=== PATIENT | female | born 1955 | race Caucasian/White ===

== ENCOUNTER → 2016-10-22 | Outpatient (CLI) | payer OTHER, MEDICARE ==
--- NOTE | 2016-10-22 12:04 | CT ---
EXAMINATION TYPE: CT abdomen pelvis w con DATE OF EXAM: 10/22/2016 COMPARISON: 02/14/2015 HISTORY: 61-year-old female with Incisional hernia TECHNIQUE: Contiguous axial scanning of the abdomen and pelvis following administration of 100 ml Omn ipaque 300 IV contrast. Delayed images through the kidneys and coronal/sagittal reconstructions perf ormed. CT DLP: 436.50 mGycm Automated exposure control for dose reduction was used. FINDINGS: The heart is normal size without pericardial effusion. Lung bases clear without pleural effusion. No focal liver lesion or biliary ductal dilatation. Portal venous system is patent. Gallbladder, adrenal glands, kidneys, spleen, and pancreas show no gross abnormal body. Moderate atherosclerotic calcifications within the abdominal aorta and iliac arteries. No dilated small bowel, free fluid, or free air. No mesenteric or retroperitoneal lymphadenopathy seen. Oral contrast has progressed to the upper ascending colon. There is moderate stool and a left lower q uadrant sigmoid colostomy. There is some herniated mesenteric fat at the abdominal incision and some redundancy of the sigmoid just prior to the ostomy. Overall herniation measures 6.5 cm wide and appea rs relatively similar to 02/14/2015. There is a Donovan's pouch with collapsed bladder. No abnormal fluid collection identified in the pel vis though there is limitation in assessment due to extensive artifact from the patient's right total hip arthroplasty. There is some rectus diastases along the lower abdomen/anterior pelvis with some anterior bulging of the linea alba separation of the rectus abdominis by 4.4 cm, refer to axial image 61. This appearance is also similar to 2015. Bones: Degenerative changes at the left hip. No osseous destructive process. IMPRESSION: 1. STATUS POST LEFT LOWER QUADRANT SIGMOID COLOSTOMY. THERE IS A 6.5 CM WIDE PARASTOMAL HERNIA CONTAI KEILY MESENTERIC FAT AND VESSELS SIMILAR TO 2015. 2. MILD LOWER ABDOMINAL RECTUS DIASTASES BY 4.4 CM IN ANTERIOR BULGING OF THE LINEA ALBA ALSO SIMILAR TO 2015.
== END | disposition home or self-care (01) ==
LOC: RADCTMAIN 09:22
PROVIDERS: ATTEND Surgery
DX: K43.5 Parastomal hernia without obstruction or gangrene (principal); M62.08 Separation of muscle (nontraumatic), other site; Z98.890 Other specified postprocedural states
CPT/HCPCS: 74177; Q9967

== ENCOUNTER 2016-10-31 07:31 | Day surgery (SDC) | payer OTHER, MEDICARE ==
[2016-10-29 14:47] VITALS: BMI 24.5
[~2016-10-31 07:31] MED LIST: LACTATED RINGERS 1,000 ML IV SCH; LIDOCAINE 1% 20 ML VIAL (10MG/ML) FOR IV START INTRADERMA PRN
[2016-10-31 08:00] VITALS: RESP 18; TEMP 97.9
[2016-10-31] MEDS ORDERED: LIDOCAINE 1% INJ 10MG/ML (20 ML MDV) ONE (08:10)
[2016-10-31] MEDS ORDERED: PROPOFOL 10 MG/ML 20 ML VIAL IV ONE (08:10)
[2016-10-31 08:17] LABS: Glucose,Whole Blood 103 mg/dL (75-99)
--- NOTE | 2016-10-31 08:38 | P.OP ---
Date of Procedure: 10/31/16 Preoperative Diagnosis: History of sigmoid colectomy Postoperative Diagnosis: Normal colon IMpacted rhoades's pouch Procedure(s) Performed: Colonoscopy Implants: Anesthesia: MOY Surgeon: Juliet Ko Pathology: none sent Indications for Procedure: Operative Findings: Stump measured 15 cm from verge, limited by impacted mucous Normal colon Description of Procedure: This 59-year-old female was previously had a sigmoid colectomy. She is here for evaluation for possible reversal. She's not had a screening colonoscopy in the recent past for which she presented at this time. Informed THE PATIENT IN THE ENDOSCOPY SUITE AFTER APPROPRIATE TIMEOUT PATIENT WAS PLACED IN LEFT LATERAL DECUBITUS POSITION GIVEN IV SEDATION. DIGITAL EXAMINATION WAS PERFORMED AND IN SPITE OF EFFORTS AND IMPACTED MUCOUS WAS NOT REMOVED. THE [employer] COLONOSCOPE WAS ADVANCED UP TO 15 CM we advance any further. Stump is probably between 10-15 cm in length from the anal verge. The patient is an wasn't changed to supine and opening up the ostomy going through the ostomy bag and the colostomy site itself was advanced all the way up to the cecum. Position was obtained. Prep was fair. Scope was withdrawn and all mucosal services were inspected in detail there were no diverticula or polyps or masses or vascular malformations. Patient procedure well though no complication scope was removed after desufflated. Recommendations patient has a relatively low rectal stump which will require low rectal anastomosis. Plan - Discharge Summary New Discharge Prescriptions: No Action valACYclovir [Valtrex] 500 mg PO BID PRN PRN Reason: genital herpes Simvastatin [Zocor] 20 mg PO HS rOPINIRole HCL [Requip] 0.25 mg PO HS Omeprazole [PriLOSEC] 20 mg PO DAILY Fluticasone Propionate [Flonase] 2 sprays EA NOSTRIL DAILY Ibuprofen [Motrin] 800 mg PO TID PRN PRN Reason: Pain Alendronate Sodium [Fosamax] 70 mg PO TU Cyclobenzaprine [Flexeril] 10 mg PO BID lamoTRIgine [LaMICtal] 25 mg PO HS #30 tab traZODone HCL [Desyrel] 50 mg PO HS #30 tab Acyclovir [Zovirax] 1 applic TOPICAL DIRECTED PRN PRN Reason: gential herpes Albuterol Nebulized [Ventolin Nebulized] 2.5 mg INHALATION TID PRN PRN Reason: sob Albuterol Sulfate [Proair Respiclick] 2 puff PO Q4HR PRN PRN Reason: sob ARIPiprazole [Abilify] 5 mg PO DAILY Cholecalciferol [Vitamin D3] 2,000 unit PO DAILY cycloSPORINE 0.05% OPHTH SOLN [Restasis] 2 drops BOTH EYES Q12H Dextrose Chew [Glucose Chew Tab] 4 gm PO DIRECTED PRN PRN Reason: Blood Sugar - Low Docusate [Colace] 100 mg PO BID PRN PRN Reason: Constipation DULoxetine HCL [Cymbalta] 60 mg PO BID HYDROcodone/APAP 5-325MG [[place] 5-325] 1 each PO BID PRN PRN Reason: Pain hydrOXYzine HCL 25 mg PO BID Hyoscyamine Sulfate [Levsin] 0.125 mg PO DAILY Ipratropium [place] [Atrovent Hfa] 2 puff INHALATION Q6HR PRN PRN Reason: sob Irbesartan 300 mg PO DAILY Lac-Hydren 5% 1 applicate TOPICAL BID PRN PRN Reason: pain,itching Loratadine [Claritin] 10 mg PO DAILY Meclizine [Antivert] 25 mg PO Q8HR PRN PRN Reason: dizziness Methyl Salicylate/Menthol [Salonpas Patch] 1 patch TOPICAL DAILY PRN PRN Reason: Pain Metoprolol Succinate (ER) [Toprol Xl] 50 mg PO HS Roflumilast [Daliresp] 500 mcg PO HS Triamcinolone 0.1% Cream [Kenalog] 1 applicatio TOPICAL BID PRN PRN Reason: skin breakdown Discharge Medication List Fluticasone Propionate [Flonase] 2 sprays EA NOSTRIL DAILY 01/25/14 [History] Omeprazole [PriLOSEC] 20 mg PO DAILY 01/25/14 [History] Simvastatin [Zocor] 20 mg PO HS 01/25/14 [History] rOPINIRole HCL [Requip] 0.25 mg PO HS 01/25/14 [History] valACYclovir [Valtrex] 500 mg PO BID PRN 01/25/14 [History] Alendronate Sodium [Fosamax] 70 mg PO TU 07/07/14 [History] Cyclobenzaprine [Flexeril] 10 mg PO BID 07/07/14 [History] Ibuprofen [Motrin] 800 mg PO TID PRN 07/07/14 [History] lamoTRIgine [LaMICtal] 25 mg PO HS #30 tab 07/15/14 [Rx] traZODone HCL [Desyrel] 50 mg PO HS #30 tab 07/15/14 [Rx] ARIPiprazole [Abilify] 5 mg PO DAILY 10/29/16 [History] Acyclovir [Zovirax] 1 applic TOPICAL DIRECTED PRN 10/29/16 [History] Albuterol Nebulized [Ventolin Nebulized] 2.5 mg INHALATION TID PRN 10/29/16 [ History] Albuterol Sulfate [Proair Respiclick] 2 puff PO Q4HR PRN 10/29/16 [History] Cholecalciferol [Vitamin D3] 2,000 unit PO DAILY 10/29/16 [History] DULoxetine HCL [Cymbalta] 60 mg PO BID 10/29/16 [History] Dextrose Chew [Glucose Chew Tab] 4 gm PO DIRECTED PRN 10/29/16 [History] Docusate [Colace] 100 mg PO BID PRN 10/29/16 [History] HYDROcodone/APAP 5-325MG [[place] 5-325] 1 each PO BID PRN 10/29/16 [History] Hyoscyamine Sulfate [Levsin] 0.125 mg PO DAILY 10/29/16 [History] Ipratropium Bentley [Atrovent Hfa] 2 puff INHALATION Q6HR PRN 10/29/16 [History] Irbesartan 300 mg PO DAILY 10/29/16 [History] Lac-Hydren 5% 1 applicate TOPICAL BID PRN 10/29/16 [History] Loratadine [Claritin] 10 mg PO DAILY 10/29/16 [History] Meclizine [Antivert] 25 mg PO Q8HR PRN 10/29/16 [History] Methyl Salicylate/Menthol [Salonpas Patch] 1 patch TOPICAL DAILY PRN 10/29/16 [ History] Metoprolol Succinate (ER) [Toprol Xl] 50 mg PO HS 10/29/16 [History] Roflumilast [Daliresp] 500 mcg PO HS 10/29/16 [History] Triamcinolone 0.1% Cream [Kenalog] 1 applicatio TOPICAL BID PRN 10/29/16 [ History] cycloSPORINE 0.05% OPHTH SOLN [Restasis] 2 drops BOTH EYES Q12H 10/29/16 [ History] hydrOXYzine HCL 25 mg PO BID 10/29/16 [History]
[2016-10-31 09:09] VITALS: BP 137/73; PULSE 80
== END 2016-10-31 09:27 | disposition home or self-care (01) ==
LOC: ORWHC2ENDO 07:31
PROVIDERS: ATTEND Surgery
DX: K56.49 Other impaction of intestine (principal); Z93.3 Colostomy status; I10 Essential (primary) hypertension; E78.5 Hyperlipidemia, unspecified; F17.200 Nicotine dependence, unspecified, uncomplicated; B58.9 Toxoplasmosis, unspecified; F32.9 Major depressive disorder, single episode, unspecified; F41.1 Generalized anxiety disorder; G25.81 Restless legs syndrome; G89.4 Chronic pain syndrome; J44.9 Chronic obstructive pulmonary disease, unspecified; K58.9 Irritable bowel syndrome, unspecified; K21.9 Gastro-esophageal reflux disease without esophagitis; Z79.891 Long term (current) use of opiate analgesic; Z79.51 Long term (current) use of inhaled steroids; Z79.899 Other long term (current) drug therapy; Z88.5 Allergy status to narcotic agent; Z88.0 Allergy status to penicillin
CPT/HCPCS: 44388; J2001; J2704; 45378

== ENCOUNTER → 2016-11-29 | Outpatient (CLI) | payer MEDICARE, OTHER ==
--- NOTE | 2016-11-29 09:55 | CT ---
CT CHEST FOR PULMONARY EMBOLISM. EXAMINATION TYPE: CT angio chest DATE OF EXAM: 11/29/2016 INDICATION: back pain, SOB CT DLP: 198.7 mGycm, Automated exposure control for dose reduction was used. CONTRAST: Patient injected with 65 mL of Omnipaque 350. COMPARISON: NONE TECHNIQUE: CT of the chest is performed on a spiral scan at 2 mm thick sections. Study is performed with intravenous contrast timed for evaluation for pulmonary embolism. This will limit additional po rtions of the evaluation. 3-D MIP images reconstructed by the technologist are reviewed on the compu ter in the coronal and sagittal planes. FINDINGS: No persistent filling defects are evident to suggest an acute pulmonary embolism. No mediastinal or hilar adenopathy enlarged by CT criteria is evident. The ascending aorta diameter at the level of the main pulmonary artery is 3.4 cm. The main pulmonary artery diameter at the bifur cation is 2.9 cm. Vascular calcification is within the descending thoracic aorta. There is a calcified granuloma measuring 0.5 cm posterior right midlung. Series 5 image 65. Emphysema tous changes are evident. Some mild peribronchial thickening may be present centrally. Limited CT section through the upper abdomen are unremarkable. IMPRESSIONS: 1. No acute pulmonary embolism.
== END | disposition home or self-care (01) ==
LOC: RADCTMAIN 08:59
PROVIDERS: ATTEND Family Medicine
DX: R06.02 Shortness of breath (principal)
CPT/HCPCS: 71275; Q9967

== ENCOUNTER → 2017-04-24 | Outpatient (CLI) | payer OTHER, MEDICARE ==
[2017-04-24 11:36] LABS: Blood Urea Nitrogen 13 mg/dL (7-17)
--- NOTE | 2017-04-24 13:56 | MR ---
EXAMINATION TYPE: MR weiner wo/w con DATE OF EXAM: 04/24/2017 COMPARISON: NONE HISTORY: Cervicalgia, Pain in thoracic spine TECHNIQUE: T1 sagittal and coronal, T2 sagittal, and gradient echo axial views of the cervical spine are submitted. Contrast: 6.5 mL Gadavist FINDINGS: The cranial cervical junction is preserved. There is no abnormal signal seen within the sp inal cord or paraspinal soft tissues. At C2-3 there is degenerative disc disease with posterior disc protrusion capped by spur resulting in severe compression of the thecal sac and canal stenosis. Severe bilateral foraminal encroachment gre ater on the left with facet arthropathy. Could not exclude early spinal cord abnormal signal alterati on. At C3-4 there is severe degenerative disc disease with facet arthropathy and uncovertebral joint hype rtrophy. Posterior spondylosis results in moderate compression of the thecal sac and borderline canal stenosis. There is moderate to severe right foraminal encroachment and moderate left foraminal encro achment. At C4-5 there is generative disc disease with posterior spondylosis, facet arthropathy and and uncove rtebral joint hypertrophy result in borderline to mild canal stenosis and moderate to severe bilatera l foraminal encroachment. At C5-6 there is degenerative disc disease with diffuse disc bulging and posterior spondylosis. Facet arthropathy and uncovertebral joint hypertrophy noted greater on the left resulting in moderate left foraminal encroachment and mild right foraminal encroachment. At C6-7 there is right paracentral disc protrusion or small herniation with mild effacement of thecal sac. No spinal cord contact. Neural foramina patent. At C7-T1 there is no disc herniation or canal stenosis. No foraminal encroachment. IMPRESSION: 1. Severe canal stenosis C2-C3 due to posterior disc protrusion capped by spur and cervical spondylo sis with bilateral foraminal encroachment. Abnormal signal within the spinal cord cannot be excluded due to the severe compression. 2. Multilevel degenerative disc disease, facet arthropathy and uncovertebral joint hypertrophy result in multilevel canal stenosis and foraminal encroachment as discussed above. 3. Right paracentral disc protrusion or small herniation C6-C7 with effacement of thecal sac but no s estrella cord contact. Neural foramina remain patent. EXAMINATION TYPE: MR keane wo/w con DATE OF EXAM: 04/24/2017 COMPARISON: NONE HISTORY: Cervicalgia, Pain in thoracic spine CONTRAST: Standard multiplanar, multisequence MRI departmental protocol utilizing 6.5 mL intravenous Gadavist g adolinium contrast. FINDINGS: There is multilevel degenerative disc disease with moderate to severe changes involving the mid and l ower thoracic spine. There is a chronic appearing severe anterior wedge fracture of C7. At C7-T1 no disc herniation or canal stenosis. Neural foramina patent. At T1-T2 minimal right paracentral disc bulging no Canal stenosis or foraminal encroachment. At T2-T3 no disc herniation or canal stenosis. No foraminal encroachment. At T3-T4 is mild circumferential disc bulging but no canal stenosis or foraminal encroachment. At T4-T5 no disc herniation, canal stenosis, or foraminal encroachment At T5-T6 is no disc herniation or canal stenosis. No foraminal encroachment. At T6-T7 there is left paracentral disc bulging. Severe anterior wedge fracture of T7 noted. No Canal stenosis. Neural foramina patent. T7-T8 there is right paracentral disc bulging and severe chronic appearing anterior wedge fracture of T7. No Canal stenosis. Neural foramina patent. At T8-T9 there is left paracentral disc bulging. No canal stenosis or foraminal encroachment. At T9-T10 no disc herniation or canal stenosis. No foraminal encroachment. At T10-T11 there is no disc herniation or canal stenosis. No foraminal encroachment. At T11-T12 no disc herniation or canal stenosis. No foraminal encroachment. There are multilevel Schmorl's nodes. No abnormal signal seen in the visualized spinal cord. Following contrast administration there is no significant alteration in signal characteristics within the compression fracture compatible with chronic T7 compression wedge fracture anteriorly. IMPRESSION: 1. Chronic anterior severe wedge fracture T7 with minimal retropulsion. Disc bulging at T6-T7 and T7- T8 are seen with mild effacement of thecal sac but no canal stenosis or foraminal encroachment. 2. Multilevel moderate to severe degenerative disc disease with most marked findings involving the mi d thoracic level. 3. Multilevel disc bulging but no canal stenosis or foraminal encroachment.
== END | disposition home or self-care (01) ==
LOC: RADMRIMAIN 10:52
PROVIDERS: ATTEND Physical Medicine & Rehabilitation
DX: M48.02 Spinal stenosis, cervical region (principal); M50.21 Other cervical disc displacement, high cervical region; M50.31 Other cervical disc degeneration, high cervical region; M47.812 Spondylosis without myelopathy or radiculopathy, cervical region; M46.92 Unspecified inflammatory spondylopathy, cervical region; M51.24 Other intervertebral disc displacement, thoracic region; M51.34 Other intervertebral disc degeneration, thoracic region
CPT/HCPCS: 82565; 84520; 72156; 72157; 36415; A9581

== ENCOUNTER → 2017-06-07 | Outpatient (CLI) | payer OTHER, MEDICARE ==
--- NOTE | 2017-06-08 19:55 | MR ---
EXAMINATION TYPE: MR pelvis wo con DATE OF EXAM: 06/07/2017 COMPARISON: NONE HISTORY: Bilateral hip pain Multiplanar, multisequence images of the pelvis were acquired per standard department protocol. FINDINGS: There is a right femoral arthroplasty creating susceptibility artifact in obscuring visuali zation of the right hemipelvis. There is mild atrophy of the peripheral gluteus gilson and gluteus m edius on the right. Otherwise muscle volume is unremarkable. There is a small left hip joint effusion. There is labral degeneration. Discrete tear is identified a lthough would be better evaluated with small [id number] MR hip images. Moderate degenerative black e of the femoral acetabular joint are demonstrated as acetabular and femoral subchondral cysts and sm all marginal osteophytes as well as cephalad joint space narrowing with slight bone marrow edema of t he acetabular roof. A focal linear area of T2 and T1 hypointensity is centered at the area of acetabu lar bone marrow edema seen on PD coronal fat-sat image 12 and T1 coronal nonfat sat image 12 concerni ng for fracture. No femoral bone marrow edema or fracture line is identified. Sacroiliac joints appear symmetric without widening. Mild multilevel degenerative change of the lumbo sacral spine is noted. Small amount of free fluid is seen within the pelvis. Left lower quadrant osto my is partially visualized. IMPRESSION: 1. Focal area of bone marrow edema of the medial acetabular wall with linear T1/T2 hypointense signal concerning for small nondisplaced fracture. This could be further evaluated with CT. 2. Moderate left hip arthropathy and small left hip effusion with labral degeneration. 3. Right hip arthroplasty and minimal right gluteus minimus and gilson peripheral atrophy.
== END | disposition home or self-care (01) ==
LOC: RADMRIMAIN 12:39
PROVIDERS: ATTEND Orthopaedic Surgery
DX: M25.452 Effusion, left hip (principal); M62.58 Muscle wasting and atrophy, not elsewhere classified, other site; Z96.643 Presence of artificial hip joint, bilateral
CPT/HCPCS: 72195

== ENCOUNTER → 2017-09-06 | Outpatient (CLI) | payer OTHER, MEDICARE ==
--- NOTE | 2017-09-06 15:38 | XR ---
EXAMINATION TYPE: XR KUB DATE OF EXAM: 09/06/2017 2:39 PM CLINICAL HISTORY: Constipation left flank pain for one week TECHNIQUE: Single supine KUB image of the abdomen is obtained. COMPARISON: None. FINDINGS: Moderate amount retained left hemicolonic stool is seen in a nondilated colon. Stool is als o noted within the low pelvis. Paucity of bowel gas in the right upper quadrant is present. No dilate d large or small bowel loops. Right femoral arthroplasty is seen with moderate degenerative changes o f the left femoral acetabular joint and mild S-shaped scoliosis. IMPRESSION: Moderate amount retained descending colonic and distal sigmoid stool in nondilated bowel. Overall nonobstructive bowel gas pattern.
== END | disposition home or self-care (01) ==
LOC: RADXRMAIN 14:12
PROVIDERS: ATTEND Family Medicine
DX: K59.00 Constipation, unspecified (principal); R10.9 Unspecified abdominal pain
CPT/HCPCS: 74018

== ENCOUNTER → 2018-01-20 | Outpatient (CLI) | payer OTHER, MEDICARE ==
[2018-01-20 16:24] LABS: Potassium 4.8 mmol/L (3.5-5.1)
== END | disposition home or self-care (01) ==
LOC: LABWHC1 14:43
PROVIDERS: ATTEND Orthopaedic Surgery
DX: Z01.812 Encounter for preprocedural laboratory examination (principal); E87.1 Hypo-osmolality and hyponatremia
CPT/HCPCS: 36415; 80051; 86850; 86900; 86901; 87070

== ENCOUNTER → 2018-02-13 | Outpatient (CLI) | payer OTHER, MEDICARE ==
[2018-02-13 18:42] LABS: Anion Gap 6.5 mmol/L (4.00-12.00); Calcium 9.2 mg/dL (8.7-10.3); Carbon Dioxide 25.5 mmol/L (21.6-31.8); Potassium 4.4 mmol/L (3.5-5.5); Uric Acid 2.9 mg/dL (2.9-7.7)
== END | disposition home or self-care (01) ==
LOC: LABWHC1 14:25
PROVIDERS: ATTEND Family Medicine
DX: E87.1 Hypo-osmolality and hyponatremia (principal)
CPT/HCPCS: 36415; 80048; 84550

== ENCOUNTER → 2018-03-02 | Outpatient (CLI) | payer OTHER, MEDICARE ==
[2018-03-02 11:24] LABS: T4, Free (Free Thyroxine) 1.04 ng/dL (0.78-2.19)
== END ==
LOC: LABWHC1 10:04
PROVIDERS: ATTEND Internal Medicine Endocrinology, Diabetes & Metabolism
DX: E87.1 Hypo-osmolality and hyponatremia (principal)
CPT/HCPCS: 36415; 82024; 82533; 84439; 84443

== ENCOUNTER → 2018-04-04 | Outpatient (CLI) | payer OTHER, MEDICARE ==
[2018-04-04 23:14] LABS: Albumin 4.3 g/dL (3.80-4.90); Albumin/Globulin Ratio 2.39 (1.20-2.10); Anion Gap 7.7 mmol/L (4.00-12.00); Calcium 8.9 mg/dL (8.7-10.3); Carbon Dioxide 26.3 mmol/L (21.6-31.8); Globulin 1.8 g/dL (1.6-3.3); Potassium 4.5 mmol/L (3.5-5.5); Total Bilirubin 0.4 mg/dL (0.3-1.2); Total Protein 6.1 g/dL (6.2-8.2)
[2018-04-04 23:18] LABS: T4, Free (Free Thyroxine) 1.2 ng/dL (0.80-1.80)
[2018-04-06 08:52] LABS: ACTH <5.00 pg/mL (0.00-45.99)
== END | disposition home or self-care (01) ==
LOC: LABWHC1 11:27
PROVIDERS: ATTEND Internal Medicine Endocrinology, Diabetes & Metabolism
DX: E87.1 Hypo-osmolality and hyponatremia (principal)
CPT/HCPCS: 36415; 80053; 82024; 83930; 83935; 84146; 84300; 84439; 84443

== ENCOUNTER → 2018-05-07 | Outpatient (CLI) | payer OTHER, MEDICARE ==
--- NOTE | 2018-05-08 07:15 | XR ---
EXAMINATION TYPE: XR chest 2V DATE OF EXAM: 05/07/2018 COMPARISON: 07/07/2014 HISTORY: Shortness of breath TECHNIQUE: Frontal and lateral views of the chest are obtained. FINDINGS: Scattered senescent parenchymal changes noted. Hyperinflation compatible with COPD. No evidence for infiltrate. No evidence for atelectasis. Heart size is stable. Mediastinal structures are stable and grossly unremarkable. No evidence for hilar prominence. Degenerative changes dorsal spine. IMPRESSION: 1. No evidence for acute pulmonary disease.
== END | disposition home or self-care (01) ==
LOC: RADXRMAIN 16:50
PROVIDERS: ATTEND Family Medicine
DX: R09.89 Other specified symptoms and signs involving the circulatory and respiratory systems (principal)
CPT/HCPCS: 71046

== ENCOUNTER 2019-06-24 13:46 | Observation (INO) | payer MEDICARE, OTHER ==
[2019-06-24] MEDS ORDERED: ASPIRIN 81 MG PO STA (14:34)
[2019-06-24] MEDS ORDERED: NITROGLYCERIN OINT 1 INCH/GM PACKET TOPICAL STA (14:35)
[2019-06-24] MEDS ORDERED: IPRATROPIUM-ALBUTEROL 3 ML NEB INHALATION STA (14:50)
--- NOTE | 2019-06-24 14:54 | ED ---
General Adult HPI - General Chief complaint: Chest Pain Stated complaint: Abn EKG Time Seen by Provider: 06/24/19 14:29 Source: patient Mode of arrival: wheelchair Limitations: no limitations - History of Present Illness Initial comments: Patient is a pleasant 64-year-old female presenting to the emergency department with cough and difficulty breathing. Symptoms have been occurring for several weeks. Patient has been on antibiotics twice. Patient was recently admitted and discharged with pneumonia from [facility]. No fevers. Mami ent does have some mild chest discomfort that is a dull ache. Discomfort does improve with sitting up. Patient also has some back discomfort however that is only with cough. Patient does have chest congestion and mild cough. Cough is nonproductive. Patient has noticed some mild ankle swelling, no calf pain. She does have history of pericarditis. - Related Data Home Medications Medication Instructions Recorded Confirmed Fluticasone Propionate [Flonase] 2 sprays EA NOSTRIL DAILY 01/25/14 01/26/18 Simvastatin [Zocor] 20 mg PO HS 01/25/14 01/26/18 rOPINIRole HCL [Requip] 0.25 mg PO HS 01/25/14 01/26/18 valACYclovir [Valtrex] 500 mg PO BID PRN 01/25/14 01/26/18 Cyclobenzaprine [Flexeril] 10 mg PO BID 07/07/14 01/26/18 Ibuprofen [Motrin] 800 mg PO BID 07/07/14 01/26/18 ARIPiprazole [Abilify] 5 mg PO DAILY 10/29/16 01/26/18 Acyclovir [Zovirax] 1 applic TOPICAL DIRECTED PRN 10/29/16 01/26/18 Albuterol Nebulized [Ventolin 2.5 mg INHALATION TID PRN 10/29/16 01/26/18 Nebulized] Albuterol Sulfate [Proair 2 puff PO Q4HR PRN 10/29/16 01/26/18 Respiclick] Cholecalciferol [Vitamin D3] 1,000 unit PO DAILY 10/29/16 01/26/18 DULoxetine HCL [Cymbalta] 60 mg PO BID 10/29/16 01/26/18 Dextrose Chew [Glucose Chew Tab] 4 gm PO DIRECTED PRN 10/29/16 01/26/18 Docusate [Colace] 100 mg PO BID PRN 10/29/16 01/26/18 Irbesartan 300 mg PO DAILY 10/29/16 01/26/18 Lac-Hydren 5% 1 applicate TOPICAL BID PRN 10/29/16 01/26/18 Loratadine [Claritin] 10 mg PO DAILY 10/29/16 01/26/18 Meclizine [Antivert] 25 mg PO Q6H PRN 10/29/16 01/26/18 Methyl Salicylate/Menthol 1 patch TOPICAL DAILY PRN 10/29/16 01/26/18 [Salonpas Patch] Metoprolol Succinate (ER) [Toprol 50 mg PO HS 10/29/16 01/26/18 Xl] Triamcinolone 0.1% Cream [Kenalog 1 applicatio TOPICAL BID PRN 10/29/16 01/26/18 0.1% Cream] cycloSPORINE 0.05% OPHTH SOLN 2 drops BOTH EYES Q12H 10/29/16 01/26/18 [Restasis] Alendronate Sodium [Fosamax] 70 mg PO TU 01/20/18 01/26/18 HYDROcodone/APAP 7.5-325MG [Wagner 1 tab PO Q4-6H PRN 01/20/18 01/26/18 7.5-325] Hyoscyamine Sulfate [Levsin] 0.125 mg PO Q6H 01/20/18 01/26/18 Ipratropium Avant [Atrovent Hfa] 2 puff INHALATION QID PRN 01/20/18 01/26/18 Mirabegron [Myrbetriq] 50 mg PO DAILY 01/20/18 01/26/18 Naloxegol Oxalate [Movantik] 25 mg PO DAILY 01/20/18 01/26/18 Ranitidine HCl [Zantac] 150 mg PO BID 01/20/18 01/26/18 Roflumilast [Daliresp] 500 mcg PO DAILY 01/20/18 01/26/18 Umeclidinium Brm/Vilanterol Tr 1 puff INHALATION DAILY 01/20/18 01/26/18 [Anoro Ellipta 62.5-25 Mcg INH] hydrOXYzine PAMOATE [Vistaril] 25 mg PO BID 01/20/18 01/26/18 lamoTRIgine [LaMICtal] 2 tab PO HS 01/20/18 01/26/18 Previous Rx's Medication Instructions Recorded traZODone HCL [Desyrel] 50 mg PO HS #30 tab 07/15/14 Allergies Allergy/AdvReac Type Severity Reaction Status Date / Time meperidine HCl [From Demerol] Allergy Severe Swelling Verified 06/24/19 13:58 erythromycin base Allergy Abdominal Verified 06/24/19 13:58 Pain Penicillins Allergy Rash/Hives Verified 06/24/19 13:58 Review of Systems ROS Statement: Those systems with pertinent positive or pertinent negative responses have been documented in the HPI. ROS Other: All systems not noted in ROS Statement are negative. 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, restless legs, varicose veins, poor circulation, asthmatic bronchitis, hx prolapsed rectum, bruises on chetan arms, bruise left hand, stress incontinence, hx cervical cancer, hypoglycemia History of Any Multi-Drug Resistant Organisms: None Reported Past Surgical History: Bowel Resection, Hysterectomy, Joint Replacement, Tonsillectomy, Tubal Ligation Additional Past Surgical History / Comment(s): colostomy, rt hip replacement Past Anesthesia/Blood Transfusion Reactions: Previous Problems w/ Anesthesia, Postoperative Nausea & Vomiting (PONV) Additional Past Anesthesia/Blood Transfusion Reaction / Comment(s): BP "bottomed out" with colonoscopy Past Psychological History: Anxiety, Depression Smoking Status: Current every day smoker Past Alcohol Use History: Occasional Past Drug Use History: None Reported - Past Family History Mother Family Medical History: Cancer Additional Family Medical History / Comment(s): colon Father Family Medical History: Coronary Artery Disease (CAD) Additional Family Medical History / Comment(s): CABG Brother(s) Family Medical History: Coronary Artery Disease (CAD) Additional Family Medical History / Comment(s): CABG General Exam Limitations: no limitations General appearance: alert, in no apparent distress Head exam: Present: normocephalic Eye exam: Present: normal appearance, PERRL ENT exam: Present: normal oropharynx Neck exam: Present: normal inspection Respiratory exam: Present: wheezes Cardiovascular Exam: Present: regular rate, normal rhythm Expanded Peripheral pulses: 2+: Radial (R), Radial (L), Dorsalis Pedis (R), Dorsalis Pedis (L) GI/Abdominal exam: Present: soft. Absent: tenderness Extremities exam: Present: pedal edema (Trace bilateral). Absent: calf tenderness Back exam: Present: normal inspection Neurological exam: Present: alert Psychiatric exam: Present: normal affect, normal mood Skin exam: Present: normal color Course Vital Signs 06/24/19 06/24/19 06/24/19 13:58 15:00 15:30 Temperature 99.1 F Pulse Rate 97 87 90 Respiratory 18 20 Rate Blood Pressure 110/75 126/86 O2 Sat by Pulse 98 94 L Oximetry 06/24/19 15:42 Temperature Pulse Rate 98 Respiratory Rate Blood Pressure O2 Sat by Pulse Oximetry - Reevaluation(s) Reevaluation #1: 06/24/19 14:53 Patient has to previous EKGs with her that she states are from week ago with similar findings. 06/24/19 15:36 Case was earlier discussed with Dr. Irwin who agrees with echo and will consult. EKG Findings - EKG Comments: EKG Findings:: EKG reads rate at 190 however rate is probably closer to 85. IL 146. QRS 166. QT 162. QTC to 88. Normal axis. Nonspecific intraventricular block. Borderline septal Q waves. Appearance of ST elevation inferior and lateral. Medical Decision Making - Medical Decision Making Patient reevaluated and resting comfortably in bed. Case also discussed with Dr. Ordonez, who will admit covered for Dr. Stewart. Patient was earlier seen by Dr. kathy blanchard who will evaluate echo. - Lab Data Result diagrams: 06/24/19 14:50 06/24/19 14:50 Lab Results 06/24/19 06/24/19 06/24/19 Range/Units 14:50 14:50 14:50 WBC 14.6 H (3.8-10.6) k/uL RBC 3.84 (3.80-5.40) m/uL Hgb 13.0 (11.4-16.0) gm/dL Hct 39.4 (34.0-46.0) % MCV 102.7 H (80.0-100.0) fL MCH 33.9 (25.0-35.0) pg MCHC 33.0 (31.0-37.0) g/dL RDW 12.7 (11.5-15.5) % Plt Count 490 H (150-450) k/uL Neutrophils % 91 % Lymphocytes % 6 % Monocytes % 2 % Eosinophils % 1 % Basophils % 0 % Neutrophils # 13.3 H (1.3-7.7) k/uL Lymphocytes # 0.9 L (1.0-4.8) k/uL Monocytes # 0.2 (0-1.0) k/uL Eosinophils # 0.1 (0-0.7) k/uL Basophils # 0.0 (0-0.2) k/uL Macrocytosis Slight PT 9.3 (9.0-12.0) sec INR 0.9 (<1.2) APTT 21.3 L (22.0-30.0) sec D-Dimer 0.56 (<0.60) mg/L FEU Sodium 130 L (137-145) mmol/L Potassium 5.2 H (3.5-5.1) mmol/L Chloride 98 (98-107) mmol/L Carbon Dioxide 27 (22-30) mmol/L Anion Gap 5 mmol/L BUN 21 H (7-17) mg/dL Creatinine 0.59 (0.52-1.04) mg/dL Est GFR (CKD-EPI)AfAm >90 (>60 ml/min/1.73 sqM) Est GFR (CKD-EPI)NonAf >90 (>60 ml/min/1.73 sqM) Glucose 97 (74-99) mg/dL Calcium 9.2 (8.4-10.2) mg/dL Magnesium 2.0 (1.6-2.3) mg/dL Total Bilirubin 0.3 (0.2-1.3) mg/dL AST 25 (14-36) U/L ALT 23 (4-34) U/L Alkaline Phosphatase 49 (38-126) U/L Creatine Kinase 61 (30-135) U/L CK-MB (CK-2) (0.0-2.4) ng/mL Troponin I (0.000-0.034) ng/mL NT-Pro-B Natriuret Pep pg/mL Total Protein 6.2 L (6.3-8.2) g/dL Albumin 3.9 (3.5-5.0) g/dL 06/24/19 06/24/19 Range/Units 14:50 14:50 WBC (3.8-10.6) k/uL RBC (3.80-5.40) m/uL Hgb (11.4-16.0) gm/dL Hct (34.0-46.0) % MCV (80.0-100.0) fL MCH (25.0-35.0) pg MCHC (31.0-37.0) g/dL RDW (11.5-15.5) % Plt Count (150-450) k/uL Neutrophils % % Lymphocytes % % Monocytes % % Eosinophils % % Basophils % % Neutrophils # (1.3-7.7) k/uL Lymphocytes # (1.0-4.8) k/uL Monocytes # (0-1.0) k/uL Eosinophils # (0-0.7) k/uL Basophils # (0-0.2) k/uL Macrocytosis PT (9.0-12.0) sec INR (<1.2) APTT (22.0-30.0) sec D-Dimer (<0.60) mg/L FEU Sodium (137-145) mmol/L Potassium (3.5-5.1) mmol/L Chloride (98-107) mmol/L Carbon Dioxide (22-30) mmol/L Anion Gap mmol/L BUN (7-17) mg/dL Creatinine (0.52-1.04) mg/dL Est GFR (CKD-EPI)AfAm (>60 ml/min/1.73 sqM) Est GFR (CKD-EPI)NonAf (>60 ml/min/1.73 sqM) Glucose (74-99) mg/dL Calcium (8.4-10.2) mg/dL Magnesium (1.6-2.3) mg/dL Total Bilirubin (0.2-1.3) mg/dL AST (14-36) U/L ALT (4-34) U/L Alkaline Phosphatase (38-126) U/L Creatine Kinase (30-135) U/L CK-MB (CK-2) 1.5 (0.0-2.4) ng/mL Troponin I <0.012 (0.000-0.034) ng/mL NT-Pro-B Natriuret Pep 159 pg/mL Total Protein (6.3-8.2) g/dL Albumin (3.5-5.0) g/dL - Radiology Data Radiology results: image reviewed (Chest x-ray shows no acute process) Disposition Clinical Impression: Acute exacerbation of chronic obstructive airways disease, Chest pain Disposition: ADMITTED IP TO THIS HOSP Is patient prescribed a controlled substance at d/c from ED?: No Referrals: Jase Stewart DO [Primary Care Provider] - 1-2 days Decision Time: 16:20
[2019-06-24 15:17] LABS: Basophils % (A) 0 %; Eosinophils # (A) 0.1 k/uL (0-0.7); Eosinophils % (A) 1 %; HCT 39.4 % (34.0-46.0); Lymphocytes # (A) 0.9 k/uL (1.0-4.8); Lymphocytes % (A) 6 %; MCH 33.9 pg (25.0-35.0); MCV 102.7 fL (80.0-100.0); Macrocytosis Slight; Mean Platelet Volume 6.9; Monocytes # (A) 0.2 k/uL (0-1.0); Monocytes % (A) 2 %; Neutrophils # (A) 13.3 k/uL (1.3-7.7); Neutrophils % (A) 91 %; Platelet Count 490 k/uL (150-450); RBC 3.84 m/uL (3.80-5.40); RDW 12.7 % (11.5-15.5); WBC 14.6 k/uL (3.8-10.6)
--- NOTE | 2019-06-24 15:31 | XR ---
EXAMINATION TYPE: XR chest 2V DATE OF EXAM: 06/24/2019 COMPARISON: 05/07/2018 HISTORY: Chest pain TECHNIQUE: Frontal and lateral views of the chest are obtained. FINDINGS: There is no focal air space opacity, pleural effusion, or pneumothorax seen. Eventration o f the right hemidiaphragm is seen. The cardiac silhouette size is within normal limits. Exaggerated thoracic kyphosis and diffuse osseous demineralization with mid thoracic vertebral compression defor mity. Mild multilevel degenerative change of the spine. IMPRESSION: Chronic changes with no acute cardiopulmonary process.
[2019-06-24 15:33] LABS: ALT 23 U/L (4-34); AST 25 U/L (14-36); African American GFR (CKD) >90 (>60 ml/min/1.73 sqM); Albumin 3.9 g/dL (3.5-5.0); Alkaline Phosphatase 49 U/L (38-126); Anion Gap 5 mmol/L; Blood Urea Nitrogen 21 mg/dL (7-17); Calcium 9.2 mg/dL (8.4-10.2); Carbon Dioxide 27 mmol/L (22-30); Chloride 98 mmol/L (98-107); Creatine Kinase 61 U/L (30-135); Glucose 97 mg/dL (74-99); Non-African American GFR(CKD) >90 (>60 ml/min/1.73 sqM); Potassium 5.2 mmol/L (3.5-5.1); Sodium 130 mmol/L (137-145); Total Bilirubin 0.3 mg/dL (0.2-1.3); Total Protein 6.2 g/dL (6.3-8.2)
[2019-06-24 15:39] LABS: D-Dimer 0.56 mg/L FEU (<0.60); INR 0.9 (<1.2); Prothrombin Time 9.3 sec (9.0-12.0)
[2019-06-24 15:41] LABS: Partial Thromboplastin Time 21.3 sec (22.0-30.0)
[2019-06-24 15:55] LABS: Creatine Kinase MB 1.5 ng/mL (0.0-2.4); Troponin I <0.012 ng/mL (0.000-0.034)
[2019-06-24] MEDS ORDERED: NITROGLYCERIN SL TABS 0.4 MG TAB SUBLINGUAL PRN (16:28)
[2019-06-24] MEDS ORDERED: IPRATROPIUM-ALBUTEROL 3 ML NEB INHALATION PRN (16:28)
[2019-06-24] MEDS ORDERED: methylPREDNISolone SOD SUCCI 125 MG/2 ML VIAL IV STA (16:28)
[2019-06-24] MEDS ORDERED: MORPHINE SULFATE 4 MG/ML SYRINGE IV STA (16:33)
--- NOTE | 2019-06-24 17:36 | ECHOF ---
Referral Reason:cp, dyspnea, ekg changes MEASUREMENTS -------- HEIGHT: 157.5 cm WEIGHT: 73.9 kg BP: 126/86 RVIDd: 2.5 cm (< 3.3) IVSd: 1.2 cm (0.6 - 1.1) LVIDd: 2.7 cm (3.9 - 5.3) LVPWd: 1.5 cm (0.6 - 1.1) IVSs: 2.2 cm LVIDs: 1.6 cm LVPWs: 1.9 cm LAESV Index (A-L): 23.54 ml/m Ao Diam: 3.2 cm (2.0 - 3.7) AV Cusp: 1.9 cm (1.5 - 2.6) MV E Riaz: 0.87 m/s MV DecT: 144 ms MV A Riaz: 1.00 m/s MV E/A Ratio: 0.87 RAP: 5.00 mmHg RVSP: 30.10 mmHg FINDINGS -------- Sinus rhythm. This was a technically difficult study with suboptimal parasternal views. The left ventricular size is normal. There is mild concentric left ventricular hypertrophy. Overa ll left ventricular systolic function is normal with, an EF between 55 - 60 %. The diastolic fillin g pattern is normal for the age of the patient 15.23. The right ventricle is normal in size. Normal LA size by volume 22+/-6 ml/m2. The right atrial size is normal. Interatrial and interventricular septum intact. The aortic valve was not well visualized. There is no evidence of aortic regurgitation. There is no evidence of aortic stenosis. There is trace mitral regurgitation. Mild tricuspid regurgitation present. There is no evidence of pulmonary hypertension. The right v entricular systolic pressure, as measured by Doppler, is 30.10mmHg. There is no pulmonic regurgitation present. The aortic root size is normal. IVC Not well visulized. There is no pericardial effusion. CONCLUSIONS -------- 1. Sinus rhythm. 2. This was a technically difficult study with suboptimal parasternal views. 3. The left ventricular size is normal. 4. There is mild concentric left ventricular hypertrophy. 5. Overall left ventricular systolic function is normal with, an EF between 55 - 60 %. 6. The diastolic filling pattern is normal for the age of the patient 15.23 7. The right ventricle is normal in size. 8. Normal LA size by volume 22+/-6 ml/m2. 9. The right atrial size is normal. 10. Interatrial and interventricular septum intact. 11. The aortic valve was not well visualized. 12. There is no evidence of aortic regurgitation. 13. There is no evidence of aortic stenosis. 14. There is trace mitral regurgitation. 15. Mild tricuspid regurgitation present. 16. There is no evidence of pulmonary hypertension. 17. The right ventricular systolic pressure, as measured by Doppler, is 30.10mmHg. 18. There is no pulmonic regurgitation present. 19. The aortic root size is normal. 20. IVC Not well visulized. 21. There is no pericardial effusion. GIFT WRAPPER: Catrachita Boothe RDCS
[2019-06-24] MEDS: NITROGLYCERIN OINT 1 INCH/GM PACKET TOPICAL SCH (18:44)
[2019-06-24] MEDS: IPRATROPIUM-ALBUTEROL 3 ML NEB INHALATION SCH (19:20)
[2019-06-24] MEDS: HYDROcodone/APAP 7.5-325MG 1 EACH TAB PO PRN (22:06)
[2019-06-24] MEDS ORDERED: HYOSCYAMINE SULFATE 0.125 MG TAB PO PRN (22:21)
[2019-06-24] MEDS ORDERED: MENTHOL TOPICAL PRN (22:21)
[2019-06-24] MEDS ORDERED: MECLIZINE 25 MG TAB PO PRN (22:21)
[2019-06-24] MEDS ORDERED: valACYclovir 500 MG TAB PO PRN (22:21)
[2019-06-24] MEDS ORDERED: METHYL SALICYLATE TOPICAL PRN (22:21)
[2019-06-24] MEDS ORDERED: ALBUTEROL NEBULIZED 2.5 MG/3 ML INHALATION PRN (22:21)
[2019-06-24] MEDS ORDERED: [UNRECOGNIZED DRUG - OTHER] TOPICAL PRN (22:21)
[2019-06-24] MEDS ORDERED: hydrOXYzine HCL 25 MG TAB PO PRN (22:21)
[2019-06-24] MEDS ORDERED: CYCLOBENZAPRINE 10 MG TAB PO PRN (22:21)
[2019-06-24] MEDS ORDERED: ACYCLOVIR TOPICAL PRN (22:21)
[2019-06-24] MEDS ORDERED: DOCUSATE 100 MG CAP PO PRN (22:21)
[2019-06-24] MEDS ORDERED: HYDROCORTISONE 10 MG TAB PO SCH (22:30)
[2019-06-24] MEDS ORDERED: traZODone HCL 50 MG TAB PO SCH (22:30)
[2019-06-24] MEDS ORDERED: ATORVASTATIN 10 MG TAB PO SCH (22:30)
--- NOTE | 2019-06-24 23:20 | CONS ---
CONSULTATION Mrs. Rachel is a 64-year-old female with known history of chronic obstructive lung disease with chronic tobacco use, who was recently discharged from [facility] with pneumonia. She has been having chest discomfort, worse with deep breathing and coughing. The patient denies any prior knowledge of cardiac history. She was seen by Dr. Stewart and she had an EKG that showed ST segment changes that were noted in the past consistent with early repolarization changes. The patient is not active physically and she relates that to her arthritic pain. She denies any exertional chest pain. She has peripheral edema that was noted in the past. She denies any dizziness or palpitation. She has no clear PND or orthopnea. She denies any recent cardiac workup. Her coronary risk factors are remarkable for the history of chronic tobacco use although she is starting to use her Chantix with the hope in stopping. She has no history of diabetes. She has a history of hypertension. MEDICATIONS: Include Fosamax, Ventolin, Abilify, Flexeril, Cymbalta, Flonase, ( ), metoprolol succinate 50 mg daily, ( ), Lamictal, Requip. REVIEW OF SYSTEMS: RESPIRATORY SYSTEM: She has history of chronic obstructive lung disease and chronic cough. She has a history of recent lung infection and pneumonia. GI SYSTEM: No recent GI bleeding. No peptic ulcer disease. SYSTEM: No dysuria or hematuria. NERVOUS SYSTEM: No history of stroke or seizure. PHYSICAL EXAMINATION: 64-year-old female, appears older than stated age. Blood pressure 126/80 with a heart in the 80s. HEAD: Normocephalic. EYES: Sclerae anicteric. NECK: Good upstroke. No bruit. No jugular venous distention. Skin with ecchymosis noted. LUNGS: With decreased air exchange, no wheezes. HEART: Regular rhythm S1, S2. No S3. No rub or gallop appreciated. ABDOMEN: Soft, nontender. Positive bowel sounds. No megaly. EXTREMITIES: No edema. Intact pulses. LAB DATA: Lab data revealed hemoglobin of 13, white blood cell 14.6. BUN and creatinine of 21 and 0.59. Potassium 5.2. NT proBNP of 159. EKG revealed a sinus mechanism with early repolarization changes and poor R-wave progression. Compared to an old EKG there are no acute changes. Chest x-ray revealed chronic changes. IMPRESSION: 1. Chest discomfort atypical for ischemic heart disease, probably noncardiac. 2. Chronic obstructive lung disease with recent pulmonary infection. 3. Chronic tobacco use. 4. Hypertension. 5. Anxiety. RECOMMENDATION: From the cardiac standpoint, I will continue on the present treatment for pulmonary status. I will obtain an echocardiogram with Doppler to evaluate left ventricular systolic function. I do not see any evidence of active cardiac disease at this time. Depending on results of testing, further recommendation will be made. Thank you for this consult. We will follow with you. MMODL / IJN: [id number] /
[2019-06-25] MEDS ORDERED: ALBUTEROL NEBULIZED 2.5 MG/3 ML INHALATION SCH
[2019-06-25 00:46] VITALS: RESP 16
[2019-06-25] MEDS: methylPREDNISolone SOD SUCCI 125 MG/2 ML VIAL IV SCH ×3 (00:50→12:58)
[2019-06-25] MEDS: NITROGLYCERIN OINT 1 INCH/GM PACKET TOPICAL SCH ×4 (00:51→16:50)
[2019-06-25] MEDS: cycloSPORINE 0.05% OPHTH 0.4 ML DROPERETTE BOTH EYES SCH ×2 (00:51→08:49)
[2019-06-25 03:33] LABS: Cholesterol 209 mg/dL (<200); HDL Cholesterol 92 mg/dL (40-60); LDL Cholesterol,Calculated 103 mg/dL (0-99); Triglycerides 72 mg/dL (<150)
[2019-06-25] MEDS: HYDROcodone/APAP 7.5-325MG 1 EACH TAB PO PRN ×2 (05:03→13:26)
[2019-06-25] MEDS ORDERED: FORMOTEROL FUMARATE 20 MCG/2 ML NEBU INHALATION SCH (08:00)
[2019-06-25] MEDS ORDERED: BUDESONIDE 0.5 MG/2 ML NEBU INHALATION SCH (08:00)
[2019-06-25] MEDS: IPRATROPIUM-ALBUTEROL 3 ML NEB INHALATION SCH ×3 (08:55→16:54)
[2019-06-25] MEDS: IPRATROPIUM 0.5 MG/2.5 ML NEBU INHALATION SCH ×3 (08:59→16:55)
[2019-06-25] MEDS ORDERED: DULoxetine HCL 60 MG CAPSULE.DR PO SCH (09:00)
[2019-06-25] MEDS ORDERED: Roflumilast [Daliresp] 500 MCG PO SCH (09:00)
[2019-06-25] MEDS ORDERED: LORATADINE 10 MG TAB PO SCH (09:00)
[2019-06-25] MEDS ORDERED: FLUTICASONE 50MCG/SPRAY NASAL 16GM EA NOSTRIL SCH (09:00)
[2019-06-25] MEDS ORDERED: METOPROLOL SUCCINATE (ER) 25 MG TAB.ER.24H PO SCH (09:00)
[2019-06-25] MEDS ORDERED: FERROUS SULFATE 142 MG PO SCH (09:00)
[2019-06-25] MEDS ORDERED: CHOLECALCIFEROL 1,000 UNIT TAB PO SCH (09:00)
[2019-06-25] MEDS ORDERED: PANTOPRAZOLE 40 MG TABLET PO SCH (09:00)
[2019-06-25] MEDS ORDERED: NON FORMULARY DRUG (Omeprazole [Omeprazole] 20 MG) PO SCH (09:00)
[2019-06-25] MEDS ORDERED: ASPIRIN 325 MG TAB PO SCH (09:00)
[2019-06-25] MEDS ORDERED: ARIPiprazole 10 MG TAB PO SCH (09:00)
[2019-06-25] MEDS ORDERED: POLYETHYLENE GLYCOL 3350 17 GM POWD.PACK PO SCH (09:00)
[2019-06-25] MEDS ORDERED: VARENICLINE 0.5 MG TAB PO SCH (10:00)
[2019-06-25 13:42] VITALS: TEMP 98.3
--- NOTE | 2019-06-25 16:11 | P.PN ---
Subjective Progress Note Date: 06/25/19 This is a pleasant 64-year-old female with a known history of COPD with chronic tobacco use who was recently discharged from [facility] with pneumonia. She been having chest discomfort that is worse with deep breathing and coughing. She has no prior knowledge of cardiac history. She was seen by Dr. Stewart in the office in about an EKG that showed some ST segment changes consistent with early repolarization changes. On examination, patient is resting completely embedded. Overall she feels well. She's had no further complaints of chest discomfort. She's had no exertional chest pain. She's has peripheral edema that has been noted in the past. She has no complaint of dizziness or palpitations, no orthopnea and no PND. Echocardiogram with Doppler study was done which revealed normal LV systolic function with an ejection fraction between 55-60%, trace MR and mild TR with no evidence of pulmonary hypertension. Troponins were negative 3. Objective - Vital Signs Vital signs: Vital Signs Temp 98.3 F 06/25/19 12:00 Pulse 92 06/25/19 12:18 Resp 16 06/25/19 12:00 BP 128/79 06/25/19 12:00 Pulse Ox 97 06/25/19 12:00 Intake & Output 06/24/19 06/25/19 06/25/19 18:59 06:59 18:59 Intake Total 450 Balance 450 Weight 73.936 kg 71.8 kg Intake: Oral 450 Other: Voiding Method Toilet Toilet # Voids 2 2 - Exam PHYSICAL EXAMINATION: HEENT: Head is atraumatic, normocephalic. Pupils equal, round. Neck is supple. There is no elevated jugular venous pressure. HEART EXAMINATION: Heart sounds regular, S1 and S2 normal. No murmur or gallop heard. CHEST EXAMINATION: Lungs reveal diminished air entry bilaterally. No chest wall tenderness is noted on palpation or with deep breathing. ABDOMEN: Soft, nontender. Bowel sounds are heard. No organomegaly noted. EXTREMITIES: 2+ peripheral pulses with no evidence of peripheral edema and no calf tenderness noted. NEUROLOGIC patient is awake, alert and oriented x3. . - Labs CBC & Chem 7: 06/24/19 14:50 06/24/19 14:50 Labs: Abnormal Lab Results - Last 24 Hours (Table) 06/25/19 Range/Units 02:36 Cholesterol 209 H (<200) mg/dL LDL Cholesterol, Calc 103 H (0-99) mg/dL HDL Cholesterol 92 H (40-60) mg/dL Assessment and Plan Assessment: #1 chest discomfort, atypical for ischemic heart disease, probably noncardiac #2 COPD with recent pulmonary infection #3 chronic tobacco use #4 hypertension #5 anxiety Plan: From cardiology perspective, echocardiogram with Doppler showed normal cardiac structure and function with minimal valvular abnormality. From our standpoint patient may be discharged home and follow-up as an outpatient. ETHYLBENZENE OXIDIZER note has been reviewed, I agree with a documented findings and plan of care. Patient was seen and examined.
--- NOTE | 2019-06-25 16:21 | P.HPIM ---
History of Present Illness H&P Date: 06/25/19 Chief Complaint: Cough sharp pain History of presenting complaint: This is a very pleasant 64-year-old patient of Dr. Madhuri Stewart. 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 Patient has continued to smoke for over 50 years. Still smoking 7-10 cigarettes a day. Patient was recently up to [facility]. Patient presented to some bouts of coughing and she gets a pain on the right per the chest especially with deep breaths or when she coughs. No fever or chills. Appetite is good. No chills. Also wheezing. Because of the sharp pain on the right side, does use also consulted. Review of systems: GEN.: None EYES: None HEENT: None NECK: None RESPIRATORY: As above CARDIOVASCULAR: No precordial pain GASTROINTESTINAL: None GENITOURINARY: None MUSCULOSKELETAL: [Joint pains LYMPHATICS: None HEMATOLOGICAL: None PSYCHIATRY: None NEUROLOGICAL: None Past medical history: COPD, GERD, hyperlipidemia, hypertension, osteoarthritis, colostomy, osteoporo sis, 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 Restless leg syndrome, varicose veins, prolapsed rectum, urinary stress incontinence, cervical cancer, adrenal insufficiency, anxiety depression Social history: Patient smoked for over 50 years. The down to less than half a pack a day for last few days. Alcohol occasionally. Does not medical marijuana. Has had a problem with alcohol in the past. Physical examination: VITAL SIGNS: 99.1, 97, 18, blood pressure 110/75, 98% on room air GENERAL: BMI 29, sitting up at the edge of bed a bit tired. EYES: Pupils equal. Conjunctiva normal. HEENT: External appearance of nose and ears normal, oral cavity grossly normal. NECK: JVD not raised; masses not palpable. HEART: First and second heart sounds are normal; no edema. LUNGS: Respiratory rate increased, decreased breaths on some prolonged expiration. ABDOMEN: Soft, nontender, liver spleen not palpable, no masses palpable. PSYCH: Alert and oriented x3; mood and affect normal. MUSCULAR skeletal: Evidence of OA especially in the hands NEUROLOGICAL: Cranial nerves grossly intact; no facial asymmetry, power and sensation grossly intact. LYMPHATICS: No lymph nodes palpable in the axilla and neck INVESTIGATIONS, reviewed in the clinical context: White count 14.6 hemoglobin 13 potassium 5.2 creatinine 0.59 Troponin I less than 0.0123 EKG tracing personally reviewed by me-sinus rhythm Checks x-ray film personally reviewed by me suggests chronic changes Assessment: -Acute COPD exacerbation and the patient was currently does smoke -Acute pleurisy likely from viral infection. Pain is present only with deep breaths or coughing. On the right side. -GERD -Hyperlipidemia -Essential hypertension -Primary osteoarthritis -Chronic urinary stress incontinence -Chronic adrenal insufficiency Plan: Collagen was consulted. Home medications. Patient's blood bronchodilators and steroids. Patient doing well with that overnight. Without bacterial infection was given a short course. Patient reaching to go home later today. Consult cardiology. Smoke cessation counseling: This was done with the patient. Nicotine patch is being given. More than 3 minutes was spent for this Past Medical History Past Medical History: Cancer, COPD, Eye Disorder, GERD/Reflux, Hyperlipidemia, Hypertension, Osteoarthritis (OA), Pneumonia Additional Past Medical History / Comment(s): colostomy, osteoporosis, histoplasmosis and toxoplasmosis, blind in left eye from histoplasmosis, restless legs, varicose veins, poor circulation, asthmatic bronchitis, hx prolapsed rectum, bruises on chetan arms, bruise left hand, stress incontinence, hx cervical cancer, hypoglycemia, adrenal insufficency History of Any Multi-Drug Resistant Organisms: None Reported Past Surgical History: Bowel Resection, Hysterectomy, Joint Replacement, Tonsillectomy, Tubal Ligation Additional Past Surgical History / Comment(s): colostomy, rt hip replacement Past Anesthesia/Blood Transfusion Reactions: Previous Problems w/ Anesthesia, Postoperative Nausea & Vomiting (PONV) Additional Past Anesthesia/Blood Transfusion Reaction / Comment(s): BP "bottomed out" with colonoscopy Past Psychological History: Anxiety, Depression Smoking Status: Current every day smoker Past Alcohol Use History: Occasional Additional Past Alcohol Use History / Comment(s): 1/2-1 PPD, has smoked since age 13 Past Drug Use History: None Reported Additional Drug Use History / Comment(s): medical marijuana - Past Family History Mother Family Medical History: Cancer Additional Family Medical History / Comment(s): colon Father Family Medical History: Coronary Artery Disease (CAD) Additional Family Medical History / Comment(s): CABG Brother(s) Family Medical History: Coronary Artery Disease (CAD) Additional Family Medical History / Comment(s): CABG Medications and Allergies Home Medications Medication Instructions Recorded Confirmed Type Fluticasone Propionate [Flonase] 2 sprays EA NOSTRIL DAILY 01/25/14 06/24/19 History Simvastatin [Zocor] 20 mg PO HS 01/25/14 06/24/19 History rOPINIRole HCL [Requip] 0.25 mg PO HS 01/25/14 06/24/19 History valACYclovir [Valtrex] 500 mg PO BID PRN 01/25/14 06/24/19 History Cyclobenzaprine [Flexeril] 10 mg PO BID PRN 07/07/14 06/24/19 History Acyclovir [Zovirax] 1 applic TOPICAL 5XD PRN 10/29/16 06/24/19 History Albuterol Nebulized [Ventolin 2.5 mg INHALATION RT-TID PRN 10/29/16 06/24/19 History Nebulized] Albuterol Sulfate [Proair 2 puff PO RT-Q4H 10/29/16 06/24/19 History Respiclick] Cholecalciferol [Vitamin D3] 3,000 unit PO DAILY 10/29/16 06/24/19 History DULoxetine HCL [Cymbalta] 60 mg PO BID 10/29/16 06/24/19 History Docusate [Colace] 200 mg PO DAILY PRN 10/29/16 06/24/19 History Lac-Hydren 5% 1 applicate TOPICAL DAILY PRN 10/29/16 06/24/19 History Loratadine [Claritin] 10 mg PO DAILY 10/29/16 06/24/19 History Meclizine [Antivert] 25 mg PO Q6H PRN 10/29/16 06/24/19 History Methyl Salicylate/Menthol 1 patch TOPICAL DAILY PRN 10/29/16 06/24/19 History [Salonpas Patch] cycloSPORINE 0.05% OPHTH SOLN 2 drops BOTH EYES Q12H 10/29/16 06/24/19 History [Restasis] Alendronate Sodium [Fosamax] 70 mg PO TU 01/20/18 06/24/19 History HYDROcodone/APAP 7.5-325MG [[place] 1 tab PO Q6H PRN 01/20/18 06/24/19 History 7.5-325] Hyoscyamine Sulfate [Levsin] 0.125 mg PO Q6H PRN 01/20/18 06/24/19 History Roflumilast [Daliresp] 500 mcg PO DAILY 01/20/18 06/24/19 History Umeclidinium Brm/Vilanterol Tr 1 puff INHALATION RT-DAILY 01/20/18 06/24/19 History [Anoro Ellipta 62.5-25 Mcg INH] ARIPiprazole [Abilify] 10 mg PO DAILY 06/24/19 06/24/19 History Budesonide [Pulmicort] 0.5 mg INHALATION RT-BID 06/24/19 06/24/19 History Ferrous Sulfate [Slow Fe] 142 mg PO DAILY 06/24/19 06/24/19 History Hydrocortisone 15 mg PO DIRECTED 06/24/19 06/24/19 History Metoprolol Succinate [Toprol XL] 25 mg PO DAILY 06/24/19 06/24/19 History Omeprazole 20 mg PO DAILY 06/24/19 06/24/19 History Pantoprazole [Protonix] 40 mg PO DAILY 06/24/19 06/24/19 History Polyethylene Glycol 3350 [Miralax] 17 gm PO DAILY 06/24/19 06/24/19 History Varenicline [Chantix Starter Pack] 0.5 mg PO DIRECTED 06/24/19 06/24/19 History hydrOXYzine HCL 25 mg PO TID PRN 06/24/19 06/24/19 History predniSONE See Taper PO DAILY 06/24/19 06/24/19 History traZODone HCL [Desyrel] 50 mg PO HS 06/24/19 06/24/19 History Allergies Allergy/AdvReac Type Severity Reaction Status Date / Time meperidine HCl [From Demerol] Allergy Severe Swelling Verified 06/24/19 19:10 erythromycin base Allergy Abdominal Verified 06/24/19 19:10 Pain Penicillins Allergy Rash/Hives Verified 06/24/19 19:10 Physical Exam Vitals: Vital Signs Temp Pulse Pulse Resp BP BP Pulse Ox 06/25/19 09:20 92 06/25/19 09:11 88 06/25/19 09:10 88 06/25/19 09:05 97.8 F 87 16 124/68 96 06/25/19 08:59 88 06/25/19 04:02 69 16 06/25/19 00:34 98.1 F 69 16 116/69 96 06/24/19 23:10 98.1 F 86 20 140/76 95 06/24/19 20:19 98.7 F 87 20 143/85 96 06/24/19 19:38 85 06/24/19 19:21 84 06/24/19 17:30 86 18 108/80 92 L 06/24/19 15:42 98 06/24/19 15:30 90 06/24/19 15:00 87 20 126/86 94 L 06/24/19 13:58 99.1 F 97 18 110/75 98 Intake and Output 06/24/19 06/25/19 06/25/19 22:59 06:59 14:59 Other: Voiding Method Toilet Toilet # Voids 2 Weight 71.8 kg Results CBC & Chem 7: 06/24/19 14:50 06/24/19 14:50 Labs: Abnormal Lab Results - Last 24 Hours (Table) 06/24/19 06/24/19 06/24/19 Range/Units 14:50 14:50 14:50 WBC 14.6 H (3.8-10.6) k/uL MCV 102.7 H (80.0-100.0) fL Plt Count 490 H (150-450) k/uL Neutrophils # 13.3 H (1.3-7.7) k/uL Lymphocytes # 0.9 L (1.0-4.8) k/uL APTT 21.3 L (22.0-30.0) sec Sodium 130 L (137-145) mmol/L Potassium 5.2 H (3.5-5.1) mmol/L BUN 21 H (7-17) mg/dL Total Protein 6.2 L (6.3-8.2) g/dL Cholesterol (<200) mg/dL LDL Cholesterol, Calc (0-99) mg/dL HDL Cholesterol (40-60) mg/dL 06/25/19 Range/Units 02:36 WBC (3.8-10.6) k/uL MCV (80.0-100.0) fL Plt Count (150-450) k/uL Neutrophils # (1.3-7.7) k/uL Lymphocytes # (1.0-4.8) k/uL APTT (22.0-30.0) sec Sodium (137-145) mmol/L Potassium (3.5-5.1) mmol/L BUN (7-17) mg/dL Total Protein (6.3-8.2) g/dL Cholesterol 209 H (<200) mg/dL LDL Cholesterol, Calc 103 H (0-99) mg/dL HDL Cholesterol 92 H (40-60) mg/dL Thrombosis Risk Factor Assmnt - Choose All That Apply Each Risk Factor Represents 2 Points: Age 61-74 years Thrombosis Risk Factor Assessment Total Risk Factor Score: 2 Thrombosis Risk Factor Assessment Level: Low Risk
[2019-06-25] MEDS ORDERED: predniSONE 20 MG TAB PO STA (16:27)
[2019-06-25 17:37] VITALS: BP 132/83; PULSE 83
--- NOTE | 2019-06-25 20:48 | P.CNPUL ---
History of Present Illness Consult date: 06/25/19 Reason for consult: dyspnea, cough, COPD Chief complaint: Chest pain or shortness of breath History of present illness: This is a 64-year-old female well-known to me he has end-stage lung disease also problems and complications associated with systemic histoplasmosis patient to has episode of chest pain she went to PMD's office where she was noted to have some ST segment changes sent to Hospital for further evaluation patient has been seen by cardiologists currently she is pain-free her echocardiogram reveals normal ejection fraction of 55-60% no pulmonary hypertension is present troponin 3 is normal patient the feeling is stable in terms of respirator point and is being considered for discharge will follow-up as outpatient Review of Systems All systems: negative Past Medical History Past Medical History: Cancer, COPD, Eye Disorder, GERD/Reflux, Hyperlipidemia, Hypertension, Osteoarthritis (OA), Pneumonia Additional Past Medical History / Comment(s): colostomy, osteoporosis, histoplasmosis and toxoplasmosis, blind in left eye from histoplasmosis, restless legs, varicose veins, poor circulation, asthmatic bronchitis, hx prolapsed rectum, bruises on chetan arms, bruise left hand, stress incontinence, hx cervical cancer, hypoglycemia, adrenal insufficency History of Any Multi-Drug Resistant Organisms: None Reported Past Surgical History: Bowel Resection, Hysterectomy, Joint Replacement, Tonsillectomy, Tubal Ligation Additional Past Surgical History / Comment(s): colostomy, rt hip replacement Past Anesthesia/Blood Transfusion Reactions: Previous Problems w/ Anesthesia, Postoperative Nausea & Vomiting (PONV) Additional Past Anesthesia/Blood Transfusion Reaction / Comment(s): BP "bottomed out" with colonoscopy Past Psychological History: Anxiety, Depression Smoking Status: Current every day smoker Past Alcohol Use History: Occasional Additional Past Alcohol Use History / Comment(s): 1/2-1 PPD, has smoked since age 13 Past Drug Use History: None Reported Additional Drug Use History / Comment(s): medical marijuana - Past Family History Mother Family Medical History: Cancer Additional Family Medical History / Comment(s): colon Father Family Medical History: Coronary Artery Disease (CAD) Additional Family Medical History / Comment(s): CABG Brother(s) Family Medical History: Coronary Artery Disease (CAD) Additional Family Medical History / Comment(s): CABG Medications and Allergies Home Medications Medication Instructions Recorded Confirmed Type Fluticasone Propionate [Flonase] 2 sprays EA NOSTRIL DAILY 01/25/14 06/24/19 History Simvastatin [Zocor] 20 mg PO HS 01/25/14 06/24/19 History rOPINIRole HCL [Requip] 0.25 mg PO HS 01/25/14 06/24/19 History valACYclovir [Valtrex] 500 mg PO BID PRN 01/25/14 06/24/19 History Cyclobenzaprine [Flexeril] 10 mg PO BID PRN 07/07/14 06/24/19 History Acyclovir [Zovirax] 1 applic TOPICAL 5XD PRN 10/29/16 06/24/19 History Albuterol Nebulized [Ventolin 2.5 mg INHALATION RT-TID PRN 10/29/16 06/24/19 History Nebulized] Albuterol Sulfate [Proair 2 puff PO RT-Q4H 10/29/16 06/24/19 History Respiclick] Cholecalciferol [Vitamin D3 (25 3,000 unit PO DAILY 10/29/16 06/24/19 History Mcg = 1000 Iu)] DULoxetine HCL [Cymbalta] 60 mg PO BID 10/29/16 06/24/19 History Lac-Hydren 5% 1 applicate TOPICAL DAILY PRN 10/29/16 06/24/19 History Loratadine [Claritin] 10 mg PO DAILY 10/29/16 06/24/19 History Meclizine [Antivert] 25 mg PO Q6H PRN 10/29/16 06/24/19 History Methyl Salicylate/Menthol 1 patch TOPICAL DAILY PRN 10/29/16 06/24/19 History [Salonpas Patch] cycloSPORINE 0.05% OPHTH SOLN 2 drops BOTH EYES Q12H 10/29/16 06/24/19 History [Restasis] Alendronate Sodium [Fosamax] 70 mg PO TU 01/20/18 06/24/19 History HYDROcodone/APAP 7.5-325MG [[place] 1 tab PO Q6H PRN 01/20/18 06/24/19 History 7.5-325] Hyoscyamine Sulfate [Levsin] 0.125 mg PO Q6H PRN 01/20/18 06/24/19 History Roflumilast [Daliresp] 500 mcg PO DAILY 01/20/18 06/24/19 History Umeclidinium Brm/Vilanterol Tr 1 puff INHALATION RT-DAILY 01/20/18 06/24/19 History [Anoro Ellipta 62.5-25 Mcg INH] ARIPiprazole [Abilify] 10 mg PO DAILY 06/24/19 06/24/19 History Budesonide [Pulmicort] 0.5 mg INHALATION RT-BID 06/24/19 06/24/19 History Ferrous Sulfate [Slow Fe] 142 mg PO DAILY 06/24/19 06/24/19 History Hydrocortisone 15 mg PO DIRECTED 06/24/19 06/24/19 History Metoprolol Succinate [Toprol XL] 25 mg PO DAILY 06/24/19 06/24/19 History Omeprazole 20 mg PO DAILY 06/24/19 06/24/19 History Pantoprazole [Protonix] 40 mg PO DAILY 06/24/19 06/24/19 History Polyethylene Glycol 3350 [Miralax] 17 gm PO DAILY 06/24/19 06/24/19 History Varenicline [Chantix Starter Pack] 0.5 mg PO DIRECTED 06/24/19 06/24/19 History hydrOXYzine HCL 25 mg PO TID PRN 06/24/19 06/24/19 History predniSONE See Taper PO DAILY 06/24/19 06/24/19 History traZODone HCL [Desyrel] 50 mg PO HS 06/24/19 06/24/19 History Doxycycline [Vibramycin] 100 mg PO BID 3 Days #6 capsule 06/25/19 Rx Ipratropium-Albuterol Nebulize 3 ml INHALATION TID #90 ml 06/25/19 Rx [Duoneb 0.5 mg-3 mg/3 ml Soln] predniSONE 10 mg PO DAILY #30 tab 06/25/19 Rx Allergies Allergy/AdvReac Type Severity Reaction Status Date / Time meperidine HCl [From Demerol] Allergy Severe Swelling Verified 06/24/19 19:10 erythromycin base Allergy Abdominal Verified 06/24/19 19:10 Pain Penicillins Allergy Rash/Hives Verified 06/24/19 19:10 Physical Exam Vitals: Vital Signs Temp Pulse Pulse Resp BP BP Pulse Ox 06/25/19 17:10 90 06/25/19 16:57 88 06/25/19 16:00 98.3 F 83 16 132/83 98 06/25/19 12:18 92 06/25/19 12:10 88 06/25/19 12:00 98.3 F 95 16 128/79 97 06/25/19 09:20 92 06/25/19 09:11 88 06/25/19 09:10 88 06/25/19 09:05 97.8 F 87 16 124/68 96 06/25/19 08:59 88 06/25/19 04:02 69 16 06/25/19 00:34 98.1 F 69 16 116/69 96 06/24/19 23:10 98.1 F 86 20 140/76 95 Intake and Output 06/25/19 06/25/19 06/25/19 06:59 14:59 22:59 Intake Total 450 Output Total 300 Balance 450 -300 Intake: Oral 450 Output: Urine 300 Other: Voiding Method Toilet Toilet Toilet # Voids 2 2 Weight 71.8 kg HEENT: Head is atraumatic, normocephalic. Pupils equal, round. Neck is supple. There is no elevated jugular venous pressure. HEART EXAMINATION: Heart sounds regular, S1 and S2 normal. No murmur or gallop heard. CHEST EXAMINATION: Lungs reveal diminished air entry bilaterally. No chest wall tenderness is noted on palpation or with deep breathing. ABDOMEN: Soft, nontender. Bowel sounds are heard. No organomegaly noted. EXTREMITIES: 2+ peripheral pulses with no evidence of peripheral edema and no calf tenderness noted. NEUROLOGIC patient is awake, alert and oriented x3. Results - Laboratory Findings CBC and BMP: 06/24/19 14:50 06/24/19 14:50 PT/INR, D-dimer PT 9.3 sec (9.0-12.0) 06/24/19 14:50 INR 0.9 (<1.2) 06/24/19 14:50 D-Dimer 0.56 mg/L FEU (<0.60) 06/24/19 14:50 Abnormal lab findings: Abnormal Labs 06/24/19 06/24/19 06/24/19 14:50 14:50 14:50 WBC 14.6 H MCV 102.7 H Plt Count 490 H Neutrophils # 13.3 H Lymphocytes # 0.9 L APTT 21.3 L Sodium 130 L Potassium 5.2 H BUN 21 H Total Protein 6.2 L Cholesterol LDL Cholesterol, Calc HDL Cholesterol 06/25/19 02:36 WBC MCV Plt Count Neutrophils # Lymphocytes # APTT Sodium Potassium BUN Total Protein Cholesterol 209 H LDL Cholesterol, Calc 103 H HDL Cholesterol 92 H - Diagnostic Findings Chest x-ray: report reviewed, image reviewed (Chronic changes are seen on x-ray without any acute new changes) Assessment and Plan Assessment: Atypical chest pain End-stage COPD Recent pneumonia Smoking and nicotine use Systemic histoplasmosis and secondary adrenal insufficiency Plan: Can resume after prednisone Medrol as she was taking before Continue bronchodilators Patient has been educated and consult about smoking cessation Agree with discharge planning follow-up in outpatient
[2019-06-29] MEDS ORDERED: Alendronate Sodium [Fosamax] 70 MG PO SCH (22:21)
--- NOTE | 2019-07-03 21:26 | P.DS ---
Providers Date of admission: 06/24/19 16:28 Expected date of discharge: 06/25/19 Attending physician: Mariano Ordonez Consults: 06/24/19 16:28 Consult Physician Urgent Consulting Provider: German Vera Consult Reason/Comments: dyspnea Do you want consulting provider notified?: Yes Consult Physician Urgent Consulting Provider: Ashlee Irwin Consult Reason/Comments: cp, ekg changes Do you want consulting provider notified?: Already Contacted Primary care physician: Jase Stewart [facility] Course: Chief Complaint: Cough sharp pain History of presenting complaint: This is a very pleasant 64-year-old patient of Dr. Madhuri Stewart. 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 Patient has continued to smoke for over 50 years. Still smoking 7-10 cigarettes a day. Patient was recently up to [facility]. Patient presented to some bouts of coughing and she gets a pain on the right per the chest especially with deep breaths or when she coughs. No fever or chills. Appetite is good. No chills. Also wheezing. Because of the sharp pain on the right side, does use also consulted. Seen by cardiac surgery. [place] to be noncardiac. Seen by Dr. Alex Vera from pulmonary. Okay to discharge and Medrol Dosepak. Consultation: Dr. Alex Vera from pulmonary Dr. Irwin from cardiology Physical examination: VITAL SIGNS: 98.3, 83, 16, blood pressure 132/83, 98% on room air GENERAL: Sitting up, comfortable EYES: Pupils equal. Conjunctiva normal. HEENT: External appearance of nose and ears normal, oral cavity grossly normal. NECK: JVD not raised; masses not palpable. HEART: First and second heart sounds are normal; no edema. LUNGS: Respiratory rate increased, decreased breaths on some prolonged expiration. ABDOMEN: Soft, nontender, liver spleen not palpable, no masses palpable. PSYCH: Alert and oriented x3; mood and affect normal. MUSCULAR skeletal: Evidence of OA especially in the hands INVESTIGATIONS, reviewed in the clinical context: White count 14.6 hemoglobin 13 potassium 5.2 creatinine 0.59 Troponin I less than 0.0123 EKG tracing personally reviewed by me-sinus rhythm Chest x-ray film personally reviewed by me suggests chronic changes 2-D echo-EF 55-60% Assessment: -Acute COPD exacerbation and the patient in a smoker -Acute pleurisy likely from viral infection. Pain is present only with deep breaths or coughing. On the right side. -GERD -Hyperlipidemia -Essential hypertension -Primary osteoarthritis -Chronic urinary stress incontinence -Chronic adrenal insufficiency Disposition: Home Patient Condition at Discharge: Stable Plan - Discharge Summary New Discharge Prescriptions: New Ipratropium-Albuterol Nebulize [Duoneb 0.5 mg-3 mg/3 ml Soln] 3 ml INHALATION TID #90 ml Doxycycline [Vibramycin] 100 mg PO BID 3 Days #6 capsule predniSONE 10 mg PO DAILY #30 tab Continue valACYclovir [Valtrex] 500 mg PO BID PRN PRN Reason: genital herpes Simvastatin [Zocor] 20 mg PO HS rOPINIRole HCL [Requip] 0.25 mg PO HS Fluticasone Propionate [Flonase] 2 sprays EA NOSTRIL DAILY Cyclobenzaprine [Flexeril] 10 mg PO BID PRN PRN Reason: Muscle Spasm Acyclovir [Zovirax] 1 applic TOPICAL 5XD PRN PRN Reason: gential herpes Albuterol Nebulized [Ventolin Nebulized] 2.5 mg INHALATION RT-TID PRN PRN Reason: Shortness Of Breath Albuterol Sulfate [Proair Respiclick] 2 puff PO RT-Q4H Cholecalciferol [Vitamin D3 (25 Mcg = 1000 Iu)] 3,000 unit PO DAILY cycloSPORINE 0.05% OPHTH SOLN [Restasis] 2 drops BOTH EYES Q12H DULoxetine HCL [Cymbalta] 60 mg PO BID Lac-Hydren 5% 1 applicate TOPICAL DAILY PRN PRN Reason: pain,itching Loratadine [Claritin] 10 mg PO DAILY Meclizine [Antivert] 25 mg PO Q6H PRN PRN Reason: dizziness Methyl Salicylate/Menthol [Salonpas Patch] 1 patch TOPICAL DAILY PRN PRN Reason: Pain Hyoscyamine Sulfate [Levsin] 0.125 mg PO Q6H PRN PRN Reason: IBS HYDROcodone/APAP 7.5-325MG [[place] 7.5-325] 1 tab PO Q6H PRN PRN Reason: Moderate Pain Roflumilast [Daliresp] 500 mcg PO DAILY Umeclidinium Brm/Vilanterol Tr [Anoro Ellipta 62.5-25 Mcg INH] 1 puff INHALATION RT-DAILY Alendronate Sodium [Fosamax] 70 mg PO TU ARIPiprazole [Abilify] 10 mg PO DAILY Budesonide [Pulmicort] 0.5 mg INHALATION RT-BID Ferrous Sulfate [Slow Fe] 142 mg PO DAILY Hydrocortisone 15 mg PO DIRECTED hydrOXYzine HCL 25 mg PO TID PRN PRN Reason: Anxiety Metoprolol Succinate [Toprol XL] 25 mg PO DAILY Omeprazole 20 mg PO DAILY Pantoprazole [Protonix] 40 mg PO DAILY Polyethylene Glycol 3350 [Miralax] 17 gm PO DAILY predniSONE See Taper PO DAILY traZODone HCL [Desyrel] 50 mg PO HS Varenicline [Chantix Starter Pack] 0.5 mg PO DIRECTED Discontinued Docusate [Colace] 200 mg PO DAILY PRN PRN Reason: Constipation Discharge Medication List Fluticasone Propionate [Flonase] 2 sprays EA NOSTRIL DAILY 01/25/14 [History] Simvastatin [Zocor] 20 mg PO HS 01/25/14 [History] rOPINIRole HCL [Requip] 0.25 mg PO HS 01/25/14 [History] valACYclovir [Valtrex] 500 mg PO BID PRN 01/25/14 [History] Cyclobenzaprine [Flexeril] 10 mg PO BID PRN 07/07/14 [History] Acyclovir [Zovirax] 1 applic TOPICAL 5XD PRN 10/29/16 [History] Albuterol Nebulized [Ventolin Nebulized] 2.5 mg INHALATION RT-TID PRN 10/29/16 [History] Albuterol Sulfate [Proair Respiclick] 2 puff PO RT-Q4H 10/29/16 [History] Cholecalciferol [Vitamin D3 (25 Mcg = 1000 Iu)] 3,000 unit PO DAILY 10/29/16 [History] DULoxetine HCL [Cymbalta] 60 mg PO BID 10/29/16 [History] Lac-Hydren 5% 1 applicate TOPICAL DAILY PRN 10/29/16 [History] Loratadine [Claritin] 10 mg PO DAILY 10/29/16 [History] Meclizine [Antivert] 25 mg PO Q6H PRN 10/29/16 [History] Methyl Salicylate/Menthol [Salonpas Patch] 1 patch TOPICAL DAILY PRN 10/29/16 [History] cycloSPORINE 0.05% OPHTH SOLN [Restasis] 2 drops BOTH EYES Q12H 10/29/16 [History] Alendronate Sodium [Fosamax] 70 mg PO TU 01/20/18 [History] HYDROcodone/APAP 7.5-325MG [[place] 7.5-325] 1 tab PO Q6H PRN 01/20/18 [History] Hyoscyamine Sulfate [Levsin] 0.125 mg PO Q6H PRN 01/20/18 [History] Roflumilast [Daliresp] 500 mcg PO DAILY 01/20/18 [History] Umeclidinium Brm/Vilanterol Tr [Anoro Ellipta 62.5-25 Mcg INH] 1 puff INHALATION RT-DAILY 01/20/18 [History] ARIPiprazole [Abilify] 10 mg PO DAILY 06/24/19 [History] Budesonide [Pulmicort] 0.5 mg INHALATION RT-BID 06/24/19 [History] Ferrous Sulfate [Slow Fe] 142 mg PO DAILY 06/24/19 [History] Hydrocortisone 15 mg PO DIRECTED 06/24/19 [History] Metoprolol Succinate [Toprol XL] 25 mg PO DAILY 06/24/19 [History] Omeprazole 20 mg PO DAILY 06/24/19 [History] Pantoprazole [Protonix] 40 mg PO DAILY 06/24/19 [History] Polyethylene Glycol 3350 [Miralax] 17 gm PO DAILY 06/24/19 [History] Varenicline [Chantix Starter Pack] 0.5 mg PO DIRECTED 06/24/19 [History] hydrOXYzine HCL 25 mg PO TID PRN 06/24/19 [History] predniSONE See Taper PO DAILY 06/24/19 [History] traZODone HCL [Desyrel] 50 mg PO HS 06/24/19 [History] Doxycycline [Vibramycin] 100 mg PO BID 3 Days #6 capsule 06/25/19 [Rx] Ipratropium-Albuterol Nebulize [Duoneb 0.5 mg-3 mg/3 ml Soln] 3 ml INHALATION TID #90 ml 06/25/19 [Rx] predniSONE 10 mg PO DAILY #30 tab 06/25/19 [Rx] Follow up Appointment(s)/Referral(s): Demetrius Ramirez MD [STAFF PHYSICIAN] - 06/28/19 4:00 pm (With Liana BRIDGES.) Jase Stewart DO [Primary Care Provider] - 1-2 days (Office will call with follow up appointment. ) Patient Instructions/Handouts: COPD (Chronic Obstructive Pulmonary Disease) (DC), Chronic Lung Disease and Infection Prevention (DC) Discharge Disposition: HOME SELF-CARE
== END 2019-06-25 19:15 | disposition home or self-care (01) ==
LOC: EC 13:46 → INTOOBSV 16:28 → 3SCARD 16:28 → UNDODISIN 06-25 19:15
PROVIDERS: ADMIT Hospitalist; ATTEND Hospitalist
DX: J44.1 Chronic obstructive pulmonary disease with (acute) exacerbation (principal); J44.0 Chronic obstructive pulmonary disease with (acute) lower respiratory infection; E27.49 Other adrenocortical insufficiency; B39.9 Histoplasmosis, unspecified; F17.210 Nicotine dependence, cigarettes, uncomplicated; M19.91 Primary osteoarthritis, unspecified site; R09.1 Pleurisy; K21.9 Gastro-esophageal reflux disease without esophagitis; I10 Essential (primary) hypertension; E78.5 Hyperlipidemia, unspecified; N39.3 Stress incontinence (female) (male); M81.0 Age-related osteoporosis without current pathological fracture; H54.62 Unqualified visual loss, left eye, normal vision right eye; G25.81 Restless legs syndrome; I45.4 Nonspecific intraventricular block; F41.9 Anxiety disorder, unspecified; F32.9 Major depressive disorder, single episode, unspecified; R07.89 Other chest pain; I08.1 Rheumatic disorders of both mitral and tricuspid valves; I83.90 Asymptomatic varicose veins of unspecified lower extremity; Z79.1 Long term (current) use of non-steroidal anti-inflammatories (NSAID); Z79.51 Long term (current) use of inhaled steroids; Z79.52 Long term (current) use of systemic steroids; Z79.83 Long term (current) use of bisphosphonates; Z79.899 Other long term (current) drug therapy; Z88.1 Allergy status to other antibiotic agents; Z88.5 Allergy status to narcotic agent; Z88.0 Allergy status to penicillin; Z85.9 Personal history of malignant neoplasm, unspecified; Z90.49 Acquired absence of other specified parts of digestive tract; Z96.641 Presence of right artificial hip joint; Z98.890 Other specified postprocedural states; Z86.19 Personal history of other infectious and parasitic diseases; Z87.01 Personal history of pneumonia (recurrent); Z93.3 Colostomy status; Z87.828 Personal history of other (healed) physical injury and trauma; Z85.41 Personal history of malignant neoplasm of cervix uteri; Z90.710 Acquired absence of both cervix and uterus; Z82.49 Family history of ischemic heart disease and other diseases of the circulatory system; Z80.0 Family history of malignant neoplasm of digestive organs
CPT/HCPCS: 96376; 93005 ×2; 96365; 96375; 99285; 36415; 94640 ×4; 93306; 85379; 83880; 80061; 80053; 82550; 82553; 83735; 84484 ×2; 85025; 85610; 85730; 87040; 71046; G0378 ×2; J2270; J2930 ×2; J0696 ×2; J7512

== ENCOUNTER → 2019-08-03 | Outpatient (CLI) | payer MEDICARE ==
--- NOTE | 2019-08-03 11:27 | CT ---
EXAMINATION TYPE: CT chest wo con DATE OF EXAM: 08/03/2019 COMPARISON: 11/29/2016 HISTORY: Dyspnea. CT DLP: 287.7 mGycm, Automated exposure control for dose reduction was used. CONTRAST: Performed injected with 0 mL of Isovue 300. TECHNIQUE: Axial images were obtained at 5 mm thick sections. Reconstructed images are reviewed on Cere[employer] computer in the coronal plane. FINDINGS: Portion of the thyroid visualized is normal. No suspicious lung nodules or focal infiltrates are present. Mild emphysematous changes are present w ithin the lung fontanez. Calcified granuloma measuring 0.5 cm is within the right middle lobe near the major fissure. No enlarged mediastinal or hilar adenopathy is evident. The ascending aorta diameter at the level o f the main pulmonary artery is 3.7 cm. The main pulmonary artery diameter at the bifurcation is 2.8 cm. Coronary artery calcification is present. Limited CT sections are obtained through the upper abdomen. Abdomen is essentially unremarkable. IMPRESSIONS: 1. Mild emphysematous changes. 2. Stable granuloma right midlung.
== END | disposition home or self-care (01) ==
LOC: RADCTMAIN 09:50
PROVIDERS: ATTEND Family Medicine
DX: J84.10 Pulmonary fibrosis, unspecified (principal); J43.9 Emphysema, unspecified
CPT/HCPCS: 71250

== ENCOUNTER → 2019-08-03 | Outpatient (CLI) | payer MEDICARE ==
[2019-08-03 11:17] LABS: T4, Free (Free Thyroxine) 1.23 ng/dL (0.78-2.19)
[2019-08-03 15:31] LABS: Follicle Stimulating Hormone 38.6 mIU/mL; Luteinizing Hormone 4.8 mIU/mL
== END | disposition home or self-care (01) ==
LOC: RADCTMAIN 10:08
PROVIDERS: ATTEND Internal Medicine
DX: E23.6 Other disorders of pituitary gland (principal)
CPT/HCPCS: 83001; 83002; 84439; 84443; 84481

== ENCOUNTER 2019-08-13 08:06 | Day surgery (SDC) | payer MEDICARE ==
[~2019-08-13 08:06] MED LIST changes: +ALPRAZolam 0.25 MG TAB PO PRN; +ALPRAZolam 0.5 MG TAB PO PRN; +ASPIRIN 325 MG TAB PO STA; +ATORVASTATIN 80 MG TAB PO STA; -LACTATED RINGERS 1,000 ML IV SCH; -LIDOCAINE 1% 20 ML VIAL (10MG/ML) FOR IV START INTRADERMA PRN; +NITROGLYCERIN SL TABS 0.4 MG TAB SUBLINGUAL PRN; +SODIUM CHLORIDE 0.9% 1,000 ML in EMPTY BAG 1 BAG IV ONE
[2019-08-13] MEDS ORDERED: LIDOCAINE 1% INJ 10MG/ML (20 ML MDV) ONE (08:48)
[2019-08-13] MEDS ORDERED: VERAPAMIL 2.5 MG/ML 2 ML AMP ONE (08:48)
[2019-08-13] MEDS ORDERED: SODIUM CHLORIDE 0.9% 1,000 ML IV ONE (08:48)
[2019-08-13] MEDS ORDERED: HYDROmorphone 1 MG/ML 1 ML SYRINGE ONE (09:02)
[2019-08-13] MEDS ORDERED: HYDROmorphone 1 MG/ML 1 ML SYRINGE IVP ONE (09:08)
[2019-08-13] MEDS ORDERED: MIDAZOLAM 2 MG/2 ML VIAL IVP ONE ×2 (09:11)
[2019-08-13] MEDS ORDERED: VERAPAMIL SYRINGE (5 MG/10 ML) INTRAARTER ONE (09:15)
[2019-08-13] MEDS ORDERED: BIVALIRUDIN BOLUS 250 MG/50 ML IV ONE (09:15)
[2019-08-13] MEDS ORDERED: CLOPIDOGREL 75 MG TAB PO ONE (09:15)
[2019-08-13] MEDS ORDERED: ASPIRIN 81 MG PO ONE (09:15)
[2019-08-13] MEDS ORDERED: BIVALIRUDIN 250 MG in SODIUM CHLORIDE 0.9% 50 ML IV ONE (09:15)
[2019-08-13] MEDS ORDERED: CLOPIDOGREL 75 MG TAB ONE (09:16)
[2019-08-13] MEDS ORDERED: NITROGLYCERIN 1000MCG/10ML SYRINGE INTRACORON ONE ×2 (09:16→09:31)
[2019-08-13] MEDS ORDERED: ASPIRIN 81 MG ONE (09:16)
[2019-08-13] MEDS ORDERED: CYCLOBENZAPRINE 10 MG TAB PO PRN (09:37)
[2019-08-13] MEDS ORDERED: ALBUTEROL NEBULIZED 2.5 MG/3 ML INHALATION PRN (09:37)
[2019-08-13] MEDS ORDERED: MECLIZINE 25 MG TAB PO PRN (09:37)
[2019-08-13] MEDS ORDERED: HYOSCYAMINE SULFATE 0.125 MG TAB PO PRN (09:37)
[2019-08-13] MEDS ORDERED: ALBUTEROL SULFATE PO PRN (09:37)
[2019-08-13] MEDS ORDERED: ACYCLOVIR PO PRN (09:37)
[2019-08-13] MEDS ORDERED: ACYCLOVIR TOPICAL PRN (09:37)
[2019-08-13] MEDS ORDERED: hydrOXYzine HCL 25 MG TAB PO PRN (09:37)
[2019-08-13] MEDS ORDERED: METHYL SALICYLATE/MENTHOL CREAM 5 OZ TOPICAL PRN (09:37)
[2019-08-13] MEDS ORDERED: NITROGLYCERIN SL TABS 0.4 MG TAB SUBLINGUAL PRN ×2 (09:37→09:39)
[2019-08-13] MEDS ORDERED: POLYETHYLENE GLYCOL 3350 17 GM POWD.PACK PO PRN (09:37)
[2019-08-13] MEDS ORDERED: RX INFO: IV CONTRAST WAS GIVEN 1 EACH MISC MISCELLANE PRN (09:39)
[2019-08-13] MEDS ORDERED: ZOLPIDEM 5 MG TAB PO PRN (09:39)
[2019-08-13] MEDS ORDERED: MAG HYDROX/AL HYDROX/SIMETH 30 ML CUP PO PRN (09:39)
[2019-08-13] MEDS ORDERED: ATROPINE SULFATE 0.1 MG/ML 10ML SYRINGE IV PRN (09:39)
[2019-08-13] MEDS ORDERED: SODIUM CHLORIDE 0.9% 1,000 ML IV SCH (09:45)
--- NOTE | 2019-08-13 09:54 | P.PCN ---
Date of Procedure: 08/13/19 Operative Findings: PERCUTANEOUS CORONARY INTERVENTION Performing physician Demetrius Ramirez M.D. Procedure performed Successful stenting of the PDA branch of the RCA using 2.75 x 18 mm Xience KULDEEP with an excellent angiographic results and reduction of stenosis from 80% to 0% and without any complication. Indication This is a very pleasant 64-year-old female patient with hypertension and dyslipidemia who was experiencing symptoms of chest discomfort with exertion. She underwent a heart catheterization at [facility] and that revealed severe disease involving the ostial and proximal PDA branch of the RCA. She was brought today to undergo an angioplasty and stenting. Approach Right radial artery Complications None Level of sedation Moderate with a sedation length of 22 minutes Procedure description After obtaining an informed consent the patient was brought to the cardiac cath lab nurse. The right radial artery was cannulated using micropuncture technique, the micropuncture wire passed easily then I placed a 6-Stateless sheath at the right radial artery. At that point I gave the patient 2 mg of verapamil DAVEY and anticoagulation was initiated using Angiomax with bolus and drip IV. I did engage the RCA using JR4 guide. The PDA branch of the RCA was wired using a run-through wire. I attempted doing direct stenting of the lesion but the stent won't cross the lesion and because of that I decided to predilate. I did PTCA ballooning using 2.5 x 12 mm balloon which was inflated under 12 susannah for 20 seconds. Subsequently I was able to advance 2.75 x 18 mm Xience KULDEEP where the stent was positioned under fluoroscopy guidance and deployed under 14 susannah for 20 seconds. Following angiogram showed excellent angiographic results and the procedure was completed without any complication The right radial sheath was removed and TR band was placed. Postprocedure management 1. Dual antiplatelet therapy 2. Risk factors modifications 3. Follow-up with the patient
[2019-08-13 14:28] VITALS: BMI 28.4
[2019-08-13] MEDS ORDERED: HYDROCORTISONE 10 MG TAB PO SCH (16:00)
[2019-08-13] MEDS: IPRATROPIUM-ALBUTEROL 3 ML NEB INHALATION SCH ×2 (16:10→20:11)
[2019-08-13] MEDS: cycloSPORINE 0.05% OPHTH 0.4 ML DROPERETTE BOTH EYES SCH (20:44)
[2019-08-13] MEDS: DULoxetine HCL 60 MG CAPSULE.DR PO SCH (20:44)
[2019-08-13] MEDS ORDERED: METOPROLOL SUCCINATE (ER) 25 MG TAB.ER.24H PO SCH (21:00)
[2019-08-13] MEDS ORDERED: ATORVASTATIN 10 MG TAB PO SCH (21:00)
[2019-08-13] MEDS ORDERED: traZODone HCL 50 MG TAB PO SCH (21:00)
[2019-08-14] MEDS ORDERED: PANTOPRAZOLE 40 MG TABLET PO SCH (07:30)
[2019-08-14] MEDS ORDERED: SYMBICORT 80-4.5 MCG INHALER INHALATION SCH (08:00)
[2019-08-14 08:28] LABS: African American GFR (CKD) >90 (>60 ml/min/1.73 sqM); Non-African American GFR(CKD) >90 (>60 ml/min/1.73 sqM)
--- NOTE | 2019-08-14 08:41 | P.DS ---
Providers Date of admission: August 122019 Attending physician: Demetrius Ramirez Consults: 08/13/19 09:39 Consult Physician Routine Consulting Provider: [facility] Consult Reason/Comments: Post Interventional patient Do you want consulting provider notified?: Already Contacted Primary care physician: Jase [facility] Course: This is a very pleasant 64-year-old female patient with hypertension and dyslipidemia who underwent yesterday successful stenting of the right coronary artery from right radial approach. She was seen this morning. She is asymptomatic. The right radial artery site is soft and nontender and without any bruises. The patient is going to be discharged on dual antiplatelet therapy and I will follow-up with her in the office next week Plan - Discharge Summary Discharge Rx Participant: No New Discharge Prescriptions: New Clopidogrel Bisulfate [Plavix] 75 mg PO DAILY #90 tab Continue Simvastatin [Zocor] 20 mg PO HS rOPINIRole HCL [Requip] 0.25 mg PO HS Fluticasone Propionate [Flonase] 2 sprays EA NOSTRIL DAILY Cyclobenzaprine [Flexeril] 10 mg PO BID PRN PRN Reason: Muscle Spasm Acyclovir [Zovirax] 1 applic TOPICAL 5XD PRN PRN Reason: gential herpes Albuterol Nebulized [Ventolin Nebulized] 2.5 mg INHALATION RT-TID PRN PRN Reason: Shortness Of Breath Albuterol Sulfate [Proair Respiclick] 2 puff PO RT-Q4H PRN PRN Reason: Shortness Of Breath Cholecalciferol [Vitamin D3 (25 Mcg = 1000 Iu)] 3,000 unit PO DAILY cycloSPORINE 0.05% OPHTH SOLN [Restasis] 2 drops BOTH EYES Q12H DULoxetine HCL [Cymbalta] 60 mg PO BID Loratadine [Claritin] 10 mg PO DAILY Meclizine [Antivert] 25 mg PO Q6H PRN PRN Reason: dizziness Hyoscyamine Sulfate [Levsin] 0.125 mg PO Q6H PRN PRN Reason: IBS Roflumilast [Daliresp] 500 mcg PO HS Alendronate Sodium [Fosamax] 70 mg PO TU ARIPiprazole [Abilify] 10 mg PO DAILY Ferrous Sulfate [Slow Fe] 142 mg PO DAILY Hydrocortisone 15 mg PO DIRECTED hydrOXYzine HCL 25 mg PO TID PRN PRN Reason: Anxiety Metoprolol Succinate [Toprol XL] 25 mg PO HS Omeprazole 20 mg PO DAILY Polyethylene Glycol 3350 [Miralax] 17 gm PO DAILY PRN PRN Reason: Constipation traZODone HCL [Desyrel] 50 mg PO HS Aspirin [Adult Low Dose Aspirin EC] 81 mg PO DAILY Fluticasone/Umeclidin/Vilanter [Trelegy Ellipta 100-62.5-25] 1 inhalation INHALATION DAILY Ipratropium-Albuterol Nebulize [Duoneb 0.5 mg-3 mg/3 ml Soln] 3 ml INHALATION TID Methyl Salicylate/Menthol [Salonpas Patch] 1 patch TOPICAL DAILY PRN PRN Reason: Pain Acyclovir [Zovirax] 500 mg PO BID PRN PRN Reason: HERPES Lactose-Reduced Food [Boost] 1 applic PO DAILY Lac-Hydrin 5% Cream 1 applic TOPICAL DAILY PRN PRN Reason: pain, itching Nitroglycerin Sl Tabs [Nitrostat] 0.4 mg SUBLINGUAL Q5M PRN PRN Reason: CP Cbd Oil 1 drop PO DAILY PRN PRN Reason: Anxiety Discharge Medication List Fluticasone Propionate [Flonase] 2 sprays EA NOSTRIL DAILY 01/25/14 [History] Simvastatin [Zocor] 20 mg PO HS 01/25/14 [History] rOPINIRole HCL [Requip] 0.25 mg PO HS 01/25/14 [History] Cyclobenzaprine [Flexeril] 10 mg PO BID PRN 07/07/14 [History] Acyclovir [Zovirax] 1 applic TOPICAL 5XD PRN 10/29/16 [History] Albuterol Nebulized [Ventolin Nebulized] 2.5 mg INHALATION RT-TID PRN 10/29/16 [History] Albuterol Sulfate [Proair Respiclick] 2 puff PO RT-Q4H PRN 10/29/16 [History] Cholecalciferol [Vitamin D3 (25 Mcg = 1000 Iu)] 3,000 unit PO DAILY 10/29/16 [History] DULoxetine HCL [Cymbalta] 60 mg PO BID 10/29/16 [History] Loratadine [Claritin] 10 mg PO DAILY 10/29/16 [History] Meclizine [Antivert] 25 mg PO Q6H PRN 10/29/16 [History] cycloSPORINE 0.05% OPHTH SOLN [Restasis] 2 drops BOTH EYES Q12H 10/29/16 [History] Alendronate Sodium [Fosamax] 70 mg PO TU 01/20/18 [History] Hyoscyamine Sulfate [Levsin] 0.125 mg PO Q6H PRN 01/20/18 [History] Roflumilast [Daliresp] 500 mcg PO HS 01/20/18 [History] ARIPiprazole [Abilify] 10 mg PO DAILY 06/24/19 [History] Ferrous Sulfate [Slow Fe] 142 mg PO DAILY 06/24/19 [History] Hydrocortisone 15 mg PO DIRECTED 06/24/19 [History] Metoprolol Succinate [Toprol XL] 25 mg PO HS 06/24/19 [History] Omeprazole 20 mg PO DAILY 06/24/19 [History] Polyethylene Glycol 3350 [Miralax] 17 gm PO DAILY PRN 06/24/19 [History] hydrOXYzine HCL 25 mg PO TID PRN 06/24/19 [History] traZODone HCL [Desyrel] 50 mg PO HS 06/24/19 [History] Acyclovir [Zovirax] 500 mg PO BID PRN 08/11/19 [History] Aspirin [Adult Low Dose Aspirin EC] 81 mg PO DAILY 08/11/19 [History] Cbd Oil 1 drop PO DAILY PRN 08/11/19 [History] Fluticasone/Umeclidin/Vilanter [Trelegy Ellipta 100-62.5-25] 1 inhalation INHALATION DAILY 08/11/19 [History] Ipratropium-Albuterol Nebulize [Duoneb 0.5 mg-3 mg/3 ml Soln] 3 ml INHALATION TID 08/11/19 [History] Lac-Hydrin 5% Cream 1 applic TOPICAL DAILY PRN 08/11/19 [History] Lactose-Reduced Food [Boost] 1 applic PO DAILY 08/11/19 [History] Methyl Salicylate/Menthol [Salonpas Patch] 1 patch TOPICAL DAILY PRN 08/11/19 [History] Nitroglycerin Sl Tabs [Nitrostat] 0.4 mg SUBLINGUAL Q5M PRN 08/11/19 [History] Clopidogrel Bisulfate [Plavix] 75 mg PO DAILY #90 tab 08/13/19 [Rx] Follow up Appointment(s)/Referral(s): Demetrius Ramirez MD [STAFF PHYSICIAN] - 08/20/19 2:00 pm Patient Instructions/Handouts: *Surgery [facility] - After Heart Catheterization - Convention Worker Instructions, Heart Healthy Diet (DC)
[2019-08-14] MEDS ORDERED: LORATADINE 10 MG TAB PO SCH (09:00)
[2019-08-14] MEDS ORDERED: CHOLECALCIFEROL 1,000 UNIT TAB PO SCH (09:00)
[2019-08-14] MEDS ORDERED: ASPIRIN 81 MG PO SCH (09:00)
[2019-08-14] MEDS ORDERED: FERROUS SULFATE 325 MG TAB PO SCH (09:00)
[2019-08-14] MEDS ORDERED: CLOPIDOGREL 75 MG TAB PO SCH (09:00)
[2019-08-14] MEDS ORDERED: HYDROCORTISONE 10 MG TAB PO SCH (09:00)
[2019-08-14] MEDS ORDERED: FLUTICASONE 50MCG/SPRAY NASAL 16GM EA NOSTRIL SCH (09:00)
[2019-08-14] MEDS ORDERED: ARIPiprazole 10 MG TAB PO SCH (09:00)
[2019-08-14] MEDS ORDERED: LACTOSE REDUCED FOOD PO SCH (09:00)
[2019-08-14] MEDS: DULoxetine HCL 60 MG CAPSULE.DR PO SCH (09:08)
[2019-08-14] MEDS: cycloSPORINE 0.05% OPHTH 0.4 ML DROPERETTE BOTH EYES SCH (09:08)
[2019-08-14 09:29] VITALS: BP 124/78; RESP 20; TEMP 97.7
[2019-08-14] MEDS: IPRATROPIUM-ALBUTEROL 3 ML NEB INHALATION SCH (09:50)
[2019-08-14 10:03] VITALS: PULSE 88
[2019-08-17] MEDS ORDERED: NON FORMULARY DRUG (Alendronate Sodium [Fosamax] 70 MG) PO SCH (09:37)
== END 2019-08-14 10:40 | disposition home or self-care (01) ==
LOC: CATHCVL 08:06 → 3SCARD 09:33 → CATHCVL 08-14 10:40
PROVIDERS: ATTEND Internal Medicine Interventional Cardiology
DX: I25.10 Atherosclerotic heart disease of native coronary artery without angina pectoris (principal); I10 Essential (primary) hypertension; E78.5 Hyperlipidemia, unspecified; F17.210 Nicotine dependence, cigarettes, uncomplicated; Z79.82 Long term (current) use of aspirin; Z79.02 Long term (current) use of antithrombotics/antiplatelets; Z79.51 Long term (current) use of inhaled steroids; Z79.899 Other long term (current) drug therapy; Z82.49 Family history of ischemic heart disease and other diseases of the circulatory system
CPT/HCPCS: 94640 ×3; 82565; 87635; J2250; J1170; J0583; C9600

== ENCOUNTER 2020-07-17 18:46 | Observation (INO) | payer MEDICARE ==
[2020-07-17] MEDS ORDERED: SODIUM CHLORIDE 0.9% 1,000 ML IV STA (22:17)
--- NOTE | 2020-07-17 22:17 | ED ---
Weakness HPI - General Chief complaint: Shortness of Breath Stated complaint: Sent by doctor - bloodwork Time Seen by Provider: 07/17/20 22:12 Source: patient, RN notes reviewed, old records reviewed Mode of arrival: wheelchair Limitations: no limitations - History of Present Illness Initial comments: This is a 65-year-old female DF for evaluation of weakness today. Patient is in breathing issues for quite some time now weeks. Multiple medications a ntibiotics and steroids etc. an outpatient with no improvement. Patient still severe weakness denying fevers. Increased cough has severe COPD history. As well as heart disease. Patient is also complaining of some occasional chest pain. Patient has received one immunization of coronavirus MD Complaint: generalized weakness, lack of energy -: week(s) Location: generalized Severity: moderate Severity scale (1-10): 4 Consistency: intermittent Improves with: none Worsens with: none Associated Symptoms: chest pain, nausea/vomiting, shortness of breath - Related Data Home Medications Medication Instructions Recorded Confirmed Fluticasone Propionate [Flonase] 2 sprays EA NOSTRIL DAILY 01/25/14 08/13/19 Simvastatin [Zocor] 20 mg PO HS 01/25/14 08/13/19 rOPINIRole HCL [Requip] 0.25 mg PO HS 01/25/14 08/13/19 Cyclobenzaprine [Flexeril] 10 mg PO BID PRN 07/07/14 08/13/19 Acyclovir [Zovirax] 1 applic TOPICAL 5XD PRN 10/29/16 08/11/19 Albuterol Nebulized [Ventolin 2.5 mg INHALATION RT-TID PRN 10/29/16 08/13/19 Nebulized] Albuterol Sulfate [Proair 2 puff PO RT-Q4H PRN 10/29/16 08/13/19 Respiclick] Cholecalciferol [Vitamin D3 (25 3,000 unit PO DAILY 10/29/16 08/13/19 Mcg = 1000 Iu)] DULoxetine HCL [Cymbalta] 60 mg PO BID 10/29/16 08/13/19 Loratadine [Claritin] 10 mg PO DAILY 10/29/16 08/13/19 Meclizine [Antivert] 25 mg PO Q6H PRN 10/29/16 08/13/19 cycloSPORINE 0.05% OPHTH SOLN 2 drops BOTH EYES Q12H 10/29/16 08/13/19 [Restasis] Alendronate Sodium [Fosamax] 70 mg PO TU 01/20/18 08/13/19 Hyoscyamine Sulfate [Levsin] 0.125 mg PO Q6H PRN 01/20/18 08/13/19 Roflumilast [Daliresp] 500 mcg PO HS 01/20/18 08/13/19 ARIPiprazole [Abilify] 10 mg PO DAILY 06/24/19 08/13/19 Ferrous Sulfate [Slow Fe] 142 mg PO DAILY 06/24/19 08/13/19 Hydrocortisone 15 mg PO DIRECTED 06/24/19 08/13/19 Metoprolol Succinate [Toprol XL] 25 mg PO HS 06/24/19 08/13/19 Omeprazole 20 mg PO DAILY 06/24/19 08/13/19 hydrOXYzine HCL 25 mg PO TID PRN 06/24/19 08/13/19 polyethylene glycoL 3350 [Miralax] 17 gm PO DAILY PRN 06/24/19 08/13/19 traZODone HCL [Desyrel] 50 mg PO HS 06/24/19 08/13/19 Acyclovir [Zovirax] 500 mg PO BID PRN 08/11/19 08/11/19 Aspirin [Adult Low Dose Aspirin EC] 81 mg PO DAILY 08/11/19 08/13/19 Cbd Oil 1 drop PO DAILY PRN 08/11/19 Fluticasone/Umeclidin/Vilanter 1 inhalation INHALATION DAILY 08/11/19 08/13/19 [Trelegy Ellipta 100-62.5-25] Ipratropium-Albuterol Nebulize 3 ml INHALATION TID 08/11/19 08/13/19 [Duoneb 0.5 mg-3 mg/3 ml Soln] Lac-Hydrin 5% Cream 1 applic TOPICAL DAILY PRN 08/11/19 Lactose-Reduced Food [Boost] 1 applic PO DAILY 08/11/19 08/13/19 Methyl Salicylate/Menthol 1 patch TOPICAL DAILY PRN 08/11/19 08/11/19 [Salonpas Patch] Nitroglycerin Sl Tabs [Nitrostat] 0.4 mg SUBLINGUAL Q5M PRN 08/11/19 08/11/19 Previous Rx's Medication Instructions Recorded Clopidogrel Bisulfate [Plavix] 75 mg PO DAILY #90 tab 08/13/19 Allergies Allergy/AdvReac Type Severity Reaction Status Date / Time meperidine HCl [From Demerol] Allergy Severe Swelling Verified 07/17/20 20:14 erythromycin base Allergy Abdominal Verified 07/17/20 20:14 Pain Penicillins Allergy Rash/Hives Verified 07/17/20 20:14 Review of Systems ROS Statement: Those systems with pertinent positive or pertinent negative responses have been documented in the HPI. ROS Other: All systems not noted in ROS Statement are negative. 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 06/2019 Pneumonia. Edema LLE History of Any Multi-Drug Resistant Organisms: None Reported Past Surgical History: Bowel Resection, Heart Catheterization, Hysterectomy, Joint Replacement, Tonsillectomy, Tubal Ligation Additional Past Surgical History / Comment(s): Colostomy, Tan hip replacement. Heart cath 08/06/19. Past Anesthesia/Blood Transfusion Reactions: Previous Problems w/ Anesthesia, P ostoperative Nausea & Vomiting (PONV) Additional Past Anesthesia/Blood Transfusion Reaction / Comment(s): BP "bottomed out" with colonoscopy years ago Past Psychological History: Anxiety, Depression Smoking Status: Current every day smoker Past Alcohol Use History: Occasional Past Drug Use History: Marijuana - Past Family History Mother Family Medical History: Cancer Additional Family Medical History / Comment(s): colon Father Family Medical History: Coronary Artery Disease (CAD) Additional Family Medical History / Comment(s): CABG Brother(s) Family Medical History: Coronary Artery Disease (CAD) Additional Family Medical History / Comment(s): CABG General Exam Limitations: no limitations General appearance: alert, in no apparent distress, anxious Head exam: Present: atraumatic, normocephalic, normal inspection Eye exam: Present: normal appearance, PERRL, EOMI. Absent: scleral icterus, conjunctival injection, periorbital swelling ENT exam: Present: normal exam, mucous membranes dry Neck exam: Present: normal inspection. Absent: tenderness, meningismus, lymphadenopathy Respiratory exam: Present: normal lung sounds bilaterally, wheezes, accessory muscle use, decreased breath sounds, prolonged expiratory. Absent: respiratory distress, rales, rhonchi, stridor Cardiovascular Exam: Present: normal rhythm, tachycardia, normal heart sounds. Absent: systolic murmur, diastolic murmur, rubs, gallop, clicks GI/Abdominal exam: Present: soft, normal bowel sounds. Absent: distended, tenderness, guarding, rebound, rigid Extremities exam: Present: normal inspection, full ROM, normal capillary refill. Absent: tenderness, pedal edema, joint swelling, calf tenderness Back exam: Present: normal inspection Neurological exam: Present: alert, oriented X3, CN II-XII intact Psychiatric exam: Present: normal affect, normal mood Skin exam: Present: warm, dry, intact, normal color. Absent: rash Course Vital Signs 07/17/20 07/17/20 07/18/20 20:14 22:12 00:17 Temperature 97.9 F Pulse Rate 114 H 107 H 97 Respiratory 20 18 18 Rate Blood Pressure 150/88 129/94 134/89 O2 Sat by Pulse 95 95 94 L Oximetry 07/18/20 01:04 Temperature Pulse Rate Respiratory 18 Rate Blood Pressure O2 Sat by Pulse Oximetry - Reevaluation(s) Reevaluation #1: 07/18/20 01:23 Medical record is reviewed Reevaluation #2: 07/18/20 01:23 Patient has no improvement here in the ER Reevaluation #3: 07/18/20 01:23 Patient informed of results, prefers observation she is concerned about chest pain in her breathing - Consultations Consultation #1: Spoke with Dr. Vera to admit the patient for Dr. mercado EKG Findings - EKG Comments: EKG Findings:: EKG is sinus rhythm 97 TX 154 QRS 76 QTC 452 Medical Decision Making - Medical Decision Making 65 female COPD with chest pain, weakness, low sodium. Patient be admitted for IV hydration steroids and breathing treatments - Lab Data Result diagrams: 07/17/20 23:11 07/17/20 23:11 Lab Results 07/17/20 07/17/20 07/17/20 Range/Units 23:11 23:11 23:11 WBC 9.0 (3.8-10.6) k/uL RBC 3.83 (3.80-5.40) m/uL Hgb 13.6 (11.4-16.0) gm/dL Hct 39.8 (34.0-46.0) % MCV 103.9 H (80.0-100.0) fL MCH 35.5 H (25.0-35.0) pg MCHC 34.2 (31.0-37.0) g/dL RDW 11.9 (11.5-15.5) % Plt Count 418 (150-450) k/uL MPV 6.5 Neutrophils % 67 % Lymphocytes % 23 % Monocytes % 7 % Eosinophils % 1 % Basophils % 1 % Neutrophils # 6.0 (1.3-7.7) k/uL Lymphocytes # 2.1 (1.0-4.8) k/uL Monocytes # 0.6 (0-1.0) k/uL Eosinophils # 0.1 (0-0.7) k/uL Basophils # 0.1 (0-0.2) k/uL Macrocytosis Slight PT 10.0 (9.0-12.0) sec INR 0.9 (<1.2) APTT 21.8 L (22.0-30.0) sec Sodium 129 L (137-145) mmol/L Potassium 4.1 (3.5-5.1) mmol/L Chloride 97 L (98-107) mmol/L Carbon Dioxide 25 (22-30) mmol/L Anion Gap 7 mmol/L BUN 12 (7-17) mg/dL Creatinine 0.55 (0.52-1.04) mg/dL Est GFR (CKD-EPI)AfAm >90 (>60 ml/min/1.73 sqM) Est GFR (CKD-EPI)NonAf >90 (>60 ml/min/1.73 sqM) Glucose 88 (74-99) mg/dL Calcium 9.2 (8.4-10.2) mg/dL Phosphorus 4.3 (2.5-4.5) mg/dL Magnesium 1.8 (1.6-2.3) mg/dL Total Bilirubin 0.3 (0.2-1.3) mg/dL AST 26 (14-36) U/L ALT 16 (4-34) U/L Alkaline Phosphatase 61 (38-126) U/L Creatine Kinase 65 (30-135) U/L Troponin I (0.000-0.034) ng/mL Total Protein 6.5 (6.3-8.2) g/dL Albumin 3.9 (3.5-5.0) g/dL TSH 3.180 (0.465-4.680) mIU/L Cortisol 6 ug/dL Urine Color Urine Appearance (Clear) Urine pH (5.0-8.0) Ur Specific Bascom (1.001-1.035) Urine Protein (Negative) Urine Glucose (UA) (Negative) Urine Ketones (Negative) Urine Blood (Negative) Urine Nitrite (Negative) Urine Bilirubin (Negative) Urine Urobilinogen (<2.0) mg/dL Ur Leukocyte Esterase (Negative) Coronavirus (PCR) (Not Detectd) 07/17/20 07/17/20 07/18/20 Range/Units 23:11 23:11 00:21 WBC (3.8-10.6) k/uL RBC (3.80-5.40) m/uL Hgb (11.4-16.0) gm/dL Hct (34.0-46.0) % MCV (80.0-100.0) fL MCH (25.0-35.0) pg MCHC (31.0-37.0) g/dL RDW (11.5-15.5) % Plt Count (150-450) k/uL MPV Neutrophils % % Lymphocytes % % Monocytes % % Eosinophils % % Basophils % % Neutrophils # (1.3-7.7) k/uL Lymphocytes # (1.0-4.8) k/uL Monocytes # (0-1.0) k/uL Eosinophils # (0-0.7) k/uL Basophils # (0-0.2) k/uL Macrocytosis PT (9.0-12.0) sec INR (<1.2) APTT (22.0-30.0) sec Sodium (137-145) mmol/L Potassium (3.5-5.1) mmol/L Chloride (98-107) mmol/L Carbon Dioxide (22-30) mmol/L Anion Gap mmol/L BUN (7-17) mg/dL Creatinine (0.52-1.04) mg/dL Est GFR (CKD-EPI)AfAm (>60 ml/min/1.73 sqM) Est GFR (CKD-EPI)NonAf (>60 ml/min/1.73 sqM) Glucose (74-99) mg/dL Calcium (8.4-10.2) mg/dL Phosphorus (2.5-4.5) mg/dL Magnesium (1.6-2.3) mg/dL Total Bilirubin (0.2-1.3) mg/dL AST (14-36) U/L ALT (4-34) U/L Alkaline Phosphatase (38-126) U/L Creatine Kinase (30-135) U/L Troponin I <0.012 (0.000-0.034) ng/mL Total Protein (6.3-8.2) g/dL Albumin (3.5-5.0) g/dL TSH (0.465-4.680) mIU/L Cortisol ug/dL Urine Color Light Yellow Urine Appearance Clear (Clear) Urine pH 6.5 (5.0-8.0) Ur Specific Bascom 1.005 (1.001-1.035) Urine Protein Negative (Negative) Urine Glucose (UA) Negative (Negative) Urine Ketones Negative (Negative) Urine Blood Negative (Negative) Urine Nitrite Negative (Negative) Urine Bilirubin Negative (Negative) Urine Urobilinogen <2.0 (<2.0) mg/dL Ur Leukocyte Esterase Negative (Negative) Coronavirus (PCR) Not Detected (Not Detectd) - Radiology Data Radiology results: report reviewed (Chest x-rays negative for significant acute disease), image reviewed Disposition Clinical Impression: Acute exacerbation of chronic obstructive airways disease, Hyponatremia, Chest pain Disposition: ADMITTED IP TO THIS HOSP Condition: Undetermined Is patient prescribed a controlled substance at d/c from ED?: No Referrals: Jase Stewart DO [Primary Care Provider] - 1-2 days
[2020-07-17 23:34] LABS: Basophils # (A) 0.1 k/uL (0-0.2); Basophils % (A) 1 %; Eosinophils # (A) 0.1 k/uL (0-0.7); Eosinophils % (A) 1 %; HCT 39.8 % (34.0-46.0); HGB 13.6 gm/dL (11.4-16.0); Lymphocytes # (A) 2.1 k/uL (1.0-4.8); Lymphocytes % (A) 23 %; MCH 35.5 pg (25.0-35.0); MCHC 34.2 g/dL (31.0-37.0); MCV 103.9 fL (80.0-100.0); Macrocytosis Slight; Mean Platelet Volume 6.5; Monocytes # (A) 0.6 k/uL (0-1.0); Monocytes % (A) 7 %; Neutrophils % (A) 67 %; Platelet Count 418 k/uL (150-450); RBC 3.83 m/uL (3.80-5.40); RDW 11.9 % (11.5-15.5)
[2020-07-17 23:44] LABS: ALT 16 U/L (4-34); AST 26 U/L (14-36); African American GFR (CKD) >90 (>60 ml/min/1.73 sqM); Albumin 3.9 g/dL (3.5-5.0); Alkaline Phosphatase 61 U/L (38-126); Anion Gap 7 mmol/L; Blood Urea Nitrogen 12 mg/dL (7-17); Calcium 9.2 mg/dL (8.4-10.2); Carbon Dioxide 25 mmol/L (22-30); Chloride 97 mmol/L (98-107); Creatine Kinase 65 U/L (30-135); Glucose 88 mg/dL (74-99); Magnesium 1.8 mg/dL (1.6-2.3); Non-African American GFR(CKD) >90 (>60 ml/min/1.73 sqM); Phosphorus 4.3 mg/dL (2.5-4.5); Potassium 4.1 mmol/L (3.5-5.1); Sodium 129 mmol/L (137-145); Total Bilirubin 0.3 mg/dL (0.2-1.3); Total Protein 6.5 g/dL (6.3-8.2)
[2020-07-17 23:47] LABS: Appearance,Urine Clear (Clear); Bilirubin,Urine Negative (Negative); Blood,Urine Negative (Negative); Color,Urine Light Yellow; Glucose,Urine (UA) Negative (Negative); Ketones,Urine Negative (Negative); Leukocyte Esterase,Urine Negative (Negative); Nitrite,Urine Negative (Negative); PH, Urine 6.5 (5.0-8.0); Protein,Urine Negative (Negative); Urobilinogen,Urine <2.0 mg/dL (<2.0)
[2020-07-17 23:53] LABS: INR 0.9 (<1.2)
[2020-07-18 00:40] LABS: Specific Gravity,Urine 1.005 (1.001-1.035)
[2020-07-18 00:48] LABS: Partial Thromboplastin Time 21.8 sec (22.0-30.0)
[2020-07-18] MEDS ORDERED: methylPREDNISolone SOD SUCCI 125 MG/2 ML VIAL IV STA (01:19)
[2020-07-18] MEDS: SODIUM CHLORIDE 0.9% 1,000 ML IV SCH ×3 (01:48→23:18)
--- NOTE | 2020-07-18 01:50 | XR ---
EXAM: XR Chest, 2 Views CLINICAL HISTORY: ITS.REASON XR Reason: sob TECHNIQUE: Frontal and lateral views of the chest. COMPARISON: CT chest 08/03/19 FINDINGS: Lungs: Emphysema with expanded lung volumes and flattening of the diaphragms. No consolidation. Pleural space: No significant pleural effusion. No pneumothorax. Heart: Normal heart size and pulmonary vascularity. Mediastinum: Unremarkable. Bones/joints: Increased thoracic kyphosis with midthoracic spine compression deformities, stable from prior CT. Bones are osteopenic. IMPRESSION: 1. Chronic obstructive pulmonary disease. 2. No acute process.
[2020-07-18] MEDS ORDERED: SYMBICORT 80-4.5 MCG INHALER INHALATION SCH (08:00)
[2020-07-18] MEDS: methylPREDNISolone SOD SUCCI 125 MG/2 ML VIAL IV SCH ×2 (08:07→12:08)
[2020-07-18] MEDS: IPRATROPIUM-ALBUTEROL 3 ML NEB INHALATION SCH ×4 (08:27→21:38)
[2020-07-18] MEDS ORDERED: FUROSEMIDE 20 MG TAB PO PRN (09:59)
[2020-07-18] MEDS ORDERED: TRIAMCINOLONE 0.1% CREAM 80 GM TUBE TOPICAL PRN (10:17)
[2020-07-18] MEDS ORDERED: LAC HYDRIN TOPICAL PRN (10:17)
[2020-07-18] MEDS ORDERED: NITROGLYCERIN SL TABS 0.4 MG TAB SUBLINGUAL PRN (10:17)
[2020-07-18] MEDS ORDERED: ALBUTEROL NEBULIZED 2.5 MG/3 ML INHALATION PRN (10:17)
[2020-07-18] MEDS ORDERED: polyethylene glycoL 3350 17 GM POWD.PACK PO PRN (10:17)
[2020-07-18] MEDS ORDERED: valACYclovir HCL 1,000 MG TABLET PO PRN (10:17)
[2020-07-18] MEDS ORDERED: NON FORMULARY DRUG (Alendronate Sodium [Fosamax] 70 MG Tablet) PO SCH (10:30)
[2020-07-18] MEDS: PANTOPRAZOLE 40 MG TABLET PO SCH (11:08)
[2020-07-18] MEDS: MAGNESIUM OXIDE 400 MG TAB PO SCH (11:08)
[2020-07-18] MEDS: DULoxetine HCL 60 MG CAPSULE.DR PO SCH ×2 (11:08→20:55)
[2020-07-18] MEDS: CHOLECALCIFEROL 25 MCG (1000 IU) TABLET PO SCH (11:08)
[2020-07-18] MEDS: OXYBUTYNIN XL 5 MG TAB.ER.24 PO SCH (11:08)
[2020-07-18] MEDS: MULTIVITAMINS, THERA 1 EACH TAB PO SCH (11:08)
[2020-07-18] MEDS: DICYCLOMINE 10 MG CAP PO PRN ×2 (12:07→19:12)
[2020-07-18] MEDS: ASPIRIN 81 MG PO SCH (12:07)
[2020-07-18] MEDS: CLOPIDOGREL 75 MG TAB PO SCH (12:07)
[2020-07-18] MEDS: HYDROcodone/APAP 10-325MG 1 EACH TAB PO PRN ×3 (12:07→23:25)
[2020-07-18] MEDS: cycloSPORINE 0.05% OPHTH 0.4 ML DROPERETTE BOTH EYES SCH ×2 (12:09→23:18)
[2020-07-18] MEDS: ARIPiprazole 10 MG TAB PO SCH (12:09)
[2020-07-18] MEDS: CYCLOBENZAPRINE 10 MG TAB PO PRN (12:18)
--- NOTE | 2020-07-18 12:55 | P.CRDCN ---
History of Present Illness Consult date: 07/18/20 History of present illness: HISTORY OF PRESENT ILLNESS: This is a 65-year-old female with a past medical history significant for COPD, hyperlipidemia, hypertension, GERD, and osteoarthritis. Patient follows in the office with Dr. Ramirez. We have been asked to see the patient in consultation for chest pain. Patient examined at the bedside in the emergency room. Patient reports she has been feeling short of breath since June. She states that she saw her creel cleaner Dr. Vera who previous he obtained a chest x-ray and started her on breathing treatments and home oxygen. Patient states she has been on a few different antibiotics recently. She states she was briefly coughing which has resolved. She reports some intermittent chest discomfort as well. She also states that she was evaluated in the office recently and evaluated by the [facility] nurse practitioner who put her on Lasix. Patient states she was also scheduled to have an outpatient echo and stress test EKG reveals sinus mechanism with OH interval depression, similar to previous EKG Chest xray chronic obstructive pulmonary disease. No acute process. Laboratory data: WBC 9.0. Hemoglobin 13.6. Platelet count 418. Sodium 129. Potassium 4.1. BUN 12. Creatinine 0.55. Troponin negative 2. Current home cardiac medications include Lasix 20 mg daily as needed, Zocor 20 g daily, Plavix any 5 mg daily, metoprolol succinate 25 mg daily, aspirin 81 mg daily Most recent echocardiogram obtained in June 2019 revealed ejection fraction 55- 60%, trace mitral regurgitation, mild tricuspid regurgitation Cardiac catheterization history: August 2019 with stenting of the PDA branch of the RCA with Dr. Ramirez REVIEW OF SYSTEMS: At the time of my exam: CONSTITUTIONAL: Denies fever or chills. HEENT: Denies blurred vision, vision changes, or eye pain. Denies hemoptysis CARDIOVASCULAR: Denies chest pain. Denies orthopnea. Denies PND. Denies palp itations RESPIRATORY: Denies shortness of breath. GASTROINTESTINAL: Denies abdominal pain. Denies nausea or vomiting. HEMATOLOGIC: Denies bleeding disorders. GENITOURINARY: Denies any blood in urine. SKIN: Denies pruitis. Denies rash. PHYSICAL EXAM: VITAL SIGNS: Reviewed. GENERAL: Well-developed in no acute distress. HEENT: Head is normocephalic. Pupils are equal, round. Sclerae anicteric. Mucous membranes of the mouth are moist. Neck supple. No JVD or thyromegaly LUNGS: Respirations even and unlabored. Lungs diminished bilaterally with expiratory wheezing noted. HEART: Regular rate and rhythm. S1 and S2 heard. ABDOMEN: Soft. Nondistended. Nontender. EXTREMITIES: Normal range of motion. No clubbing or cyanosis. Peripheral pulses intact. No lower extremity edema NEUROLOGIC: Awake and alert. Oriented x 3. ASSESSMENT: Shortness of breath Acute exacerbation of COPD Chest pain, troponins negative 2 Coronary artery disease with previous PCI Hypertension Hyperlipidemia Anxiety Nicotine dependence PLAN: Repeat echocardiogram obtained today reveals ejection fraction 55-60% An acute coronary event has been ruled out Resume home cardiac medications No further inpatient workup from a cardiac standpoint. Patient to follow up on an outpatient basis for stress test We will sign off. Please reconsult if needed Nurse practitioner note has been reviewed by physician. Signing provider agrees with the documented findings, assessment, and plan of care. 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 06/2019 Pneumonia. Edema LLE History of Any Multi-Drug Resistant Organisms: None Reported Past Surgical History: Bowel Resection, Heart Catheterization, Hysterectomy, Joint Replacement, Tonsillectomy, Tubal Ligation Additional Past Surgical History / Comment(s): Colostomy, Tan hip replacement. Heart cath 08/06/19. Past Anesthesia/Blood Transfusion Reactions: Previous Problems w/ Anesthesia, Postoperative Nausea & Vomiting (PONV) Additional Past Anesthesia/Blood Transfusion Reaction / Comment(s): BP "bottomed out" with colonoscopy years ago Past Psychological History: Anxiety, Depression Smoking Status: Current every day smoker Past Alcohol Use History: Occasional Past Drug Use History: Marijuana - Past Family History Mother Family Medical History: Cancer Additional Family Medical History / Comment(s): colon Father Family Medical History: Coronary Artery Disease (CAD) Additional Family Medical History / Comment(s): CABG Brother(s) Family Medical History: Coronary Artery Disease (CAD) Additional Family Medical History / Comment(s): CABG Medications and Allergies Home Medications Medication Instructions Recorded Confirmed Type Fluticasone Propionate [Flonase] 2 sprays EA NOSTRIL DAILY 01/25/14 07/18/20 History Simvastatin [Zocor] 20 mg PO HS 01/25/14 07/18/20 History rOPINIRole HCL [Requip] 0.25 mg PO HS 01/25/14 07/18/20 History Cyclobenzaprine [Flexeril] 10 mg PO DAILY PRN 07/07/14 07/18/20 History Acyclovir [Zovirax] 1 applic TOPICAL 5XD PRN 10/29/16 07/18/20 History DULoxetine HCL [Cymbalta] 60 mg PO BID 10/29/16 07/18/20 History cycloSPORINE 0.05% OPHTH SOLN 2 drops BOTH EYES Q12H 10/29/16 07/18/20 History [Restasis] Alendronate Sodium [Fosamax] 70 mg PO TU 01/20/18 07/18/20 History ARIPiprazole [Abilify] 10 mg PO DAILY 06/24/19 07/18/20 History Ferrous Sulfate [Slow Fe] 142 mg PO DAILY 06/24/19 07/18/20 History Hydrocortisone 10 mg PO DAILY 06/24/19 07/18/20 History Metoprolol Succinate [Toprol XL] 25 mg PO HS 06/24/19 07/18/20 History Omeprazole 20 mg PO DAILY 06/24/19 07/18/20 History hydrOXYzine HCL 25 mg PO TID PRN 06/24/19 07/18/20 History polyethylene glycoL 3350 [Miralax] 17 gm PO DAILY PRN 06/24/19 07/18/20 History traZODone HCL [Desyrel] 50 mg PO HS 06/24/19 07/18/20 History Aspirin [Adult Low Dose Aspirin EC] 81 mg PO DAILY 08/11/19 07/18/20 History Cbd Oil 1 drop PO DAILY PRN 08/11/19 07/18/20 History Fluticasone/Umeclidin/Vilanter 1 puff INHALATION RT-DAILY 08/11/19 07/18/20 His tory [Trelegy Ellipta 100-62.5-25] Lac-Hydrin 5% Cream 1 applic TOPICAL DAILY PRN 08/11/19 07/18/20 History Methyl Salicylate/Menthol 1 patch TOPICAL DAILY PRN 08/11/19 07/18/20 History [Salonpas Patch] Nitroglycerin Sl Tabs [Nitrostat] 0.4 mg SUBLINGUAL Q5M PRN 08/11/19 07/18/20 History Clopidogrel Bisulfate [Plavix] 75 mg PO DAILY #90 tab 08/13/19 07/18/20 Rx Albuterol Sulfate [Proair Hfa] 2 puff INHALATION RT-Q4H PRN 07/18/20 07/18/20 History Cholecalciferol [Vitamin D3 (25 25 mcg PO DAILY 07/18/20 07/18/20 History Mcg = 1000 Iu)] Dicyclomine HCl 10 mg PO TID PRN 07/18/20 07/18/20 History Furosemide [Lasix] 20 mg PO DAILY PRN 07/18/20 07/18/20 History HYDROcodone/APAP 10-325MG [[place] 1 tab PO Q6HR PRN 07/18/20 07/18/20 History 10-325] Hydrocortisone [Cortef] 5 mg PO PC-LUNCH 07/18/20 07/18/20 History Ipratropium-Albuterol Nebulize 3 ml INHALATION RT-QID 07/18/20 07/18/20 History [Duoneb 0.5 mg-3 mg/3 ml Soln] Latanoprost [Xalatan 0.005%] 1 drop BOTH EYES HS 07/18/20 07/18/20 History Magic Mouth Wash 5 ml PO QID 07/18/20 07/18/20 History Magnesium 250 mg PO DAILY 07/18/20 07/18/20 History Montelukast Sodium [Singulair] 10 mg PO HS 07/18/20 07/18/20 History Multivit-Min/FA/Lycopen/Lutein 1 tab PO DAILY 07/18/20 07/18/20 History [Centrum Silver Tablet] Tolterodine ER [Detrol LA] 2 mg PO DAILY 07/18/20 07/18/20 History Triamcinolone 0.1% Cream [Kenalog 1 applic TOPICAL BID PRN 07/18/20 07/18/20 History 0.1% Cream] valACYclovir HCL [Valtrex] 500 mg PO Q12HR PRN 07/18/20 07/18/20 History Allergies Allergy/AdvReac Type Severity Reaction Status Date / Time meperidine HCl [From Demerol] Allergy Severe Swelling Verified 07/18/20 09:01 Penicillins Allergy Rash/Hives Verified 07/18/20 09:01 erythromycin base AdvReac Abdominal Verified 07/18/20 09:01 Pain Physical Exam Vitals: Vital Signs Temp Pulse Resp BP Pulse Ox 07/18/20 08:39 97 07/18/20 08:29 92 07/18/20 08:08 98 19 144/88 92 L 07/18/20 01:44 91 18 131/81 94 L 07/18/20 01:04 18 07/18/20 00:17 97 18 134/89 94 L 07/17/20 22:12 107 H 18 129/94 95 07/17/20 20:14 97.9 F 114 H 20 150/88 95 Intake and Output 07/17/20 07/18/20 07/18/20 22:59 06:59 14:59 Other: Weight 73.028 kg Results 07/17/20 23:11 07/17/20 23:11 Cardiac Enzymes 07/17/20 07/17/20 07/18/20 Range/Units 23:11 23:11 10:00 AST 26 (14-36) U/L Troponin I <0.012 <0.012 (0.000-0.034) ng/mL Coagulation 07/17/20 Range/Units 23:11 PT 10.0 (9.0-12.0) sec APTT 21.8 L (22.0-30.0) sec CBC 07/17/20 Range/Units 23:11 WBC 9.0 (3.8-10.6) k/uL RBC 3.83 (3.80-5.40) m/uL Hgb 13.6 (11.4-16.0) gm/dL Hct 39.8 (34.0-46.0) % Plt Count 418 (150-450) k/uL Comprehensive Metabolic Panel 07/17/20 Range/Units 23:11 Sodium 129 L (137-145) mmol/L Potassium 4.1 (3.5-5.1) mmol/L Chloride 97 L (98-107) mmol/L Carbon Dioxide 25 (22-30) mmol/L BUN 12 (7-17) mg/dL Creatinine 0.55 (0.52-1.04) mg/dL Glucose 88 (74-99) mg/dL Calcium 9.2 (8.4-10.2) mg/dL AST 26 (14-36) U/L ALT 16 (4-34) U/L Alkaline Phosphatase 61 (38-126) U/L Total Protein 6.5 (6.3-8.2) g/dL Albumin 3.9 (3.5-5.0) g/dL Current Medications Generic Name Dose Route Start Last Admin Trade Name Freq PRN Reason Stop Dose Admin Hydrocodone Bitart/Acetaminophen 1 each 07/18/20 10:17 Hydrocodone/Apap 10-325mg 1 Each Tab PO Q6HR PRN Pain Albuterol Sulfate 2.5 mg 07/18/20 10:17 Albuterol Nebulized 2.5 Mg/3 Ml INHALATION RT-Q4H PRN Shortness Of Breath Albuterol/Ipratropium 3 ml 07/18/20 08:00 07/18/20 08:27 Ipratropium-Albuterol 3 Ml Neb INHALATION 3 ml RT-QID [facility] Administration Aripiprazole 10 mg 07/18/20 10:45 Aripiprazole 10 Mg Tab PO DAILY [facility] Aspirin 81 mg 07/18/20 10:00 Aspirin 81 Mg PO DAILY [facility] Atorvastatin Calcium 10 mg 07/18/20 21:00 Atorvastatin 10 Mg Tab PO HS [facility] Budesonide/Formoterol Fumarate 2 puff 07/18/20 08:00 Symbicort 80-4.5 Mcg Inhaler INHALATION RT-BID [facility] Cholecalciferol 25 mcg 07/18/20 10:45 07/18/20 11:08 Cholecalciferol 25 Mcg (1000 Iu) Tablet PO 25 mcg DAILY [facility] Administration Clopidogrel Bisulfate 75 mg 07/18/20 10:00 Clopidogrel 75 Mg Tab PO DAILY [facility] Cyclobenzaprine HCl 10 mg 07/18/20 10:17 Cyclobenzaprine 10 Mg Tab PO DAILY PRN MUSCLE SPASM Cyclosporine 2 drops 07/18/20 10:45 Cyclosporine 0.05% Ophth 0.4 Ml Droperette BOTH EYES Q12HR [facility] Dicyclomine HCl 10 mg 07/18/20 10:17 Dicyclomine 10 Mg Cap PO TID PRN IBS Duloxetine HCl 60 mg 07/18/20 10:45 07/18/20 11:08 Duloxetine Hcl 60 Mg Capsule.Dr PO 60 mg BID [place] Administration Ferrous Sulfate 325 mg 07/19/20 09:00 Ferrous Sulfate 325 Mg Tab PO DAILY [place] Furosemide 20 mg 07/18/20 09:59 Furosemide 20 Mg Tab PO DAILY PRN Edema Sodium Chloride 1,000 mls @ 100 mls/hr 07/18/20 01:30 07/18/20 01:48 Saline 0.9% IV 100 mls/hr .Q10H [place] Administration Latanoprost 1 drops 07/18/20 21:00 Latanoprost 0.005% Ophth Drops 2.5 Ml Btl BOTH EYES HS [facility] Magnesium Oxide 400 mg 07/18/20 10:45 07/18/20 11:08 Magnesium Oxide 400 Mg Tab PO 400 mg DAILY [facility] Administration Methylprednisolone Sodium Succinate 60 mg 07/18/20 06:00 07/18/20 08:07 Methylprednisolone Sod Succi 125 Mg/2 Ml Vial IV 60 mg Q6HR [facility] Administration Metoprolol Succinate 25 mg 07/18/20 21:00 Metoprolol Succinate (Er) 25 Mg Tab.Er.24h PO HS [facility] Montelukast Sodium 10 mg 07/18/20 21:00 Montelukast 10 Mg Tab PO HS [facility] Multivitamins 1 each 07/18/20 10:45 07/18/20 11:08 Multivitamins, Thera 1 Each Tab PO 1 each DAILY [facility] Administration Nitroglycerin 0.4 mg 07/18/20 10:17 Nitroglycerin Sl Tabs 0.4 Mg Tab SUBLINGUAL Q5M PRN Chest Pain Oxybutynin Chloride 5 mg 07/18/20 10:45 07/18/20 11:08 Oxybutynin Xl 5 Mg Tab.Er.24 PO 5 mg DAILY [facility] Administration Pantoprazole Sodium 40 mg 07/18/20 10:45 07/18/20 11:08 Pantoprazole 40 Mg Tablet PO 40 mg AC-BRKFST [place] Administration Polyethylene Glycol 17 gm 07/18/20 10:17 Polyethylene Glycol 3350 17 Gm Powd.Pack PO DAILY PRN Constipation Ropinirole HCl 0.25 mg 07/18/20 21:00 Ropinirole Hcl 0.25 Mg Tab PO HS [place] Trazodone HCl 50 mg 07/18/20 21:00 Trazodone Hcl 50 Mg Tab PO HS [place] Triamcinolone Acetonide 1 applic 07/18/20 10:17 Triamcinolone 0.1% Cream 80 Gm Tube TOPICAL BID PRN Rash Valacyclovir HCl 2,000 mg 07/18/20 10:17 Valacyclovir Hcl 1,000 Mg Tablet PO 08/17/20 10:18 BID PRN OUTBREAK Intake and Output 07/17/20 07/18/20 07/18/20 22:59 06:59 14:59 Other: Weight 73.028 kg 07/17/20 23:11 07/17/20 23:11
--- NOTE | 2020-07-18 13:00 | ECHOF ---
Referral Reason:LV function, chest pain MEASUREMENTS -------- HEIGHT: 157.5 cm WEIGHT: 73.0 kg BP: 144/88 IVSd: 0.9 cm (0.6 - 1.1) LVIDd: 4.0 cm (3.9 - 5.3) LVPWd: 1.4 cm (0.6 - 1.1) EDV(Teich): 68 ml IVSs: 1.5 cm LVIDs: 2.7 cm LVPWs: 1.4 cm %IVS Thck: 60 % ESV(Teich): 27 ml EF(Teich): 60 % %FS: 32 % SV(Teich): 41 ml RVIDd: 2.6 cm (< 3.3) LALs A4C: 5.4 cm LAAs A4C: 16.5 cm LAESV A-L A4C: 43 ml LAESV MOD A4C: 40 ml LALs A2C: 5.8 cm LAAs A2C: 17.9 cm LAESV A-L A2C: 47 ml LAESV MOD A2C: 44 ml LAESV(A-L): 47 ml LAESV Index (A-L): 26.79 ml/m Ao Diam: 2.7 cm (2.0 - 3.7) LA Diam: 3.3 cm (2.7 - 3.8) AV Cusp: 1.8 cm (1.5 - 2.6) EPSS: 0.2 cm MV E Riaz: 0.84 m/s MV DecT: 99 ms MV Dec Sibley: 8.5 m/s MV A Riaz: 1.29 m/s MV E/A Ratio: 0.65 MV PHT: 29 ms LVOT Vmax: 1.57 m/s LVOT maxP.80 mmHg AV Vmax: 1.66 m/s AV maxP.99 mmHg TR Vmax: 2.33 m/s TR maxP.65 mmHg RAP: 5.00 mmHg RVSP: 26.65 mmHg MV EF SLOPE: 61.73 mm/s (70 - 150) MV EXCURSION: 13.88 mm (> 18.000) FINDINGS -------- Sinus rhythm. This was a technically difficult study with suboptimal views. The left ventricular size is normal. Left ventricular wall thickness is normal. Overall left vent ricular systolic function is normal with, an EF between 55 - 60 %. The diastolic filling pattern is normal for the age of the patient 11.31. The right ventricle is normal in size. Normal LA size by volume 22+/-6 ml/m2. The right atrial size is normal. 5.0mg of Lumason was utilized for enhancement of images Interatrial and interventricular septum intact. There is no evidence of aortic regurgitation. There is no evidence of aortic stenosis. Mild mitral regurgitation is present. Mild tricuspid regurgitation present. There is no evidence of pulmonary hypertension. The right v entricular systolic pressure, as measured by Doppler, is 26.65mmHg. There is no pulmonic regurgitation present. The aortic root size is normal. IVC Not well visulized. There is no pericardial effusion. CONCLUSIONS -------- 1. The left ventricular size is normal. 2. Left ventricular wall thickness is normal. 3. Overall left ventricular systolic function is normal with, an EF between 55 - 60 %. 4. The diastolic filling pattern is normal for the age of the patient 11.31 5. Mild mitral regurgitation is present. 6. Mild tricuspid regurgitation present. COMPANY SECRETARY: Catrachita Boothe RDCS
[2020-07-18] MEDS: hydrOXYzine pamoate 25 MG CAP PO PRN ×2 (14:13→23:24)
[2020-07-18] MEDS: methylPREDNISolone SOD SUCCI 40 MG/ML 1 ML VIAL IV SCH ×2 (18:16→23:24)
[2020-07-18] MEDS: ENOXAPARIN 40 MG/0.4 ML SYRINGE SQ SCH ×2 (18:16→18:25)
--- NOTE | 2020-07-18 19:02 | P.CNPUL ---
History of Present Illness Consult date: 07/18/20 Reason for consult: dyspnea, cough, chest pain, COPD, hypoxemia Chief complaint: Shortness of breath diffuse aches and pain along with generalized weakness History of present illness: This is a 65-year-old female well-known to me from prior medical problems and issues patient came into the hospital with progressive weakness tiredness also have diffuse aches and pains also chest pain going on for a few weeks, and has a long-standing history of smoking and nicotine use also has a history of COPD along with coronary artery disease, she has an adrenal insufficiency, patient follows you history of [place] related to that, has been on Decadron, due to ongoing symptoms patient was started doubling the dose of Decadron felt better for short period of time then symptoms relapse, and recently has been evaluated in the office underwent chest x-ray and has been placed on bronchodilator along with short course of antibiotics without any significant improvement, patient follow Dr. 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 06/2019 Pneumonia. Edema LLE History of Any Multi-Drug Resistant Organisms: None Reported Past Surgical History: Bowel Resection, Heart Catheterization, Hysterectomy, Joint Replacement, Tonsillectomy, Tubal Ligation Additional Past Surgical History / Comment(s): Colostomy, Tan hip replacement. Heart cath 08/06/19. Past Anesthesia/Blood Transfusion Reactions: Previous Problems w/ Anesthesia, Postoperative Nausea & Vomiting (PONV) Additional Past Anesthesia/Blood Transfusion Reaction / Comment(s): BP "bottomed out" with colonoscopy years ago Past Psychological History: Anxiety, Depression Smoking Status: Current every day smoker Past Alcohol Use History: Occasional Past Drug Use History: Marijuana - Past Family History Mother Family Medical History: Cancer Additional Family Medical History / Comment(s): colon Father Family Medical History: Coronary Artery Disease (CAD) Additional Family Medical History / Comment(s): CABG Brother(s) Family Medical History: Coronary Artery Disease (CAD) Additional Family Medical History / Comment(s): CABG Medications and Allergies Home Medications Medication Instructions Recorded Confirmed Type Fluticasone Propionate [Flonase] 2 sprays EA NOSTRIL DAILY 01/25/14 07/18/20 History Simvastatin [Zocor] 20 mg PO HS 01/25/14 07/18/20 History rOPINIRole HCL [Requip] 0.25 mg PO HS 01/25/14 07/18/20 History Cyclobenzaprine [Flexeril] 10 mg PO DAILY PRN 07/07/14 07/18/20 History Acyclovir [Zovirax] 1 applic TOPICAL 5XD PRN 10/29/16 07/18/20 History DULoxetine HCL [Cymbalta] 60 mg PO BID 10/29/16 07/18/20 History cycloSPORINE 0.05% OPHTH SOLN 2 drops BOTH EYES Q12H 10/29/16 07/18/20 History [Restasis] Alendronate Sodium [Fosamax] 70 mg PO TU 01/20/18 07/18/20 History ARIPiprazole [Abilify] 10 mg PO DAILY 06/24/19 07/18/20 History Ferrous Sulfate [Slow Fe] 142 mg PO DAILY 06/24/19 07/18/20 History Hydrocortisone 10 mg PO DAILY 06/24/19 07/18/20 History Metoprolol Succinate [Toprol XL] 25 mg PO HS 06/24/19 07/18/20 History Omeprazole 20 mg PO DAILY 06/24/19 07/18/20 History hydrOXYzine HCL 25 mg PO TID PRN 06/24/19 07/18/20 History polyethylene glycoL 3350 [Miralax] 17 gm PO DAILY PRN 06/24/19 07/18/20 History traZODone HCL [Desyrel] 50 mg PO HS 06/24/19 07/18/20 History Aspirin [Adult Low Dose Aspirin EC] 81 mg PO DAILY 08/11/19 07/18/20 History Cbd Oil 1 drop PO DAILY PRN 08/11/19 07/18/20 History Fluticasone/Umeclidin/Vilanter 1 puff INHALATION RT-DAILY 08/11/19 07/18/20 History [Trelegy Ellipta 100-62.5-25] Lac-Hydrin 5% Cream 1 applic TOPICAL DAILY PRN 08/11/19 07/18/20 History Methyl Salicylate/Menthol 1 patch TOPICAL DAILY PRN 08/11/19 07/18/20 History [Salonpas Patch] Nitroglycerin Sl Tabs [Nitrostat] 0.4 mg SUBLINGUAL Q5M PRN 08/11/19 07/18/20 History Clopidogrel Bisulfate [Plavix] 75 mg PO DAILY #90 tab 08/13/19 07/18/20 Rx Albuterol Sulfate [Proair Hfa] 2 puff INHALATION RT-Q4H PRN 07/18/20 07/18/20 History Cholecalciferol [Vitamin D3 (25 25 mcg PO DAILY 07/18/20 07/18/20 History Mcg = 1000 Iu)] Dicyclomine HCl 10 mg PO TID PRN 07/18/20 07/18/20 History Furosemide [Lasix] 20 mg PO DAILY PRN 07/18/20 07/18/20 History HYDROcodone/APAP 10-325MG [[place] 1 tab PO Q6HR PRN 07/18/20 07/18/20 History 10-325] Hydrocortisone [Cortef] 5 mg PO PC-LUNCH 07/18/20 07/18/20 History Ipratropium-Albuterol Nebulize 3 ml INHALATION RT-QID 07/18/20 07/18/20 History [Duoneb 0.5 mg-3 mg/3 ml Soln] Latanoprost [Xalatan 0.005%] 1 drop BOTH EYES HS 07/18/20 07/18/20 History Magic Mouth Wash 5 ml PO QID 07/18/20 07/18/20 History Magnesium 250 mg PO DAILY 07/18/20 07/18/20 History Montelukast Sodium [Singulair] 10 mg PO HS 07/18/20 07/18/20 History Multivit-Min/FA/Lycopen/Lutein 1 tab PO DAILY 07/18/20 07/18/20 History [Centrum Silver Tablet] Tolterodine ER [Detrol LA] 2 mg PO DAILY 07/18/20 07/18/20 History Triamcinolone 0.1% Cream [Kenalog 1 applic TOPICAL BID PRN 07/18/20 07/18/20 History 0.1% Cream] valACYclovir HCL [Valtrex] 500 mg PO Q12HR PRN 07/18/20 07/18/20 History Allergies Allergy/AdvReac Type Severity Reaction Status Date / Time meperidine HCl [From Demerol] Allergy Severe Swelling Verified 07/18/20 09:01 Penicillins Allergy Rash/Hives Verified 07/18/20 09:01 erythromycin base AdvReac Abdominal Verified 07/18/20 09:01 Pain Physical Exam Vitals: Vital Signs Temp Pulse Resp BP Pulse Ox 07/18/20 18:10 98 18 130/93 99 07/18/20 16:40 96 07/18/20 16:31 97 07/18/20 13:00 96 18 149/78 94 L 07/18/20 12:13 96 18 156/93 96 07/18/20 08:39 97 07/18/20 08:29 92 07/18/20 08:08 98 19 144/88 92 L 07/18/20 01:44 91 18 131/81 94 L 07/18/20 01:04 18 07/18/20 00:17 97 18 134/89 94 L 07/17/20 22:12 107 H 18 129/94 95 07/17/20 20:14 97.9 F 114 H 20 150/88 95 - Constitutional General appearance: average body habitus, disheveled, no acute distress, obese - EENT Eyes: EOMI, PERRLA Ears: bilateral: normal - Neck Neck: normal ROM Carotids: left: upstroke normal Thyroid: bilateral: normal size - Respiratory Respiratory: bilateral: diminished - Cardiovascular Rhythm: regular Heart sounds: normal: S1, S2 - Gastrointestinal General gastrointestinal: normal bowel sounds, soft - Neurologic Neurologic: CNII-XII intact - Musculoskeletal Musculoskeletal: gait normal, generalized weakness, strength equal bilaterally - Psychiatric Psychiatric: A&O x's 3, appropriate affect, intact judgment & insight Results - Laboratory Findings CBC and BMP: 07/17/20 23:11 07/17/20 23:11 PT/INR, D-dimer PT 10.0 sec (9.0-12.0) 07/17/20 23:11 INR 0.9 (<1.2) 07/17/20 23:11 Abnormal lab findings: Abnormal Labs 07/17/20 07/17/20 07/17/20 23:11 23:11 23:11 MCV 103.9 H MCH 35.5 H APTT 21.8 L Sodium 129 L Chloride 97 L - Diagnostic Findings Chest x-ray: report reviewed, image reviewed (Pending as noted above) Assessment and Plan Assessment: Generalized weakness along with the aches and pain Increased shortness of breath likely related to COPD exacerbation Atypical chest pain Chronic adrenal insufficiency Chronic hyponatremia Chronic hypoxic respiratory failure due to COPD Plan: IV steroids Breathing treatments Proceed with cardiovascular workup as per cardiology recommendation Computed tomography scan of the chest with IV contrast PE protocol Further recommendations pending plan of care as per clinical response of the patient Time with Patient: Greater than 30
--- NOTE | 2020-07-18 19:40 | CT ---
EXAMINATION TYPE: CT angio chest DATE OF EXAM: 07/18/2020 7:25 PM COMPARISON: 08/03/2019 HISTORY: Shortness of breath, CT DLP: 451.4 mGycm Automated exposure control for dose reduction was used. CONTRAST: CTA scan of the thorax is performed with IV Contrast, patient injected with 100 mL of Isovue 370, pul monary embolism protocol. . FINDINGS: LUNGS: Changes of COPD are noted and there is a calcified granuloma in the right middle lobe. Subsegm ental areas of consolidation are most typical of atelectasis bilaterally. MEDIASTINUM: There is satisfactory enhancement of the pulmonary artery and its branches, there is no CT evidence for pulmonary embolism. There are no greater than 1 cm hilar or mediastinal lymph nodes. No pericardial effusion is seen. OTHER: Chronic rib deformity on the left suggestive of remote trauma. Hypertrophic and degenerative changes spine with a severe compression fractures seen in the mid to upper thoracic spine which are r etrospectively stable from prior exam. Mild endplate superior compression deformity also seen in the upper thoracic spine. This is stable. IMPRESSION: 1. Findings compatible with COPD. Subsegmental areas of consolidation most typical of atelectasis. 2. Findings compatible with calcified granuloma
[2020-07-18] MEDS: FORMOTEROL FUMARATE 20 MCG/2 ML NEBU INHALATION SCH (20:03)
[2020-07-18] MEDS: BUDESONIDE 1 MG/2 ML NEBU INHALATION SCH (20:04)
--- NOTE | 2020-07-18 20:25 | P.HPIM ---
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 Patient has continued to smoke for over 50 years. Still smoking a few cigarettes a day. Patient presents with progressive increasing shortness of breath. Wheezing. Occasional cough. Some chills. Appetite has gone down. Patient colostomy has been functioning fine. No edema. Denies any fever and chills. Patient is somewhat also anxious from multiple medical appointments she has to make including those for testing.. 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 Restless leg syndrome, varicose veins, prolapsed rectum, urinary stress incontinence, cervical cancer, adrenal insufficiency, anxiety depression Social history: Patient smoked for over 50 years. Still more smoking a few cigarettes a day. Alcohol occasionally. Has had a problem with alcohol in the past. Physical examination: VITAL SIGNS: He 7.9, 114, 20, 150/88, 95% room air upon presentation GENERAL: BMI 29 0.4, sitting up in bed a bit tired. EYES: Pupils equal. Conjunctiva normal. HEENT: External appearance of nose and ears normal, oral cavity grossly normal. NECK: JVD not raised; masses not palpable. HEART: First and second heart sounds are normal; no edema. LUNGS: Respiratory rate increased, decreased breaths sounds, prolonged expiration. ABDOMEN: Soft, nontender, liver spleen not palpable, no masses palpable. Colostomy PSYCH: Alert and oriented x3; mood and affect a bit anxious MUSCULAR skeletal: Evidence of OA especially in the hands NEUROLOGICAL: Cranial nerves grossly intact; no facial asymmetry, power and sensation grossly intact. LYMPHATICS: No lymph nodes palpable in the axilla and neck INVESTIGATIONS, reviewed in the clinical context: WBC 9 hemoglobin 13.6 platelets 418 sodium 129 potassium 4.1 creatinine 0.55 Troponin I 3 negative TSH 3.1 cortisol 6 UA negative Coronavirus [PCR] not detected CT angina chest: COPD. Segmental areas of consolidation likely atelectasis. Severe compression fractures mid to upper thoracic spine. 2-D echocardiogram: EF 55-60%. Chest x-ray film personally reviewed by me-hyperinflation. Prominent pulmonary artery. Possibly atelectasis EKG tracing personally reviewed by me-normal sinus rhythm. Q waves in inferior leads Assessment and plan: -Acute COPD exacerbation in a current smoker Start patient on DuoNeb bronchodilators, IV and inhaled steroids and long-acting beta agonist. Dr. Alex Vera consulted -GERD Continue with PPI -Hyperlipidemia Continue with Zocor -Essential hypertension Continue Toprol-XL -Primary osteoarthritis Use analgesia as needed -Restless leg syndrome Continue with the Requip -Chronic urinary stress incontinence Continue with Detrol LA, Ditropan -Chronic adrenal insufficiency Oral hydrocortisone. Patient is on IV Solu-Medrol -Coronary artery disease Continue with aspirin. Beta jose -Chronic colostomy Follow- output -Anxiety depression not otherwise specified Continue with Abilicathryn, destony, Ulisesmbalta Smoke cessation counseling: This was done with the patient. Patient presently does not want nicotine patch or nicotine gum because of dentures. More than 3 minutes was spent for this Past Medical History Past Medical History: Coronary Artery Disease (CAD), Cancer, Chest Pain / Angina, COPD, Eye Disorder, GERD/Reflux, Hyperlipidemia, Hypertension, Osteoarthritis (OA), Pneumonia, Skin Disorder Additional Past Medical History / Comment(s): Colostomy d/t rectal prolapse, osteoporosis, histoplasmosis/toxoplasmosis (blind in left eye), RLS, varicose veins, poor circulation, asthmatic bronchitis, discoloration/bruises on chetan arms, stress incontinence, hx cervical cancer, hypoglycemia, adrenal insu fficency. 06/2019 Pneumonia. Edema LLE History of Any Multi-Drug Resistant Organisms: None Reported Past Surgical History: Bowel Resection, Heart Catheterization, Hysterectomy, Joint Replacement, Tonsillectomy, Tubal Ligation Additional Past Surgical History / Comment(s): Colostomy, [place]tan hip replacement. Heart cath 08/06/19. Past Anesthesia/Blood Transfusion Reactions: Previous Problems w/ Anesthesia, Postoperative Nausea & Vomiting (PONV) Additional Past Anesthesia/Blood Transfusion Reaction / Comment(s): BP "bottomed out" with colonoscopy years ago Past Psychological History: Anxiety, Depression Smoking Status: Current every day smoker Past Alcohol Use History: Occasional Past Drug Use History: Marijuana - Past Family History Mother Family Medical History: Cancer Additional Family Medical History / Comment(s): colon Father Family Medical History: Coronary Artery Disease (CAD) Additional Family Medical History / Comment(s): CABG Brother(s) Family Medical History: Coronary Artery Disease (CAD) Additional Family Medical History / Comment(s): CABG Medications and Allergies Home Medications Medication Instructions Recorded Confirmed Type Fluticasone Propionate [Flonase] 2 sprays EA NOSTRIL DAILY 01/25/14 07/18/20 His tory Simvastatin [Zocor] 20 mg PO HS 01/25/14 07/18/20 History rOPINIRole HCL [Requip] 0.25 mg PO HS 01/25/14 07/18/20 History Cyclobenzaprine [Flexeril] 10 mg PO DAILY PRN 07/07/14 07/18/20 History Acyclovir [Zovirax] 1 applic TOPICAL 5XD PRN 10/29/16 07/18/20 History DULoxetine HCL [Cymbalta] 60 mg PO BID 10/29/16 07/18/20 History cycloSPORINE 0.05% OPHTH SOLN 2 drops BOTH EYES Q12H 10/29/16 07/18/20 History [Restasis] Alendronate Sodium [Fosamax] 70 mg PO TU 01/20/18 07/18/20 History ARIPiprazole [Abilify] 10 mg PO DAILY 06/24/19 07/18/20 History Ferrous Sulfate [Slow Fe] 142 mg PO DAILY 06/24/19 07/18/20 History Hydrocortisone 10 mg PO DAILY 06/24/19 07/18/20 History Metoprolol Succinate [Toprol XL] 25 mg PO HS 06/24/19 07/18/20 History Omeprazole 20 mg PO DAILY 06/24/19 07/18/20 History hydrOXYzine HCL 25 mg PO TID PRN 06/24/19 07/18/20 History polyethylene glycoL 3350 [Miralax] 17 gm PO DAILY PRN 06/24/19 07/18/20 History traZODone HCL [Desyrel] 50 mg PO HS 06/24/19 07/18/20 History Aspirin [Adult Low Dose Aspirin EC] 81 mg PO DAILY 08/11/19 07/18/20 History Cbd Oil 1 drop PO DAILY PRN 08/11/19 07/18/20 History Fluticasone/Umeclidin/Vilanter 1 puff INHALATION RT-DAILY 08/11/19 07/18/20 History [Trelegy Ellipta 100-62.5-25] Lac-Hydrin 5% Cream 1 applic TOPICAL DAILY PRN 08/11/19 07/18/20 History Methyl Salicylate/Menthol 1 patch TOPICAL DAILY PRN 08/11/19 07/18/20 History [Salonpas Patch] Nitroglycerin Sl Tabs [Nitrostat] 0.4 mg SUBLINGUAL Q5M PRN 08/11/19 07/18/20 History Clopidogrel Bisulfate [Plavix] 75 mg PO DAILY #90 tab 08/13/19 07/18/20 Rx Albuterol Sulfate [Proair Hfa] 2 puff INHALATION RT-Q4H PRN 07/18/20 07/18/20 History Cholecalciferol [Vitamin D3 (25 25 mcg PO DAILY 07/18/20 07/18/20 History Mcg = 1000 Iu)] Dicyclomine HCl 10 mg PO TID PRN 07/18/20 07/18/20 History Furosemide [Lasix] 20 mg PO DAILY PRN 07/18/20 07/18/20 History HYDROcodone/APAP 10-325MG [[place] 1 tab PO Q6HR PRN 07/18/20 07/18/20 History 10-325] Hydrocortisone [Cortef] 5 mg PO PC-LUNCH 07/18/20 07/18/20 History Ipratropium-Albuterol Nebulize 3 ml INHALATION RT-QID 07/18/20 07/18/20 History [Duoneb 0.5 mg-3 mg/3 ml Soln] Latanoprost [Xalatan 0.005%] 1 drop BOTH EYES HS 07/18/20 07/18/20 History Magic Mouth Wash 5 ml PO QID 07/18/20 07/18/20 History Magnesium 250 mg PO DAILY 07/18/20 07/18/20 History Montelukast Sodium [Singulair] 10 mg PO HS 07/18/20 07/18/20 History Multivit-Min/FA/Lycopen/Lutein 1 tab PO DAILY 07/18/20 07/18/20 History [Centrum Silver Tablet] Tolterodine ER [Detrol LA] 2 mg PO DAILY 07/18/20 07/18/20 History Triamcinolone 0.1% Cream [Kenalog 1 applic TOPICAL BID PRN 07/18/20 07/18/20 History 0.1% Cream] valACYclovir HCL [Valtrex] 500 mg PO Q12HR PRN 07/18/20 07/18/20 History Allergies Allergy/AdvReac Type Severity Reaction Status Date / Time meperidine HCl [From Demerol] Allergy Severe Swelling Verified 07/18/20 09:01 Penicillins Allergy Rash/Hives Verified 07/18/20 09:01 erythromycin base AdvReac Abdominal Verified 07/18/20 09:01 Pain Physical Exam Vitals: Vital Signs Temp Pulse Resp BP Pulse Ox 07/18/20 08:39 97 07/18/20 08:29 92 07/18/20 08:08 98 19 144/88 92 L 07/18/20 01:44 91 18 131/81 94 L 07/18/20 01:04 18 07/18/20 00:17 97 18 134/89 94 L 07/17/20 22:12 107 H 18 129/94 95 07/17/20 20:14 97.9 F 114 H 20 150/88 95 Intake and Output 07/17/20 07/18/20 07/18/20 22:59 06:59 14:59 Other: Weight 73.028 kg Results CBC & Chem 7: 07/17/20 23:11 07/17/20 23:11 Labs: Abnormal Lab Results - Last 24 Hours (Table) 07/17/20 07/17/20 07/17/20 Range/Units 23:11 23:11 23:11 MCV 103.9 H (80.0-100.0) fL MCH 35.5 H (25.0-35.0) pg APTT 21.8 L (22.0-30.0) sec Sodium 129 L (137-145) mmol/L Chloride 97 L (98-107) mmol/L
[2020-07-18] MEDS ORDERED: traZODone HCL 50 MG TAB PO SCH (21:00)
[2020-07-18] MEDS ORDERED: ATORVASTATIN 10 MG TAB PO SCH (21:00)
[2020-07-18] MEDS ORDERED: MONTELUKAST 10 MG TAB PO SCH (21:00)
[2020-07-18] MEDS ORDERED: LATANOPROST 0.005% OPHTH DROPS 2.5 ML BTL BOTH EYES SCH (21:00)
[2020-07-18] MEDS ORDERED: METOPROLOL SUCCINATE (ER) 25 MG TAB.ER.24H PO SCH (21:00)
[2020-07-19] MEDS: IPRATROPIUM-ALBUTEROL 3 ML NEB INHALATION SCH ×3 (01:40→11:30)
[2020-07-19] MEDS ORDERED: IPRATROPIUM-ALBUTEROL 3 ML NEB INHALATION PRN (03:36)
[2020-07-19 07:39] VITALS: BP 135/88; RESP 20; TEMP 97.5
[2020-07-19] MEDS: BUDESONIDE 1 MG/2 ML NEBU INHALATION SCH (07:46)
[2020-07-19] MEDS: FORMOTEROL FUMARATE 20 MCG/2 ML NEBU INHALATION SCH (07:46)
[2020-07-19] MEDS ORDERED: FERROUS SULFATE 325 MG TAB PO SCH (09:00)
[2020-07-19 09:15] LABS: Chol/HDL Ratio 3.6; LDL Cholesterol,Calculated 126.8 mg/dL (0.0-131.0); VLDL Calculation 21.2 mg/dL (5.00-40.00)
[2020-07-19] MEDS: SODIUM CHLORIDE 0.9% 1,000 ML IV SCH (09:30)
[2020-07-19] MEDS: ENOXAPARIN 40 MG/0.4 ML SYRINGE SQ SCH (09:37)
[2020-07-19] MEDS: methylPREDNISolone SOD SUCCI 40 MG/ML 1 ML VIAL IV SCH (09:37)
[2020-07-19] MEDS: CHOLECALCIFEROL 25 MCG (1000 IU) TABLET PO SCH (09:40)
[2020-07-19] MEDS: ASPIRIN 81 MG PO SCH (09:40)
[2020-07-19] MEDS: PANTOPRAZOLE 40 MG TABLET PO SCH (09:40)
[2020-07-19] MEDS: cycloSPORINE 0.05% OPHTH 0.4 ML DROPERETTE BOTH EYES SCH (09:40)
[2020-07-19] MEDS: CLOPIDOGREL 75 MG TAB PO SCH (09:40)
[2020-07-19] MEDS: DULoxetine HCL 60 MG CAPSULE.DR PO SCH (09:40)
[2020-07-19] MEDS: ARIPiprazole 10 MG TAB PO SCH (09:40)
[2020-07-19] MEDS: MULTIVITAMINS, THERA 1 EACH TAB PO SCH (09:40)
[2020-07-19] MEDS: CYCLOBENZAPRINE 10 MG TAB PO PRN (09:48)
[2020-07-19] MEDS: hydrOXYzine pamoate 25 MG CAP PO PRN (09:48)
[2020-07-19] MEDS: HYDROcodone/APAP 10-325MG 1 EACH TAB PO PRN (09:48)
[2020-07-19] MEDS: OXYBUTYNIN XL 5 MG TAB.ER.24 PO SCH (10:57)
[2020-07-19] MEDS: MAGNESIUM OXIDE 400 MG TAB PO SCH (10:57)
[2020-07-19] MEDS ORDERED: DOXYCYCLINE 100 MG CAP PO SCH (11:00)
[2020-07-19] MEDS ORDERED: predniSONE 20 MG TAB PO SCH (11:00)
[2020-07-19 12:02] VITALS: PULSE 90
[2020-07-19 13:37] LABS: African American GFR (CKD) >90 (>60 ml/min/1.73 sqM); Anion Gap 4 mmol/L; Blood Urea Nitrogen 11 mg/dL (7-17); Calcium 8.6 mg/dL (8.4-10.2); Carbon Dioxide 25 mmol/L (22-30); Chloride 101 mmol/L (98-107); Glucose 79 mg/dL (74-99); Non-African American GFR(CKD) >90 (>60 ml/min/1.73 sqM); Potassium 4.5 mmol/L (3.5-5.1); Sodium 130 mmol/L (137-145)
--- NOTE | 2020-07-19 23:04 | P.DS ---
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 Patient has continued to smoke for over 50 years. Still smoking a few cigarettes a day. Patient presents with progressive increasing shortness of breath. Wheezing. Occasional cough. Some chills. Appetite has gone down. Patient colostomy has been functioning fine. No edema. Denies any fever and chills. Patient is somewhat also anxious from multiple medical appointments she has to make including those for testing.. Admitted with COPD exacerbation and acute bronchitis. Placed on bronchodilators IV and inhaled steroids. Long-acting beta agonist. Today-feeling much better. Keen to go home. Bringing up some sputum. Oral intake improved. Doxycycline being added. Patient took a short burst of steroids and then go back to her dose of hydrocortisone. Discussed with the patient. Discussion and discharge planning more than 35 minutes Consultation: Dr. 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 Restless leg syndrome, varicose veins, prolapsed rectum, urinary stress incontinence, cervical cancer, adrenal insufficiency, anxiety depression Social history: Patient smoked for over 50 years. Still more smoking a few cigarettes a day. Alcohol occasionally. Has had a problem with alcohol in the past. Physical examination: VITAL SIGNS: 97.5, 96, 20, 1 3588, 96% room air GENERAL: Sitting up up at age of the bed, looking better EYES: Pupils equal. Conjunctiva normal. NECK: JVD not raised; masses not palpable. HEART: First and second heart sounds are normal; no edema. LUNGS: Respiratory rate increased, decreased breaths sounds, ABDOMEN: Soft, nontender, liver spleen not palpable, no masses palpable. Colostomy PSYCH: Alert and oriented x3; mood and affect a bit anxious MUSCULAR skeletal: Evidence of OA especially in the hands INVESTIGATIONS, reviewed in the clinical context: July 19: Sodium 1:30 WBC 9 hemoglobin 13.6 platelets 418 sodium 129 potassium 4.1 creatinine 0.55 Troponin I 3 negative TSH 3.1 cortisol 6 UA negative Coronavirus [PCR] not detected CT angina chest: COPD. Segmental areas of consolidation likely atelectasis. Severe compression fractures mid to upper thoracic spine. 2-D echocardiogram: EF 55-60%. Chest x-ray film personally reviewed by me-hyperinflation. Prominent pulmonary artery. Possibly atelectasis EKG tracing personally reviewed by me-normal sinus rhythm. Q waves in inferior leads Assessment and plan: -Acute COPD exacerbation in a current smoker Start patient on DuoNeb bronchodilators, IV and inhaled steroids and long-acting beta agonist. -Much improved -GERD Continue with PPI -Hyperlipidemia Continue with Zocor -Essential hypertension Continue Toprol-XL -Primary osteoarthritis Use analgesia as needed -Restless leg syndrome Continue with the Requip -Chronic urinary stress incontinence Continue with Detrol LA, Ditropan -Chronic adrenal insufficiency Oral hydrocortisone. Patient is on IV Solu-Medrol -Coronary artery disease Continue with aspirin. Beta jose -Chronic colostomy Follow- output -Anxiety depression not otherwise specified Continue with Abilifaquilino chicaslUlisesmbalta -Hyponatremia suspect hypoosmolar from excessive water intake. Patient put on fluid restriction and avoid free fluids. Follow BMP as patient Disposition: Home Patient Condition at Discharge: Good Plan - Discharge Summary Discharge Rx Participant: No New Discharge Prescriptions: New predniSONE 0 mg PO DIRECTED #10 tab Doxycycline [Vibramycin] 100 mg PO BID 1 Days #10 capsule Continue Simvastatin [Zocor] 20 mg PO HS rOPINIRole HCL [Requip] 0.25 mg PO HS Fluticasone Propionate [Flonase] 2 sprays EA NOSTRIL DAILY Cyclobenzaprine [Flexeril] 10 mg PO DAILY PRN PRN Reason: Muscle Spasm Acyclovir [Zovirax] 1 applic TOPICAL 5XD PRN PRN Reason: OUTBREAK cycloSPORINE 0.05% OPHTH SOLN [Restasis] 2 drops BOTH EYES Q12H DULoxetine HCL [Cymbalta] 60 mg PO BID Alendronate Sodium [Fosamax] 70 mg PO TU ARIPiprazole [Abilify] 10 mg PO DAILY Ferrous Sulfate [Slow Fe] 142 mg PO DAILY Hydrocortisone 10 mg PO DAILY hydrOXYzine HCL 25 mg PO TID PRN PRN Reason: Anxiety Metoprolol Succinate [Toprol XL] 25 mg PO HS Omeprazole 20 mg PO DAILY polyethylene glycoL 3350 [Miralax] 17 gm PO DAILY PRN PRN Reason: Constipation traZODone HCL [Desyrel] 50 mg PO HS Aspirin [Adult Low Dose Aspirin EC] 81 mg PO DAILY Fluticasone/Umeclidin/Vilanter [Trelegy Ellipta 100-62.5-25] 1 puff INHALATION RT-DAILY Methyl Salicylate/Menthol [Salonpas Patch] 1 patch TOPICAL DAILY PRN PRN Reason: Pain Lac-Hydrin 5% Cream 1 applic TOPICAL DAILY PRN PRN Reason: pain, itching Nitroglycerin Sl Tabs [Nitrostat] 0.4 mg SUBLINGUAL Q5M PRN PRN Reason: Chest Pain Cbd Oil 1 drop PO DAILY PRN PRN Reason: Anxiety Clopidogrel Bisulfate [Plavix] 75 mg PO DAILY #90 tab valACYclovir HCL [Valtrex] 500 mg PO Q12HR PRN PRN Reason: OUTBREAK Magic Mouth Wash 5 ml PO QID Furosemide [Lasix] 20 mg PO DAILY PRN PRN Reason: Edema Cholecalciferol [Vitamin D3 (25 Mcg = 1000 Iu)] 25 mcg PO DAILY Triamcinolone 0.1% Cream [Kenalog 0.1% Cream] 1 applic TOPICAL BID PRN PRN Reason: Rash Albuterol Sulfate [Proair Hfa] 2 puff INHALATION RT-Q4H PRN PRN Reason: Shortness Of Breath Multivit-Min/FA/Lycopen/Lutein [Centrum Silver Tablet] 1 tab PO DAILY Tolterodine ER [Detrol LA] 2 mg PO DAILY Ipratropium-Albuterol Nebulize [Duoneb 0.5 mg-3 mg/3 ml Soln] 3 ml INHALATION RT-QID #120 neb Montelukast Sodium [Singulair] 10 mg PO HS HYDROcodone/APAP 10-325MG [[place] 10-325] 1 tab PO Q6HR PRN PRN Reason: Pain Magnesium 250 mg PO DAILY Latanoprost [Xalatan 0.005%] 1 drop BOTH EYES HS Hydrocortisone [Cortef] 5 mg PO PC-LUNCH Dicyclomine HCl 10 mg PO TID PRN PRN Reason: IBS Discharge Medication List Fluticasone Propionate [Flonase] 2 sprays EA NOSTRIL DAILY 01/25/14 [History] Simvastatin [Zocor] 20 mg PO HS 01/25/14 [History] rOPINIRole HCL [Requip] 0.25 mg PO HS 01/25/14 [History] Cyclobenzaprine [Flexeril] 10 mg PO DAILY PRN 07/07/14 [History] Acyclovir [Zovirax] 1 applic TOPICAL 5XD PRN 10/29/16 [History] DULoxetine HCL [Cymbalta] 60 mg PO BID 10/29/16 [History] cycloSPORINE 0.05% OPHTH SOLN [Restasis] 2 drops BOTH EYES Q12H 10/29/16 [History] Alendronate Sodium [Fosamax] 70 mg PO TU 01/20/18 [History] ARIPiprazole [Abilify] 10 mg PO DAILY 06/24/19 [History] Ferrous Sulfate [Slow Fe] 142 mg PO DAILY 06/24/19 [History] Hydrocortisone 10 mg PO DAILY 06/24/19 [History] Metoprolol Succinate [Toprol XL] 25 mg PO HS 06/24/19 [History] Omeprazole 20 mg PO DAILY 06/24/19 [History] hydrOXYzine HCL 25 mg PO TID PRN 06/24/19 [History] polyethylene glycoL 3350 [Miralax] 17 gm PO DAILY PRN 06/24/19 [History] traZODone HCL [Desyrel] 50 mg PO HS 06/24/19 [History] Aspirin [Adult Low Dose Aspirin EC] 81 mg PO DAILY 08/11/19 [History] Cbd Oil 1 drop PO DAILY PRN 08/11/19 [History] Fluticasone/Umeclidin/Vilanter [Trelegy Ellipta 100-62.5-25] 1 puff INHALATION RT-DAILY 08/11/19 [History] Lac-Hydrin 5% Cream 1 applic TOPICAL DAILY PRN 08/11/19 [History] Methyl Salicylate/Menthol [Salonpas Patch] 1 patch TOPICAL DAILY PRN 08/11/19 [History] Nitroglycerin Sl Tabs [Nitrostat] 0.4 mg SUBLINGUAL Q5M PRN 08/11/19 [History] Clopidogrel Bisulfate [Plavix] 75 mg PO DAILY #90 tab 08/13/19 [Rx] Albuterol Sulfate [Proair Hfa] 2 puff INHALATION RT-Q4H PRN 07/18/20 [History] Cholecalciferol [Vitamin D3 (25 Mcg = 1000 Iu)] 25 mcg PO DAILY 07/18/20 [History] Dicyclomine HCl 10 mg PO TID PRN 07/18/20 [History] Furosemide [Lasix] 20 mg PO DAILY PRN 07/18/20 [History] HYDROcodone/APAP 10-325MG [[place] 10-325] 1 tab PO Q6HR PRN 07/18/20 [History] Hydrocortisone [Cortef] 5 mg PO PC-LUNCH 07/18/20 [History] Latanoprost [Xalatan 0.005%] 1 drop BOTH EYES HS 07/18/20 [History] Magic Mouth Wash 5 ml PO QID 07/18/20 [History] Magnesium 250 mg PO DAILY 07/18/20 [History] Montelukast Sodium [Singulair] 10 mg PO HS 07/18/20 [History] Multivit-Min/FA/Lycopen/Lutein [Centrum Silver Tablet] 1 tab PO DAILY 07/18/20 [History] Tolterodine ER [Detrol LA] 2 mg PO DAILY 07/18/20 [History] Triamcinolone 0.1% Cream [Kenalog 0.1% Cream] 1 applic TOPICAL BID PRN 07/18/20 [History] valACYclovir HCL [Valtrex] 500 mg PO Q12HR PRN 07/18/20 [History] Doxycycline [Vibramycin] 100 mg PO BID 1 Days #10 capsule 07/19/20 [Rx] Ipratropium-Albuterol Nebulize [Duoneb 0.5 mg-3 mg/3 ml Soln] 3 ml INHALATION RT-QID #120 neb 07/19/20 [Rx] predniSONE 0 mg PO DIRECTED #10 tab 07/19/20 [Rx] Follow up Appointment(s)/Referral(s): Demetrius Ramirez MD [STAFF PHYSICIAN] - 2 Weeks [facility], [NON-STAFF] - 1-2 Days Jase Stewart DO [Primary Care Provider] - 1-2 days German Vera MD [STAFF PHYSICIAN] - 1-2 Days Activity/Diet/Wound Care/Special Instructions: Repeat BMP on Friday. Limit water intake. Discharge Disposition: HOME SELF-CARE
== END 2020-07-19 14:24 | disposition home or self-care (01) ==
LOC: EC 18:46 → 6NMEDSUR 07-18 01:20
PROVIDERS: ADMIT Hospitalist; ATTEND Hospitalist
DX: J44.1 Chronic obstructive pulmonary disease with (acute) exacerbation (principal); J20.9 Acute bronchitis, unspecified; F17.210 Nicotine dependence, cigarettes, uncomplicated; K21.9 Gastro-esophageal reflux disease without esophagitis; E78.5 Hyperlipidemia, unspecified; I10 Essential (primary) hypertension; M19.91 Primary osteoarthritis, unspecified site; G25.81 Restless legs syndrome; N39.3 Stress incontinence (female) (male); I25.10 Atherosclerotic heart disease of native coronary artery without angina pectoris; E27.40 Unspecified adrenocortical insufficiency; R11.2 Nausea with vomiting, unspecified; F41.8 Other specified anxiety disorders; J96.11 Chronic respiratory failure with hypoxia; E87.1 Hypo-osmolality and hyponatremia; I83.90 Asymptomatic varicose veins of unspecified lower extremity; M81.0 Age-related osteoporosis without current pathological fracture; H54.62 Unqualified visual loss, left eye, normal vision right eye; Z93.3 Colostomy status; Z98.61 Coronary angioplasty status; Z79.82 Long term (current) use of aspirin; Z79.899 Other long term (current) drug therapy; Z79.83 Long term (current) use of bisphosphonates; Z79.02 Long term (current) use of antithrombotics/antiplatelets; Z88.0 Allergy status to penicillin; Z88.5 Allergy status to narcotic agent; Z90.710 Acquired absence of both cervix and uterus; Z96.649 Presence of unspecified artificial hip joint; Z20.822 Contact with and (suspected) exposure to COVID-19; Z85.41 Personal history of malignant neoplasm of cervix uteri; Z82.49 Family history of ischemic heart disease and other diseases of the circulatory system
CPT/HCPCS: 96376 ×3; 96361 ×3; 96372; 96374; 99285; 36415; 94640 ×3; 93005; 97166; 80061; 80053; 80048; 82533; 82550; 83735; 84100; 84443; 84484 ×2; 85025; 85610; 85730; 81003; 87635; 71046; 71275; G0378 ×2; C8929; J2920 ×2; J2930; J1650; Q9950; Q9967; 93306

== ENCOUNTER 2020-07-21 16:10 | Inpatient (IN) | payer MEDICARE ==
[2020-07-21] MEDS ORDERED: methylPREDNISolone SOD SUCCI 125 MG/2 ML VIAL IV STA (16:11)
[2020-07-21] MEDS ORDERED: ALBUTEROL NEBULIZED 2.5 MG/3 ML INHALATION STA (16:11)
[2020-07-21] MEDS ORDERED: IPRATROPIUM 0.5 MG/2.5 ML NEBU INHALATION STA (16:11)
--- NOTE | 2020-07-21 16:19 | ED ---
General Adult HPI - General Stated complaint: chest pain Time Seen by Provider: 07/21/20 16:11 Source: patient, RN notes reviewed, old records reviewed - History of Present Illness Initial comments: 65-year-old female with oxygen-dependent COPD and emphysema presenting with worsening dyspnea. Patient is currently smoking. She was recently admitted to this hospital with COPD exacerbation. She states she's had increased oxygen demand at home over the past 24-48 hours. She does report a cough. No fever. No central chest pain. She has chronic back pain. Denies lower extremity pain or swelling. Denies known exposure to coronavirus. She states that this morning she had an episode of chest pain and did take nitroglycerin which improved her symptoms. She has no current chest pain. - Related Data Home Medications Medication Instructions Recorded Confirmed Fluticasone Propionate [Flonase] 2 sprays EA NOSTRIL DAILY 01/25/14 07/21/20 Simvastatin [Zocor] 20 mg PO HS 01/25/14 07/21/20 rOPINIRole HCL [Requip] 0.25 mg PO HS 01/25/14 07/21/20 Cyclobenzaprine [Flexeril] 10 mg PO DAILY PRN 07/07/14 07/21/20 Acyclovir [Zovirax] 1 applic TOPICAL 5XD PRN 10/29/16 07/21/20 DULoxetine HCL [Cymbalta] 60 mg PO BID 10/29/16 07/21/20 cycloSPORINE 0.05% OPHTH SOLN 2 drops BOTH EYES Q12H 10/29/16 07/21/20 [Restasis] Alendronate Sodium [Fosamax] 70 mg PO TU 01/20/18 07/21/20 ARIPiprazole [Abilify] 10 mg PO DAILY 06/24/19 07/21/20 Ferrous Sulfate [Slow Fe] 142 mg PO DAILY 06/24/19 07/21/20 Hydrocortisone 10 mg PO DAILY 06/24/19 07/21/20 Metoprolol Succinate [Toprol XL] 25 mg PO HS 06/24/19 07/21/20 Omeprazole 20 mg PO DAILY 06/24/19 07/21/20 hydrOXYzine HCL 25 mg PO TID PRN 06/24/19 07/21/20 polyethylene glycoL 3350 [Miralax] 17 gm PO DAILY PRN 06/24/19 07/21/20 traZODone HCL [Desyrel] 50 mg PO HS 06/24/19 07/21/20 Aspirin [Adult Low Dose Aspirin EC] 81 mg PO DAILY 08/11/19 07/21/20 Cbd Oil 1 drop PO DAILY PRN 08/11/19 07/21/20 Fluticasone/Umeclidin/Vilanter 1 puff INHALATION RT-DAILY 08/11/19 07/21/20 [Trelegy Ellipta 100-62.5-25] Lac-Hydrin 5% Cream 1 applic TOPICAL DAILY PRN 08/11/19 07/21/20 Methyl Salicylate/Menthol 1 patch TOPICAL DAILY PRN 08/11/19 07/21/20 [Salonpas Patch] Nitroglycerin Sl Tabs [Nitrostat] 0.4 mg SUBLINGUAL Q5M PRN 08/11/19 07/21/20 Albuterol Sulfate [Proair Hfa] 2 puff INHALATION RT-Q4H PRN 07/18/20 07/21/20 Cholecalciferol [Vitamin D3 (25 25 mcg PO DAILY 07/18/20 07/21/20 Mcg = 1000 Iu)] Dicyclomine HCl 10 mg PO TID PRN 07/18/20 07/21/20 Furosemide [Lasix] 20 mg PO DAILY PRN 07/18/20 07/21/20 HYDROcodone/APAP 10-325MG [Caret 1 tab PO Q6HR PRN 07/18/20 07/21/20 10-325] Hydrocortisone [Cortef] 5 mg PO PC-LUNCH 07/18/20 07/21/20 Latanoprost [Xalatan 0.005%] 1 drop BOTH EYES HS 07/18/20 07/21/20 Magic Mouth Wash 5 ml PO QID 07/18/20 07/21/20 Magnesium 250 mg PO DAILY 07/18/20 07/21/20 Montelukast Sodium [Singulair] 10 mg PO HS 07/18/20 07/21/20 Multivit-Min/FA/Lycopen/Lutein 1 tab PO DAILY 07/18/20 07/21/20 [Centrum Silver Tablet] Tolterodine ER [Detrol LA] 2 mg PO DAILY 07/18/20 07/21/20 Triamcinolone 0.1% Cream [Kenalog 1 applic TOPICAL BID PRN 07/18/20 07/21/20 0.1% Cream] valACYclovir HCL [Valtrex] 500 mg PO Q12HR PRN 07/18/20 07/21/20 predniSONE See Taper PO DIRECTED 07/21/20 07/21/20 Previous Rx's Medication Instructions Recorded Clopidogrel Bisulfate [Plavix] 75 mg PO DAILY #90 tab 08/13/19 Doxycycline [Vibramycin] 100 mg PO BID 1 Days #10 capsule 07/19/20 Ipratropium-Albuterol Nebulize 3 ml INHALATION RT-QID #120 neb 07/19/20 [Duoneb 0.5 mg-3 mg/3 ml Soln] Allergies Allergy/AdvReac Type Severity Reaction Status Date / Time meperidine HCl [From Demerol] Allergy Severe Swelling Verified 07/21/20 16:20 Penicillins Allergy Rash/Hives Verified 07/21/20 16:20 erythromycin base AdvReac Abdominal Verified 07/21/20 16:20 Pain Review of Systems ROS Statement: Those systems with pertinent positive or pertinent negative responses have been documented in the HPI. ROS Other: All systems not noted in ROS Statement are negative. 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 06/2019 Pneumonia. Edema LLE. adrenal insufficiency. History of Any Multi-Drug Resistant Organisms: None Reported Past Surgical History: Bowel Resection, Heart Catheterization, Hysterectomy, Rosemary nt Replacement, Tonsillectomy, Tubal Ligation Additional Past Surgical History / Comment(s): Colostomy, Chetan hip replacement. Heart cath with one stent 08/06/19. Past Anesthesia/Blood Transfusion Reactions: Previous Problems w/ Anesthesia, Postoperative Nausea & Vomiting (PONV) Additional Past Anesthesia/Blood Transfusion Reaction / Comment(s): BP "bottomed out" with colonoscopy years ago Past Psychological History: Anxiety, Depression Smoking Status: Current every day smoker Past Alcohol Use History: Occasional Additional Past Alcohol Use History / Comment(s): Smoked 1/2-1 PPD, since age 13. Past Drug Use History: Marijuana Additional Drug Use History / Comment(s): Medical marijuana use daily prn, uses CBD oil prn - Past Family History Mother Family Medical History: Cancer Additional Family Medical History / Comment(s): colon Father Family Medical History: Coronary Artery Disease (CAD) Additional Family Medical History / Comment(s): CABG Brother(s) Family Medical History: Coronary Artery Disease (CAD) Additional Family Medical History / Comment(s): CABG General Exam General appearance: alert, in distress Head exam: Present: atraumatic, normocephalic Eye exam: Present: normal appearance, PERRL ENT exam: Present: normal exam Neck exam: Present: normal inspection. Absent: tenderness, meningismus Respiratory exam: Present: respiratory distress, wheezes, accessory muscle use, decreased breath sounds Cardiovascular Exam: Present: normal rhythm, tachycardia GI/Abdominal exam: Present: soft. Absent: distended, tenderness, guarding Extremities exam: Present: pedal edema. Absent: normal capillary refill Neurological exam: Present: alert, oriented X3, CN II-XII intact. Absent: motor sensory deficit Psychiatric exam: Present: anxious Skin exam: Present: warm, dry, cyanosis (Peripheral cyanosis) Course Vital Signs 07/21/20 07/21/20 07/21/20 16:12 16:23 16:28 Temperature 98.4 F Pulse Rate 118 H Respiratory 26 H Rate Blood Pressure 114/88 114/88 O2 Sat by Pulse 100 Oximetry 07/21/20 07/21/20 07/21/20 17:00 17:58 18:00 Temperature Pulse Rate 106 H 104 H 98 Respiratory 21 24 Rate Blood Pressure 114/88 109/71 O2 Sat by Pulse 99 95 Oximetry EKG Findings - EKG Comments: EKG Findings:: EKG: Sinus tachycardia, low voltage, rate of 118, NH interval 154, QRS duration 72, QTC 462, there is question of NH depression versus ST segment elevation diffusely however this is unchanged from prior EKG obtained in July 2020 on the and august. Medical Decision Making - Medical Decision Making 59 sexual female presenting in respiratory distress history of oxygen dependent COPD with increased oxygen demand. Patient had been given albuterol, Atrovent, and aspirin by EMS during transport. She has EKG which was sinus tachycardia with diffuse minimal ST segment elevation which is similar compared to previous EKG. She has an x-ray which is concerning for vascular congestion. Mild leukocytosis, stable hemoglobin, minimal lactic acid elevation. She has this elevated troponin 0.651 she did have a stent placed in the summer of 2019. She is currently on Plavix. She has a significantly elevated BMP with a baseline normal BNP. I suspect she had a cardiac event contributing to her dyspnea. I discussed case with Dr. Longoria, patient initiated on heparin, as well as diuretics. Echo will be ordered. She has been admitted to Dr. Ordonez who is aware of the patient. - Lab Data Result diagrams: 07/21/20 16:45 07/21/20 16:45 Lab Results 07/21/20 07/21/20 07/21/20 Range/Units 16:45 16:45 16:45 WBC 12.8 H (3.8-10.6) k/uL RBC 3.76 L (3.80-5.40) m/uL Hgb 13.4 (11.4-16.0) gm/dL Hct 39.4 (34.0-46.0) % MCV 104.8 H (80.0-100.0) fL MCH 35.5 H (25.0-35.0) pg MCHC 33.9 (31.0-37.0) g/dL RDW 12.0 (11.5-15.5) % Plt Count 471 H (150-450) k/uL MPV 6.7 Neutrophils % 87 % Lymphocytes % 10 % Monocytes % 2 % Eosinophils % 0 % Basophils % 0 % Neutrophils # 11.2 H (1.3-7.7) k/uL Lymphocytes # 1.3 (1.0-4.8) k/uL Monocytes # 0.3 (0-1.0) k/uL Eosinophils # 0.0 (0-0.7) k/uL Basophils # 0.0 (0-0.2) k/uL Macrocytosis Slight PT 10.1 (9.0-12.0) sec INR 0.9 (<1.2) APTT 20.8 L (22.0-30.0) sec VBG pH (7.31-7.41) VBG pCO2 (37-51) mmHg VBG HCO3 (24-28) mmol/L Sodium 132 L (137-145) mmol/L Potassium 5.2 H (3.5-5.1) mmol/L Chloride 97 L (98-107) mmol/L Carbon Dioxide 27 (22-30) mmol/L Anion Gap 8 mmol/L BUN 16 (7-17) mg/dL Creatinine 0.58 (0.52-1.04) mg/dL Est GFR (CKD-EPI)AfAm >90 (>60 ml/min/1.73 sqM) Est GFR (CKD-EPI)NonAf >90 (>60 ml/min/1.73 sqM) Glucose 115 H (74-99) mg/dL Plasma Lactic Acid Cam (0.7-2.0) mmol/L Calcium 9.2 (8.4-10.2) mg/dL Magnesium 1.8 (1.6-2.3) mg/dL Total Bilirubin 0.3 (0.2-1.3) mg/dL AST 33 (14-36) U/L ALT 25 (4-34) U/L Alkaline Phosphatase 50 (38-126) U/L Troponin I (0.000-0.034) ng/mL NT-Pro-B Natriuret Pep pg/mL Total Protein 5.8 L (6.3-8.2) g/dL Albumin 3.5 (3.5-5.0) g/dL Coronavirus (PCR) (Not Detectd) 07/21/20 07/21/20 07/21/20 Range/Units 16:45 16:45 16:45 WBC (3.8-10.6) k/uL RBC (3.80-5.40) m/uL Hgb (11.4-16.0) gm/dL Hct (34.0-46.0) % MCV (80.0-100.0) fL MCH (25.0-35.0) pg MCHC (31.0-37.0) g/dL RDW (11.5-15.5) % Plt Count (150-450) k/uL MPV Neutrophils % % Lymphocytes % % Monocytes % % Eosinophils % % Basophils % % Neutrophils # (1.3-7.7) k/uL Lymphocytes # (1.0-4.8) k/uL Monocytes # (0-1.0) k/uL Eosinophils # (0-0.7) k/uL Basophils # (0-0.2) k/uL Macrocytosis PT (9.0-12.0) sec INR (<1.2) APTT (22.0-30.0) sec VBG pH (7.31-7.41) VBG pCO2 (37-51) mmHg VBG HCO3 (24-28) mmol/L Sodium (137-145) mmol/L Potassium (3.5-5.1) mmol/L Chloride (98-107) mmol/L Carbon Dioxide (22-30) mmol/L Anion Gap mmol/L BUN (7-17) mg/dL Creatinine (0.52-1.04) mg/dL Est GFR (CKD-EPI)AfAm (>60 ml/min/1.73 sqM) Est GFR (CKD-EPI)NonAf (>60 ml/min/1.73 sqM) Glucose (74-99) mg/dL Plasma Lactic Acid Cam 2.4 H* (0.7-2.0) mmol/L Calcium (8.4-10.2) mg/dL Magnesium (1.6-2.3) mg/dL Total Bilirubin (0.2-1.3) mg/dL AST (14-36) U/L ALT (4-34) U/L Alkaline Phosphatase (38-126) U/L Troponin I 0.651 H* (0.000-0.034) ng/mL NT-Pro-B Natriuret Pep 7500 pg/mL Total Protein (6.3-8.2) g/dL Albumin (3.5-5.0) g/dL Coronavirus (PCR) (Not Detectd) 07/21/20 07/21/20 Range/Units 16:45 16:45 WBC (3.8-10.6) k/uL RBC (3.80-5.40) m/uL Hgb (11.4-16.0) gm/dL Hct (34.0-46.0) % MCV (80.0-100.0) fL MCH (25.0-35.0) pg MCHC (31.0-37.0) g/dL RDW (11.5-15.5) % Plt Count (150-450) k/uL MPV Neutrophils % % Lymphocytes % % Monocytes % % Eosinophils % % Basophils % % Neutrophils # (1.3-7.7) k/uL Lymphocytes # (1.0-4.8) k/uL Monocytes # (0-1.0) k/uL Eosinophils # (0-0.7) k/uL Basophils # (0-0.2) k/uL Macrocytosis PT (9.0-12.0) sec INR (<1.2) APTT (22.0-30.0) sec VBG pH 7.32 (7.31-7.41) VBG pCO2 56 H (37-51) mmHg VBG HCO3 28 (24-28) mmol/L Sodium (137-145) mmol/L Potassium (3.5-5.1) mmol/L Chloride (98-107) mmol/L Carbon Dioxide (22-30) mmol/L Anion Gap mmol/L BUN (7-17) mg/dL Creatinine (0.52-1.04) mg/dL Est GFR (CKD-EPI)AfAm (>60 ml/min/1.73 sqM) Est GFR (CKD-EPI)NonAf (>60 ml/min/1.73 sqM) Glucose (74-99) mg/dL Plasma Lactic Acid Cam (0.7-2.0) mmol/L Calcium (8.4-10.2) mg/dL Magnesium (1.6-2.3) mg/dL Total Bilirubin (0.2-1.3) mg/dL AST (14-36) U/L ALT (4-34) U/L Alkaline Phosphatase (38-126) U/L Troponin I (0.000-0.034) ng/mL NT-Pro-B Natriuret Pep pg/mL Total Protein (6.3-8.2) g/dL Albumin (3.5-5.0) g/dL Coronavirus (PCR) Not Detected (Not Detectd) Critical Care Time Critical Care Time: Yes Total Critical Care Time: 35 Disposition Clinical Impression: Acute exacerbation of chronic obstructive airways disease, NSTEMI (non-ST elevated myocardial infarction), CHF (congestive heart failure) Disposition: ADMITTED IP TO THIS [facility] Condition: Serious Is patient prescribed a controlled substance at d/c from ED?: No Referrals: Jase Stewart DO [Primary Care Provider] - 1-2 days Decision to Admit Reason: Admit from EC Decision Date: 07/21/20 Decision Time: 18:21
--- NOTE | 2020-07-21 17:07 | XR ---
EXAMINATION TYPE: XR chest 1V portable DATE OF EXAM: 07/21/2020 COMPARISON: 07/18/2020 INDICATION: Difficulty in breathing TECHNIQUE: Single frontal view of the chest is obtained. FINDINGS: The heart size is normal. The pulmonary vasculature is normal prominent. Bibasilar infiltrates are present greater on the right. These are increasing from comparison. IMPRESSION: 1. Increasing bibasilar infiltrates greater on the right. Findings can be compatible with atypical pn eumonia.
[2020-07-21 17:16] LABS: VBG PH 7.32 (7.31-7.41)
[2020-07-21 17:27] LABS: ALT 25 U/L (4-34); AST 33 U/L (14-36); African American GFR (CKD) >90 (>60 ml/min/1.73 sqM); Albumin 3.5 g/dL (3.5-5.0); Alkaline Phosphatase 50 U/L (38-126); Anion Gap 8 mmol/L; Blood Urea Nitrogen 16 mg/dL (7-17); Calcium 9.2 mg/dL (8.4-10.2); Carbon Dioxide 27 mmol/L (22-30); Chloride 97 mmol/L (98-107); Glucose 115 mg/dL (74-99); Magnesium 1.8 mg/dL (1.6-2.3); Non-African American GFR(CKD) >90 (>60 ml/min/1.73 sqM); Potassium 5.2 mmol/L (3.5-5.1); Sodium 132 mmol/L (137-145); Total Bilirubin 0.3 mg/dL (0.2-1.3); Total Protein 5.8 g/dL (6.3-8.2)
[2020-07-21 17:44] LABS: INR 0.9 (<1.2); Partial Thromboplastin Time 20.8 sec (22.0-30.0); Prothrombin Time 10.1 sec (9.0-12.0)
[2020-07-21 17:45] LABS: Basophils % (A) 0 %; Eosinophils % (A) 0 %; HCT 39.4 % (34.0-46.0); HGB 13.4 gm/dL (11.4-16.0); Lymphocytes # (A) 1.3 k/uL (1.0-4.8); Lymphocytes % (A) 10 %; MCH 35.5 pg (25.0-35.0); MCHC 33.9 g/dL (31.0-37.0); MCV 104.8 fL (80.0-100.0); Macrocytosis Slight; Mean Platelet Volume 6.7; Monocytes # (A) 0.3 k/uL (0-1.0); Monocytes % (A) 2 %; Neutrophils # (A) 11.2 k/uL (1.3-7.7); Neutrophils % (A) 87 %; Platelet Count 471 k/uL (150-450); RBC 3.76 m/uL (3.80-5.40); WBC 12.8 k/uL (3.8-10.6)
[2020-07-21] MEDS ORDERED: HEPARIN SODIUM 1,000 UN/ML (10ML VL) IV ONE (18:00)
[2020-07-21] MEDS ORDERED: HEPARIN SODIUM 1,000 UN/ML (10ML VL) IV PRN (18:00)
[2020-07-21] MEDS ORDERED: LEVOFLOXACIN 500MG-D5W PMX 500 MG in DEXTROSE/WATER 1 100ML.BAG IVPB STA (18:12)
[2020-07-21] MEDS ORDERED: FUROSEMIDE 10 MG/ML 4 ML VIAL IV STA (18:13)
[2020-07-21] MEDS ORDERED: NALOXONE 0.4 MG/ML 1 ML VIAL IV PRN (18:21)
[2020-07-21] MEDS: HEPARIN SOD,PORK IN 0.45% NACL 25,000 UNIT in 0.45% NACL 1 250ML.BAG IV SCH (19:13)
[2020-07-21] MEDS ORDERED: CYCLOBENZAPRINE 10 MG TAB PO PRN (21:18)
[2020-07-21] MEDS ORDERED: LAC HYDRIN TOPICAL PRN (21:18)
[2020-07-21] MEDS ORDERED: DICYCLOMINE 10 MG CAP PO PRN (21:18)
[2020-07-21] MEDS ORDERED: ACYCLOVIR TOPICAL PRN (21:18)
[2020-07-21] MEDS ORDERED: valACYclovir 500 MG TAB PO PRN (21:18)
[2020-07-21] MEDS ORDERED: TRIAMCINOLONE 0.1% CREAM 80 GM TUBE TOPICAL PRN (21:18)
[2020-07-21] MEDS ORDERED: NITROGLYCERIN SL TABS 0.4 MG TAB SUBLINGUAL PRN (21:18)
[2020-07-21] MEDS: BUDESONIDE 1 MG/2 ML NEBU INHALATION SCH (21:57)
[2020-07-21] MEDS: FORMOTEROL FUMARATE 20 MCG/2 ML NEBU INHALATION SCH (21:57)
[2020-07-21] MEDS: IPRATROPIUM-ALBUTEROL 3 ML NEB INHALATION SCH (21:57)
[2020-07-21] MEDS: FUROSEMIDE 10 MG/ML 4 ML VIAL IV SCH (23:24)
[2020-07-22] MEDS: DOXYCYCLINE 100 MG CAP PO SCH ×3 (00:41→23:28)
[2020-07-22] MEDS: DULoxetine HCL 60 MG CAPSULE.DR PO SCH ×3 (00:41→20:29)
[2020-07-22] MEDS: METOPROLOL SUCCINATE (ER) 25 MG TAB.ER.24H PO SCH ×2 (00:41→20:30)
[2020-07-22] MEDS: MONTELUKAST 10 MG TAB PO SCH ×2 (00:41→20:29)
[2020-07-22] MEDS: FUROSEMIDE 10 MG/ML 4 ML VIAL IV SCH ×2 (00:41→20:30)
[2020-07-22] MEDS: ATORVASTATIN 10 MG TAB PO SCH ×2 (00:41→20:29)
[2020-07-22] MEDS: cycloSPORINE 0.05% OPHTH 0.4 ML DROPERETTE BOTH EYES SCH ×3 (00:42→23:28)
[2020-07-22] MEDS: traZODone HCL 50 MG TAB PO SCH ×2 (00:42→20:30)
[2020-07-22] MEDS: LATANOPROST 0.005% OPHTH DROPS 2.5 ML BTL BOTH EYES SCH ×2 (00:43→23:28)
[2020-07-22] MEDS: IPRATROPIUM-ALBUTEROL 3 ML NEB INHALATION SCH ×7 (02:19→21:20)
[2020-07-22 06:15] LABS: Basophils % (A) 0 %; Eosinophils # (A) 0.1 k/uL (0-0.7); Eosinophils % (A) 1 %; HCT 39.7 % (34.0-46.0); HGB 13.5 gm/dL (11.4-16.0); Lymphocytes % (A) 19 %; MCH 35.9 pg (25.0-35.0); MCV 105.7 fL (80.0-100.0); Macrocytosis Slight; Mean Platelet Volume 6.6; Monocytes # (A) 0.5 k/uL (0-1.0); Monocytes % (A) 4 %; Neutrophils # (A) 7.9 k/uL (1.3-7.7); Neutrophils % (A) 75 %; Platelet Count 491 k/uL (150-450); RBC 3.76 m/uL (3.80-5.40); WBC 10.4 k/uL (3.8-10.6)
[2020-07-22 06:57] LABS: Partial Thromboplastin Time 40.3 sec (22.0-30.0); Prothrombin Time 10.4 sec (9.0-12.0)
[2020-07-22] MEDS: PANTOPRAZOLE 40 MG TABLET PO SCH (06:58)
[2020-07-22] MEDS: BUDESONIDE 1 MG/2 ML NEBU INHALATION SCH ×2 (07:46→21:25)
[2020-07-22] MEDS: FORMOTEROL FUMARATE 20 MCG/2 ML NEBU INHALATION SCH ×2 (07:46→21:22)
--- NOTE | 2020-07-22 08:41 | P.CRDCN ---
History of Present Illness Consult date: 07/22/20 Chief complaint: Shortness of breath History of present illness: This is a very pleasant 65-year-old female patient with history of coronary gerard ry disease and prior stenting of the PDA branch of the RCA as well as hypertension and dyslipidemia and also chronic obstructive pulmonary disease who presented to the emergency department complaining of increasing shortness of breath. For the last 1-2 weeks the patient has been experiencing increasing the shortness of breath with exertion. She presented initially to the emergency department. She was sent home. Since she went home the shortness of breath has been increasing. She states she cannot even walk more than a few steps before she stopped because of the shortness of breath. No orthopnea and no PND. She did have mild lower extremities edema. She denies any symptoms of chest pain or chest discomfort. No dizziness or lightheadedness or any feeling of heart racing or fluttering or syncope. No fever and no chills. She does have cough seems to be very dry without any sputum production. The EKG showed sinus rhythm with sinus tachycardia without any ischemic ST or T-wave abnormalities. The cardiac enzymes were checked and came in to be slightly abnormal but again the patient did not have any symptoms of chest pain or chest discomfort. The chest x-ray showed possible atypical pneumonia. NTP BNP came in to be elevated. The patient was started on Lasix IV. She stated that the shortness of breath has improved since she presented to the emergency department. 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 06/2019 Pneumonia. Edema LLE. adrenal insufficiency. History of Any Multi-Drug Resistant Organisms: None Reported Past Surgical History: Bowel Resection, Heart Catheterization, Hysterectomy, Joint Replacement, Tonsillectomy, Tubal Ligation Additional Past Surgical History / Comment(s): Colostomy, Tan hip replacement. Heart cath with one stent 08/06/19. Past Anesthesia/Blood Transfusion Reactions: Previous Problems w/ Anesthesia, Postoperative Nausea & Vomiting (PONV) Additional Past Anesthesia/Blood Transfusion Reaction / Comment(s): BP "bottomed out" with colonoscopy years ago Past Psychological History: Anxiety, Depression Smoking Status: Current every day smoker Past Alcohol Use History: Occasional Additional Past Alcohol Use History / Comment(s): Smoked 1/2-1 PPD, since age 13 . Past Drug Use History: Marijuana Additional Drug Use History / Comment(s): Medical marijuana use daily prn, uses CBD oil prn - Past Family History Mother Family Medical History: Cancer Additional Family Medical History / Comment(s): colon Father Family Medical History: Coronary Artery Disease (CAD) Additional Family Medical History / Comment(s): CABG Brother(s) Family Medical History: Coronary Artery Disease (CAD) Additional Family Medical History / Comment(s): CABG Medications and Allergies Home Medications Medication Instructions Recorded Confirmed Type Fluticasone Propionate [Flonase] 2 sprays EA NOSTRIL DAILY 01/25/14 07/21/20 History Simvastatin [Zocor] 20 mg PO HS 01/25/14 07/21/20 History rOPINIRole HCL [Requip] 0.25 mg PO HS 01/25/14 07/21/20 History Cyclobenzaprine [Flexeril] 10 mg PO DAILY PRN 07/07/14 07/21/20 History Acyclovir [Zovirax] 1 applic TOPICAL 5XD PRN 10/29/16 07/21/20 History DULoxetine HCL [Cymbalta] 60 mg PO BID 10/29/16 07/21/20 History cycloSPORINE 0.05% OPH SOLN 2 drops BOTH EYES Q12H 10/29/16 07/21/20 History [Restasis] Alendronate Sodium [Fosamax] 70 mg PO TU 01/20/18 07/21/20 History ARIPiprazole [Abilify] 10 mg PO DAILY 06/24/19 07/21/20 History Ferrous Sulfate [Slow Fe] 142 mg PO DAILY 06/24/19 07/21/20 History Hydrocortisone 10 mg PO DAILY 06/24/19 07/21/20 History Metoprolol Succinate [Toprol XL] 25 mg PO HS 06/24/19 07/21/20 History Omeprazole 20 mg PO DAILY 06/24/19 07/21/20 History hydrOXYzine HCL 25 mg PO TID PRN 06/24/19 07/21/20 History polyethylene glycoL 3350 [Miralax] 17 gm PO DAILY PRN 06/24/19 07/21/20 History traZODone HCL [Desyrel] 50 mg PO HS 06/24/19 07/21/20 History Aspirin [Adult Low Dose Aspirin EC] 81 mg PO DAILY 08/11/19 07/21/20 History Cbd Oil 1 drop PO DAILY PRN 08/11/19 07/21/20 History Fluticasone/Umeclidin/Vilanter 1 puff INHALATION RT-DAILY 08/11/19 07/21/20 History [Trelegy Ellipta 100-62.5-25] Lac-Hydrin 5% Cream 1 applic TOPICAL DAILY PRN 08/11/19 07/21/20 History Methyl Salicylate/Menthol 1 patch TOPICAL DAILY PRN 08/11/19 07/21/20 History [Salonpas Patch] Nitroglycerin Sl Tabs [Nitrostat] 0.4 mg SUBLINGUAL Q5M PRN 08/11/19 07/21/20 History Clopidogrel Bisulfate [Plavix] 75 mg PO DAILY #90 tab 08/13/19 07/21/20 Rx Albuterol Sulfate [Proair Hfa] 2 puff INHALATION RT-Q4H PRN 07/18/20 07/21/20 History Cholecalciferol [Vitamin D3 (25 25 mcg PO DAILY 07/18/20 07/21/20 History Mcg = 1000 Iu)] Dicyclomine HCl 10 mg PO TID PRN 07/18/20 07/21/20 History Furosemide [Lasix] 20 mg PO DAILY PRN 07/18/20 07/21/20 History HYDROcodone/APAP 10-325MG [[place] 1 tab PO Q6HR PRN 07/18/20 07/21/20 History 10-325] Hydrocortisone [Cortef] 5 mg PO PC-LUNCH 07/18/20 07/21/20 History Latanoprost [Xalatan 0.005%] 1 drop BOTH EYES HS 07/18/20 07/21/20 History Magic Mouth Wash 5 ml PO QID 07/18/20 07/21/20 History Magnesium 250 mg PO DAILY 07/18/20 07/21/20 History Montelukast Sodium [Singulair] 10 mg PO HS 07/18/20 07/21/20 History Multivit-Min/FA/Lycopen/Lutein 1 tab PO DAILY 07/18/20 07/21/20 History [Centrum Silver Tablet] Tolterodine ER [Detrol LA] 2 mg PO DAILY 07/18/20 07/21/20 History Triamcinolone 0.1% Cream [Kenalog 1 applic TOPICAL BID PRN 07/18/20 07/21/20 History 0.1% Cream] valACYclovir HCL [Valtrex] 500 mg PO Q12HR PRN 07/18/20 07/21/20 History Doxycycline [Vibramycin] 100 mg PO BID 1 Days #10 capsule 07/19/20 07/21/20 Rx Ipratropium-Albuterol Nebulize 3 ml INHALATION RT-QID #120 neb 07/19/20 07/21/20 Rx [Duoneb 0.5 mg-3 mg/3 ml Soln] predniSONE See Taper PO DIRECTED 07/21/20 07/21/20 History Allergies Allergy/AdvReac Type Severity Reaction Status Date / Time meperidine HCl [From Demerol] Allergy Severe Swelling Verified 07/21/20 16:20 Penicillins Allergy Rash/Hives Verified 07/21/20 16:20 erythromycin base AdvReac Abdominal Verified 07/21/20 16:20 Pain Physical Exam Vitals: Vital Signs Temp Pulse Pulse Resp BP BP Pulse Ox 07/22/20 08:00 102 H 07/22/20 07:48 98 07/22/20 07:40 94 07/22/20 04:00 97.4 F L 82 17 125/82 97 07/22/20 02:34 97.7 F 92 20 109/72 99 07/22/20 00:48 92 20 120/82 99 07/21/20 20:57 95 20 101/67 95 07/21/20 18:20 100 07/21/20 18:00 98 24 109/71 95 07/21/20 17:58 104 H 07/21/20 17:00 106 H 21 114/88 99 07/21/20 16:28 100 07/21/20 16:23 114/88 07/21/20 16:12 98.4 F 118 H 26 H 114/88 Intake and Output 07/21/20 07/22/20 07/22/20 22:59 06:59 14:59 Intake Total 177.985 Output Total 1000 Balance 177.985 -1000 Intake: Intake, IV Titration 177.985 Amount Heparin Sod,Pork in 0.45% 77.985 NaCl 25,000 unit In 0.45 % NaCl 1 250ml.bag @ 12 UNITS/KG/HR 8.981 mls/hr IV .Q24H [facility] Rx#: [id number] Levofloxacin 500Mg-D5w 100 Pmx 500 mg In Dextrose/ Water 1 100ml.bag @ 100 mls/hr IVPB ONCE STA Rx#: [id number] Output: Urine 1000 Other: Voiding Method Bedside Commode # Voids 2 Weight 74.843 kg 74.843 kg - Constitutional General appearance: no acute distress - Respiratory Respiratory: bilateral: wheezing - Cardiovascular Rhythm: regular Heart sounds: normal: S1, S2 Results 07/22/20 05:50 07/21/20 16:45 Cardiac Enzymes 07/21/20 07/21/20 07/21/20 Range/Units 16:45 16:45 21:21 AST 33 (14-36) U/L Troponin I 0.651 H* 0.491 H* (0.000-0.034) ng/mL 07/22/20 Range/Units 00:58 AST (14-36) U/L Troponin I 0.334 H* (0.000-0.034) ng/mL Coagulation 07/21/20 07/22/20 07/22/20 Range/Units 16:45 00:58 05:50 PT 10.1 10.4 (9.0-12.0) sec APTT 20.8 L 28.0 40.3 H (22.0-30.0) sec CBC 07/21/20 07/22/20 Range/Units 16:45 05:50 WBC 12.8 H 10.4 (3.8-10.6) k/uL RBC 3.76 L 3.76 L (3.80-5.40) m/uL Hgb 13.4 13.5 (11.4-16.0) gm/dL Hct 39.4 39.7 (34.0-46.0) % Plt Count 471 H 491 H (150-450) k/uL Comprehensive Metabolic Panel 07/21/20 Range/Units 16:45 Sodium 132 L (137-145) mmol/L Potassium 5.2 H (3.5-5.1) mmol/L Chloride 97 L (98-107) mmol/L Carbon Dioxide 27 (22-30) mmol/L BUN 16 (7-17) mg/dL Creatinine 0.58 (0.52-1.04) mg/dL Glucose 115 H (74-99) mg/dL Calcium 9.2 (8.4-10.2) mg/dL AST 33 (14-36) U/L ALT 25 (4-34) U/L Alkaline Phosphatase 50 (38-126) U/L Total Protein 5.8 L (6.3-8.2) g/dL Albumin 3.5 (3.5-5.0) g/dL Current Medications Generic Name Dose Route Start Last Admin Trade Name Freq PRN Reason Stop Dose Admin Hydrocodone Bitart/Acetaminophen 1 each 07/21/20 21:18 Hydrocodone/Apap 10-325mg 1 Each Tab PO Q6HR PRN Pain Albuterol/Ipratropium 3 ml 07/22/20 08:00 Ipratropium-Albuterol 3 Ml Neb INHALATION RT-QID [place] Albuterol/Ipratropium 3 ml 07/21/20 21:21 07/22/20 07:46 Ipratropium-Albuterol 3 Ml Neb INHALATION 3 ml RT-Q4H [place] Administration Aripiprazole 10 mg 07/22/20 09:00 Aripiprazole 10 Mg Tab PO DAILY [place] Aspirin 81 mg 07/22/20 09:00 Aspirin 81 Mg PO DAILY [place] Atorvastatin Calcium 10 mg 07/21/20 21:30 07/22/20 00:41 Atorvastatin 10 Mg Tab PO 10 mg HS [place] Administration Budesonide 1 mg 07/21/20 21:21 07/22/20 07:46 Budesonide 1 Mg/2 Ml Nebu INHALATION 1 mg RT-BID [place] Administration Cholecalciferol 25 mcg 07/22/20 09:00 Cholecalciferol 25 Mcg (1000 Iu) Tablet PO DAILY [facility] Clopidogrel Bisulfate 75 mg 07/22/20 09:00 Clopidogrel 75 Mg Tab PO DAILY [facility] Cyclobenzaprine HCl 10 mg 07/21/20 21:18 Cyclobenzaprine 10 Mg Tab PO DAILY PRN Muscle Spasm Cyclosporine 2 drops 07/21/20 21:30 07/22/20 00:42 Cyclosporine 0.05% Ophth 0.4 Ml Droperette BOTH EYES 2 drops Q12H [place] Administration Dicyclomine HCl 10 mg 07/21/20 21:18 Dicyclomine 10 Mg Cap PO TID PRN IBS Doxycycline Monohydrate 100 mg 07/21/20 21:30 07/22/20 00:41 Doxycycline 100 Mg Cap PO 100 mg BID [place] Administration Duloxetine HCl 60 mg 07/21/20 21:30 07/22/20 00:41 Duloxetine Hcl 60 Mg Capsule.Dr PO 60 mg BID [place] Administration Formoterol Fumarate 20 mcg 07/21/20 21:21 07/22/20 07:46 Formoterol Fumarate 20 Mcg/2 Ml Nebu INHALATION 20 mcg RT-BID [place] Administration Furosemide 40 mg 07/21/20 21:00 07/22/20 00:41 Furosemide 10 Mg/Ml 4 Ml Vial IV 40 mg Q12HR [place] Administration Heparin Sodium (Porcine) 0 unit 07/21/20 18:00 Heparin Sodium 1,000 Un/Ml (10ml Vl) IV PER PROTOCOL PRN Low PTT Protocol Heparin Sodium/Sodium Chloride 250 mls @ 8.981 mls/hr 07/21/20 18:00 07/22/20 03:54 25,000 unit/ Sodium Chloride IV 15 units/kg/hr .Q24H [place] 11.226 mls/hr Titration Protocol 12 UNITS/KG/HR Latanoprost 1 drops 07/21/20 21:30 07/22/20 00:43 Latanoprost 0.005% Ophth Drops 2.5 Ml Btl BOTH EYES 1 drops HS [place] Administration Metoprolol Succinate 25 mg 07/21/20 21:30 07/22/20 00:41 Metoprolol Succinate (Er) 25 Mg Tab.Er.24h PO 25 mg HS [place] Administration Montelukast Sodium 10 mg 07/21/20 21:30 07/22/20 00:41 Montelukast 10 Mg Tab PO 10 mg HS [place] Administration Naloxone HCl 0.2 mg 07/21/20 18:21 Naloxone 0.4 Mg/Ml 1 Ml Vial IV Q2M PRN Opioid Reversal Nitroglycerin 0.4 mg 07/21/20 21:18 Nitroglycerin Sl Tabs 0.4 Mg Tab SUBLINGUAL Q5M PRN Chest Pain Oxybutynin Chloride 5 mg 07/22/20 09:00 Oxybutynin Xl 5 Mg Tab.Er.24 PO DAILY [facility] Pantoprazole Sodium 40 mg 07/22/20 07:30 07/22/20 06:58 Pantoprazole 40 Mg Tablet PO 40 mg [id number] [place] Administration Polyethylene Glycol 17 gm 07/21/20 21:18 Polyethylene Glycol 3350 17 Gm Powd.Pack PO DAILY PRN Constipation Ropinirole HCl 0.25 mg 07/21/20 21:30 07/22/20 03:51 Ropinirole Hcl 0.25 Mg Tab PO Not Given HS [place] Trazodone HCl 50 mg 07/21/20 21:30 07/22/20 00:42 Trazodone Hcl 50 Mg Tab PO 50 mg HS [place] Administration Triamcinolone Acetonide 1 applic 07/21/20 21:18 Triamcinolone 0.1% Cream 80 Gm Tube TOPICAL BID PRN Rash Valacyclovir HCl 500 mg 07/21/20 21:18 Valacyclovir 500 Mg Tab PO Q12HR PRN OUTBREAK Intake and Output 07/21/20 07/22/20 07/22/20 22:59 06:59 14:59 Intake Total 177.985 Output Total 1000 Balance 177.985 -1000 Intake: Intake, IV Titration 177.985 Amount Heparin Sod,Pork in 0.45% 77.985 NaCl 25,000 unit In 0.45 % NaCl 1 250ml.bag @ 12 UNITS/KG/HR 8.981 mls/hr IV .Q24H [facility] Rx#: [id number] Levofloxacin 500Mg-D5w 100 Pmx 500 mg In Dextrose/ Water 1 100ml.bag @ 100 mls/hr IVPB ONCE STA Rx#: [id number] Output: Urine 1000 Other: Voiding Method Bedside Commode # Voids 2 Weight 74.843 kg 74.843 kg 07/22/20 05:50 07/21/20 16:45 Assessment and Plan Assessment: Assessment #1 shortness of breath with exertion likely related to COPD exacerbation was potential pneumonia with a component of heart failure with preserved ejection fraction #2 coronary artery disease and prior PCI of the PDA branch of the RCA #3 hypertension #4 dyslipidemia #5 chronic obstructive pulmonary disease #6 history of colostomy Plan #1 continue IV Lasix for at least additional 24 hours #2 continue monitor the kidney function and electrolytes #3 continue dual antiplatelet therapy #4 adjust the medication to get the pressure and heart rate under good control #5 follow-up with the patient
[2020-07-22] MEDS ORDERED: FERROUS SULFATE 142 MG PO SCH (09:00)
[2020-07-22] MEDS: ARIPiprazole 10 MG TAB PO SCH (09:01)
[2020-07-22] MEDS: HYDROcodone/APAP 10-325MG 1 EACH TAB PO PRN ×3 (09:10→20:29)
[2020-07-22] MEDS: OXYBUTYNIN XL 5 MG TAB.ER.24 PO SCH (09:11)
[2020-07-22] MEDS: ASPIRIN 81 MG PO SCH (09:11)
[2020-07-22] MEDS: CHOLECALCIFEROL 25 MCG (1000 IU) TABLET PO SCH (09:11)
[2020-07-22] MEDS: CLOPIDOGREL 75 MG TAB PO SCH (09:11)
--- NOTE | 2020-07-22 12:42 | ECHOF ---
Referral Reason:NSTEMI MEASUREMENTS -------- HEIGHT: 157.5 cm WEIGHT: 74.8 kg BP: 125/82 RAP: 5.00 mmHg RVSP: 27.81 mmHg FINDINGS -------- Sinus rhythm. This was a technically difficult study with suboptimal views. Limited Study Overall left ventricular systolic function is mild-moderately impaired with, an EF between 40 - 45 %. Basal anterior LV wall motion is hypokinetic. Mid anterior LV wall motion is hypokinetic. Ap ical septum LV wall motion is hypokinetic. Mild tricuspid regurgitation present. Right ventricular systolic pressure is normal at < 35 mmHg. There is a trivial pericardial effusion present. CONCLUSIONS -------- 1. This was a technically difficult study with suboptimal views. 2. Limited Study 3. Overall left ventricular systolic function is mild-moderately impaired with, an EF between 40 - 45 %. 4. Basal anterior LV wall motion is hypokinetic. 5. Mid anterior LV wall motion is hypokinetic. 6. Apical septum LV wall motion is hypokinetic. 7. Mild tricuspid regurgitation present. 8. There is a trivial pericardial effusion present. C D AREA SUPERVISOR: Ashlie Benz, ADOLFOCS
[2020-07-22 15:31] LABS: African American GFR (CKD) >90 (>60 ml/min/1.73 sqM); Anion Gap 13 mmol/L; Blood Urea Nitrogen 15 mg/dL (7-17); Calcium 8.5 mg/dL (8.4-10.2); Carbon Dioxide 22 mmol/L (22-30); Chloride 100 mmol/L (98-107); Glucose 92 mg/dL (74-99); Non-African American GFR(CKD) >90 (>60 ml/min/1.73 sqM); Sodium 135 mmol/L (137-145)
--- NOTE | 2020-07-22 15:32 | P.CNPUL ---
History of Present Illness Consult date: 07/22/20 Reason for consult: dyspnea, cough, chest pain, pneumonia Chief complaint: Shortness of breath cough pain however has improved History of present illness: This is a 65-year-old female with history of chronic adrenal insufficiency also has a history of oxygen dependent COPD, patient came into the hospital with increasing shortness of breath tightness fatigue is still smoking, patient was recently hospitalized but however wishes to get out of the hospital, patient denies any exposure to cold with 19 pneumonia, patient did have intermittent episodes of chest pain however nitro does resolve those episodes, chest x-ray shows bilateral infiltrate more so on the right side compared to left side, appeared to have progressed, patient is on IV heparin cardiovascular services following, currently patient is getting oral doxycycline Review of Systems All systems: negative Past Medical History Past Medical History: Coronary Artery Disease (CAD), Cancer, Chest Pain / Angina, COPD, Eye Disorder, GERD/Reflux, Hyperlipidemia, Hypertension, O steoarthritis (OA), Pneumonia, Skin Disorder Additional Past Medical History / Comment(s): Colostomy d/t rectal prolapse, osteoporosis, 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 06/2019 Pneumonia. Edema LLE. adrenal insufficiency. History of Any Multi-Drug Resistant Organisms: None Reported Past Surgical History: Bowel Resection, Heart Catheterization, Hysterectomy, Joint Replacement, Tonsillectomy, Tubal Ligation Additional Past Surgical History / Comment(s): Colostomy, Tan hip replacement. Heart cath with one stent 08/06/19. Past Anesthesia/Blood Transfusion Reactions: Previous Problems w/ Anesthesia, Postoperative Nausea & Vomiting (PONV) Additional Past Anesthesia/Blood Transfusion Reaction / Comment(s): BP "bottomed out" with colonoscopy years ago Past Psychological History: Anxiety, Depression Smoking Status: Current every day smoker Past Alcohol Use History: Occasional Additional Past Alcohol Use History / Comment(s): Smoked 1/2-1 PPD, since age 13 . Past Drug Use History: Marijuana Additional Drug Use History / Comment(s): Medical marijuana use daily prn, uses CBD oil prn - Past Family History Mother Family Medical History: Cancer Additional Family Medical History / Comment(s): colon Father Family Medical History: Coronary Artery Disease (CAD) Additional Family Medical History / Comment(s): CABG Brother(s) Family Medical History: Coronary Artery Disease (CAD) Additional Family Medical History / Comment(s): CABG Medications and Allergies Home Medications Medication Instructions Recorded Confirmed Type Fluticasone Propionate [Flonase] 2 sprays EA NOSTRIL DAILY 01/25/14 07/21/20 History Simvastatin [Zocor] 20 mg PO HS 01/25/14 07/21/20 History rOPINIRole HCL [Requip] 0.25 mg PO HS 01/25/14 07/21/20 History Cyclobenzaprine [Flexeril] 10 mg PO DAILY PRN 07/07/14 07/21/20 History Acyclovir [Zovirax] 1 applic TOPICAL 5XD PRN 10/29/16 07/21/20 History DULoxetine HCL [Cymbalta] 60 mg PO BID 10/29/16 07/21/20 History cycloSPORINE 0.05% OPHTH SOLN 2 drops BOTH EYES Q12H 10/29/16 07/21/20 History [Restasis] Alendronate Sodium [Fosamax] 70 mg PO TU 01/20/18 07/21/20 History ARIPiprazole [Abilify] 10 mg PO DAILY 06/24/19 07/21/20 History Ferrous Sulfate [Slow Fe] 142 mg PO DAILY 06/24/19 07/21/20 History Hydrocortisone 10 mg PO DAILY 06/24/19 07/21/20 History Metoprolol Succinate [Toprol XL] 25 mg PO HS 06/24/19 07/21/20 History Omeprazole 20 mg PO DAILY 06/24/19 07/21/20 History hydrOXYzine HCL 25 mg PO TID PRN 06/24/19 07/21/20 History polyethylene glycoL 3350 [Miralax] 17 gm PO DAILY PRN 06/24/19 07/21/20 History traZODone HCL [Desyrel] 50 mg PO HS 06/24/19 07/21/20 History Aspirin [Adult Low Dose Aspirin EC] 81 mg PO DAILY 08/11/19 07/21/20 History Cbd Oil 1 drop PO DAILY PRN 08/11/19 07/21/20 History Fluticasone/Umeclidin/Vilanter 1 puff INHALATION RT-DAILY 08/11/19 07/21/20 History [Trelegy Ellipta 100-62.5-25] Lac-Hydrin 5% Cream 1 applic TOPICAL DAILY PRN 08/11/19 07/21/20 History Methyl Salicylate/Menthol 1 patch TOPICAL DAILY PRN 08/11/19 07/21/20 History [Salonpas Patch] Nitroglycerin Sl Tabs [Nitrostat] 0.4 mg SUBLINGUAL Q5M PRN 08/11/19 07/21/20 History Clopidogrel Bisulfate [Plavix] 75 mg PO DAILY #90 tab 08/13/19 07/21/20 Rx Albuterol Sulfate [Proair Hfa] 2 puff INHALATION RT-Q4H PRN 07/18/20 07/21/20 History Cholecalciferol [Vitamin D3 (25 25 mcg PO DAILY 07/18/20 07/21/20 History Mcg = 1000 Iu)] Dicyclomine HCl 10 mg PO TID PRN 07/18/20 07/21/20 History Furosemide [Lasix] 20 mg PO DAILY PRN 07/18/20 07/21/20 History HYDROcodone/APAP 10-325MG [[place] 1 tab PO Q6HR PRN 07/18/20 07/21/20 History 10-325] Hydrocortisone [Cortef] 5 mg PO PC-LUNCH 07/18/20 07/21/20 History Latanoprost [Xalatan 0.005%] 1 drop BOTH EYES HS 07/18/20 07/21/20 History Magic Mouth Wash 5 ml PO QID 07/18/20 07/21/20 History Magnesium 250 mg PO DAILY 07/18/20 07/21/20 History Montelukast Sodium [Singulair] 10 mg PO HS 07/18/20 07/21/20 History Multivit-Min/FA/Lycopen/Lutein 1 tab PO DAILY 07/18/20 07/21/20 History [Centrum Silver Tablet] Tolterodine ER [Detrol LA] 2 mg PO DAILY 07/18/20 07/21/20 History Triamcinolone 0.1% Cream [Kenalog 1 applic TOPICAL BID PRN 07/18/20 07/21/20 History 0.1% Cream] valACYclovir HCL [Valtrex] 500 mg PO Q12HR PRN 07/18/20 07/21/20 History Doxycycline [Vibramycin] 100 mg PO BID 1 Days #10 capsule 07/19/20 07/21/20 Rx Ipratropium-Albuterol Nebulize 3 ml INHALATION RT-QID #120 neb 07/19/20 07/21/20 Rx [Duoneb 0.5 mg-3 mg/3 ml Soln] predniSONE See Taper PO DIRECTED 07/21/20 07/21/20 History Allergies Allergy/AdvReac Type Severity Reaction Status Date / Time meperidine HCl [From Demerol] Allergy Severe Swelling Verified 07/21/20 16:20 Penicillins Allergy Rash/Hives Verified 07/21/20 16:20 erythromycin base AdvReac Abdominal Verified 07/21/20 16:20 Pain Physical Exam Vitals: Vital Signs Temp Pulse Pulse Resp BP BP Pulse Ox 07/22/20 11:38 88 07/22/20 11:00 18 98 07/22/20 10:00 18 07/22/20 09:12 83 18 109/74 100 07/22/20 08:00 102 H 07/22/20 07:48 98 07/22/20 07:40 94 07/22/20 04:00 97.4 F L 82 17 125/82 97 07/22/20 02:34 97.7 F 92 20 109/72 99 07/22/20 00:48 92 20 120/82 99 07/21/20 20:57 95 20 101/67 95 07/21/20 18:20 100 07/21/20 18:00 98 24 109/71 95 07/21/20 17:58 104 H 07/21/20 17:00 106 H 21 114/88 99 07/21/20 16:28 100 07/21/20 16:23 114/88 07/21/20 16:12 98.4 F 118 H 26 H 114/88 Intake and Output 07/22/20 07/22/20 07/22/20 06:59 14:59 22:59 Intake Total 177.985 Output Total 1000 Balance 177.985 -1000 Intake: Intake, IV Titration 177.985 Amount Heparin Sod,Pork in 0.45% 77.985 NaCl 25,000 unit In 0.45 % NaCl 1 250ml.bag @ 12 UNITS/KG/HR 8.981 mls/hr IV .Q24H [place] Rx#: [id number] Levofloxacin 500Mg-D5w 100 Pmx 500 mg In Dextrose/ Water 1 100ml.bag @ 100 mls/hr IVPB ONCE STA Rx#: [id number] Output: Urine 1000 Other: Voiding Method Bedside Commode # Voids 2 Weight 74.843 kg - Constitutional General appearance: average body habitus, disheveled - EENT Eyes: EOMI, PERRLA - Neck Carotids: bilateral: upstroke normal Thyroid: bilateral: normal size - Respiratory Respiratory: bilateral: diminished, wheezing (Fine expiratory) - Cardiovascular Rhythm: regular Heart sounds: normal: S1, S2 - Gastrointestinal General gastrointestinal: distended, soft Results - Laboratory Findings CBC and BMP: 07/22/20 05:50 07/21/20 16:45 PT/INR, D-dimer PT 10.4 sec (9.0-12.0) 07/22/20 05:50 INR 1.0 (<1.2) 07/22/20 05:50 Abnormal lab findings: Abnormal Labs 07/21/20 07/21/20 07/21/20 16:45 16:45 16:45 WBC 12.8 H RBC 3.76 L MCV 104.8 H MCH 35.5 H Plt Count 471 H Neutrophils # 11.2 H APTT 20.8 L VBG pCO2 Sodium 132 L Potassium 5.2 H Chloride 97 L Glucose 115 H Plasma Lactic Acid Cam Troponin I Total Protein 5.8 L 07/21/20 07/21/20 07/21/20 16:45 16:45 16:45 WBC RBC MCV MCH Plt Count Neutrophils # APTT VBG pCO2 56 H Sodium Potassium Chloride Glucose Plasma Lactic Acid Cam 2.4 H* Troponin I 0.651 H* Total Protein 07/21/20 07/22/20 07/22/20 21:21 00:58 05:50 WBC RBC 3.76 L MCV 105.7 H MCH 35.9 H Plt Count 491 H Neutrophils # 7.9 H APTT VBG pCO2 Sodium Potassium Chloride Glucose Plasma Lactic Acid Cam Troponin I 0.491 H* 0.334 H* Total Protein 07/22/20 05:50 WBC RBC MCV MCH Plt Count Neutrophils # APTT 40.3 H VBG pCO2 Sodium Potassium Chloride Glucose Plasma Lactic Acid Cam Troponin I Total Protein - Diagnostic Findings Chest x-ray: report reviewed, image reviewed Assessment and Plan Assessment: Bilateral pneumonia Acute hypoxic respiratory failure on chronic hypoxic respiratory failure Chronic adrenal insufficiency Chronic systolic heart failure ejection fraction of 40% Oxygen dependent End-stage COPD with acute COPD exacerbation Plan: IV steroids Breathing treatments IV antibiotics Sputum studies Further plan of care as per clinical response of the patient Time with Patient: Greater than 30
[2020-07-22] MEDS ORDERED: IPRATROPIUM-ALBUTEROL 3 ML NEB INHALATION SCH (16:00)
[2020-07-22] MEDS: HEPARIN SOD,PORK IN 0.45% NACL 25,000 UNIT in 0.45% NACL 1 250ML.BAG IV SCH (18:38)
[2020-07-22] MEDS: polyethylene glycoL 3350 17 GM POWD.PACK PO PRN (18:47)
[2020-07-22] MEDS ORDERED: BUDESONIDE 0.5 MG/2 ML NEBU INHALATION SCH (20:00)
[2020-07-22] MEDS ORDERED: FORMOTEROL FUMARATE 20 MCG/2 ML NEBU INHALATION SCH (20:00)
[2020-07-22] MEDS: methylPREDNISolone SOD SUCCI 40 MG/ML 1 ML VIAL IV SCH (20:30)
--- NOTE | 2020-07-22 20:39 | P.HPIM ---
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 Alex Vera. 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 Patient has continued to smoke for over 50 years. Still smoking a few cigarettes a day. Patient just admitted the hospital in July 18 then discharged in July 19, but t he diagnosis acute COPD exacerbation and acute bronchitis. And also hyponatremia. Patient had been rather anxious to leave. Was discharged on bronchodilators at prednisones taper and doxycycline. Patient states after getting home patient progressively became short of breath. Not able to take a few steps. Wheezing. No fever no chills. No chest pain. Slight cough. In the ER patient did receive IV Lasix in addition to bronchodilators and steroids. 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 Restless leg syndrome, varicose veins, prolapsed rectum, urinary stress incontinence, cervical cancer, adrenal insufficiency, anxiety depression Social history: Patient smoked for over 50 years. Still more smoking a few cigarettes a day. Alcohol occasionally. Has had a problem with alcohol in the past. Physical examination: VITAL SIGNS: 98.4, 118, 26, 114/88, 100% on 15 L nonrebreather-on presentation GENERAL: BMI 30.2, sitting up in bed , bit tired. EYES: Pupils equal. Conjunctiva normal. HEENT: External appearance of nose and ears normal, oral cavity grossly normal. NECK: JVD not raised; masses not palpable. HEART: First and second heart sounds are normal; no edema. LUNGS: Respiratory rate increased, decreased breaths sounds, prolonged expirati on. ABDOMEN: Soft, nontender, liver spleen not palpable, no masses palpable. Colostomy PSYCH: Alert and oriented x3; mood and affect a bit anxious MUSCULAR skeletal: Evidence of OA especially in the hands NEUROLOGICAL: Cranial nerves grossly intact; no facial asymmetry, power and sensation grossly intact. LYMPHATICS: No lymph nodes palpable in the axilla and neck INVESTIGATIONS, reviewed in the clinical context: WBC is 12.8 hemoglobin 13.4 platelets 471 potassium 5.2 creatinine 0.58 Troponin I 0.651, 0.491, 0.334 ProBNP 7500 Coronavirus [PCR] not detected EKG tracing personally reviewed by me-sinus tachycardia Chest x-ray film personally reviewed by me-right basal infiltrates, questionable venous prominence From last admission: CT angiogram chest: COPD. Segmental areas of consolidation likely atelectasis. Severe compression fractures mid to upper thoracic spine. 2-D echocardiogram: EF 55-60%. Assessment and plan: -Right lower lobe pneumonia, suspect gram-negative organism Started on IV ceftriaxone -Acute COPD exacerbation in a current smoker on DuoNeb bronchodilators, IV and inhaled steroids and long-acting beta agonist. Dr. Alex Vera consulted -Possible acute on chronic congestive heart exacerbation from diastolic dysfunction EF 55-60% IV Lasix. Cardiology consulted -GERD Continue with PPI -Hyperlipidemia Continue with Zocor -Essential hypertension Continue Toprol-XL -Primary osteoarthritis Use analgesia as needed -Restless leg syndrome Continue with the Requip -Chronic urinary stress incontinence Continue with Detrol LA, Ditropan -Chronic adrenal insufficiency Oral hydrocortisone. Patient is on IV Solu-Medrol -Coronary artery disease Continue with aspirin. Beta jose -Chronic colostomy Follow- output -Anxiety depression not otherwise specified Continue with Abilify, deseryl, Cymbalta -Chronic chronic thoracic spine compression fracture Follow clinically Past Medical History Past Medical History: Coronary Artery Disease (CAD), Cancer, Chest Pain / Angina, COPD, Eye Disorder, GERD/Reflux, Hyperlipidemia, Hypertension, Osteoarthritis (OA), Pneumonia, Skin Disorder Additional Past Medical History / Comment(s): Colostomy d/t rectal prolapse, osteoporosis, histoplasmosis/toxoplasmosis (blind in left eye), RLS, varicose veins, poor circulation, asthmatic bronchitis, discoloration/bruises on chetan arms, stress incontinence, hx cervical cancer, hypoglycemia, adrenal in sufficency. 06/2019 Pneumonia. Edema LLE. adrenal insufficiency. History of Any Multi-Drug Resistant Organisms: None Reported Past Surgical History: Bowel Resection, Heart Catheterization, Hysterectomy, Joint Replacement, Tonsillectomy, Tubal Ligation Additional Past Surgical History / Comment(s): Colostomy, Chetan hip replacement. Heart cath with one stent 08/06/19. Past Anesthesia/Blood Transfusion Reactions: Previous Problems w/ Anesthesia, Postoperative Nausea & Vomiting (PONV) Additional Past Anesthesia/Blood Transfusion Reaction / Comment(s): BP "bottomed out" with colonoscopy years ago Past Psychological History: Anxiety, Depression Smoking Status: Current every day smoker Past Alcohol Use History: Occasional Additional Past Alcohol Use History / Comment(s): Smoked 1/2-1 PPD, since age 13. Past Drug Use History: Marijuana Additional Drug Use History / Comment(s): Medical marijuana use daily prn, uses CBD oil prn - Past Family History Mother Family Medical History: Cancer Additional Family Medical History / Comment(s): colon Father Family Medical History: Coronary Artery Disease (CAD) Additional Family Medical History / Comment(s): CABG Brother(s) Family Medical History: Coronary Artery Disease (CAD) Additional Family Medical History / Comment(s): CABG Medications and Allergies Home Medications Medication Instructions Recorded Confirmed Type Fluticasone Propionate [Flonase] 2 sprays EA NOSTRIL DAILY 01/25/14 07/21/20 History Simvastatin [Zocor] 20 mg PO HS 01/25/14 07/21/20 History rOPINIRole HCL [Requip] 0.25 mg PO HS 01/25/14 07/21/20 History Cyclobenzaprine [Flexeril] 10 mg PO DAILY PRN 07/07/14 07/21/20 History Acyclovir [Zovirax] 1 applic TOPICAL 5XD PRN 10/29/16 07/21/20 History DULoxetine HCL [Cymbalta] 60 mg PO BID 10/29/16 07/21/20 History cycloSPORINE 0.05% OPHTH SOLN 2 drops BOTH EYES Q12H 10/29/16 07/21/20 History [Restasis] Alendronate Sodium [Fosamax] 70 mg PO TU 01/20/18 07/21/20 History ARIPiprazole [Abilify] 10 mg PO DAILY 06/24/19 07/21/20 History Ferrous Sulfate [Slow Fe] 142 mg PO DAILY 06/24/19 07/21/20 History Hydrocortisone 10 mg PO DAILY 06/24/19 07/21/20 History Metoprolol Succinate [Toprol XL] 25 mg PO HS 06/24/19 07/21/20 History Omeprazole 20 mg PO DAILY 06/24/19 07/21/20 History hydrOXYzine HCL 25 mg PO TID PRN 06/24/19 07/21/20 History polyethylene glycoL 3350 [Miralax] 17 gm PO DAILY PRN 06/24/19 07/21/20 History traZODone HCL [Desyrel] 50 mg PO HS 06/24/19 07/21/20 History Aspirin [Adult Low Dose Aspirin EC] 81 mg PO DAILY 08/11/19 07/21/20 History Cbd Oil 1 drop PO DAILY PRN 08/11/19 07/21/20 History Fluticasone/Umeclidin/Vilanter 1 puff INHALATION RT-DAILY 08/11/19 07/21/20 History [[place] Ellipta 100-62.5-25] Lac-Hydrin 5% Cream 1 applic TOPICAL DAILY PRN 08/11/19 07/21/20 History Methyl Salicylate/Menthol 1 patch TOPICAL DAILY PRN 08/11/19 07/21/20 History [Salonpas Patch] Nitroglycerin Sl Tabs [Nitrostat] 0.4 mg SUBLINGUAL Q5M PRN 08/11/19 07/21/20 History Clopidogrel Bisulfate [Plavix] 75 mg PO DAILY #90 tab 08/13/19 07/21/20 Rx Albuterol Sulfate [Proair Hfa] 2 puff INHALATION RT-Q4H PRN 07/18/20 07/21/20 History Cholecalciferol [Vitamin D3 (25 25 mcg PO DAILY 07/18/20 07/21/20 History Mcg = 1000 Iu)] Dicyclomine HCl 10 mg PO TID PRN 07/18/20 07/21/20 History Furosemide [Lasix] 20 mg PO DAILY PRN 07/18/20 07/21/20 History HYDROcodone/APAP 10-325MG [Guthrie 1 tab PO Q6HR PRN 07/18/20 07/21/20 History 10-325] Hydrocortisone [Cortef] 5 mg PO PC-LUNCH 07/18/20 07/21/20 History Latanoprost [Xalatan 0.005%] 1 drop BOTH EYES HS 07/18/20 07/21/20 History Magic Mouth Wash 5 ml PO QID 07/18/20 07/21/20 History Magnesium 250 mg PO DAILY 07/18/20 07/21/20 History Montelukast Sodium [Singulair] 10 mg PO HS 07/18/20 07/21/20 History Multivit-Min/FA/Lycopen/Lutein 1 tab PO DAILY 07/18/20 07/21/20 History [Centrum Silver Tablet] Tolterodine ER [Detrol LA] 2 mg PO DAILY 07/18/20 07/21/20 History Triamcinolone 0.1% Cream [Kenalog 1 applic TOPICAL BID PRN 07/18/20 07/21/20 History 0.1% Cream] valACYclovir HCL [Valtrex] 500 mg PO Q12HR PRN 07/18/20 07/21/20 History Doxycycline [Vibramycin] 100 mg PO BID 1 Days #10 capsule 07/19/20 07/21/20 Rx Ipratropium-Albuterol Nebulize 3 ml INHALATION RT-QID #120 neb 07/19/20 07/21/20 Rx [Duoneb 0.5 mg-3 mg/3 ml Soln] predniSONE See Taper PO DIRECTED 07/21/20 07/21/20 History Allergies Allergy/AdvReac Type Severity Reaction Status Date / Time meperidine HCl [From Demerol] Allergy Severe Swelling Verified 07/21/20 16:20 Penicillins Allergy Rash/Hives Verified 07/21/20 16:20 erythromycin base AdvReac Abdominal Verified 07/21/20 16:20 Pain Physical Exam Vitals: Vital Signs Temp Pulse Pulse Resp BP BP Pulse Ox 07/22/20 09:12 83 18 109/74 100 07/22/20 08:00 102 H 07/22/20 07:48 98 07/22/20 07:40 94 07/22/20 04:00 97.4 F L 82 17 125/82 97 07/22/20 02:34 97.7 F 92 20 109/72 99 07/22/20 00:48 92 20 120/82 99 07/21/20 20:57 95 20 101/67 95 07/21/20 18:20 100 07/21/20 18:00 98 24 109/71 95 07/21/20 17:58 104 H 07/21/20 17:00 106 H 21 114/88 99 07/21/20 16:28 100 07/21/20 16:23 114/88 07/21/20 16:12 98.4 F 118 H 26 H 114/88 Intake and Output 07/21/20 07/22/20 07/22/20 22:59 06:59 14:59 Intake Total 177.985 Output Total 1000 Balance 177.985 -1000 Intake: Intake, IV Titration 177.985 Amount Heparin Sod,Pork in 0.45% 77.985 NaCl 25,000 unit In 0.45 % NaCl 1 250ml.bag @ 12 UNITS/KG/HR 8.981 mls/hr IV .Q24H [facility] Rx#: [id number] Levofloxacin 500Mg-D5w 100 Pmx 500 mg In Dextrose/ Water 1 100ml.bag @ 100 mls/hr IVPB ONCE STA Rx#: [id number] Output: Urine 1000 Other: Voiding Method Bedside Commode # Voids 2 Weight 74.843 kg 74.843 kg Results CBC & Chem 7: 07/22/20 05:50 07/22/20 05:55 Labs: Abnormal Lab Results - Last 24 Hours (Table) 07/21/20 07/21/20 07/21/20 Range/Units 16:45 16:45 16:45 WBC 12.8 H (3.8-10.6) k/uL RBC 3.76 L (3.80-5.40) m/uL MCV 104.8 H (80.0-100.0) fL MCH 35.5 H (25.0-35.0) pg Plt Count 471 H (150-450) k/uL Neutrophils # 11.2 H (1.3-7.7) k/uL APTT 20.8 L (22.0-30.0) sec VBG pCO2 (37-51) mmHg Sodium 132 L (137-145) mmol/L Potassium 5.2 H (3.5-5.1) mmol/L Chloride 97 L (98-107) mmol/L Glucose 115 H (74-99) mg/dL Plasma Lactic Acid Cam (0.7-2.0) mmol/L Troponin I (0.000-0.034) ng/mL Total Protein 5.8 L (6.3-8.2) g/dL 07/21/20 07/21/20 07/21/20 Range/Units 16:45 16:45 16:45 WBC (3.8-10.6) k/uL RBC (3.80-5.40) m/uL MCV (80.0-100.0) fL MCH (25.0-35.0) pg Plt Count (150-450) k/uL Neutrophils # (1.3-7.7) k/uL APTT (22.0-30.0) sec VBG pCO2 56 H (37-51) mmHg Sodium (137-145) mmol/L Potassium (3.5-5.1) mmol/L Chloride (98-107) mmol/L Glucose (74-99) mg/dL Plasma Lactic Acid Cam 2.4 H* (0.7-2.0) mmol/L Troponin I 0.651 H* (0.000-0.034) ng/mL Total Protein (6.3-8.2) g/dL 07/21/20 07/22/20 07/22/20 Range/Units 21:21 00:58 05:50 WBC (3.8-10.6) k/uL RBC 3.76 L (3.80-5.40) m/uL MCV 105.7 H (80.0-100.0) fL MCH 35.9 H (25.0-35.0) pg Plt Count 491 H (150-450) k/uL Neutrophils # 7.9 H (1.3-7.7) k/uL APTT (22.0-30.0) sec VBG pCO2 (37-51) mmHg Sodium (137-145) mmol/L Potassium (3.5-5.1) mmol/L Chloride (98-107) mmol/L Glucose (74-99) mg/dL Plasma Lactic Acid Cam (0.7-2.0) mmol/L Troponin I 0.491 H* 0.334 H* (0.000-0.034) ng/mL Total Protein (6.3-8.2) g/dL 07/22/20 Range/Units 05:50 WBC (3.8-10.6) k/uL RBC (3.80-5.40) m/uL MCV (80.0-100.0) fL MCH (25.0-35.0) pg Plt Count (150-450) k/uL Neutrophils # (1.3-7.7) k/uL APTT 40.3 H (22.0-30.0) sec VBG pCO2 (37-51) mmHg Sodium (137-145) mmol/L Potassium (3.5-5.1) mmol/L Chloride (98-107) mmol/L Glucose (74-99) mg/dL Plasma Lactic Acid Cam (0.7-2.0) mmol/L Troponin I (0.000-0.034) ng/mL Total Protein (6.3-8.2) g/dL Thrombosis Risk Factor Assmnt - Choose All That Apply Each Factor Represents 1 point: Abnormal pulmonary function (COPD), Heart f ailure (<1month), Obesity (BMI >25), Sepsis (< 1month) Each Risk Factor Represents 2 Points: Age 61-74 years Thrombosis Risk Factor Assessment Total Risk Factor Score: 6 Thrombosis Risk Factor Assessment Level: High Risk
[2020-07-23] MEDS: PANTOPRAZOLE 40 MG TABLET PO SCH (06:21)
[2020-07-23] MEDS: polyethylene glycoL 3350 17 GM POWD.PACK PO PRN ×2 (06:27→21:06)
[2020-07-23] MEDS: DULoxetine HCL 60 MG CAPSULE.DR PO SCH ×2 (08:44→20:31)
[2020-07-23] MEDS: CHOLECALCIFEROL 25 MCG (1000 IU) TABLET PO SCH (08:44)
[2020-07-23] MEDS: OXYBUTYNIN XL 5 MG TAB.ER.24 PO SCH (08:44)
[2020-07-23] MEDS: CLOPIDOGREL 75 MG TAB PO SCH (08:44)
[2020-07-23] MEDS: FUROSEMIDE 10 MG/ML 4 ML VIAL IV SCH (08:44)
[2020-07-23] MEDS: methylPREDNISolone SOD SUCCI 40 MG/ML 1 ML VIAL IV SCH ×2 (08:44→20:31)
[2020-07-23] MEDS: ASPIRIN 81 MG PO SCH (08:44)
[2020-07-23] MEDS: ARIPiprazole 10 MG TAB PO SCH (08:45)
[2020-07-23 08:46] LABS: African American GFR (CKD) >90 (>60 ml/min/1.73 sqM); Anion Gap 6 mmol/L; Blood Urea Nitrogen 16 mg/dL (7-17); Calcium 8.7 mg/dL (8.4-10.2); Carbon Dioxide 28 mmol/L (22-30); Chloride 100 mmol/L (98-107); Glucose 87 mg/dL (74-99); Non-African American GFR(CKD) >90 (>60 ml/min/1.73 sqM); Potassium 4.3 mmol/L (3.5-5.1); Sodium 134 mmol/L (137-145)
[2020-07-23] MEDS: cycloSPORINE 0.05% OPHTH 0.4 ML DROPERETTE BOTH EYES SCH ×2 (08:48→20:32)
--- NOTE | 2020-07-23 09:40 | P.PN ---
Subjective Progress Note Date: 07/23/20 This is a very pleasant 65-year-old female patient with history of coronary artery disease and prior stenting of the PDA branch of the RCA as well as hypertension and dyslipidemia and also chronic obstructive pulmonary disease, nicotine dependence, anxiety and depression, marijuana use, presented to the [facility] with symptoms of exertional shortness of breath. She was seen in consultation yesterday by Dr. Castro. The patient was seen and examined this morning, states that she did not sleep well through the night last night, continues to feel short of breath. Denies any chest discomfort. Blood pressure 112/76 heart rate in the 80s 96% on 4 L of oxygen. Sodium 134, potassium 4.3, BUN 16, creatinine 0.6. BNP level 992. We will discontinue the IV Lasix today. Echocardiogram with Doppler study revealed an ejection fraction of 40-45%. Objective - Vital Signs Vital signs: Vital Signs Temp 98.8 F 07/23/20 04:00 Pulse 88 07/23/20 04:00 Resp 20 07/23/20 04:00 BP 112/76 07/23/20 04:00 Pulse Ox 96 07/23/20 04:00 Intake & Output 07/22/20 07/23/20 07/23/20 18:59 06:59 18:59 Intake Total 165.396 240 240 Output Total 1000 650 800 Balance -834.604 -410 -560 Weight 76.7 kg Intake: Intake, IV Titration 165.396 Amount Heparin Sod,Pork in 0.45% 165.396 NaCl 25,000 unit In 0.45 % NaCl 1 250ml.bag @ 12 UNITS/KG/HR 8.981 mls/hr IV .Q24H [facility] Rx#: [id number] Oral 240 240 Output: Urine 1000 650 800 Other: Voiding Method Bedside Commode # Voids 1 - Exam PHYSICAL EXAMINATION: GENERAL: 65-year-old female in no acute distress at the time of my examination HEENT: Head is atraumatic, normocephalic. Pupils equal, round. Sclera anicteric. Conjunctiva are clear. Mucous membranes of the mouth are moist. Neck is supple. There is no elevated jugular venous pressure. No carotid bruit is heard. HEART EXAMINATION: Heart S1, S2 normal. No murmur or gallop heard. CHEST EXAMINATION: Lungs reveal scattered wheezing throughout, decreased air exchange ABDOMEN: Soft, nontender. Bowel sounds are heard. No organomegaly noted. Colostomy present. EXTREMITIES: 2+ peripheral pulses with no evidence of peripheral edema and no calf tenderness noted. Patient has significant discoloration of the skin bilaterally Extremities, chronic NEUROLOGIC patient is awake, alert and oriented 3 . . - Labs CBC & Chem 7: 07/22/20 05:50 07/23/20 07:43 Labs: Abnormal Lab Results - Last 24 Hours (Table) 07/22/20 07/22/20 07/23/20 Range/Units 05:55 22:30 07:43 APTT 53.9 H (22.0-30.0) sec Sodium 135 L 134 L (137-145) mmol/L Microbiology - Last 24 Hours (Table) 07/21/20 16:44 Blood Culture - Preliminary Blood No Growth after 24 hours Assessment and Plan Plan: Assessment and plan #1 shortness of breath with exertion likely related to COPD exacerbation was potential pneumonia. #2 coronary artery disease and prior PCI of the PDA branch of the RCA #3 hypertension #4 dyslipidemia #5 chronic obstructive pulmonary disease #6 history of colostomy #7 abnormality in troponin, cannot completely rule out an acute coronary event. Her ejection fraction on July 18 was 55-60%, current echo reveals an ejection fraction of 40-45%. Could also be secondary to hypoxia, oxygen supply and de pablo mismatch. Plan We will discontinue the IV Lasix, put the patient on oral diuretics. Continue beta jose, statin, dual antiplatelet therapy. Continue IV steroids and antibiotics. Further recommendations to follow. DNP note has been reviewed, I agree with a documented findings and plan of care. Patient was seen and examined.
[2020-07-23] MEDS: HYDROcodone/APAP 10-325MG 1 EACH TAB PO PRN ×2 (09:47→18:38)
[2020-07-23] MEDS: BUDESONIDE 1 MG/2 ML NEBU INHALATION SCH ×2 (10:25→20:20)
[2020-07-23] MEDS: FORMOTEROL FUMARATE 20 MCG/2 ML NEBU INHALATION SCH ×2 (10:26→20:20)
[2020-07-23] MEDS: IPRATROPIUM-ALBUTEROL 3 ML NEB INHALATION SCH ×4 (10:26→20:21)
[2020-07-23] MEDS: DOXYCYCLINE 100 MG CAP PO SCH ×2 (12:21→21:06)
--- NOTE | 2020-07-23 14:25 | P.PN ---
Subjective Progress Note Date: 07/23/20 Principal diagnosis: Bilateral pneumonia Acute hypoxic respiratory failure on chronic hypoxic respiratory failure Chronic adrenal insufficiency Chronic systolic heart failure ejection fraction of 40% Oxygen dependent End-stage COPD with acute COPD exacerbation 07/23/2020, patient seen eval examined during the rounds labs reviewed medications reviewed care plan discussed, shortness breath slightly better patient remains on antibiotics breathing treatments steroids, cardiovascular services also following this patient his is a 65-year-old female with history of chronic adrenal insufficiency also has a history of oxygen dependent COPD, patient came into the hospital with increasing shortness of breath tightness fatigue is still smoking, patient was recently hospitalized but however wishes to get out of the hospital, patient denies any exposure to cold with 19 pneumonia, patient did have intermittent episodes of chest pain however nitro does resolve those episodes, chest x-ray shows bilateral infiltrate more so on the right side compared to left side, appeared to have progressed, patient is on IV heparin cardiovascular services following, currently patient is getting oral doxycycline Objective - Vital Signs Vital signs: Vital Signs Temp 97.2 F L 07/23/20 12:53 Pulse 87 07/23/20 12:53 Resp 20 07/23/20 12:53 BP 125/84 07/23/20 12:53 Pulse Ox 95 07/23/20 12:53 Intake & Output 07/22/20 07/23/20 07/23/20 18:59 06:59 18:59 Intake Total 165.396 240 480 Output Total 2868 498 5249 Balance -834.609 -410 -0830 Weight 76.7 kg Intake: Intake, IV Titration 165.396 Amount Heparin Sod,Pork in 0.45% 165.396 NaCl 25,000 unit In 0.45 % NaCl 1 250ml.bag @ 12 UNITS/KG/HR 8.981 mls/hr IV .Q24H [place] Rx#: [id number] Oral 240 480 Output: Urine 1126 387 4752 Other: Voiding Method Bedside Commode # Voids 1 - Exam - Constitutional General appearance: average body habitus, disheveled - EENT Eyes: EOMI, PERRLA - Neck Carotids: bilateral: upstroke normal Thyroid: bilateral: normal size - Respiratory Respiratory: bilateral: diminished, wheezing (Fine expiratory) - Cardiovascular Rhythm: regular Heart sounds: normal: S1, S2 - Gastrointestinal General gastrointestinal: distended, soft - Labs CBC & Chem 7: 07/22/20 05:50 07/23/20 07:43 Labs: Abnormal Lab Results - Last 24 Hours (Table) 07/22/20 07/22/20 07/23/20 Range/Units 05:55 22:30 07:43 APTT 53.9 H (22.0-30.0) sec Sodium 135 L 134 L (137-145) mmol/L Microbiology - Last 24 Hours (Table) 07/21/20 16:44 Blood Culture - Preliminary Blood No Growth after 24 hours Assessment and Plan Assessment: Bilateral pneumonia Acute hypoxic respiratory failure on chronic hypoxic respiratory failure Chronic adrenal insufficiency Chronic systolic heart failure ejection fraction of 40% Oxygen dependent End-stage COPD with acute COPD exacerbation Plan: IV steroids Breathing treatments IV antibiotics Sputum studies, once able to obtain sputum however blood cultures have been negative Further plan of care as per clinical response of the patient Time with Patient: Greater than 30
--- NOTE | 2020-07-23 18:29 | P.PN ---
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 Patient has continued to smoke for over 50 years. Still smoking a few cigarettes a day. Patient just admitted the hospital in July 18 then discharged in July 19, but the diagnosis acute COPD exacerbation and acute bronchitis. And also hyponatremia. Patient had been rather anxious to leave. Was discharged on bronchodilators at prednisones taper and doxycycline. Patient states after getting home patient progressively became short of breath. Not able to take a few steps. Wheezing. No fever no chills. No chest pain. Slight cough. In the ER patient did receive IV Lasix in addition to bronchodilators and steroids. Admitted with right lower lobe pneumonia, acute COPD exacerbation, acute on chronic CHF exacerbation. Placed on bronchodilators, steroids, IV ceftriaxone. Received IV Lasix. Today: Feeling a bit tired. Laying in bed. On IV Lasix. IV antibiotics. Eating about 50% Review of systems: Was done for constitutional, cardiovascular, GI, pulmonary. relevant finding as above Active Medications Hydrocodone Bitart/Acetaminophen (Hydrocodone/Apap 10-325mg 1 Each Tab) 1 each PO Q6HR PRN PRN Reason: Pain Last Admin: 07/23/20 09:47 Dose: 1 each Documented by: Albuterol/Ipratropium (Ipratropium-Albuterol 3 Ml Neb) 3 ml INHALATION RT-QID [facility] Last Admin: 07/23/20 16:01 Dose: 3 ml Documented by: Aripiprazole (Aripiprazole 10 Mg Tab) 10 mg PO DAILY [facility] Last Admin: 07/23/20 08:45 Dose: 10 mg Documented by: Aspirin (Aspirin 81 Mg) 81 mg PO DAILY [facility] Last Admin: 07/23/20 08:44 Dose: 81 mg Documented by: Atorvastatin Calcium (Atorvastatin 10 Mg Tab) 10 mg PO HS [facility] Last Admin: 07/22/20 20:29 Dose: 10 mg Documented by: Budesonide (Budesonide 1 Mg/2 Ml Nebu) 1 mg INHALATION RT-BID [facility] Last Admin: 07/23/20 10:25 Dose: Not Given Documented by: Cholecalciferol (Cholecalciferol 25 Mcg (1000 Iu) Tablet) 25 mcg PO DAILY [place] Last Admin: 07/23/20 08:44 Dose: 25 mcg Documented by: Clopidogrel Bisulfate (Clopidogrel 75 Mg Tab) 75 mg PO DAILY [facility] Last Admin: 07/23/20 08:44 Dose: 75 mg Documented by: Cyclobenzaprine HCl (Cyclobenzaprine 10 Mg Tab) 10 mg PO DAILY PRN PRN Reason: Muscle Spasm Cyclosporine (Cyclosporine 0.05% Ophth 0.4 Ml Droperette) 2 drops BOTH EYES Q12H [facility] Last Admin: 07/23/20 08:48 Dose: 2 drops Documented by: Dicyclomine HCl (Dicyclomine 10 Mg Cap) 10 mg PO TID PRN PRN Reason: IBS Doxycycline Monohydrate (Doxycycline 100 Mg Cap) 100 mg PO BID [facility] Last Admin: 07/23/20 12:21 Dose: 100 mg Documented by: Duloxetine HCl (Duloxetine Hcl 60 Mg Capsule.Dr) 60 mg PO BID [facility] Last Admin: 07/23/20 08:44 Dose: 60 mg Documented by: Formoterol Fumarate (Formoterol Fumarate 20 Mcg/2 Ml Nebu) 20 mcg INHALATION RT-BID [facility] Last Admin: 07/23/20 10:26 Dose: Not Given Documented by: Furosemide (Furosemide 40 Mg Tab) 40 mg PO DAILY [facility] Heparin Sodium (Porcine) (Heparin Sodium 1,000 Un/Ml (10ml Vl)) 0 unit IV PER PROTOCOL PRN; Protocol PRN Reason: Low PTT Heparin Sodium/Sodium Chloride (25,000 unit/ Sodium Chloride) 250 mls @ 8.981 mls/hr IV .Q24H [facility]; Protocol Last Admin: 07/22/20 18:38 Dose: 15 units/kg/hr, 11.226 mls/hr Documented by: Ceftriaxone Sodium 1 gm/ (Sodium Chloride) 50 mls @ 100 mls/hr IVPB Q24HR [facility] Last Admin: 07/23/20 08:48 Dose: 100 mls/hr Documented by: Latanoprost (Latanoprost 0.005% Ophth Drops 2.5 Ml Btl) 1 drops BOTH EYES HS [facility] Last Admin: 07/22/20 23:28 Dose: Not Given Documented by: Methylprednisolone Sodium Succinate (Methylprednisolone Sod Succi 40 Mg/Ml 1 Ml Vial) 40 mg IV Q12HR [facility] Last Admin: 07/23/20 08:44 Dose: 40 mg Documented by: Metoprolol Succinate (Metoprolol Succinate (Er) 25 Mg Tab.Er.24h) 25 mg PO [facility] Last Admin: 07/22/20 20:30 Dose: 25 mg Documented by: Montelukast Sodium (Montelukast 10 Mg Tab) 10 mg PO [facility] Last Admin: 07/22/20 20:29 Dose: 10 mg Documented by: Naloxone HCl (Naloxone 0.4 Mg/Ml 1 Ml Vial) 0.2 mg IV Q2M PRN PRN Reason: Opioid Reversal Nitroglycerin (Nitroglycerin Sl Tabs 0.4 Mg Tab) 0.4 mg SUBLINGUAL Q5M PRN PRN Reason: Chest Pain Oxybutynin Chloride (Oxybutynin Xl 5 Mg Tab.Er.24) 5 mg PO DAILY [facility] Last Admin: 07/23/20 08:44 Dose: 5 mg Documented by: Pantoprazole Sodium (Pantoprazole 40 Mg Tablet) 40 mg PO AC-BRKFST [facility] Last Admin: 07/23/20 06:21 Dose: 40 mg Documented by: Polyethylene Glycol (Polyethylene Glycol 3350 17 Gm Powd.Pack) 17 gm PO DAILY PRN PRN Reason: Constipation Last Admin: 07/23/20 06:27 Dose: 17 gm Documented by: Ropinirole HCl (Ropinirole Hcl 0.25 Mg Tab) 0.25 mg PO [facility] Last Admin: 07/22/20 20:29 Dose: 0.25 mg Documented by: Trazodone HCl (Trazodone Hcl 50 Mg Tab) 50 mg PO [facility] Last Admin: 07/22/20 20:30 Dose: 50 mg Documented by: Triamcinolone Acetonide (Triamcinolone 0.1% Cream 80 Gm Tube) 1 applic TOPICAL BID PRN PRN Reason: Rash Valacyclovir HCl (Valacyclovir 500 Mg Tab) 500 mg PO Q12HR PRN PRN Reason: OUTBREAK Past medical history: COPD, GERD, hyperlipidemia, hypertension, osteoarthritis, colostomy, osteoporosis, 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 Restless leg syndrome, varicose veins, prolapsed rectum, urinary stress incontinence, cervical cancer, adrenal insufficiency, anxiety depression Social history: Patient smoked for over 50 years. Still more smoking a few cigarettes a day. Alcohol occasionally. Has had a problem with alcohol in the past. Physical examination: VITAL SIGNS: 98.4, 91, 20, 109/74, 96% on 4 L GENERAL: Laying in bed, tired, breathing much improved EYES: Pupils equal. Conjunctiva normal. HEENT: External appearance of nose and ears normal, oral cavity grossly normal. NECK: JVD not raised; masses not palpable. HEART: First and second heart sounds are normal; no edema. LUNGS: Respiratory rate increased, decreased breaths sounds,. ABDOMEN: Soft, nontender, liver spleen not palpable, no masses palpable. Colostomy PSYCH: Alert and oriented x3; mood and affect a bit anxious MUSCULAR skeletal: Evidence of OA especially in the hands INVESTIGATIONS, reviewed in the clinical context: July 23: Potassium 4.3 procalcitonin 0.03 WBC is 12.8 hemoglobin 13.4 platelets 471 potassium 5.2 creatinine 0.58 Troponin I 0.651, 0.491, 0.334 ProBNP 7500 Coronavirus [PCR] not detected EKG tracing personally reviewed by me-sinus tachycardia Chest x-ray film personally reviewed by me-right basal infiltrates, questionable venous prominence From last admission: CT angiogram chest: COPD. Segmental areas of consolidation likely atelectasis. Severe compression fractures mid to upper thoracic spine. 2-D echocardiogram: EF 55-60%. Assessment and plan: -Right lower lobe pneumonia, suspect gram-negative organism-improving on IV ceftriaxone -Acute COPD exacerbation in a current smoker-slowly improving on DuoNeb bronchodilators, IV and inhaled steroids and long-acting beta agonist. Dr. Alex Vera consulted -Possible acute on chronic congestive heart exacerbation from diastolic dysfunction EF 55-60%-better IV Lasix. Cardiology consulted. Changed to by mouth Lasix -GERD Continue with PPI -Hyperlipidemia Continue with Zocor -Essential hypertension Continue Toprol-XL -Primary osteoarthritis Use analgesia as needed -Restless leg syndrome Continue with the Requip -Chronic urinary stress incontinence Continue with Detrol LA, Ditropan -Chronic adrenal insufficiency Oral hydrocortisone. Patient is on IV Solu-Medrol -Coronary artery disease Continue with aspirin. Beta jose -Chronic colostomy Follow- output -Anxiety depression not otherwise specified Continue with Abilify, deseryl, Cymbalta -Chronic chronic thoracic spine compression fracture Follow clinically Plan: Patient looking much better. Tired. Swished to by mouth Lasix. Increase activity
[2020-07-23] MEDS: ATORVASTATIN 10 MG TAB PO SCH (20:31)
[2020-07-23] MEDS: MONTELUKAST 10 MG TAB PO SCH (20:32)
[2020-07-23] MEDS: METOPROLOL SUCCINATE (ER) 25 MG TAB.ER.24H PO SCH (20:32)
[2020-07-23] MEDS: LATANOPROST 0.005% OPHTH DROPS 2.5 ML BTL BOTH EYES SCH (20:32)
[2020-07-23] MEDS: traZODone HCL 50 MG TAB PO SCH (20:34)
[2020-07-23] MEDS: HEPARIN SOD,PORK IN 0.45% NACL 25,000 UNIT in 0.45% NACL 1 250ML.BAG IV SCH (20:48)
[2020-07-24] MEDS: HYDROcodone/APAP 10-325MG 1 EACH TAB PO PRN ×2 (01:45→09:10)
[2020-07-24] MEDS: PANTOPRAZOLE 40 MG TABLET PO SCH (06:25)
[2020-07-24] MEDS ORDERED: FUROSEMIDE 40 MG TAB PO SCH (09:00)
[2020-07-24] MEDS: BUDESONIDE 1 MG/2 ML NEBU INHALATION SCH (09:05)
[2020-07-24] MEDS: FORMOTEROL FUMARATE 20 MCG/2 ML NEBU INHALATION SCH (09:05)
[2020-07-24] MEDS: IPRATROPIUM-ALBUTEROL 3 ML NEB INHALATION SCH ×3 (09:05→15:37)
[2020-07-24] MEDS: ASPIRIN 81 MG PO SCH (09:10)
[2020-07-24] MEDS: methylPREDNISolone SOD SUCCI 40 MG/ML 1 ML VIAL IV SCH (09:10)
[2020-07-24] MEDS: CHOLECALCIFEROL 25 MCG (1000 IU) TABLET PO SCH (09:10)
[2020-07-24] MEDS: DULoxetine HCL 60 MG CAPSULE.DR PO SCH (09:12)
[2020-07-24] MEDS: CLOPIDOGREL 75 MG TAB PO SCH (09:12)
[2020-07-24] MEDS: cycloSPORINE 0.05% OPHTH 0.4 ML DROPERETTE BOTH EYES SCH (09:16)
[2020-07-24] MEDS: OXYBUTYNIN XL 5 MG TAB.ER.24 PO SCH (09:17)
[2020-07-24] MEDS: ARIPiprazole 10 MG TAB PO SCH (09:17)
[2020-07-24] MEDS: DOXYCYCLINE 100 MG CAP PO SCH (09:17)
[2020-07-24] MEDS: polyethylene glycoL 3350 17 GM POWD.PACK PO PRN (09:33)
[2020-07-24 09:36] VITALS: BP 117/77; RESP 20; TEMP 98.1
--- NOTE | 2020-07-24 12:06 | P.PN ---
Subjective This is a very pleasant 65-year-old female patient with history of coronary artery disease and prior stenting of the PDA branch of the RCA in 08/[address] Ramirez, hypertension and dyslipidemia and also chronic obstructive pulmonary disease, nicotine dependence, anxiety and depression, marijuana use, presented to the hospital with symptoms of exertional shortness of breath. The EKG showed sinus rhythm with sinus tachycardia without any ischemic ST or T-wave abnormalities. Troponin was elevated and peaked at 0.6. BNP elevated 7500. Patient denied any chest discomfort She follows with Dr. Ramirez. Echocardiogram with Doppler study revealed an ejection fraction of 40-45% of 07/22/20. Prior Echo 07/18/20 with EF 55-60%. Patient was diuresed with IV Lasix, transitioned to PO yesterday 07/23/20. Patient also being treated for right lower lobe pneumo hannah 07/24/2020 The patient was seen and examined this morning, states that she did not sleep well through the night last night, Shortness of breath has improved. Denies any chest discomfort. Blood pressure 109/76 heart rate in the 80s 96% on 4 L of oxygen. Labs from yesterday- Sodium 134, potassium 4.3, BUN 16, creatinine 0.6. BNP level 992. Patient currently being maintained on aspirin 81 mg daily, atorvastatin 10 mg daily, Plavix 75 mg daily, Lasix 40 mg daily, Toprol 25 mg nightly. PHYSICAL EXAM: GENERAL: Well-appearing, well-nourished and in no acute distress. NECK: Supple without JVD or thyromegaly. LUNGS: Breath sounds clear to auscultation bilaterally. Respiration equal and unlabored. No wheezes, rales or rhonchi. HEART: Regular rate and rhythm without murmurs, rubs or gallops. S1 and S2 heard. EXTREMITIES: Normal range of motion, no edema. No clubbing or cyanosis. Periph eral pulses intact. ASSESSMENT: Shortness of breath with exertion likely related to COPD exacerbation was potential pneumonia with a component of heart failure with preserved ejection fraction Coronary artery disease and prior PCI of the PDA branch of the RCA on 08/13/2019 Hypertension Dyslipidemia Chronic obstructive pulmonary disease Elevated troponin - mildly elevated, 0.65-->0.49-->0.33. Cannot completely rule out an acute coronary event. Her ejection fraction on July 18 was 55-60%, current echo reveals an ejection fraction of 40-45%. Could also be secondary to hypoxia, oxygen supply and demand mismatch. PLAN: -Continue beta jose, statin, dual antiplatelet therapy -Continue PO Lasix -No further changes from cardiology perspective -Patient will follow up in the office with Dr. Ramirez Objective - Vital Signs Vital signs: Vital Signs Temp 98.2 F 07/24/20 03:46 Pulse 80 07/24/20 09:13 Resp 18 07/24/20 03:46 BP 109/76 07/24/20 03:46 Pulse Ox 98 07/24/20 03:46 Intake & Output 07/23/20 07/24/20 07/24/20 18:59 06:59 18:59 Intake Total 1220.08 160 240 Output Total 4350 900 1300 Balance -3129.92 -0 -1060 Weight 82.9 kg Intake: IV 90.08 160 0.9 160 Heparin Sod,Pork in 0.45% 90.08 NaCl 25,000 unit In 0.45 % NaCl 1 250ml.bag @ 12 UNITS/KG/HR 8.981 mls/hr IV .Q24H [place] Rx#: [id number] Intake, IV Titration 50 Amount cefTRIAXone 1 gm In 50 Sodium Chloride 0.9% 50 ml @ 100 mls/hr IVPB Q24HR [place] Rx#:[id number] Oral 1080 240 Output: Urine 4350 900 1300 Other: Voiding Method Bedside Commode # Voids 2 - Labs CBC & Chem 7: 07/22/20 05:50 07/23/20 07:43 Labs: Abnormal Lab Results - Last 24 Hours (Table) 07/23/20 Range/Units 23:31 APTT 19.5 L (22.0-30.0) sec Microbiology - Last 24 Hours (Table) 07/21/20 16:44 Blood Culture - Preliminary Blood No Growth after 48 hours
[2020-07-24] MEDS ORDERED: LACTULOSE 20 GM/30 ML CUP PO ONE (12:24)
[2020-07-24 15:51] VITALS: PULSE 80
[2020-07-24] MEDS ORDERED: ATORVASTATIN 40 MG TAB PO SCH (21:00)
--- NOTE | 2020-07-24 23:35 | P.DS ---
Providers Date of admission: 07/21/20 18:29 Expected date of discharge: 07/24/20 Attending physician: Mariano Ordonez Consults: 07/21/20 18:28 Consult Physician Urgent Consulting Provider: Lenny Longoria Consult Reason/Comments: NSTEMI Do you want consulting provider notified?: Already Contacted 07/21/20 21:23 Consult Physician Routine Consulting Provider: German Vera Consult Reason/Comments: copd Do you want consulting provider notified?: Yes Primary care physician: Jase Stewart [facility] Course: Chief Complaint: Unable to breathe History of presenting complaint: This is a very pleasant 65-year-old patient 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 Patient has continued to smoke for over 50 years. Still smoking a few cigarettes a day. Patient just admitted the hospital in July 18 then discharged in July 19, but the diagnosis acute COPD exacerbation and acute bronchitis. And also hypo natremia. Patient had been rather anxious to leave. Was discharged on bronchodilators at prednisones taper and doxycycline. Patient states after getting home patient progressively became short of breath. Not able to take a few steps. Wheezing. No fever no chills. No chest pain. Slight cough. In the ER patient did receive IV Lasix in addition to bronchodilators and steroids. Admitted with right lower lobe pneumonia, acute COPD exacerbation, acute on chronic CHF exacerbation. Placed on bronchodilators, steroids, IV ceftriaxone. Received IV Lasix. Today: Do much better. Oral intake improved. Discussed with the patient. He'll be discharged. Discussed with Dr. Vera from pulmonary. Complete a course of oral antibiotic. And steroid taper. Consultation: Dr. 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 Restless leg syndrome, varicose veins, prolapsed rectum, urinary stress incontinence, cervical cancer, adrenal insufficiency, anxiety depression Social history: Patient smoked for over 50 years. Still more smoking a few cigarettes a day. Alcohol occasionally. Has had a problem with alcohol in the past. Physical examination: VITAL SIGNS: 98.1, 87, 20, 117/77, 86% on room air GENERAL: Sitting up, breathing better EYES: Pupils equal. Conjunctiva normal. HEENT: External appearance of nose and ears normal, oral cavity grossly normal. NECK: JVD not raised; masses not palpable. HEART: First and second heart sounds are normal; no edema. LUNGS: Respiratory rate increased, decreased breaths sounds,. ABDOMEN: Soft, nontender, liver spleen not palpable, no masses palpable. Colostomy PSYCH: Alert and oriented x3; mood and affect a bit anxious MUSCULAR skeletal: Evidence of OA especially in the hands INVESTIGATIONS, reviewed in the clinical context: July 23: Potassium 4.3 procalcitonin 0.03 WBC is 12.8 hemoglobin 13.4 platelets 471 potassium 5.2 creatinine 0.58 Troponin I 0.651, 0.491, 0.334 ProBNP 7500 Coronavirus [PCR] not detected EKG tracing personally reviewed by me-sinus tachycardia Chest x-ray film personally reviewed by me-right basal infiltrates, questionable venous prominence From last admission: CT angiogram chest: COPD. Segmental areas of consolidation likely atelectasis. Severe compression fractures mid to upper thoracic spine. 2-D echocardiogram: EF 55-60%. Assessment and plan: -Right lower lobe pneumonia, suspect gram-negative organism-improving on IV ceftriaxone-DC on Ceftin -Acute COPD exacerbation in a current improving on DuoNeb bronchodilators, IV and inhaled steroids and long-acting beta agonist. Dr. Alex Vera consulted. DC on steroid taper -Possible acute on chronic congestive heart exacerbation from diastolic dysfunction EF 55-60%-better IV Lasix. Cardiology consulted. Changed to by mouth Lasix -GERD Continue with PPI -Hyperlipidemia Continue with Zocor -Essential hypertension Continue Toprol-XL -Primary osteoarthritis Use analgesia as needed -Restless leg syndrome Continue with the Requip -Chronic urinary stress incontinence Continue with Detrol LA, Ditropan -Chronic adrenal insufficiency Oral hydrocortisone. Patient is on IV Solu-Medrol -Coronary artery disease Continue with aspirin. Beta jose -Chronic colostomy Follow- output -Anxiety depression not otherwise specified Continue with Abilify, deseryl, Cymbalta -Chronic chronic thoracic spine compression fracture Follow clinically Disposition: Home Patient Condition at Discharge: Fair Plan - Discharge Summary New Discharge Prescriptions: New Cefuroxime Axetil [Ceftin] 500 mg PO BID #6 tab predniSONE 10 mg PO DAILY #30 tab Furosemide [Lasix] 40 mg PO DAILY #30 tab Lactulose 20 gm PO DIRECTED PRN #300 ml PRN Reason: Constipation Continue Simvastatin [Zocor] 20 mg PO HS rOPINIRole HCL [Requip] 0.25 mg PO HS Fluticasone Propionate [Flonase] 2 sprays EA NOSTRIL DAILY Cyclobenzaprine [Flexeril] 10 mg PO DAILY PRN PRN Reason: Muscle Spasm Acyclovir [Zovirax] 1 applic TOPICAL 5XD PRN PRN Reason: OUTBREAK cycloSPORINE 0.05% OPHTH SOLN [Restasis] 2 drops BOTH EYES Q12H DULoxetine HCL [Cymbalta] 60 mg PO BID Alendronate Sodium [Fosamax] 70 mg PO TU ARIPiprazole [Abilify] 10 mg PO DAILY Ferrous Sulfate [Slow Fe] 142 mg PO DAILY Hydrocortisone 10 mg PO DAILY hydrOXYzine HCL 25 mg PO TID PRN PRN Reason: Anxiety Metoprolol Succinate [Toprol XL] 25 mg PO HS Omeprazole 20 mg PO DAILY polyethylene glycoL 3350 [Miralax] 17 gm PO DAILY PRN PRN Reason: Constipation traZODone HCL [Desyrel] 50 mg PO HS Aspirin [Adult Low Dose Aspirin EC] 81 mg PO DAILY Fluticasone/Umeclidin/Vilanter [Trelegy Ellipta 100-62.5-25] 1 puff INHALATION RT-DAILY Methyl Salicylate/Menthol [Salonpas Patch] 1 patch TOPICAL DAILY PRN PRN Reason: Pain Lac-Hydrin 5% Cream 1 applic TOPICAL DAILY PRN PRN Reason: pain, itching Nitroglycerin Sl Tabs [Nitrostat] 0.4 mg SUBLINGUAL Q5M PRN PRN Reason: Chest Pain Cbd Oil 1 drop PO DAILY PRN PRN Reason: Anxiety Clopidogrel Bisulfate [Plavix] 75 mg PO DAILY #90 tab valACYclovir HCL [Valtrex] 500 mg PO Q12HR PRN PRN Reason: OUTBREAK Magic Mouth Wash 5 ml PO QID Cholecalciferol [Vitamin D3 (25 Mcg = 1000 Iu)] 25 mcg PO DAILY Triamcinolone 0.1% Cream [Kenalog 0.1% Cream] 1 applic TOPICAL BID PRN PRN Reason: Rash Albuterol Sulfate [Proair Hfa] 2 puff INHALATION RT-Q4H PRN PRN Reason: Shortness Of Breath Multivit-Min/FA/Lycopen/Lutein [Centrum Silver Tablet] 1 tab PO DAILY Tolterodine ER [Detrol LA] 2 mg PO DAILY Doxycycline [Vibramycin] 100 mg PO BID 1 Days #10 capsule Ipratropium-Albuterol Nebulize [Duoneb 0.5 mg-3 mg/3 ml Soln] 3 ml INHALATION RT-QID #120 neb Montelukast Sodium [Singulair] 10 mg PO HS HYDROcodone/APAP 10-325MG [[place] 10-325] 1 tab PO Q6HR PRN PRN Reason: Pain Magnesium 250 mg PO DAILY Latanoprost [Xalatan 0.005%] 1 drop BOTH EYES HS Hydrocortisone [Cortef] 5 mg PO PC-LUNCH Dicyclomine HCl 10 mg PO TID PRN PRN Reason: IBS Discontinued Furosemide [Lasix] 20 mg PO DAILY PRN PRN Reason: Edema predniSONE See Taper PO DIRECTED Discharge Medication List Fluticasone Propionate [Flonase] 2 sprays EA NOSTRIL DAILY 01/25/14 [History] Simvastatin [Zocor] 20 mg PO HS 01/25/14 [History] rOPINIRole HCL [Requip] 0.25 mg PO HS 01/25/14 [History] Cyclobenzaprine [Flexeril] 10 mg PO DAILY PRN 07/07/14 [History] Acyclovir [Zovirax] 1 applic TOPICAL 5XD PRN 10/29/16 [History] DULoxetine HCL [Cymbalta] 60 mg PO BID 10/29/16 [History] cycloSPORINE 0.05% OPHTH SOLN [Restasis] 2 drops BOTH EYES Q12H 10/29/16 [History] Alendronate Sodium [Fosamax] 70 mg PO TU 01/20/18 [History] ARIPiprazole [Abilify] 10 mg PO DAILY 06/24/19 [History] Ferrous Sulfate [Slow Fe] 142 mg PO DAILY 06/24/19 [History] Hydrocortisone 10 mg PO DAILY 06/24/19 [History] Metoprolol Succinate [Toprol XL] 25 mg PO HS 06/24/19 [History] Omeprazole 20 mg PO DAILY 06/24/19 [History] hydrOXYzine HCL 25 mg PO TID PRN 06/24/19 [History] polyethylene glycoL 3350 [Miralax] 17 gm PO DAILY PRN 06/24/19 [History] traZODone HCL [Desyrel] 50 mg PO HS 06/24/19 [History] Aspirin [Adult Low Dose Aspirin EC] 81 mg PO DAILY 08/11/19 [History] Cbd Oil 1 drop PO DAILY PRN 08/11/19 [History] Fluticasone/Umeclidin/Vilanter [Trelegy Ellipta 100-62.5-25] 1 puff INHALATION RT-DAILY 08/11/19 [History] Lac-Hydrin 5% Cream 1 applic TOPICAL DAILY PRN 08/11/19 [History] Methyl Salicylate/Menthol [Salonpas Patch] 1 patch TOPICAL DAILY PRN 08/11/19 [History] Nitroglycerin Sl Tabs [Nitrostat] 0.4 mg SUBLINGUAL Q5M PRN 08/11/19 [History] Clopidogrel Bisulfate [Plavix] 75 mg PO DAILY #90 tab 08/13/19 [Rx] Albuterol Sulfate [Proair Hfa] 2 puff INHALATION RT-Q4H PRN 07/18/20 [History] Cholecalciferol [Vitamin D3 (25 Mcg = 1000 Iu)] 25 mcg PO DAILY 07/18/20 [History] Dicyclomine HCl 10 mg PO TID PRN 07/18/20 [History] HYDROcodone/APAP 10-325MG [[place] 10-325] 1 tab PO Q6HR PRN 07/18/20 [History] Hydrocortisone [Cortef] 5 mg PO PC-LUNCH 07/18/20 [History] Latanoprost [Xalatan 0.005%] 1 drop BOTH EYES HS 07/18/20 [History] Magic Mouth Wash 5 ml PO QID 07/18/20 [History] Magnesium 250 mg PO DAILY 07/18/20 [History] Montelukast Sodium [Singulair] 10 mg PO HS 07/18/20 [History] Multivit-Min/FA/Lycopen/Lutein [Centrum Silver Tablet] 1 tab PO DAILY 07/18/20 [History] Tolterodine ER [Detrol LA] 2 mg PO DAILY 07/18/20 [History] Triamcinolone 0.1% Cream [Kenalog 0.1% Cream] 1 applic TOPICAL BID PRN 07/18/20 [History] valACYclovir HCL [Valtrex] 500 mg PO Q12HR PRN 07/18/20 [History] Doxycycline [Vibramycin] 100 mg PO BID 1 Days #10 capsule 07/19/20 [Rx] Ipratropium-Albuterol Nebulize [Duoneb 0.5 mg-3 mg/3 ml Soln] 3 ml INHALATION RT-QID #120 neb 07/19/20 [Rx] Cefuroxime Axetil [Ceftin] 500 mg PO BID #6 tab 07/24/20 [Rx] Furosemide [Lasix] 40 mg PO DAILY #30 tab 07/24/20 [Rx] Lactulose 20 gm PO DIRECTED PRN #300 ml 07/24/20 [Rx] predniSONE 10 mg PO DAILY #30 tab 07/24/20 [Rx] Follow up Appointment(s)/Referral(s): Demetrius Ramirez MD [STAFF PHYSICIAN] - 07/28/20 2:[address] [facility], [NON-STAFF] - Jase Stewart DO [Primary Care Provider] - 07/27/20 10:00 am (Telehealth visit with the nurse practioner Mary Grace Fernández.) German Vera MD [STAFF PHYSICIAN] - 08/02/20 12:30 pm Patient Instructions/Handouts: Heart Failure (DC), Chest Pain (DC), COPD (Chronic Obstructive Pulmonary Disease) (DC) Discharge Disposition: HOME SELF-CARE
--- NOTE | 2020-07-26 11:55 | P.PN ---
Subjective Progress Note Date: 07/24/20 Principal diagnosis: Bilateral pneumonia Acute hypoxic respiratory failure on chronic hypoxic respiratory failure Chronic adrenal insufficiency Chronic systolic heart failure ejection fraction of 40% Oxygen dependent End-stage COPD with acute COPD exacerbation 07/24/2020, patient ambulating in the room on supplemental oxygen cough congestion shortness breath is improved, noted that primary services planning to discharge agree with discharge planning on oral antibiotics and tapering oral steroids with follow-up on outpatient basis 07/23/2020, patient seen eval examined during the rounds labs reviewed medications reviewed care plan discussed, shortness breath slightly better patient remains on antibiotics breathing treatments steroids, cardiovascular services also following this patient his is a 65-year-old female with history of chronic adrenal insufficiency also has a history of oxygen dependent COPD, patient came into the hospital with increasing shortness of breath tightness fatigue is still smoking, patient was recently hospitalized but however wishes to get out of the hospital, patient denies any exposure to cold with 19 pneumonia, patient did have intermittent episodes of chest pain however nitro does resolve those episodes, chest x-ray shows bilateral infiltrate more so on the right side compared to left side, appeared to have progressed, patient is on IV heparin cardiovascular services following, currently patient is getting oral doxycycline Objective - Vital Signs Vital signs: Vital Signs Temp 98.1 F 07/24/20 09:05 Pulse 80 07/24/20 15:51 Resp 20 07/24/20 09:05 BP 117/77 07/24/20 09:05 Pulse Ox 86 L 07/24/20 09:05 Intake & Output 07/23/20 07/24/20 07/24/20 18:59 06:59 18:59 Intake Total 1220.08 160 240 Output Total 4350 900 1300 Balance -3129.92 -740 -1060 Weight 82.9 kg Intake: IV 90.08 160 0.9 160 Heparin Sod,Pork in 0.45% 90.08 NaCl 25,000 unit In 0.45 % NaCl 1 250ml.bag @ 12 UNITS/KG/HR 8.981 mls/hr IV .Q24H [place] Rx#: [id number] Intake, IV Titration 50 Amount cefTRIAXone 1 gm In 50 Sodium Chloride 0.9% 50 ml @ 100 mls/hr IVPB Q24HR [place] Rx#:[id number] Oral 1080 240 Output: Urine 4350 900 1300 Other: Voiding Method Bedside Commode Bedside Commode # Voids 2 - Exam - Constitutional General appearance: average body habitus, disheveled - EENT Eyes: EOMI, PERRLA - Neck Carotids: bilateral: upstroke normal Thyroid: bilateral: normal size - Respiratory Respiratory: bilateral: diminished, wheezing (Fine expiratory) - Cardiovascular Rhythm: regular Heart sounds: normal: S1, S2 - Gastrointestinal General gastrointestinal: distended, soft - Labs CBC & Chem 7: 07/22/20 05:50 07/23/20 07:43 Labs: Abnormal Lab Results - Last 24 Hours (Table) 07/23/20 Range/Units 23:31 APTT 19.5 L (22.0-30.0) sec Microbiology - Last 24 Hours (Table) 07/21/20 16:44 Blood Culture - Preliminary Blood No Growth after 48 hours Assessment and Plan Assessment: Bilateral pneumonia Acute hypoxic respiratory failure on chronic hypoxic respiratory failure Chronic adrenal insufficiency Chronic systolic heart failure ejection fraction of 40% Oxygen dependent End-stage COPD with acute COPD exacerbation Plan: IV steroids Breathing treatments IV antibiotics Sputum studies, once able to obtain sputum however blood cultures have been negative Further plan of care as per clinical response of the patient Time with Patient: Greater than 30
== END 2020-07-24 16:40 | disposition home health service (06) | DRG 177 ==
LOC: EC 16:10 → 3SCARD 18:29
PROVIDERS: ADMIT Hospitalist; ATTEND Hospitalist
DX: J15.6 Pneumonia due to other Gram-negative bacteria (principal); J96.21 Acute and chronic respiratory failure with hypoxia; I50.33 Acute on chronic diastolic (congestive) heart failure; E27.40 Unspecified adrenocortical insufficiency; E87.1 Hypo-osmolality and hyponatremia; M48.54XA Collapsed vertebra, not elsewhere classified, thoracic region, initial encounter for fracture; E78.5 Hyperlipidemia, unspecified; F17.210 Nicotine dependence, cigarettes, uncomplicated; F41.8 Other specified anxiety disorders; G25.81 Restless legs syndrome; G89.29 Other chronic pain; H54.62 Unqualified visual loss, left eye, normal vision right eye; I11.0 Hypertensive heart disease with heart failure; I25.10 Atherosclerotic heart disease of native coronary artery without angina pectoris; J43.9 Emphysema, unspecified; K21.9 Gastro-esophageal reflux disease without esophagitis; M19.91 Primary osteoarthritis, unspecified site; M81.0 Age-related osteoporosis without current pathological fracture; N39.3 Stress incontinence (female) (male); Z20.822 Contact with and (suspected) exposure to COVID-19; Z79.02 Long term (current) use of antithrombotics/antiplatelets; Z79.82 Long term (current) use of aspirin; Z79.83 Long term (current) use of bisphosphonates; Z79.899 Other long term (current) drug therapy; Z82.49 Family history of ischemic heart disease and other diseases of the circulatory system; Z85.41 Personal history of malignant neoplasm of cervix uteri; Z90.710 Acquired absence of both cervix and uterus; Z93.3 Colostomy status; Z95.5 Presence of coronary angioplasty implant and graft; Z99.81 Dependence on supplemental oxygen; Z88.1 Allergy status to other antibiotic agents; Z88.5 Allergy status to narcotic agent; Z88.0 Allergy status to penicillin; Z98.890 Other specified postprocedural states; Z98.51 Tubal ligation status; Z96.643 Presence of artificial hip joint, bilateral; I83.90 Asymptomatic varicose veins of unspecified lower extremity
CPT/HCPCS: 36415; 71045; 80048; 80053; 82803; 83605; 83735; 83880; 84145; 84484; 85025; 85610; 85730; 87040; 87635; 93005; 93308; 94640; 96374; 99291

== ENCOUNTER → 2020-09-12 | Outpatient (CLI) | payer MEDICARE ==
--- NOTE | 2020-09-12 13:58 | XR ---
EXAMINATION TYPE: XR chest 2V DATE OF EXAM: 09/12/2020 COMPARISON: 07/21/2020 HISTORY: Dyspnea TECHNIQUE: Frontal and lateral views of the chest are obtained. FINDINGS: Heart size is mildly enlarged. Mild vague bibasilar airspace opacities suggestive of atele ctasis or developing pneumonia. These have decreased since the prior exam dated 07/21/2020. Probable ti ny pleural effusions. No pneumothorax. Biapical pleural/parenchymal thickening and/or scarring. Degen erative changes of the thoracic spine. There is a increased kyphosis with a severe wedge compression fracture deformity of the mid thoracic vertebral body and moderate loss of the more superior thoracic vertebral body, which were seen on prior 06/24/2019. IMPRESSION: 1. Mild cardiomegaly. 2. Bibasilar airspace opacities, left greater than right suggestive of atelectasis or developing pneu monia. Probable small pleural effusions. 3. Accentuated kyphosis with a remote wedge compression fracture deformities mid to lower thoracic ve rtebral bodies.
== END | disposition home or self-care (01) ==
LOC: RADXRMAIN 11:57
PROVIDERS: ATTEND Nurse Practitioner Family
DX: R91.8 Other nonspecific abnormal finding of lung field (principal); I51.7 Cardiomegaly; M40.204 Unspecified kyphosis, thoracic region
CPT/HCPCS: 71046

== ENCOUNTER → 2020-09-26 | Outpatient (CLI) | payer MEDICARE ==
--- NOTE | 2020-09-27 07:31 | XR ---
EXAMINATION TYPE: XR chest 2V DATE OF EXAM: 09/26/2020 COMPARISON: 09/12/2020 HISTORY: Short of breath, history of COVID In June TECHNIQUE: Frontal and lateral views of the chest are obtained. FINDINGS: Slight interval worsening of bibasilar airspace disease with likely small bilateral pleural effusions . Cardiac silhouette is unchanged in size. Multilevel compression fractures of the thoracic spine with exaggeration of normal thoracic kyphosis appears unchanged. IMPRESSION: Slight interval worsening of bibasilar airspace disease with likely small bilateral pleural effusions .
== END | disposition home or self-care (01) ==
LOC: LABWHC1 15:29
PROVIDERS: ATTEND Nurse Practitioner Family
DX: R60.9 Edema, unspecified (principal); R06.09 Other forms of dyspnea; Z86.16 Personal history of COVID-19
CPT/HCPCS: 36415; 71046; 83880

== ENCOUNTER → 2021-04-24 | Outpatient (CLI) | payer MEDICARE ==
--- NOTE | 2021-04-24 14:36 | MR ---
MRI CERVICAL SPINE: CLINICAL HISTORY: Cervicalgia. TECHNIQUE: Multiplanar, multisequence imaging of the cervical spine is performed without IV contrast. COMPARISON: None. FINDINGS: Exam is suboptimal as patient unable to hold still Sagittal images of the cervical spine sh ow the craniocervical junction to appear within normal limits. The cervical and upper thoracic spina l cord is grossly normal in caliber and signal. Alignment is straightened with grade 1 retrolisthesis C5 on C6. The vertebral body and heights are normal. Oaal-uw-dfjtirut multilevel anterior spurring. Severe disc space narrowing with some ossific fusion at C2-C3 level. Disc space heights are maintain ed. The bone marrow signal intensity is within normal limits. Axial images at C2-C3 level are outside the field of view. Axial images at C3-C4 level show broad-based left paracentral disc protrusion effacing anterolateral thecal sac and ventral surface of spinal cord which is flattened with advanced left and moderate righ t-sided neural foraminal narrowing near axial image 45. Axial images at C4-C5 level shows uncovertebral facet degenerative changes bilaterally causing modera te left greater than right bilateral neural foraminal narrowing. Axial images at C5-C6 level show spondylolisthesis with broad-based posterior disc protrusion effacin g the anterior thecal sac and causing moderate to advanced left greater than right bilateral neural f oraminal narrowing. Axial images at C6-C7 level show lobulated posterior disc protrusion greatest left side effacing ante rior thecal sac and causing moderate left and mild right-sided neural foraminal narrowing. Axial images at C7-T1 level on axial image 18 appear within normal limits. Axial images at T1-T2 leve l on image 10 appear within normal limits. IMPRESSION: Ossific fusion C2-C3 level. Straightening of spine with and C5-C6 spondylolisthesis. Mult ilevel degenerative changes greatest at C3-C4 and C5-C6 level as detailed above.
== END | disposition home or self-care (01) ==
LOC: RADMRIMAIN 13:11
PROVIDERS: ATTEND Orthopaedic Surgery
DX: M43.12 Spondylolisthesis, cervical region (principal); M47.812 Spondylosis without myelopathy or radiculopathy, cervical region; M43.22 Fusion of spine, cervical region; M50.223 Other cervical disc displacement at C6-C7 level; M99.71 Connective tissue and disc stenosis of intervertebral foramina of cervical region
CPT/HCPCS: 72141

== ENCOUNTER → 2021-04-30 | Outpatient (CLI) | payer MEDICARE ==
--- NOTE | 2021-04-30 14:24 | CT ---
EXAMINATION TYPE: CT cervical spine wo con DATE OF EXAM: 04/30/2021 COMPARISON: MRI cervical spine 6 days ago. HISTORY: PAIN CT DLP: 550.7 mGycm. Automated Exposure Control for Dose Reduction was Utilized. TECHNIQUE: CT scan of the cervical spine is obtained without contrast, axial images are obtained, sa gittal and coronal reformatted images are also reviewed. FINDINGS: Cervical spine is visualized in its entirety from C1 through upper thoracic levels, which d emonstrates straightened alignment with grade 1 retrolisthesis C5 on C6. Prevertebral soft tissue ap pears within normal limits. The C1-C2 articulation is within normal limits on the coronal images. Ve rtebral body heights are maintained. Ossific fusion of the C2 and C3 vertebra and posterior elements is redemonstrated. Tlvu-ww-itrtreks multilevel disc space narrowing with relative sparing of C4-C5 le justin. Moderate multilevel spurring is present. Axial images at C2-C3 level appear within normal limits. Axial images at C3-C4 levels show uncovertebral facet degenerative changes bilaterally with focal lef t paracentral disc protrusion. There is effacement of the anterior thecal sac of the ventral surface of spinal cord correlating with MRI. There is severe left and mild to moderate right-sided neural for aminal narrowing. Axial images at C4-C5 level show uncovertebral facet spurring bilaterally causing moderate to severe bilateral neural foraminal narrowing. Axial images at C5-C6 level shows spondylolisthesis with posterior spur disc complex effacing the ant erior thecal sac greatest left paracentral level with moderate to severe bilateral neural foraminal n arrowing. Axial images at C6-C7 level showed broad based left paracentral spur disc complex effacing the anteri or thecal sac and causing mild to moderate left-sided neural foraminal narrowing. Right-sided neural foramina is patent. Axial images at C7-T1 appear within normal limits on CT. IMPRESSION: Ossific fusion C2-C3 level redemonstrated. Straightening of cervical spine with multilev el degenerative changes greatest as labeled C3-C4 and C5-C6 levels as detailed above. Significant spi nal canal effacement and/or stenosis at these levels correlates with MRI.
--- NOTE | 2021-04-30 14:38 | CT ---
EXAMINATION TYPE: CT thoracic spine wo con DATE OF EXAM: 04/30/2021 COMPARISON: Outside MRI thoracic spine December 22, 2020 HISTORY: PAIN CT DLP: 1142.58 mGycm Automated exposure control for dose reduction was used. FINDINGS: There is dextroconvex scoliosis centered in the mid thoracic spine redemonstrated. Moderate to severe compression type fracture at T8 level redemonstrated. Severe compression type fracture at T6 level a gain seen. Moderate to severe compression type fracture at T4 level redemonstrated. Osseous structure s are demineralized. The compression fracture show sclerotic change without definitive linear lucency suggesting subacute or chronic in age. Posterior retropulsion at T4-T5 level effacing anterior theca l sac or calcified disc herniation sagittal image 18 corresponds to MRI sagittal image 9. Mild to moderate multilevel anterior and lateral spurring redemonstrated. Visualized lungs show moderate underlying emphysematous change greatest in the upper lobes. There is hyperdense suspected calcified 6 mm right mid lung nodule axial image 50. Ascending aorta measures up to 3.6 cm in diameter. Coronary artery calcification is present. Visualized upper abdomen is clear. IMPRESSION: As above.
== END | disposition home or self-care (01) ==
LOC: RADCTMAIN 12:38
PROVIDERS: ATTEND Orthopaedic Surgery
DX: M43.22 Fusion of spine, cervical region (principal); M43.12 Spondylolisthesis, cervical region; M50.21 Other cervical disc displacement, high cervical region; M99.71 Connective tissue and disc stenosis of intervertebral foramina of cervical region; M41.84 Other forms of scoliosis, thoracic region; M48.54XA Collapsed vertebra, not elsewhere classified, thoracic region, initial encounter for fracture; J43.9 Emphysema, unspecified; R91.1 Solitary pulmonary nodule; I25.10 Atherosclerotic heart disease of native coronary artery without angina pectoris
CPT/HCPCS: 72125; 72128

== ENCOUNTER → 2021-07-05 | Outpatient (CLI) | payer MEDICARE ==
[2021-07-05 18:58] LABS: HCT 45.1 % (37.2-46.3); HGB 14.5 g/dL (12.0-15.0); MCH 33.3 pg (27.0-32.0); MCHC 32.2 g/dL (32.0-37.0); MCV 103.7 fL (80.0-97.0); Mean Platelet Volume 9.2 fL (9.5-12.2); NRBC Per 100 WBC 0 /100 WBCS (0.0-0.0); Platelet Count 308 X 10*3/uL (140-440); RBC 4.35 X 10*6/uL (4.10-5.20); RDW 14.2 % (11.5-14.5)
[2021-07-05 20:17] LABS: African American GFR (CKD) 105.4 (60.0-200.0); Anion Gap 12.4 mmol/L (10.00-18.00); Blood Urea Nitrogen 8.4 mg/dL (9.0-27.0); Carbon Dioxide 27.5 mmol/L (20.0-27.5); Potassium 4.1 mmol/L (3.5-5.5)
== END | disposition home or self-care (01) ==
LOC: LABPAT 12:32
PROVIDERS: ATTEND Internal Medicine Interventional Cardiology
DX: Z01.812 Encounter for preprocedural laboratory examination (principal); I73.9 Peripheral vascular disease, unspecified
CPT/HCPCS: 80051; 82565; 84520; 85027

== ENCOUNTER 2021-07-09 06:37 | Day surgery (SDC) | payer MEDICARE ==
[2021-07-06 10:46] VITALS: BMI 28.1
[~2021-07-09 06:37] MED LIST changes: +ASPIRIN 325 MG TAB PO PRN; -ASPIRIN 325 MG TAB PO STA; -ATORVASTATIN 80 MG TAB PO STA; +HEPARIN SODIUM,PORCINE 10,000 UNIT in SODIUM CHLORIDE 0.9% 1,000 ML IRRIGATION PRN; +HEPARIN SODIUM,PORCINE 2,500 UNIT in SODIUM CHLORIDE 0.9% 250 ML IRRIGATION PRN; -NITROGLYCERIN SL TABS 0.4 MG TAB SUBLINGUAL PRN; +ZOLPIDEM 5 MG TAB PO PRN
[2021-07-09 07:12] VITALS: RESP 18; TEMP 98.3
[2021-07-09] MEDS ORDERED: MIDAZOLAM 2 MG/2 ML VIAL IV ONE (08:35)
[2021-07-09] MEDS ORDERED: LIDOCAINE 1% INJ 10MG/ML (20 ML MDV) SQ ONE ×3 (08:36→08:46)
[2021-07-09] MEDS ORDERED: LIDOCAINE 1% INJ 10MG/ML (20 ML MDV) ONE (08:45)
[2021-07-09] MEDS ORDERED: VERAPAMIL 2.5 MG/ML 2 ML AMP ONE (08:45)
[2021-07-09] MEDS ORDERED: IOPAMIDOL-370 100ML BTL INJ ONE (09:27)
[2021-07-09] MEDS ORDERED: NALOXONE 0.4 MG/ML 1 ML VIAL IVP PRN (09:38)
--- NOTE | 2021-07-09 09:43 | P.PCN ---
Date of Procedure: 07/09/21 Description of Procedure: AN ABDOMINAL AORTOGRAM AND BILATERAL LOWER EXTREMITIES RUNOFF PERFORMING PHYSICIAN: Demetrius Ramirez MD PROCEDURE PERFORMED: 1. An abdominal aortogram 2. Bilateral lower extremities runoff INDICATION: Bilateral lower stomach distress discomfort concerning for intermittent claudication COMPLICATION: None LEVEL OF SEDATION: Moderate was sedation length of 45 minutes APPROACH: Right common femoral artery PROCEDURE DESCRIPTION: After obtaining informed consent and explaining the procedure benefits, risks, and complications, the patient was brought to the cardiac label operator. The right groin was prepped and draped in sterile fashion. The right common femoral artery was cannulated using micropuncture technique, under ultrasound guidance. A micropuncture wire was advanced, and the micropuncture sheath was advanced over the wire, then the micropuncture sheath was exchanged over an 0.35 wire into a 5-Bruneian sheath dilator assembly then the wire and dilator were removed and sheath was flushed. We did an abdominal aortogram and bilateral lower extremities runoff using 5-F rench pigtail catheter using a power injection. The catheter was initially placed at the level of the renal arteries, and it was pulled into above the bifurcation of the aorta into right and left common iliac arteries. The procedure was completed and there was no complications. SELECTIVE PERIPHERAL ANGIOGRAM: The abdominal aorta: Is calcified was mild disease only. The common iliac arteries: The right common iliac arteries occluded right after the ostium. The left common iliac artery appeared to have mild disease only The external iliac arteries: The right and left external iliac arteries appears to have mild disease only The internal iliac arteries: The right and left internal iliacs are patent The common femoral arteries: The right and left common femoral arteries appeared to be calcified. There was not opacified because of bilateral femoral prosthesis. Selective angiogram will be performed once to bring the patient for intervention Superficial femoral arteries: The right and left SFA appears to have mild disease only Popliteal arteries: The right and left popliteal appeared to have mild disease only Below the knees: There are 3 vessels run off below the knee bilaterally CONCLUSION: Occluded right common iliac artery POSTPROCEDURE MANAGEMENT: MACHINE FEEDER FLOORPERSON of the right common iliac R
[2021-07-09] MEDS ORDERED: SODIUM CHLORIDE 0.9% 1,000 ML in EMPTY BAG 1 BAG IV SCH (09:45)
--- NOTE | 2021-07-09 10:06 | IR ---
Fluoroscopy HISTORY: Peripheral arterial disease 5.9 minutes fluoroscopy time supplied to the referring clinician. 553 intraoperative C-arm images do cument the procedure. See dictated report from cardiology.
[2021-07-09 13:07] VITALS: PULSE 50
[2021-07-09 14:33] VITALS: BP 114/67
== END 2021-07-09 14:54 | disposition home or self-care (01) ==
LOC: CATHCVL 06:37
PROVIDERS: ATTEND Internal Medicine Interventional Cardiology
DX: I70.213 Atherosclerosis of native arteries of extremities with intermittent claudication, bilateral legs (principal); I25.10 Atherosclerotic heart disease of native coronary artery without angina pectoris; E11.9 Type 2 diabetes mellitus without complications; I10 Essential (primary) hypertension; E78.5 Hyperlipidemia, unspecified; M19.90 Unspecified osteoarthritis, unspecified site; Z95.5 Presence of coronary angioplasty implant and graft; Z98.890 Other specified postprocedural states; Z99.81 Dependence on supplemental oxygen; F17.200 Nicotine dependence, unspecified, uncomplicated; E27.1 Primary adrenocortical insufficiency; Z79.52 Long term (current) use of systemic steroids; Z82.49 Family history of ischemic heart disease and other diseases of the circulatory system; Z88.5 Allergy status to narcotic agent; Z88.0 Allergy status to penicillin; Z79.82 Long term (current) use of aspirin; Z79.51 Long term (current) use of inhaled steroids; Z79.899 Other long term (current) drug therapy; I70.0 Atherosclerosis of aorta; Z20.822 Contact with and (suspected) exposure to COVID-19
CPT/HCPCS: 36200; 75625; 75716; 76937; 87635; C1769 ×6; C1894 ×3; C1887; J2250; J2001; Q9967

== ENCOUNTER 2021-08-01 07:03 | Day surgery (SDC) | payer MEDICARE ==
[2021-07-30 15:15] VITALS: BMI 28.0
[2021-08-01] MEDS ORDERED: SODIUM CHLORIDE 0.9% 1,000 ML IV ONE (07:13)
[2021-08-01 08:32] LABS: African American GFR (CKD) >90 (>60 ml/min/1.73 sqM); Anion Gap 6 mmol/L; Blood Urea Nitrogen 15 mg/dL (7-17); Calcium 8.8 mg/dL (8.4-10.2); Carbon Dioxide 31 mmol/L (22-30); Chloride 100 mmol/L (98-107); Glucose 76 mg/dL (74-99); Non-African American GFR(CKD) >90 (>60 ml/min/1.73 sqM); Sodium 137 mmol/L (137-145)
[2021-08-01 08:35] LABS: Potassium 4.3 mmol/L (3.5-5.1)
[2021-08-01] MEDS ORDERED: HEPARIN SODIUM 1,000 UN/ML (10ML VL) ONE (09:17)
[2021-08-01] MEDS ORDERED: MIDAZOLAM 2 MG/2 ML VIAL IVP ONE (09:24)
[2021-08-01] MEDS ORDERED: LIDOCAINE 1% INJ 10MG/ML (10 ML MDV) SQ ONE (09:26)
[2021-08-01] MEDS ORDERED: HEPARIN SODIUM 1,000 UN/ML (10ML VL) IV ONE (09:30)
[2021-08-01] MEDS ORDERED: HYDROmorphone 0.5 MG/0.5 ML SYRINGE IVP ONE (09:46)
[2021-08-01] MEDS ORDERED: CLOPIDOGREL 75 MG TAB ONE (10:03)
[2021-08-01] MEDS ORDERED: CLOPIDOGREL 75 MG TAB PO ONE (10:04)
[2021-08-01] MEDS ORDERED: IOPAMIDOL-250 100ML BTL INTRAARTER ONE (10:10)
[2021-08-01] MEDS ORDERED: CYCLOBENZAPRINE 10 MG TAB PO PRN (10:34)
[2021-08-01] MEDS ORDERED: NITROGLYCERIN SL TABS 0.4 MG TAB SUBLINGUAL PRN (10:34)
[2021-08-01] MEDS ORDERED: DICYCLOMINE 10 MG CAP PO PRN (10:34)
[2021-08-01] MEDS ORDERED: hydrOXYzine HCL 25 MG TAB PO PRN (10:34)
[2021-08-01] MEDS ORDERED: ACYCLOVIR TOPICAL PRN (10:34)
[2021-08-01] MEDS ORDERED: polyethylene glycoL 3350 17 GM POWD.PACK PO PRN (10:34)
[2021-08-01] MEDS ORDERED: AMMONIUM LACTATE 12% LOTION 225 GM BTL TOPICAL PRN (10:34)
[2021-08-01] MEDS ORDERED: ALBUTEROL NEBULIZED 2.5 MG/3 ML INHALATION PRN (10:34)
[2021-08-01] MEDS ORDERED: IPRATROPIUM-ALBUTEROL 3 ML NEB INHALATION PRN (10:34)
[2021-08-01] MEDS ORDERED: MECLIZINE 25 MG TAB PO PRN (10:34)
[2021-08-01] MEDS ORDERED: NON FORMULARY DRUG (Methyl Salicylate/Menthol [Salonpas Patch] 1 EACH Adh..Patch) TOPICAL PRN (10:34)
[2021-08-01] MEDS ORDERED: CBD OIL PO PRN (10:34)
[2021-08-01] MEDS ORDERED: NALOXONE 0.4 MG/ML 1 ML VIAL IVP PRN (10:36)
--- NOTE | 2021-08-01 10:43 | P.PCN ---
Date of Procedure: 08/01/21 Operative Findings: PERCUTANEOUS PERIPHERAL INTERVENTION Performing physician Demetrius Ramirez M.D. Procedure performed #1 successful stenting of the right common iliac artery using 7.0 x 57 mm balloon expandable stent with an excellent angiographic results #2 successful stenting of the right external iliac artery using 7.0 x 60 mm self-expandable stent with an excellent angiographic results #3 intravascular ultrasound of the right common and right external iliac artery as well as the aorta #4 selective right common and right external iliac artery angiogram #5 selective right common femoral artery angiogram #6 ultrasound guided access of the right common femoral artery Indication Right lower extremities intermittent claudication in this 66-year-old female patient who underwent an angiogram recently and that revealed occluded right iliac artery Approach Right common femoral artery Complications None Level of sedation Moderate with a sedation time of 40 minutes minutes Procedure description After obtaining an informed consent the patient was brought to the cardiac clinical laboratory science professor. Under ultrasound guidance the right common femoral artery was cannulated using micropuncture technique. A micropuncture wire passed easily then I placed at 23 cm bright tip sheath in the right common femoral artery. I did across the lesion in the right common iliac artery using an 035 stiff Glidewire with a backup support of all 35 catheter. The catheter was advanced all the way to the aorta and subsequently I did an angiogram to prove that I was in the true lumen. Below 35 wire was exchanged to 014 wire. Subsequently I did intravascular ultrasound of the aorta as well as a right common and right external iliac artery which showed a diameter of the right common iliac artery about 7 mm and right external iliac artery about 6 mm. I did balloon angioplasty of the right common and right external iliac artery using 6 mm balloon. Subsequently for the right common iliac artery I placed a 7.0 x 57 mm balloon expandable stent and 4 the right external iliac artery I placed 7.0 x 60 mm self-expandable stents. I postdilated the stent using 7 mm balloon. Final angiogram showed an excellent angiographic results which was documented by intravascular ultrasound The procedure was completed without any complication After that I did exchange my 23 mm sheath into an 11 cm sheath. Selective right common femoral artery was performed with injection through the sheath. Postprocedure management #1 dual antiplatelet therapy #2 aggressive cholesterol control #3 risk factors modification #4 follow-up with the patient
[2021-08-01] MEDS ORDERED: SODIUM CHLORIDE 0.9% 1,000 ML in EMPTY BAG 1 BAG IV SCH (10:45)
--- NOTE | 2021-08-01 14:16 | IR ---
Fluoroscopy HISTORY: Pain in right leg 8.2 minutes fluoroscopy time supplied to the referring clinician. 458 intraoperative C-arm images do cument the procedure. See dictated report from cardiology.
[2021-08-01] MEDS: HYDROCORTISONE 10 MG TAB PO SCH ×2 (15:03→20:54)
[2021-08-01] MEDS: NICOTINE 14MG/24HR PATCH TRANSDERM SCH (15:04)
[2021-08-01] MEDS: NON FORMULARY DRUG (Alpha Lipoic Acid [Alpha Lipoic Acid] 600 MG Tablet) PO SCH ×2 (16:51→20:50)
[2021-08-01] MEDS: HYDROcodone/APAP 10-325MG 1 EACH TAB PO PRN ×2 (16:55→22:23)
[2021-08-01] MEDS: FUROSEMIDE 40 MG TAB PO SCH (18:47)
[2021-08-01] MEDS: SYMBICORT 80-4.5 MCG INHALER INHALATION SCH (19:54)
[2021-08-01] MEDS: NON FORMULARY DRUG (Lubiprostone [Amitiza] 24 MCG Capsule) PO SCH (20:49)
[2021-08-01] MEDS: DULoxetine HCL 60 MG CAPSULE.DR PO SCH (20:55)
[2021-08-01] MEDS ORDERED: MONTELUKAST 10 MG TAB PO SCH (21:00)
[2021-08-01] MEDS ORDERED: METOPROLOL SUCCINATE (ER) 25 MG TAB.ER.24H PO SCH (21:00)
[2021-08-01] MEDS ORDERED: traZODone HCL 50 MG TAB PO SCH (21:00)
[2021-08-01] MEDS ORDERED: LATANOPROST 0.005% OPHTH DROPS 2.5 ML BTL BOTH EYES SCH (21:00)
[2021-08-02] MEDS: HYDROcodone/APAP 10-325MG 1 EACH TAB PO PRN (07:04)
[2021-08-02 07:24] VITALS: BP 118/76; RESP 16; TEMP 97.7
[2021-08-02] MEDS: NON FORMULARY DRUG (Alpha Lipoic Acid [Alpha Lipoic Acid] 600 MG Tablet) PO SCH (07:55)
[2021-08-02] MEDS: NON FORMULARY DRUG (Lubiprostone [Amitiza] 24 MCG Capsule) PO SCH (07:56)
[2021-08-02] MEDS ORDERED: IPRATROPIUM 0.5 MG/2.5 ML NEBU INHALATION SCH (08:00)
[2021-08-02] MEDS: DULoxetine HCL 60 MG CAPSULE.DR PO SCH (08:09)
[2021-08-02] MEDS: FUROSEMIDE 40 MG TAB PO SCH (08:09)
[2021-08-02] MEDS: NICOTINE 14MG/24HR PATCH TRANSDERM SCH (08:10)
[2021-08-02 08:26] LABS: Basophils # (A) 0.1 k/uL (0-0.2); Basophils % (A) 1 %; Eosinophils # (A) 0.2 k/uL (0-0.7); Eosinophils % (A) 3 %; HCT 41.1 % (34.0-46.0); HGB 13.2 gm/dL (11.4-16.0); Lymphocytes # (A) 2.7 k/uL (1.0-4.8); Lymphocytes % (A) 29 %; MCH 34.5 pg (25.0-35.0); MCV 107.5 fL (80.0-100.0); Macrocytosis Moderate; Mean Platelet Volume 6.9; Monocytes # (A) 0.5 k/uL (0-1.0); Monocytes % (A) 5 %; Neutrophils # (A) 5.6 k/uL (1.3-7.7); Neutrophils % (A) 61 %; Platelet Count 280 k/uL (150-450); RBC 3.82 m/uL (3.80-5.40); RDW 13.1 % (11.5-15.5); WBC 9.2 k/uL (3.8-10.6)
[2021-08-02] MEDS: SYMBICORT 80-4.5 MCG INHALER INHALATION SCH (08:29)
[2021-08-02 08:46] VITALS: PULSE 79
[2021-08-02 08:46] LABS: African American GFR (CKD) >90 (>60 ml/min/1.73 sqM); Anion Gap 2 mmol/L; Blood Urea Nitrogen 10 mg/dL (7-17); Carbon Dioxide 30 mmol/L (22-30); Chloride 104 mmol/L (98-107); Glucose 93 mg/dL (74-99); Non-African American GFR(CKD) >90 (>60 ml/min/1.73 sqM); Potassium 3.7 mmol/L (3.5-5.1); Sodium 136 mmol/L (137-145)
[2021-08-02] MEDS ORDERED: PANTOPRAZOLE 40 MG TABLET PO SCH (09:00)
[2021-08-02] MEDS ORDERED: CHOLECALCIFEROL 25 MCG (1000 IU) TABLET PO SCH (09:00)
[2021-08-02] MEDS ORDERED: CLOPIDOGREL 75 MG TAB PO SCH (09:00)
[2021-08-02] MEDS ORDERED: FLUTICASONE 50MCG/SPRAY NASAL 16GM EA NOSTRIL SCH (09:00)
[2021-08-02] MEDS ORDERED: OXYBUTYNIN XL 5 MG TAB.ER.24 PO SCH (09:00)
[2021-08-02] MEDS ORDERED: ATORVASTATIN 40 MG TAB PO SCH (09:00)
[2021-08-02] MEDS ORDERED: RALOXIFENE 60 MG TAB PO SCH (09:00)
[2021-08-02] MEDS ORDERED: HYDROCORTISONE 10 MG TAB PO SCH (09:00)
[2021-08-02] MEDS ORDERED: NON FORMULARY DRUG (5hydroxytryptophan(Oxitriptan) [5-Htp] 200 MG Capsule) PO SCH (09:00)
[2021-08-02] MEDS ORDERED: MULTIVITAMINS, THERA 1 EACH TAB PO SCH (09:00)
[2021-08-02] MEDS ORDERED: ASPIRIN 81 MG PO SCH (09:00)
[2021-08-02] MEDS ORDERED: ARIPiprazole 10 MG TAB PO SCH (09:00)
[2021-08-02] MEDS ORDERED: LORATADINE 10 MG TAB PO SCH (09:00)
--- NOTE | 2021-08-02 13:04 | P.DS ---
Providers Attending physician: Demetrius Ramirez Primary care physician: [facility] Course: The patient is a pleasant 66-year-old female patient who underwent yesterday a successful recanalizing chronically occluded right common iliac artery from right groin approach. The patient was seen this morning. She seems to be asymptomatic. The right groin is soft and nontender and without any bruises. Her right foot also is warm. The patient is going to be discharged home on antiplatelet and statin and I will follow-up with the patient next week in the office Plan - Discharge Summary Discharge Rx Participant: Yes New Discharge Prescriptions: New Clopidogrel [Plavix] 75 mg PO DAILY #90 tab Continue rOPINIRole HCL [Requip] 0.5 mg PO HS Fluticasone Propionate [Flonase] 2 sprays EA NOSTRIL DAILY Cyclobenzaprine [Flexeril] 10 mg PO DAILY PRN PRN Reason: Muscle Spasm Acyclovir [Zovirax] 1 applic TOPICAL 5XD PRN PRN Reason: Cold Sores DULoxetine HCL [Cymbalta] 60 mg PO BID ARIPiprazole [Abilify] 10 mg PO DAILY Hydrocortisone 10 mg PO QAM hydrOXYzine HCL 25 mg PO TID PRN PRN Reason: Anxiety Metoprolol Succinate [Toprol XL] 25 mg PO HS Omeprazole 20 mg PO DAILY polyethylene glycoL 3350 [Miralax] 17 gm PO DAILY PRN PRN Reason: Constipation traZODone HCL [Desyrel] 50 mg PO HS Aspirin [Adult Low Dose Aspirin EC] 81 mg PO DAILY Fluticasone/Umeclidin/Vilanter [Trelegy Ellipta 100-62.5-25] 1 puff INHALATION RT-DAILY Methyl Salicylate/Menthol [Salonpas Patch] 1 patch TOPICAL DAILY PRN PRN Reason: Pain Lac-Hydrin 5% Cream 1 applic TOPICAL DAILY PRN PRN Reason: pain, itching Nitroglycerin Sl Tabs [Nitrostat] 0.4 mg SUBLINGUAL Q5M PRN PRN Reason: Chest Pain Cbd Oil 1 drop PO DAILY PRN PRN Reason: Anxiety valACYclovir HCL [Valtrex] 500 mg PO Q12HR PRN PRN Reason: Cold Sores Cholecalciferol [Vitamin D3 (25 Mcg = 1000 Iu)] 75 mcg PO DAILY Triamcinolone 0.1% Cream [Kenalog 0.1% Cream] 1 applic TOPICAL BID PRN PRN Reason: Rash Multivit-Min/FA/Lycopen/Lutein [Centrum Silver Tablet] 1 tab PO DAILY Tolterodine ER [Detrol LA] 2 mg PO DAILY Raloxifene [Evista] 60 mg PO DAILY Rosuvastatin [Crestor] 20 mg PO DAILY 5Hydroxytryptophan(Oxitriptan) [5-Htp] 200 mg PO DAILY Nystatin 100,000 Unit/ml Susp [Mycostatin Oral Susp] 100,000 units PO QID Montelukast Sodium [Singulair] 10 mg PO HS HYDROcodone/APAP 10-325MG [[place] 10-325] 1 tab PO Q6HR PRN PRN Reason: Pain Latanoprost [Xalatan 0.005%] 1 drop BOTH EYES HS Hydrocortisone [Cortef] 5 mg PO 1200,1700 Dicyclomine HCl 10 mg PO TID PRN PRN Reason: IBS Ipratropium-Albuterol Nebulize [Duoneb 0.5 mg-3 mg/3 ml Soln] 3 ml INHALATION RT-QID PRN PRN Reason: Shortness Of Breath Furosemide [Lasix] 40 mg PO BID Meclizine [Antivert] 25 mg PO TID PRN PRN Reason: Vertigo Loratadine [Claritin] 10 mg PO DAILY Albuterol Inhaler [Ventolin Hfa Inhaler] 2 puff INHALATION RT-QID PRN PRN Reason: Shortness Of Breath Nicotine [Nicoderm Cq] 14 mg TRANSDERM DAILY Mupirocin 2% Oint [Bactroban 2% Oint] 1 cream .ROUTE TID Lubiprostone [Amitiza] 24 mcg PO BID Fluticasone/Salmeterol [Advair 250-50 Diskus] 1 puff .ROUTE BID Alpha Lipoic Acid 600 mg PO TID Fluconazole [Diflucan] 150 mg PO PRN PRN Reason: sores Discharge Medication List Fluticasone Propionate [Flonase] 2 sprays EA NOSTRIL DAILY 01/25/14 [History] rOPINIRole HCL [Requip] 0.5 mg PO HS 01/25/14 [History] Cyclobenzaprine [Flexeril] 10 mg PO DAILY PRN 07/07/14 [History] Acyclovir [Zovirax] 1 applic TOPICAL 5XD PRN 10/29/16 [History] DULoxetine HCL [Cymbalta] 60 mg PO BID 10/29/16 [History] ARIPiprazole [Abilify] 10 mg PO DAILY 06/24/19 [History] Hydrocortisone 10 mg PO QAM 06/24/19 [History] Metoprolol Succinate [Toprol XL] 25 mg PO HS 06/24/19 [History] Omeprazole 20 mg PO DAILY 06/24/19 [History] hydrOXYzine HCL 25 mg PO TID PRN 06/24/19 [History] polyethylene glycoL 3350 [Miralax] 17 gm PO DAILY PRN 06/24/19 [History] traZODone HCL [Desyrel] 50 mg PO HS 06/24/19 [History] Aspirin [Adult Low Dose Aspirin EC] 81 mg PO DAILY 08/11/19 [History] Cbd Oil 1 drop PO DAILY PRN 08/11/19 [History] Fluticasone/Umeclidin/Vilanter [Trelegy Ellipta 100-62.5-25] 1 puff INHALATION RT-DAILY 08/11/19 [History] Lac-Hydrin 5% Cream 1 applic TOPICAL DAILY PRN 08/11/19 [History] Methyl Salicylate/Menthol [Salonpas Patch] 1 patch TOPICAL DAILY PRN 08/11/19 [History] Nitroglycerin Sl Tabs [Nitrostat] 0.4 mg SUBLINGUAL Q5M PRN 08/11/19 [History] Cholecalciferol [Vitamin D3 (25 Mcg = 1000 Iu)] 75 mcg PO DAILY 07/18/20 [History] Dicyclomine HCl 10 mg PO TID PRN 07/18/20 [History] HYDROcodone/APAP 10-325MG [[place] 10-325] 1 tab PO Q6HR PRN 07/18/20 [History] Hydrocortisone [Cortef] 5 mg PO 1200,1700 07/18/20 [History] Latanoprost [Xalatan 0.005%] 1 drop BOTH EYES HS 07/18/20 [History] Montelukast Sodium [Singulair] 10 mg PO HS 07/18/20 [History] Multivit-Min/FA/Lycopen/Lutein [Centrum Silver Tablet] 1 tab PO DAILY 07/18/20 [History] Tolterodine ER [Detrol LA] 2 mg PO DAILY 07/18/20 [History] Triamcinolone 0.1% Cream [Kenalog 0.1% Cream] 1 applic TOPICAL BID PRN 07/18/20 [History] valACYclovir HCL [Valtrex] 500 mg PO Q12HR PRN 07/18/20 [History] Albuterol Inhaler [Ventolin Hfa Inhaler] 2 puff INHALATION RT-QID PRN 07/06/21 [History] Furosemide [Lasix] 40 mg PO BID 07/06/21 [History] Ipratropium-Albuterol Nebulize [Duoneb 0.5 mg-3 mg/3 ml Soln] 3 ml INHALATION RT-QID PRN 07/06/21 [History] Loratadine [Claritin] 10 mg PO DAILY 07/06/21 [History] Meclizine [Antivert] 25 mg PO TID PRN 07/06/21 [History] Raloxifene [Evista] 60 mg PO DAILY 07/06/21 [History] Rosuvastatin [Crestor] 20 mg PO DAILY 07/06/21 [History] 5Hydroxytryptophan(Oxitriptan) [5-Htp] 200 mg PO DAILY 08/01/21 [History] Alpha Lipoic Acid 600 mg PO TID 08/01/21 [History] Fluconazole [Diflucan] 150 mg PO PRN 08/01/21 [History] Fluticasone/Salmeterol [Advair 250-50 Diskus] 1 puff .ROUTE BID 08/01/21 [History] Lubiprostone [Amitiza] 24 mcg PO BID 08/01/21 [History] Mupirocin 2% Oint [Bactroban 2% Oint] 1 cream .ROUTE TID 08/01/21 [History] Nicotine [Nicoderm Cq] 14 mg TRANSDERM DAILY 08/01/21 [History] Nystatin 100,000 Unit/ml Susp [Mycostatin Oral Susp] 100,000 units PO QID 08/01/21 [History] Clopidogrel [Plavix] 75 mg PO DAILY #90 tab 08/02/21 [Rx] Follow up Appointment(s)/Referral(s): Demetrius Ramirez MD [STAFF PHYSICIAN] - 08/06/21 4:30 pm (Appointment is at [address] [facility]) Patient Instructions/Handouts: Peripheral Vascular Angioplasty (DC), Procedural Sedation (ED)
== END 2021-08-02 10:16 ==
LOC: CATHCVL 07:03 → 6NMEDSUR 10:05 → CATHCVL 08-02 10:16
PROVIDERS: ATTEND Internal Medicine Interventional Cardiology
DX: I73.9 Peripheral vascular disease, unspecified (principal); I74.5 Embolism and thrombosis of iliac artery; K58.9 Irritable bowel syndrome, unspecified; Z79.02 Long term (current) use of antithrombotics/antiplatelets; Z79.82 Long term (current) use of aspirin; Z79.899 Other long term (current) drug therapy; Z20.822 Contact with and (suspected) exposure to COVID-19
CPT/HCPCS: 94640 ×2; 94760; 37221; 37223; 37252; 37253; 80048 ×2; 85025; 87635; C1894 ×2; C1769 ×5; C1725; C1753; C1876; C1874; C1760; S4990 ×2; J2250; J1644; J2001; J1170; Q9966

== ENCOUNTER → 2022-04-02 | Outpatient (CLI) | payer MEDICARE ==
--- NOTE | 2022-04-03 12:22 | US ---
EXAMINATION TYPE: US arterial LE single level DATE OF EXAM: 04/02/2022 2:17 PM CLINICAL HISTORY: R208 OTHER DISTURBANCES OF SKIN SENSATION. Patient states bilateral cold feet and l eft lower leg discoloration History of: Smoker: Current Hypertension: Yes Diabetic: No Hyperlipidemia: No TIA/CVA: No Previous Vascular Surgery: Yes, hip per patient CAD: Yes Vascular Ulcers: No Claudication: No Gangrene: No Doppler Waveforms: Right: Multiphasic Left: Multiphasic Right Brachial Pressure: 90 Left Brachial Pressure: 101 Ankle-Brachial Indices: Right: Could not occlude Left: Could not occlude Toe Brachial Indices: Right: 0.7 Left: 0.7 IMPRESSION: 1. Nondiagnostic CASSIE 2. Low normal TBI correlate clinically.
== END | disposition home or self-care (01) ==
LOC: RADUSWWP 13:45
PROVIDERS: ATTEND Family Medicine
DX: I10 Essential (primary) hypertension (principal); I25.10 Atherosclerotic heart disease of native coronary artery without angina pectoris; F17.200 Nicotine dependence, unspecified, uncomplicated; R20.8 Other disturbances of skin sensation
CPT/HCPCS: 93922

== ENCOUNTER → 2022-05-14 | Outpatient (CLI) | payer MEDICARE ==
--- NOTE | 2022-05-14 19:04 | XR ---
EXAMINATION TYPE: XR Hip Complete RT DATE OF EXAM: 05/14/2022 CLINICAL HISTORY: Left hip pain and osteoarthritis. TECHNIQUE: Single AP portable view of right hip is obtained immediately postoperatively. COMPARISON: None. FINDINGS: Metallic hardware from right hip arthroplasty is seen and appears satisfactory in alignment and position. There is evidence of recent surgery with subcutaneous gas noted laterally. IMPRESSION: Metallic hardware from right hip arthroplasty is satisfactory in position.
== END | disposition home or self-care (01) ==
LOC: RADXRMAIN 16:30
PROVIDERS: ATTEND Family Medicine
DX: M25.551 Pain in right hip (principal); Z96.641 Presence of right artificial hip joint
CPT/HCPCS: 73502

== ENCOUNTER → 2022-11-19 | Day surgery (SDC) | payer MEDICARE ==
[2022-11-13 15:52] VITALS: BMI 25.7
[~2022-11-19] MED LIST changes: -ALPRAZolam 0.25 MG TAB PO PRN; -ALPRAZolam 0.5 MG TAB PO PRN; -ASPIRIN 325 MG TAB PO PRN; -HEPARIN SODIUM,PORCINE 10,000 UNIT in SODIUM CHLORIDE 0.9% 1,000 ML IRRIGATION PRN; -HEPARIN SODIUM,PORCINE 2,500 UNIT in SODIUM CHLORIDE 0.9% 250 ML IRRIGATION PRN; +HYDROCORTISONE SUCCINATE 100 MG/2 ML VIAL IVP ONE; +LACTATED RINGERS 1,000 ML IV SCH; +LIDOCAINE 1% (10MG/ML) FOR IV START INTRADERMA ONE; +LIDOCAINE 2% INJ 20 MG/ML (2 ML VIAL) ONE; +PROPOFOL 10 MG/ML 20 ML VIAL IV ONE; -SODIUM CHLORIDE 0.9% 1,000 ML in EMPTY BAG 1 BAG IV ONE; -ZOLPIDEM 5 MG TAB PO PRN
[2022-11-19 08:27] VITALS: TEMP 97.5
[2022-11-19 08:58] LABS: Glucose,Whole Blood 78 mg/dL (70-110)
--- NOTE | 2022-11-19 09:56 | P.PCN ---
Date of Procedure: 11/19/22 Procedure(s) Performed: Brief history: Patient is a pleasant 67-year-old white female scheduled for an elective upper endoscopy as well as colonoscopy as a part of evaluation of GERD and screening for colon cancer/family history of colon cancer. Patient has history of rectal prolapse for which she underwent no anterior resection followed by sigmoid colostomy 2011. Lately has been having chronic constipation. She also has family history of colon cancer diagnosed in her mother at age 67. Procedure performed: Esophagogastroduodenoscopy biopsy Colonoscopy with snare polypectomy. Preoperative diagnosis: GERD Screening for colon cancer/family history of colon cancer History of sigmoid colostomy for rectal prolapse in 1999 Anesthesia: MAC Procedure: After informed consent was obtained from the patient was brought into the endoscopy unit and IV sedation was administered by anesthesia under continuous monitoring. Initially upper endoscopy was done. The Olympus GF 160 video endoscope was inserted inserted into the mouth and esophagus intubated without any difficulty and was gradually advanced into the stomach and duodenum and carefully examined. The bulb and second part of the duodenum appeared normal. The scope was then withdrawn into the stomach adequately insufflated with air and upon careful examination the antrum and mild gastritis and biopsies were done from this area. Mucosa of the body, cardia and fundus appeared normal. The scope was then withdrawn into the esophagus. The GE junction was located at 40 cm to the incisors. It appeared regwith superficial erosions consistent with LA grade B reflux esophagitisRest of the esophagus appeared normal. Patient tolerated the procedure well. At this time the patient continued to remain sedation. Initial digital rectal examination was normal. The colostomy bag was removed. The colostomy site was exposed. She is still examination was normal. Olympus CF 160 video colonoscope was then inserted into the colostomy site and was gradually advanced to the cecum without any difficulty. Careful examination was performed as the scope was gradually being withdrawn. The prep was fair.. The cecum, ascending colon, appeared normal. In the transverse colon there was a 1 cm flat polyp removed by snare polypectomy. Rest of the transverse colon, descending colon, appeared normal. The sigmoid: Appeared normal and the colostomy site appeared normal. Patient tolerated the procedure well. Impression: 1. Upper endoscopy revealed mild antral gastritis and linear erosions in the distal esophagus consistent with LA grade B reflux esophagitis 2. Colonoscopy via colostomy revealed a 1 cm flat transverse colon polyp serous posterior polypectomy and some anus of poor prep in the left colon Recommendations: Findings of this examination were discussed with the patient as well as her family. She was advised to follow with the biopsy results and have a repeat colonoscopy in 3 years because of the family history of colon cancer.
[2022-11-19 10:03] VITALS: RESP 16
[2022-11-19 10:59] VITALS: BP 159/91; PULSE 98
== END ==
LOC: ORWHC2ENDO 07:44
PROVIDERS: ATTEND Internal Medicine Gastroenterology
DX: Z12.11 Encounter for screening for malignant neoplasm of colon (principal); D12.3 Benign neoplasm of transverse colon; K29.50 Unspecified chronic gastritis without bleeding; K31.9 Disease of stomach and duodenum, unspecified; Z80.0 Family history of malignant neoplasm of digestive organs; Z93.3 Colostomy status; Z88.0 Allergy status to penicillin; Z79.899 Other long term (current) drug therapy; I25.10 Atherosclerotic heart disease of native coronary artery without angina pectoris; I10 Essential (primary) hypertension; E78.5 Hyperlipidemia, unspecified; F17.210 Nicotine dependence, cigarettes, uncomplicated; F41.9 Anxiety disorder, unspecified; F32.A Depression, unspecified
CPT/HCPCS: 88305; 88312; 44394; 43239; J1720; J2704; J2001

== ENCOUNTER → 2024-01-28 | Outpatient (CLI) | payer MEDICARE ==
[2024-01-29 03:01] LABS: T4, Free (Free Thyroxine) 1.03 ng/dL (0.80-1.80)
== END | disposition home or self-care (01) ==
LOC: LABWHC1 16:47
PROVIDERS: ATTEND Psychiatry & Neurology Neurology
CPT/HCPCS: 36415; 82607; 84439; 84443

== ENCOUNTER → 2024-01-28 | Outpatient (CLI) | payer MEDICARE ==
--- NOTE | 2024-01-28 17:24 | MR ---
EXAMINATION TYPE: MR brain wo/w con DATE OF EXAM: 01/28/2024 4:37 PM CLINICAL INDICATION: Female, 68 years old with history of FORGETFULLNESS; PHH, forgetfulness COMPARISON: None TECHNIQUE: Multi planar, multi sequence imaging was performed through the brain including: T1, T2, In version recovery, susceptibility weighted imaging and gradient echo imaging and Diffusion weighted im aging. The patient was then given intravenous contrast and multi planar, T1 fat-saturation images wer e obtained. IV Contrast: 6 cc Gadavist FINDINGS: Mild cerebral atrophy with proportional dilation of ventricular system. Diffusion-weighted imaging s hows no evidence of restricted diffusion to suggest acute/subacute infarct. Intracranial arterial edmond w voids are maintained. Midline structures show no abnormality. Scattered foci of high T2 signal inte nsity are seen within the periventricular white matter. The susceptibility weighted images do not rev eal any evidence for micro-hemorrhage. After administration of gadolinium, no abnormal enhancement is seen. The bone marrow signal is within normal limits. Paranasal sinuses and mastoid air cells: No significant paranasal sinus disease. Visualized orbits: Right aphakia. IMPRESSION: 1. No evidence of intracranial mass, acute/subacute infarct, or abnormal enhancement. 2. Nonspecific white matter changes, likely related to small vessel ischemic disease. [facility], , 01/28/2024 5:22 PM
== END | disposition home or self-care (01) ==
LOC: RADMRIMAIN 15:44
PROVIDERS: ATTEND Psychiatry & Neurology Neurology
CPT/HCPCS: 70553

== ENCOUNTER → 2024-03-24 | Outpatient (CLI) | payer MEDICARE ==
[2024-03-24 15:14] VITALS: BP 100/64; PULSE 82; RESP 20; TEMP 97.8
--- NOTE | 2024-03-24 16:45 | P.SLEEP ---
History of Present Illness DATE: 03/24/2024 CONSULTATION/NEW PATIENT EVALUATION HISTORY OF PRESENT ILLNESS/SLEEP-WAKE EVALUATION: 69-year-old lady had been evaluated in the sleep center for possible obstructive sleep apnea hypopnea syndrome. SLEEP SCHEDULE: Usually sleep schedule 10 PM to 78 AM. FALLING ASLEEP: Sometimes patient has difficulties with falling asleep. DURING SLEEP: Patient is on oxygen supplement 2 L/min 24 hours a day including sleep. Patient usually sleeps on the side position with snoring and awakenings from sleep 2 times with nocturia. Positive history of grinding teeth, dry mouth, panic attacks, sweating, restless leg symptoms. No history of hypnogogical hallucinations, sleep paralysis, or cataplexy. DURING THE DAY/WAKE STATE: In the morning patient wake up tired, has difficulties to pay attention, falling asleep during the day. Patient has problems with memory, concentration, irritability, depression, anxiety, cl austrophobia. Lockbourne sleepiness scale is in very high range of 21. Occasionally patient may take nap around 2 PM. PAST MEDICAL HISTORY: COPD, coronary artery disease, hypertension, history of adrenal insufficiency. PAST SURGICAL HISTORY: Stent insertion to coronary artery, stent insertion to the artery of right leg. MEDICATIONS: Albuterol, aripiprazole 20 mg once a day, aspirin 81 mg once a day, bupropion 150 mg once a day, cannabidiol, buprenorphine transdermal patch, cyclobenzaprine 10 mg once a day, dicyclomine 10 mg once a day furosemide 20-40 mg, hydrocortisone 12.5 mg in the morning, 5 mg at 2 PM, hydroxyzine 50 mg once a day, isosorbide 30 mg once a day, latanoprost eyedrops, montelukast 10 mg once a day, nicotine patch, nitroglycerin as needed, omeprazole 20 mg once a day, ropinirole once a day, rosuvastatin 20 mg once a day, trazodone 50 mg at bedtime. SOCIAL HISTORY: Please see below. FAMILY HISTORY: Please see below. REVIEW OF SYSTEMS: Snoring, multiple awakenings from sleep, sleepiness during the day. No fevers. No double vision. No recent chest pain. No shortness of breath. No abdominal pain. No bleeding episodes. No blood in urine. No seizure episodes. PHYSICAL EXAMINATION: GENERAL: A pleasant patient without any distress on oxygen supplement 2 L/min. VITAL SIGNS: Please see below, weight 126 pounds. HEENT: PERRLA, EOMI. Evaluation of oropharynx showed tongue protrudes midline, low position of soft palate Mallampati 3. NECK: Supple. No JVD. Thyroid is not palpable. 15 inches in circumference. LUNGS: Clear to percussion and to auscultation. Good air exchange. No wheezing or rhonchi. HEART: S1, S2 regular. No murmurs, gallops or rubs. ABDOMEN: Soft and nontender. Bowel sounds are present. No organomegaly appreciated. EXTREMITIES: No clubbing or cyanosis. [employer]: Awake, alert, and oriented x3. Cranial nerves 2 to 7 intact. There is no fasciculation or atrophy noted. No focal deficits observed. ASSESSMENT: 1. Snoring, awakenings from sleep with nocturia, small oropharyngeal airspace with low position of soft palate Mallampati 3, sleepiness with high Lockbourne Sleepiness Scale. Obstructive sleep apnea hypopnea syndrome. 2. COPD, patient on oxygen supplement 2-3 L/min 24 hours a day. 3. Hypertension. 4. Coronary artery disease, status post stent insertion. 5 status post bilateral hip replacement. 6 . Adrenal insufficiency. 7. Status post stent insertion to the artery of right leg. 8. Smoker for about 50 years, continues to smoke. 9 . Status post hysterectomy. 10. Patient is on treatment with opioids which may increase risk for central apneas during sleep. PLAN: 1. Polysomnography for evaluation of patient's breathing during sleep will be done with 2 L/min oxygen supplement. 2. Following plan after reading sleep study. 3. Preferable position during sleep on the side. 4. No driving if patient feels any sleepiness. 5. Sleep hygiene with regular sleep time for at least 7.5-8 hours. Thank you very much for referring this patient for consultation. Sincerely, Butch Olivares MD, PhD, FAASM. Diplomat of [employer] [place] [employer], Sleep Medicine Board by [place] [employer] [place] [employer] [facility] [place] cc: Madhuri Stewart DO Past Medical History Past Medical History: Coronary Artery Disease (CAD), Cancer, Chest Pain / Angina, COPD, Eye Disorder, GERD/Reflux, Hyperlipidemia, Hypertension, Myocardial Infarction (GA), Musculoskeletal Disorder, Osteoarthritis (OA), Pneumonia, Skin Disorder, Thyroid Disorder Additional Past Medical History / Comment(s): Hx Covid/Pleurisy and Pneumonia 09/14/20. Colostomy due to rectal prolapse. Osteoporosis, Degnerative Disc Disease, Restless Leg Syndrome, multiple compression fractures in back, chronic back pain. Hx balance problems/falls, none since stopping Lamictal. 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 Varicose veins, poor circulation. Asthmatic bronchitis. Discoloration/bruises on bilateral arms. Stress urinary incontinence. Hx cervical cancer. Hypoglycemia, adrenal insufficency. Edema left lower leg. O2 2-3L PRN. Hx stomach ulcer many yrs ago. Hx low thyroid, ok now. Cardiac stent and stent behind one knee (not sure whichknee) Last Myocardial Infarction Date:: 08/06/19 History of Any Multi-Drug Resistant Organisms: None Reported Past Surgical History: Bowel Resection, Heart Catheterization, Heart Catheterization With Stent, Hysterectomy, Joint Replacement, Tonsillectomy, Tubal Ligation Additional Past Surgical History / Comment(s): Colostomy, bilateral hip replacements, abdominal aortogram, colonoscopy. Past Anesthesia/Blood Transfusion Reactions: Previous Problems w/ Anesthesia, Motion Sickness, Postoperative Nausea & Vomiting (PONV) Additional Past Anesthesia/Blood Transfusion Reaction / Comment(s): BP "bottomed out" with colonoscopy years ago. Date of Last Stent Placement:: 08/06/19 Past Psychological History: Anxiety, Depression, Panic Disorder Additional Psychological History / Comment(s): pATIENT STATES HORRIBLE TIME WITH ANXIETY, DEPRESSIO AND PANIC INCREASING THE LAST 6 MONTHS. Smoking Status: Current every day smoker Past Alcohol Use History: Occasional Additional Past Alcohol Use History / Comment(s): Smoked 1/2-1 PPD, cutting back recently, smoked since age 13. Past Drug Use History: Marijuana Additional Drug Use History / Comment(s): Medical Marijuana use daily prn, uses CBD oil, edibles, prn. Aware no use 24 hrs prior to procedure. - Past Family History Mother Family Medical History: Cancer Additional Family Medical History / Comment(s): Colon cancer. DEPRESSION, ANXIETY, ITCH AND CLAW HER HEAD EVERY NIGHT AND NOW I'M DOING IT) Father Family Medical History: Coronary Artery Disease (CAD) Additional Family Medical History / Comment(s): CABG./NARCOLEPSY (MOTHEER HAD COLON CA, DEPRESSION/ANXIETY, ITCH AND CLAW HER HEAD EVERYNIGHT & NOW I'M DOING IT) Brother(s) Family Medical History: Cancer, Coronary Artery Disease (CAD) Additional Family Medical History / Comment(s): CABG. Lymph node cancer. Medications and Allergies Home Medications Medication Instructions Recorded Confirmed Type rOPINIRole HCL [Requip] 1 mg PO HS 01/25/14 11/19/22 History Cyclobenzaprine [Flexeril] 10 mg PO DAILY PRN 07/07/14 11/19/22 History Acyclovir [Zovirax] 1 applic TOPICAL 5XD PRN 10/29/16 11/19/22 History DULoxetine HCL [Cymbalta] 60 mg PO BID 10/29/16 11/19/22 History ARIPiprazole [Abilify] 15 mg PO QAM 06/24/19 11/19/22 History Metoprolol Succinate [Toprol XL] 12.5 mg PO HS 06/24/19 11/19/22 History Omeprazole 20 mg PO DAILY 06/24/19 11/19/22 History hydrOXYzine HCL 25 mg PO TID PRN 06/24/19 11/19/22 History polyethylene glycoL 3350 [Miralax] 17 gm PO DAILY PRN 06/24/19 11/19/22 History traZODone HCL [Desyrel] 50 mg PO HS 06/24/19 11/19/22 History Aspirin [Adult Low Dose Aspirin EC] 81 mg PO DAILY 08/11/19 11/19/22 History Cbd Oil 1 drop PO DAILY PRN 08/11/19 11/19/22 History Fluticasone/Umeclidin/Vilanter 1 puff INHALATION QAM 08/11/19 11/19/22 History [Trelegy Ellipta 100-62.5-25] Lac-Hydrin 5% Cream 1 applic TOPICAL DAILY PRN 08/11/19 11/19/22 History Methyl Salicylate/Menthol 1 patch TOPICAL DAILY PRN 08/11/19 11/19/22 History [Salonpas Patch] Nitroglycerin Sl Tabs [Nitrostat] 0.4 mg SUBLINGUAL Q5M PRN 08/11/19 11/19/22 History Cholecalciferol [Vitamin D3 (25 75 mcg PO DAILY 07/18/20 11/19/22 History Mcg = 1000 Iu)] Dicyclomine HCl 10 mg PO TID PRN 07/18/20 11/19/22 History HYDROcodone/APAP 10-325MG [Lynn 1 tab PO Q6HR PRN 07/18/20 11/19/22 History 10-325] Hydrocortisone [Cortef] 2.5 mg PO 1400,1700 07/18/20 11/19/22 History Latanoprost [Xalatan 0.005%] 1 drop BOTH EYES HS 07/18/20 11/19/22 History Montelukast Sodium [Singulair] 10 mg PO HS 07/18/20 11/19/22 History Multivit-Min/FA/Lycopen/Lutein 1 tab PO DAILY 07/18/20 11/19/22 History [Centrum Silver Tablet] Tolterodine ER [Detrol LA] 2 mg PO DAILY 07/18/20 11/19/22 History Triamcinolone 0.1% Cream [Kenalog 1 applic TOPICAL BID PRN 07/18/20 11/19/22 History 0.1% Cream] valACYclovir HCL [Valtrex] 1,000 mg PO HS 07/18/20 11/19/22 History Albuterol Inhaler [Ventolin Hfa 2 puff INHALATION QID 07/06/21 11/19/22 History Inhaler] Furosemide [Lasix] 20 - 40 mg PO BID PRN 07/06/21 11/19/22 History Ipratropium-Albuterol Nebulize 3 ml INHALATION QID PRN 07/06/21 11/19/22 History [Duoneb 0.5 mg-3 mg/3 ml Soln] Meclizine [Antivert] 25 mg PO TID PRN 07/06/21 11/19/22 History Raloxifene [Evista] 60 mg PO DAILY 07/06/21 11/19/22 History Rosuvastatin [Crestor] 20 mg PO DAILY 07/06/21 11/19/22 History Fluconazole [Diflucan] 150 mg PO DIRECTED PRN 08/01/21 11/19/22 History Mupirocin 2% Oint [Bactroban 2% 1 cream TOPICAL TID 08/01/21 11/19/22 History Oint] Nystatin 100,000 Unit/ml Susp 100,000 units PO QID 08/01/21 11/19/22 History [Mycostatin Oral Susp] Clopidogrel [Plavix] 75 mg PO DAILY #90 tab 08/02/21 11/19/22 Rx Lidocaine 5% Patch [Lidoderm] 1 patch TOPICAL DAILY PRN #7 patch 05/24/22 11/19/22 Rx Azelastine/Fluticasone 1 spray EA NOSTRIL BID 11/13/22 11/19/22 History [Azelastin-Flutic 137-50Mcg Spr] Hydrocortisone [Cortef] 12.5 mg PO QAM 11/13/22 11/19/22 History Levocetirizine Dihydrochloride 5 mg PO DAILY 11/13/22 11/19/22 History [Xyzal] Omalizumab [Xolair] 375 mg SQ Q14D 11/13/22 11/19/22 History bisacodyL [Dulcolax] 10 mg PO BID 11/19/22 11/19/22 History Allergies Allergy/AdvReac Type Severity Reaction Status Date / Time meperidine HCl [From Demerol] Allergy Severe Swelling Verified 11/19/22 08:28 Penicillins Allergy Rash/Hives Verified 11/19/22 08:28 erythromycin base AdvReac Abdominal Verified 11/19/22 08:28 Pain Physical Exam Vitals: Vital Signs Temp Pulse Resp BP Pulse Ox 03/24/24 15:12 97.8 F 82 20 100/64 81 L Intake and Output 03/24/24 03/24/24 03/24/24 06:59 14:59 22:59 Other: Weight 57.153 kg Sleep Note - Sleep Data ESS Total: 21 - Sleep Note Sleep Note: Temperature: 97.8 F Pulse Rate: 82 Respiratory Rate: 20 Blood Pressure: 100/64 SpO2: 81 Height: 5 ft 2 in Weight: 57.153 kg BMI: Neck Circumference: 15
== END ==
LOC: 3 N SLEEP 14:12
PROVIDERS: ATTEND Internal Medicine
DX: G47.33 Obstructive sleep apnea (adult) (pediatric) (principal); J44.9 Chronic obstructive pulmonary disease, unspecified; I10 Essential (primary) hypertension; I25.10 Atherosclerotic heart disease of native coronary artery without angina pectoris; Z95.5 Presence of coronary angioplasty implant and graft; Z98.890 Other specified postprocedural states; E27.40 Unspecified adrenocortical insufficiency; F17.210 Nicotine dependence, cigarettes, uncomplicated; Z79.02 Long term (current) use of antithrombotics/antiplatelets; Z79.899 Other long term (current) drug therapy; Z88.0 Allergy status to penicillin; Z88.1 Allergy status to other antibiotic agents; Z88.5 Allergy status to narcotic agent
CPT/HCPCS: 99211

== ENCOUNTER → 2024-07-09 | Outpatient (CLI) | payer MEDICARE ==
[2024-07-09 15:31] LABS: African American GFR (CKD) >90 (>60 ml/min/1.73 sqM); Blood Urea Nitrogen 7 mg/dL (7-17); Non-African American GFR(CKD) >90 (>60 ml/min/1.73 sqM)
--- NOTE | 2024-07-09 16:49 | CT ---
EXAMINATION TYPE: CT chest w con DATE OF EXAM: 07/09/2024 4:34 PM COMPARISON: 07/18/2020. CLINICAL INDICATION: Female, 69 years old with history of R91.8 OTHER NONSPECIFIC ABNORMAL FINDING OF LUNG F; PHH, Lung mass. TECHNIQUE: Multiple axial images were obtained through the chest. Sagittal and coronal reformats were created for review. MIP was performed on a separate workstation. Contrast used:100ml mL of Isovue 300 with IV Contrast (None if empty) Oral contrast used: (None if empty) CT DLP: 148.3 mGycm, Automated exposure control for dose reduction was used. FINDINGS: LUNGS/ PLEURA: Moderate emphysema changes. Mass described below possibly arising from the lung/left pulmonary hilum extending into the mediastinum.r anterior left upper lobe nodules measured 4 mm series 3 image 27. Le ft lower lobe pulmonary nodule measuring 5 mm series 3 image 33. Right lower lobe pulmonary nodule me asuring up to 3 mm. Right middle lobe 3 mm nodule image 41 right upper lobe calcified granuloma. Righ t upper lobe nodule measuring 4 mm image 9. Additional left midlung upper lobe 8 mm nodule image 23 N o focal consolidation, pneumothorax or pleural effusion. AIRWAY: Patent and unremarkable. HEART: Size within normal limits. No significant coronary artery calcifications. MEDIASTINUM: No has a mass which either arises from the long and extends into the mediastinum or vice versa. Mass measures 6.9 x 8.3 x 8.5 cm. This mass extends to the AP window and abuts the trachea. VASCULATURE: No aortic aneurysm. MUSCULOSKELETAL: Moderate disc degeneration changes are present throughout the thoracolumbar spine se condary to osteophyte formation and facet joint arthropathy. Compression deformity to the T4 T6 and T 8 vertebral bodies with near complete height loss anteriorly. No significant retropulsion. The neural foramen are patent. SOFT TISSUES/LYMPH NODES: Chest superficial to the right chest wall in the right breast is a 16 x 13 mm lesion located in the medial inferior aspect of the right breast.e LOWER NECK: No significant findings. UPPER ABDOMEN: Multiple hepatic metastatic lesions are present, greater than 20. Example includes ar right lateral hepatic lobe 27 mm and left for a segment 27 mm lesion. 16 mm soft tissue lesion near t he near the expected location of the adrenal gland series 3 image 48 suspicious for malignancy. IMPRESSION: 1. Left upper lung lung mass with extension into the mediastinum measuring up to 8.5 cm with more th an 20 liver metastatic lesions present in few scattered pulmonary nodules suspicious for metastatic d isease. Additionally there is a left adrenal nodule measuring up to 16 mm possibly metastatic disease . 2. 3. Compression deformity to the T4 T6 and T8 vertebral bodies with near complete height loss anterio rly. 4. Right anterior medial inferior breast 16 x 13 mm lesion correlate with mammography to rule out ma lignancy. [facility], , 07/09/2024 4:47 PM
== END | disposition home or self-care (01) ==
LOC: RADCTMAIN 14:35
PROVIDERS: ATTEND Family Medicine
DX: M48.54XA Collapsed vertebra, not elsewhere classified, thoracic region, initial encounter for fracture (principal); C78.7 Secondary malignant neoplasm of liver and intrahepatic bile duct; R91.8 Other nonspecific abnormal finding of lung field
CPT/HCPCS: 82565; 84520; 71260; 36415; Q9967

== ENCOUNTER 2024-07-11 12:37 | Inpatient (IN) | payer MEDICARE ==
[2024-07-11] MEDS: IV FLUID CONTINUATION 1,000 ML IV ONE (12:46)
--- NOTE | 2024-07-11 12:47 | ED ---
Chest Pain HPI - General Chief Complaint: Chest Pain Stated Complaint: STEMI Time Seen by Provider: 07/11/24 12:40 Source: patient, EMS Mode of arrival: EMS Limitations: no limitations - History of Present Illness Initial Comments: 69-year-old female with past medical history of coronary artery disease with 1 stents, COPD on 2 L home O2, pericarditis who presents to the emergency department with chest pain. Has been intermittently going on over the past couple of days. Reports that the pain got worse this morning. Describes it as a pressure sensation in her chest without radiation. She was provided a nitro by EMS and states that it did help her symptoms. Pain is currently graded as a 6 out of 10. Denies fevers, chills or cough. Admits to chronic shortness of breath. No nausea or vomiting. Patient was also provided 324 aspirin by EMS. No abdominal pain. No numbness, tingling or weakness in the extremities. No other alleviating, precipitating or modifying factors - Related Data Home Medications Medication Instructions Recorded Confirmed rOPINIRole HCL [Requip] 1 mg PO HS 01/25/14 07/11/24 Cyclobenzaprine [Flexeril] 10 mg PO BID 07/07/14 07/11/24 Nitroglycerin Sl Tabs [Nitrostat] 0.4 mg SL Q5M PRN 08/11/19 07/11/24 Latanoprost [Xalatan 0.005%] 1 drop BOTH EYES HS 07/18/20 07/11/24 Montelukast Sodium [Singulair] 10 mg PO HS 07/18/20 07/11/24 valACYclovir HCL [Valtrex] 500 mg PO BID 07/18/20 07/11/24 Albuterol Inhaler [Ventolin Hfa 2 puff INHALATION RT-QID PRN 07/06/21 07/11/24 Inhaler] Ipratropium-Albuterol Nebulize 3 ml INHALATION RT-QID 07/06/21 07/11/24 [Duoneb 0.5 mg-3 mg/3 ml Soln] Rosuvastatin [Crestor] 20 mg PO DAILY 07/06/21 07/11/24 Nystatin 100,000 Unit/ml Susp 100,000 units PO QID 08/01/21 07/11/24 [Mycostatin Oral Susp] Levocetirizine Dihydrochloride 5 mg PO HS 11/13/22 07/11/24 [Xyzal] Omalizumab [Xolair] 300 mg SQ Q14D 11/13/22 07/11/24 ARIPiprazole [Abilify] 20 mg PO DAILY 07/11/24 07/11/24 Budesonide [Pulmicort] 0.5 mg INHALATION RT-BID 07/11/24 07/11/24 Colchicine 0.6 mg PO DAILY 07/11/24 07/11/24 Doxycycline Hyclate 100 mg PO BID 07/11/24 07/11/24 EPINEPHrine (Auto Inject) [Epipen] 0.3 mg IM ONCE PRN 07/11/24 07/11/24 Escitalopram [Lexapro] 20 mg PO DAILY 07/11/24 07/11/24 Ferrous Sulfate [Feosol] 325 mg PO DAILY 07/11/24 07/11/24 Fluticasone Nasal [place] [Flonase 2 spr EA NOSTRIL BID 07/11/24 07/11/24 Nasal [place]] Fluticasone/Umeclidin/Vilanter 1 puff INHALATION RT-DAILY 07/11/24 07/11/24 [Trelegy Ellipta 200-62.5-25] Folic Acid 1 mg PO DAILY 07/11/24 07/11/24 HYDROcodone/APAP 5-325MG [[place] 1 tab PO BID 07/11/24 07/11/24 5-325] Hydrocortisone [Cortef] 12.5 mg PO DAILY@0800 07/11/24 07/12/24 Ibuprofen [Motrin] 800 mg PO TID PRN 07/11/24 07/11/24 Lactulose 10 gm PO TID 07/11/24 07/11/24 Linaclotide [Linzess] 145 mcg PO DAILY 07/11/24 07/11/24 Metoprolol Tartrate [Lopressor] 12.5 mg PO TID@0900,1600,2100 07/11/24 07/11/24 Morphine Sulfate ER [Ms Contin] 15 mg PO Q12HR 07/11/24 07/11/24 Omalizumab [Xolair] 75 mg SQ Q14D 07/11/24 07/11/24 Pantoprazole [Protonix] 40 mg PO DAILY 07/11/24 07/11/24 Thiamine [Vitamin B-1] 100 mg PO DAILY 07/11/24 07/11/24 busPIRone HCL [Buspar] 7.5 mg PO BID 07/11/24 07/11/24 hydrOXYzine HCL [Atarax] 50 mg PO BID 07/11/24 07/11/24 predniSONE See Taper PO DIRECTED 07/11/24 07/11/24 traZODone HCL [Desyrel] 100 mg PO HS 07/11/24 07/11/24 Hydrocortisone 1 dose PO DAILY PRN 07/12/24 07/12/24 Hydrocortisone [Cortef] 5 mg PO DAILY@1400 07/12/24 07/12/24 Allergies Allergy/AdvReac Type Severity Reaction Status Date / Time meperidine HCl [From Demerol] Allergy Severe Swelling Verified 07/11/24 18:10 Penicillins Allergy Rash/Hives Verified 07/11/24 18:10 erythromycin base AdvReac Abdominal Verified 07/11/24 18:10 Pain Review of Systems ROS Statement: Those systems with pertinent positive or pertinent negative responses have been documented in the HPI. ROS Other: All systems not noted in ROS Statement are negative. Past Medical History Past Medical History: Coronary Artery Disease (CAD), Cancer, Chest Pain / Angina, COPD, Eye Disorder, GERD/Reflux, Hyperlipidemia, Hypertension, Myocardial Infarction ([place]), Musculoskeletal Disorder, Osteoarthritis (OA), Pneumonia, Skin Disorder, Thyroid Disorder Additional Past Medical History / Comment(s): Hx Covid/Pleurisy and Pneumonia 09/14/20. Colostomy due to rectal prolapse. Osteoporosis, Degnerative Disc Disease, Restless Leg Syndrome, multiple compression fractures in back, chronic back pain. Hx balance problems/falls, none since stopping Lamictal. 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 Varicose veins, poor circulation. Asthmatic bronchitis. Discoloration/bruises on bilateral arms. Stress urinary incontinence. Hx cervical cancer. Hypoglycemia, adrenal insufficency. Edema left lower leg. O2 2-3L PRN. Hx stomach ulcer many yrs ago. Hx low thyroid, ok now. Cardiac stent and stent behind one knee (not sure whichknee) Last Myocardial Infarction Date:: 08/06/19 History of Any Multi-Drug Resistant Organisms: None Reported Past Surgical History: Bowel Resection, Heart Catheterization, Heart Catheterization With Stent, Hysterectomy, Joint Replacement, Tonsillectomy, Tubal Ligation Additional Past Surgical History / Comment(s): Colostomy, bilateral hip replacements, abdominal aortogram, colonoscopy. Past Anesthesia/Blood Transfusion Reactions: Previous Problems w/ Anesthesia, Motion Sickness, Postoperative Nausea & Vomiting (PONV) Additional Past Anesthesia/Blood Transfusion Reaction / Comment(s): BP "bottomed out" with colonoscopy years ago. Date of Last Stent Placement:: 08/06/19 Past Psychological History: Anxiety, Depression, Panic Disorder Smoking Status: Current every day smoker Past Alcohol Use History: Occasional Past Drug Use History: Marijuana - Past Family History Mother Family Medical History: Cancer Additional Family Medical History / Comment(s): Colon cancer. DEPRESSION, ANX IETY, ITCH AND CLAW HER HEAD EVERY NIGHT AND NOW I'M DOING IT) Father Family Medical History: Coronary Artery Disease (CAD) Additional Family Medical History / Comment(s): CABG./NARCOLEPSY (GUILLERMOEER HAD COLON CA, DEPRESSION/ANXIETY, ITCH AND CLAW HER HEAD EVERYNIGHT & NOW I'M DOING IT) Brother(s) Family Medical History: Cancer, Coronary Artery Disease (CAD) Additional Family Medical History / Comment(s): CABG. Lymph node cancer. General Exam Limitations: no limitations General appearance: alert, in no apparent distress Head exam: Present: atraumatic, normocephalic, normal inspection Eye exam: Present: normal appearance, PERRL, EOMI. Absent: scleral icterus, conjunctival injection, periorbital swelling ENT exam: Present: normal exam, mucous membranes moist Neck exam: Present: normal inspection. Absent: tenderness, meningismus, lymphadenopathy Respiratory exam: Present: wheezes, decreased breath sounds. Absent: respiratory distress, rales, rhonchi, stridor Cardiovascular Exam: Present: normal rhythm, tachycardia, normal heart sounds. Absent: systolic murmur, diastolic murmur, rubs, gallop, clicks GI/Abdominal exam: Present: soft, normal bowel sounds. Absent: distended, tenderness, guarding, rebound, rigid Extremities exam: Present: normal inspection, full ROM, normal capillary refill. Absent: tenderness, pedal edema, joint swelling, calf tenderness Back exam: Present: normal inspection Neurological exam: Present: alert, oriented X3, CN II-XII intact Psychiatric exam: Present: normal affect, normal mood Skin exam: Present: warm, dry, intact, normal color. Absent: rash Course Vital Signs 07/11/24 07/11/24 12:39 12:50 Temperature 97.8 F Pulse Rate 118 H 116 H Respiratory 18 18 Rate Blood Pressure 106/88 83/62 O2 Sat by Pulse 95 97 Oximetry Chest Pain MDM - MDM Was pt. sent in by a medical professional or institution (, PA, PEDIATRIC PHYSICIAN ASSISTANT, urgent care, hospital, or care home...) When possible be specific @ -No Did you speak to anyone other than the patient for history (EMS, parent, family, police, friend...)? What history was obtained from this source @ -Spoke with EMS for history Did you review nursing and triage notes (agree or disagree)? Why? @ -I reviewed and agree with nursing and triage notes Were old charts reviewed (outside hosp., previous admission, EMS record, old EKG, old radiological studies, urgent care reports/EKG's, care home records)? Report findings @ -No old charts were reviewed Differential Diagnosis (chest pain, altered mental status, abdominal pain women, abdominal pain men, vaginal bleeding, weakness, fever, dyspnea, syncope, h eadache, dizziness, GI bleed, back pain, seizure, CVA, palpatations, mental health, musculoskeletal)? @ -Differential Chest Pain: Stable Angina, Unstable Angina, STEMI, NSTEMI Aortic Dissection, Pneumothorax, Musculoskeletal, Esophageal Spasm GERD, Cholecystitis, Pancreatitis, Zoster, this is not meant to be an all-inclusive list. EKG interpreted by me (3pts min.). @ -Yes and demonstrates sinus tachycardia with rate of 118. VA interval 145. QRS 78. QTc of 384. ST segment elevation 2, 3, aVF V4 through V6. Reciprocating changes in [address] depression. Depression better adequ ately seen on prehospital EKGs X-rays interpreted by me (1pt min.). @ -Yes which demonstrates COPD changes CT interpreted by me (1pt min.). @ -None done U/S interpreted by me (1pt. min.). @ -None done What testing was considered but not performed or refused? (CT, X-rays, U/S, labs)? Why? @ -None What meds were considered but not given or refused? Why? @ -None Did you discuss the management of the patient with other professionals (professionals i.e. DrYolande, PA, PEDIATRIC PHYSICIAN ASSISTANT, lab, RT, psych nurse, licensed master social worker, paper cup machine operator, teacher, [employer]adc plans staff officer, therapeutic case manager)? Give summary @ -Spoke with Dr. Castro and with Dr. Bhatti for admission Was smoking cessation discussed for >3mins.? @ -No Was critical care preformed (if so, how long)? @ -yes, 35 minutes for management of STEMI Were there social determinants of health that impacted care today? How? (Homelessness, low income, unemployed, alcoholism, drug addiction, transportation, low edu. Level, literacy, decrease access to med. care, retirement, rehab)? @ -No Was there de-escalation of care discussed even if they declined (Discuss DNR or withdrawal of care, Hospice)? DNR status @ -No What co-morbidities impacted this encounter? (DM, HTN, Smoking, COPD, CAD, Cancer, CVA, ARF, Chemo, Hep., AIDS, mental health diagnosis, sleep apnea, morbid obesity)? @ -CAD, pericarditis Was patient admitted / discharged? Hospital course, mention meds given and route, prescriptions, significant lab abnormalities, going to OR and other pertinent info. @ -Upon arrival patient seen and evaluated in trauma 1. Thorough history and physical exam was performed. STEMI was called prehospital as EMS did transfer the EKG. Appears to have ST elevation in the inferior leads with reciprocal changes in lateral leads. As patient does have active symptoms Range Technician was act ivated. I spoke with Dr. Ramirez. IV was established, laboratory studies were conducted, portable chest x-ray was performed. Patient did receive 4000 units of heparin, 80 mg of atorvastatin. She already received her aspirin by EMS. Patient was agreeable to heart cath at this time. She was taken to the Range Techn[facility] in stable condition. I spoke with Dr. Bhatti for the admission Undiagnosed new problem with uncertain prognosis? @ -No Drug Therapy requiring intensive monitoring for toxicity (Heparin, Nitro, Insulin, Cardizem)? @ -No Were any procedures done? @ -No Diagnosis/symptom? @ -Acute chest pain, acute STEMI Acute, or Chronic, or Acute on Chronic? @ -Acute Uncomplicated (without systemic symptoms) or Complicated (systemic symptoms)? @ -Complicated Side effects of treatment? @ -No Exacerbation, Progression, or Severe Exacerbation? @ -No Poses a threat to life or bodily function? How? (Chest pain, [place], [place], pneumonia, PE, COPD, DKA, ARF, appy, cholecystitis, CVA, Diverticulitis, Homicidal, Suicidal, threat to staff... and all critical care pts) @ -Yes as patient does appear to have ST segment elevation Disposition Clinical Impression: ST elevation myocardial infarction (STEMI) Disposition: ADMITTED IP TO THIS [facility] Condition: Serious Is patient prescribed a controlled substance at d/c from ED?: No Time of Disposition: 12:56 Decision to Admit Reason: Admit from EC Decision Date: 07/11/24 Decision Time: 12:56
[2024-07-11] MEDS: HEPARIN SODIUM 1,000 UN/ML (10ML VL) MISCELLANE ONE (12:52)
[2024-07-11] MEDS: ATORVASTATIN 80 MG TAB PO STA (12:53)
[2024-07-11] MEDS ORDERED: NALOXONE 0.4 MG/ML 1 ML VIAL IV PRN (12:56)
[2024-07-11 12:59] LABS: Basophils % (A) 0 %; Eosinophils # (A) 0.1 k/uL (0-0.7); Eosinophils % (A) 1 %; HCT 36.2 % (34.0-46.0); HGB 11.6 gm/dL (11.4-16.0); Lymphocytes # (A) 1.3 k/uL (1.0-4.8); Lymphocytes % (A) 14 %; MCH 33.2 pg (25.0-35.0); MCHC 32.1 g/dL (31.0-37.0); MCV 103.7 fL (80.0-100.0); Macrocytosis Slight; Mean Platelet Volume 6.8; Monocytes # (A) 0.4 k/uL (0-1.0); Monocytes % (A) 4 %; Neutrophils # (A) 7.7 k/uL (1.3-7.7); Neutrophils % (A) 81 %; Platelet Count 337 k/uL (150-450); WBC 9.6 k/uL (3.8-10.6)
[2024-07-11 13:06] LABS: ALT 67 U/L (4-34); AST 79 U/L (14-36); African American GFR (CKD) >90 (>60 ml/min/1.73 sqM); Albumin 3.5 g/dL (3.5-5.0); Alkaline Phosphatase 64 U/L (38-126); Anion Gap 4 mmol/L; Blood Urea Nitrogen 4 mg/dL (7-17); Calcium 8.8 mg/dL (8.4-10.2); Carbon Dioxide 32 mmol/L (22-30); Chloride 85 mmol/L (98-107); Glucose 120 mg/dL (74-99); Magnesium 1.3 mg/dL (1.6-2.3); Non-African American GFR(CKD) >90 (>60 ml/min/1.73 sqM); Potassium 4.5 mmol/L (3.5-5.1); Sodium 121 mmol/L (137-145); Total Bilirubin 0.6 mg/dL (0.2-1.3); Total Protein 5.6 g/dL (6.3-8.2)
[2024-07-11 13:07] LABS: INR 1.1 (<1.2); Partial Thromboplastin Time 23.9 sec (22.0-30.0); Prothrombin Time 12.1 sec (10.0-12.5)
--- NOTE | 2024-07-11 13:12 | XR ---
EXAMINATION TYPE: XR chest 1V portable DATE OF EXAM: 07/11/2024 COMPARISON: 07/21/2020 CLINICAL INDICATION: Female, 69 years old with history of chest pain; TECHNIQUE: Single frontal view of the chest is obtained. FINDINGS: There is hyperinflation of lungs, flattened diaphragms prominent interstitium consistent with COPD. T here is no airspace consolidation. There is no pleural effusion or pneumothorax. Heart and pulmonary vasculature are normal. There is remote healed fracture of the right clavicle. IMPRESSION: 1. No acute cardiac pulmonary disease. 2. COPD. [facility], Workstation: [facility], 07/11/2024 1:10 PM
[2024-07-11 13:15] LABS: NT-Pro-B-Type Natriuretic Pept 223 pg/mL
[2024-07-11] MEDS: LIDOCAINE 1% INJ 10MG/ML (20 ML MDV) SQ ONE (13:17)
[2024-07-11] MEDS: SODIUM CHLORIDE 0.9% 500 ML 500 ML IV ONE (13:18)
[2024-07-11] MEDS: VERAPAMIL SYRINGE (5 MG/10 ML) INTRAARTER ONE (13:18)
[2024-07-11] MEDS: fentaNYL (PF) 50 MCG/ML 2 ML AMP IVP ONE (13:20)
[2024-07-11] MEDS: IOPAMIDOL-370 100ML BTL INJ ONE (13:25)
[2024-07-11] MEDS ORDERED: RX INFO: IV CONTRAST WAS GIVEN 1 EACH MISC MISCELLANE PRN (13:31)
--- NOTE | 2024-07-11 13:36 | P.CRDCN ---
History of Present Illness Consult date: 07/11/24 History of present illness: The patient is a pleasant 69-year-old female patient who is known to our service from before with a past medical history significant for CAD with prior stenting of the RCA as well as lower extremities PAD with prior stenting of the right iliac artery and also hypertension and dyslipidemia and history of pericarditis as well as history of colostomy as well as multiple comorbid conditions presented to the emergency department complaining of chest discomfort started within the last 24 hours as a pressure across the chest with no radiation to the arms or neck or shoulders or back and no associated symptoms of shortness of breath or sweating or dizziness or lightheadedness or any presyncope or syncope. She called ambulance where an EKG was performed and showed finding consistent with inferior STEMI. The patient was brought to the cardiac [facility] emergently where she underwent a heart catheterization which revealed patent stent in the mid RCA with mild in-stent restenosis and mild disease involving the left coronary system with elevated left-sided filling pressure. Further evaluation of the EKG revealed diffuse ST segment elevation with ST depression in aVR only. The finding appears to be consistent mostly with pericarditis. Currently the patient is chest pain-free. Her vitals are stable besides mild sinus tachycardia. The physical examination is remarkable for regular rhythm with a distant heart sounds and diminished breathing sounds bilaterally and no edema was noted in the lower extremities Assessment Chest discomfort appears to be concerning for pericarditis Mild CAD based on recent heart catheterization History of heart failure with HFrEF Lower extremities PAD as described above Chronic shortness of breath COPD History of smoking and the patient continues to smoke as a matter fact Multiple comorbid conditions including history of colostomy Plan Continue the current medical regimen Add colchicine to the current medical regimen Obtain an echocardiogram with Doppler Follow-up with the patient Past Medical History Past Medical History: Coronary Artery Disease (CAD), Cancer, Chest Pain / Angina, COPD, Eye Disorder, GERD/Reflux, Hyperlipidemia, Hypertension, My ocardial Infarction ([place]), Musculoskeletal Disorder, Osteoarthritis (OA), Pneumonia, Skin Disorder, Thyroid Disorder Additional Past Medical History / Comment(s): Hx Covid/Pleurisy and Pneumonia 09/14/20. Colostomy due to rectal prolapse. Osteoporosis, Degnerative Disc Disease, Restless Leg Syndrome, multiple compression fractures in back, chronic back pain. Hx balance problems/falls, none since stopping Lamictal. 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 Varicose veins, poor circulation. Asthmatic bronchitis. Discoloration/bruises on bilateral arms. Stress urinary incontinence. Hx cervical cancer. Hypoglycemia, adrenal insufficency. Edema left lower leg. O2 2-3L PRN. Hx stomach ulcer many yrs ago. Hx low thyroid, ok now. Cardiac stent and stent behind one knee (not sure whichknee) Last Myocardial Infarction Date:: 08/06/19 History of Any Multi-Drug Resistant Organisms: None Reported Past Surgical History: Bowel Resection, Heart Catheterization, Heart Catheterization With Stent, Hysterectomy, Joint Replacement, Tonsillectomy, Tubal Ligation Additional Past Surgical History / Comment(s): Colostomy, bilateral hip replacements, abdominal aortogram, colonoscopy. Past Anesthesia/Blood Transfusion Reactions: Previous Problems w/ Anesthesia, Motion Sickness, Postoperative Nausea & Vomiting (PONV) Additional Past Anesthesia/Blood Transfusion Reaction / Comment(s): BP "bottomed out" with colonoscopy years ago. Date of Last Stent Placement:: 08/06/19 Past Psychological History: Anxiety, Depression, Panic Disorder Smoking Status: Current every day smoker Past Alcohol Use History: Occasional Past Drug Use History: Marijuana - Past Family History Mother Family Medical History: Cancer Additional Family Medical History / Comment(s): Colon cancer. DEPRESSION, ANXIETY, ITCH AND CLAW HER HEAD EVERY NIGHT AND NOW I'M DOING IT) Father Family Medical History: Coronary Artery Disease (CAD) Additional Family Medical History / Comment(s): CABG./NARCOLEPSY (UGILLERMOEER HAD COLON CA, DEPRESSION/ANXIETY, ITCH AND CLAW HER HEAD EVERYNIGHT & NOW I'M DOING IT) Brother(s) Family Medical History: Cancer, Coronary Artery Disease (CAD) Additional Family Medical History / Comment(s): CABG. Lymph node cancer. Medications and Allergies Home Medications Medication Instructions Recorded Confirmed Type rOPINIRole HCL [Requip] 1 mg PO HS 01/25/14 11/19/22 History Cyclobenzaprine [Flexeril] 10 mg PO DAILY PRN 07/07/14 11/19/22 History Acyclovir [Zovirax] 1 applic TOPICAL 5XD PRN 10/29/16 11/19/22 History DULoxetine HCL [Cymbalta] 60 mg PO BID 10/29/16 11/19/22 History ARIPiprazole [Abilify] 15 mg PO QAM 06/24/19 11/19/22 History Metoprolol Succinate [Toprol XL] 12.5 mg PO HS 06/24/19 11/19/22 History Omeprazole 20 mg PO DAILY 06/24/19 11/19/22 History hydrOXYzine HCL 25 mg PO TID PRN 06/24/19 11/19/22 History polyethylene glycoL 3350 [Miralax] 17 gm PO DAILY PRN 06/24/19 11/19/22 History traZODone HCL [Desyrel] 50 mg PO HS 06/24/19 11/19/22 History Aspirin [Adult Low Dose Aspirin EC] 81 mg PO DAILY 08/11/19 11/19/22 History Cbd Oil 1 drop PO DAILY PRN 08/11/19 11/19/22 History Fluticasone/Umeclidin/Vilanter 1 puff INHALATION QAM 08/11/19 11/19/22 History [Trelegy Ellipta 100-62.5-25] Lac-Hydrin 5% Cream 1 applic TOPICAL DAILY PRN 08/11/19 11/19/22 History Methyl Salicylate/Menthol 1 patch TOPICAL DAILY PRN 08/11/19 11/19/22 History [Salonpas Patch] Nitroglycerin Sl Tabs [Nitrostat] 0.4 mg SUBLINGUAL Q5M PRN 08/11/19 11/19/22 History Cholecalciferol [Vitamin D3 (25 75 mcg PO DAILY 07/18/20 11/19/22 History Mcg = 1000 Iu)] Dicyclomine HCl 10 mg PO TID PRN 07/18/20 11/19/22 History HYDROcodone/APAP 10-325MG [[place] 1 tab PO Q6HR PRN 07/18/20 11/19/22 History 10-325] Hydrocortisone [Cortef] 2.5 mg PO 1400,1700 07/18/20 11/19/22 History Latanoprost [Xalatan 0.005%] 1 drop BOTH EYES HS 07/18/20 11/19/22 History Montelukast Sodium [Singulair] 10 mg PO HS 07/18/20 11/19/22 History Multivit-Min/FA/Lycopen/Lutein 1 tab PO DAILY 07/18/20 11/19/22 History [Centrum Silver Tablet] Tolterodine ER [Detrol LA] 2 mg PO DAILY 07/18/20 11/19/22 History Triamcinolone 0.1% Cream [Kenalog 1 applic TOPICAL BID PRN 07/18/20 11/19/22 History 0.1% Cream] valACYclovir HCL [Valtrex] 1,000 mg PO HS 07/18/20 11/19/22 History Albuterol Inhaler [Ventolin Hfa 2 puff INHALATION QID 07/06/21 11/19/22 History Inhaler] Furosemide [Lasix] 20 - 40 mg PO BID PRN 07/06/21 11/19/22 History Ipratropium-Albuterol Nebulize 3 ml INHALATION QID PRN 07/06/21 11/19/22 History [Duoneb 0.5 mg-3 mg/3 ml Soln] Meclizine [Antivert] 25 mg PO TID PRN 07/06/21 11/19/22 History Raloxifene [Evista] 60 mg PO DAILY 07/06/21 11/19/22 History Rosuvastatin [Crestor] 20 mg PO DAILY 07/06/21 11/19/22 History Fluconazole [Diflucan] 150 mg PO DIRECTED PRN 08/01/21 11/19/22 History Mupirocin 2% Oint [Bactroban 2% 1 cream TOPICAL TID 08/01/21 11/19/22 History Oint] Nystatin 100,000 Unit/ml Susp 100,000 units PO QID 08/01/21 11/19/22 History [Mycostatin Oral Susp] Clopidogrel [Plavix] 75 mg PO DAILY #90 tab 08/02/21 11/19/22 Rx Lidocaine 5% Patch [Lidoderm] 1 patch TOPICAL DAILY PRN #7 patch 05/24/22 11/19/22 Rx Azelastine/Fluticasone 1 spray EA NOSTRIL BID 11/13/22 11/19/22 History [Azelastin-Flutic 137-50Mcg Spr] Hydrocortisone [Cortef] 12.5 mg PO QAM 11/13/22 11/19/22 History Levocetirizine Dihydrochloride 5 mg PO DAILY 11/13/22 11/19/22 History [Xyzal] Omalizumab [Xolair] 375 mg SQ Q14D 11/13/22 11/19/22 History bisacodyL [Dulcolax] 10 mg PO BID 11/19/22 11/19/22 History Allergies Allergy/AdvReac Type Severity Reaction Status Date / Time meperidine HCl [From Demerol] Allergy Severe Swelling Verified 07/11/24 12:44 Penicillins Allergy Rash/Hives Verified 07/11/24 12:44 erythromycin base AdvReac Abdominal Verified 07/11/24 12:44 Pain Physical Exam Vitals: Vital Signs Temp Pulse Resp BP Pulse Ox 07/11/24 12:50 116 H 18 83/62 97 07/11/24 12:39 97.8 F 118 H 18 106/88 95 Intake and Output 07/10/24 07/11/24 07/11/24 22:59 06:59 14:59 Intake Total 100 Balance 100 Intake: IV 100 Other: Weight 57.606 kg Results 07/11/24 12:50 07/11/24 12:50 Cardiac Enzymes 07/11/24 07/11/24 Range/Units 12:50 12:50 AST 79 H (14-36) U/L Troponin I <0.012 (0.000-0.034) ng/mL Coagulation 07/11/24 Range/Units 12:50 PT 12.1 (10.0-12.5) sec APTT 23.9 (22.0-30.0) sec CBC 07/11/24 Range/Units 12:50 WBC 9.6 (3.8-10.6) k/uL RBC 3.50 L (3.80-5.40) m/uL Hgb 11.6 (11.4-16.0) gm/dL Hct 36.2 (34.0-46.0) % Plt Count 337 (150-450) k/uL Comprehensive Metabolic Panel 07/11/24 Range/Units 12:50 Sodium 121 L (137-145) mmol/L Potassium 4.5 (3.5-5.1) mmol/L Chloride 85 L (98-107) mmol/L Carbon Dioxide 32 H (22-30) mmol/L BUN 4 L (7-17) mg/dL Creatinine 0.34 L (0.52-1.04) mg/dL Glucose 120 H (74-99) mg/dL Calcium 8.8 (8.4-10.2) mg/dL AST 79 H (14-36) U/L ALT 67 H (4-34) U/L Alkaline Phosphatase 64 (38-126) U/L Total Protein 5.6 L (6.3-8.2) g/dL Albumin 3.5 (3.5-5.0) g/dL Current Medications Generic Name Dose Route Start Last Admin Trade Name Freq PRN Reason Stop Dose Admin Sodium Chloride 1,000 mls @ 999 mls/hr 07/11/24 12:54 Saline 0.9% IV 07/11/24 13:54 .Q1H1M ONE Sodium Chloride 1,000 mls @ 75 mls/hr 07/11/24 13:45 Saline 0.9% IV 07/11/24 18:44 .[id number] [place] Miscellaneous Information 1 each 07/11/24 13:31 Rx Info: Iv Contrast Was Given 1 Each Misc MISCELLANE 07/13/24 13:31 DAILY PRN Per Protocol Naloxone HCl 0.2 mg 07/11/24 12:56 Naloxone 0.4 Mg/Ml 1 Ml Vial IV Q2M PRN Opioid Reversal Intake and Output 07/10/24 07/11/24 07/11/24 22:59 06:59 14:59 Intake Total 100 Balance 100 Intake: IV 100 Other: Weight 57.606 kg Patient Weight 07/12/24 06:59 Weight 57.606 kg 07/11/24 12:50 07/11/24 12:50
--- NOTE | 2024-07-11 13:38 | P.PCN ---
Date of Procedure: 07/11/24 Operative Findings: CARDIAC CATHETERIZATION PERFORMING PHYSICIAN: Demetrius Ramirez MD, RPVI PROCEDURE PERFORMED: 1. Selective right and left coronary angiogram 2. Left heart catheterization 3. Ultrasound-guided access of the right radial artery INDICATION: Chest discomfort and abnormal EKG COMPLICATION: None APPROACH: Right radial artery LEVEL OF SEDATION: Moderate with a sedation length of 10 minutes PROCEDURE DESCRIPTION: After obtaining an informed consent, the patient was brought to cardiac lab assistant. Local anesthesia was performed using lidocaine subcutaneously. The right radial artery was cannulated using Seldinger technique, under ultrasound guidance, the guidewire passed easily, following that we advanced a 5-Paraguayan sheath dilator assembly, the wire and dilator were removed and sheath was flushed. Following that, 2 mg of verapamil along with 5000 unit heparin were given. Selective right and left coronary angiogram using a 5-Paraguayan JR4 and JL 3.5 catheters. Following that we did left heart catheterization using 5-Paraguayan pigtail catheter. The procedure was completed there was no complication. SELECTIVE CORONARY ANGIOGRAM: The right coronary artery: Large caliber vessel and a dominant vessel with patent stent in the mid RCA Left main: Is angiographically normal The left circumflex: Large caliber vessel nondominant vessel with no evidence of obstructive CAD The left anterior descending artery: Large caliber vessel appears to have mild disease only HEMODYNAMICS: The LVEDP was 20 mmHg with no significant gradient across aortic valve CONCLUSION: 1. Patent stent in the mid RCA 2. Elevated left-sided filling pressure POSTPROCEDURE MANAGEMENT: Medical treatment
--- NOTE | 2024-07-11 14:44 | P.HPIM ---
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 She presented to the emergency department with a chief complaint of chest pain. Patient describes this pain as a constant pressure. She denied having any associated symptoms including diaphoresis, dizziness, lightheadedness, palpitations, shortness of breath, nausea, vomiting, or experiencing any numbness/tingling/weakness/swelling in her extremities. Patient reported pain was constant pressure to midsternal chest and denied any radiation of this pain. EKG completed by EMS showing concerns of inferior STEMI and patient was transferred to our facility directly to [facility] where she emergently underwent heart catheterization which revealed patent stent to the mid RCA with mild in- stent restenosis and mild disease of the left coronary system with elevated left-sided filling pressures. EKG completed upon arrival to our facility showing sinus tachycardia at [address] elevation concerning for pericarditis. Chest X-ray completed negative for acute cardiopulmonary process showing changes of COPD with hyperinflation of lungs and flattening of the diaphragm. Labs completed and reviewed. CBC showing macrocytosis with MCV of 103.7. Coagulation profile normal findings. BMP showing hypochloremic hyponatremia with sodium of 121, chloride of 85, and hypercarbia with bicarb of 32. Renal function showing a low BUN of 4, creatinine of 0.34, GFR greater than 90. Blood glucose was 120. Magnesium was low at 1.3. Liver profile showing mild transaminitis with AST of 79, and ALT of 67 with normal alkaline phosphatase of 64 and normal total bili of 0.6. Troponin was negative at less than 0.012. proBNP was 223. Total protein was low at 5.6 with a normal albumin of 3.5. Patient admitted under our services with consultation to cardiology and nephrology. Patient reports previously following with scrap baller out of [facility] and states she is currently in the process of changing over to a local scrap baller. She does report taking her hydrocortisone as prescribed. Review of systems: Pertinent positives and negatives as discussed in HPI, a complete review of systems was performed and all other systems are negative. Physical exam: Vital signs reviewed and stable. General: Nontoxic, no distress and appears stated age. Derm: Skin warm and dry, normal coloration for ethnicity. Head: Atraumatic, normocephalic and symmetric. Eyes: EOM's intact, no lid lag, and anicteric sclera Mouth: no lip lesions, mucus membranes moist Cardiovascular: regular rate and rhythm with distant heart sounds, no obvious murmur, positive posterior tibial pulses bilaterally, and cap refill < 2 seconds. Lungs: Respirations even, regular, and unlabored on room air. Lungs diminished with pleural rub noted loudest in left lower lobe upon inspiration only. No wheezing, rhonchi, rales or crackles noted. Abdominal: soft, nontender to palpation, no guarding, no appreciable organomegaly Ext: ROM intact. No gross muscle atrophy, scant lower extremity edema, no contractures Neuro: Speech clear, face symmetrical and CN II-XII grossly intact with no noted focal neuro deficits Psych: Alert and oriented to person, place, time, and situation. Appropriate and pleasant affect. Assessment and Plan of Care: Adrenal crisis in pt with known adrenal insufficiency Hypochloremic hyponatremia Metabolic alkalosis -Patient received 1 L bolus of 0.9% normal saline upon arrival to our facility and order placed for Solu-Cortef 100 mg IV x 1 dose. -Order placed for stat urinalysis, serum osmolality, urine osmolality, urine sodium, and TSH with reflex free T4. -Consult placed to nephrology. -Continued close monitoring of sodium levels with repeat BMP every 6 hours. -Patient to resume hydrocortisone 12.5 mg daily and 2.5 mg twice daily tomorrow morning. -Telemetry monitoring. -Maintain seizure and fall precautions. Neurochecks every 4 hours. -Strict I's and O's. Chest pain, secondary to pericarditis CAD with history of stent to RCA Hypertension Hyperlipidemia PAD with previous stenting of right iliac artery -EKG completed by EMS showing concerns of inferior STEMI and patient was transferred to our facility directly to [facility] where she emergently underwent heart catheterization which revealed a patent stent to the mid RCA with mild in- stent restenosis and mild disease of the left coronary system with elevated left-sided filling pressures. -EKG completed upon arrival to our facility showing sinus tachycardia at [address] elevation concerning for pericarditis. -Cardiology following starting patient on colchicine 0.6 mg twice daily. Patient placed on aspirin 81 mg daily but additional NSAIDs held at this time secondary to sodium level of 121. -Telemetry monitoring -Continue aspirin 81 daily, atorvastatin 40 mg daily, and Plavix 75 mg daily. Awaiting remainder of home medications to be reconciled and will resume once dosing/medications are verified. -Echocardiogram History of rectal prolapse with permanent colostomy placement -Order placed for colostomy care as needed. Data and imaging reviewed: -As stated above in HPI CODE STATUS: Full code DVT prophylaxis: Lovenox Discussed with: Patient, RN, and cassandra architect Anticipated discharge date: Pending clinical course Anticipated discharge place: Home Patient was seen independently by Nurse Practitioner. This document was prepared using [employer] dictation software. Please allow for errors in senior storage engineer while rare they do occur. Toan Degroot NP rendered care for this patient independently, reviewed the findings and plan as documented in the note above and agree with plan. I did not physically speak with or examine the patient on this date. Past Medical History Past Medical History: Coronary Artery Disease (CAD), Cancer, Chest Pain / Angina, COPD, Eye Disorder, GERD/Reflux, Hyperlipidemia, Hypertension, Myocardial Infarction (AK), Musculoskeletal Disorder, Osteoarthritis (OA), Pneumonia, Skin Disorder, Thyroid Disorder Additional Past Medical History / Comment(s): Hx Covid/Pleurisy and Pneumonia 09/14/20. Colostomy due to rectal prolapse. Osteoporosis, Degnerative Disc Disease, Restless Leg Syndrome, multiple compression fractures in back, chronic back pain. Hx balance problems/falls, none since stopping Lamictal. 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 Varicose veins, poor circulation. Asthmatic bronchitis. Discoloration/bruises on bilateral arms. Stress urinary incontinence. Hx cervical cancer. Hypoglycemia, adrenal insufficency. Edema left lower leg. O2 2-3L PRN. Hx stomach ulcer many yrs ago. Hx low thyroid, ok now. Cardiac stent and stent behind one knee (not sure whichknee) Last Myocardial Infarction Date:: 08/06/19 History of Any Multi-Drug Resistant Organisms: None Reported Past Surgical History: Bowel Resection, Heart Catheterization, Heart Catheterization With Stent, Hysterectomy, Joint Replacement, Tonsillectomy, Tuba l Ligation Additional Past Surgical History / Comment(s): Colostomy, bilateral hip replacements, abdominal aortogram, colonoscopy. Past Anesthesia/Blood Transfusion Reactions: Previous Problems w/ Anesthesia, Motion Sickness, Postoperative Nausea & Vomiting (PONV) Additional Past Anesthesia/Blood Transfusion Reaction / Comment(s): BP "bottomed out" with colonoscopy years ago. Date of Last Stent Placement:: 08/06/19 Past Psychological History: Anxiety, Depression, Panic Disorder Smoking Status: Current every day smoker Past Alcohol Use History: Occasional Past Drug Use History: Marijuana - Past Family History Mother Family Medical History: Cancer Additional Family Medical History / Comment(s): Colon cancer. DEPRESSION, ANXIETY, ITCH AND CLAW HER HEAD EVERY NIGHT AND NOW I'M DOING IT) Father Family Medical History: Coronary Artery Disease (CAD) Additional Family Medical History / Comment(s): CABG./NARCOLEPSY (YANCY HAD COLON CA, DEPRESSION/ANXIETY, ITCH AND CLAW HER HEAD EVERYNIGHT & NOW I'M DOING IT) Brother(s) Family Medical History: Cancer, Coronary Artery Disease (CAD) Additional Family Medical History / Comment(s): CABG. Lymph node cancer. Medications and Allergies Home Medications Medication Instructions Recorded Confirmed Type rOPINIRole HCL [Requip] 1 mg PO HS 01/25/14 11/19/22 History Cyclobenzaprine [Flexeril] 10 mg PO DAILY PRN 07/07/14 11/19/22 History Acyclovir [Zovirax] 1 applic TOPICAL 5XD PRN 10/29/16 11/19/22 History DULoxetine HCL [Cymbalta] 60 mg PO BID 10/29/16 11/19/22 History ARIPiprazole [Abilify] 15 mg PO QAM 06/24/19 11/19/22 History Metoprolol Succinate [Toprol XL] 12.5 mg PO HS 06/24/19 11/19/22 History Omeprazole 20 mg PO DAILY 06/24/19 11/19/22 History hydrOXYzine HCL 25 mg PO TID PRN 06/24/19 11/19/22 History polyethylene glycoL 3350 [Miralax] 17 gm PO DAILY PRN 06/24/19 11/19/22 History traZODone HCL [Desyrel] 50 mg PO HS 06/24/19 11/19/22 History Aspirin [Adult Low Dose Aspirin EC] 81 mg PO DAILY 08/11/19 11/19/22 History Cbd Oil 1 drop PO DAILY PRN 08/11/19 11/19/22 History Fluticasone/Umeclidin/Vilanter 1 puff INHALATION QAM 08/11/19 11/19/22 History [Trelegy Ellipta 100-62.5-25] Lac-Hydrin 5% Cream 1 applic TOPICAL DAILY PRN 08/11/19 11/19/22 History Methyl Salicylate/Menthol 1 patch TOPICAL DAILY PRN 08/11/19 11/19/22 History [Salonpas Patch] Nitroglycerin Sl Tabs [Nitrostat] 0.4 mg SUBLINGUAL Q5M PRN 08/11/19 11/19/22 History Cholecalciferol [Vitamin D3 (25 75 mcg PO DAILY 07/18/20 11/19/22 History Mcg = 1000 Iu)] Dicyclomine HCl 10 mg PO TID PRN 07/18/20 11/19/22 History HYDROcodone/APAP 10-325MG [Wells 1 tab PO Q6HR PRN 07/18/20 11/19/22 History 10-325] Hydrocortisone [Cortef] 2.5 mg PO 1400,1700 07/18/20 11/19/22 History Latanoprost [Xalatan 0.005%] 1 drop BOTH EYES HS 07/18/20 11/19/22 History Montelukast Sodium [Singulair] 10 mg PO HS 07/18/20 11/19/22 History Multivit-Min/FA/Lycopen/Lutein 1 tab PO DAILY 07/18/20 11/19/22 History [Centrum Silver Tablet] Tolterodine ER [Detrol LA] 2 mg PO DAILY 07/18/20 11/19/22 History Triamcinolone 0.1% Cream [Kenalog 1 applic TOPICAL BID PRN 07/18/20 11/19/22 History 0.1% Cream] valACYclovir HCL [Valtrex] 1,000 mg PO HS 07/18/20 11/19/22 History Albuterol Inhaler [Ventolin Hfa 2 puff INHALATION QID 07/06/21 11/19/22 History Inhaler] Furosemide [Lasix] 20 - 40 mg PO BID PRN 07/06/21 11/19/22 History Ipratropium-Albuterol Nebulize 3 ml INHALATION QID PRN 07/06/21 11/19/22 History [Duoneb 0.5 mg-3 mg/3 ml Soln] Meclizine [Antivert] 25 mg PO TID PRN 07/06/21 11/19/22 History Raloxifene [Evista] 60 mg PO DAILY 07/06/21 11/19/22 History Rosuvastatin [Crestor] 20 mg PO DAILY 07/06/21 11/19/22 History Fluconazole [Diflucan] 150 mg PO DIRECTED PRN 08/01/21 11/19/22 History Mupirocin 2% Oint [Bactroban 2% 1 cream TOPICAL TID 08/01/21 11/19/22 History Oint] Nystatin 100,000 Unit/ml Susp 100,000 units PO QID 08/01/21 11/19/22 History [Mycostatin Oral Susp] Clopidogrel [Plavix] 75 mg PO DAILY #90 tab 08/02/21 11/19/22 Rx Lidocaine 5% Patch [Lidoderm] 1 patch TOPICAL DAILY PRN #7 patch 05/24/22 11/19/22 Rx Azelastine/Fluticasone 1 spray EA NOSTRIL BID 11/13/22 11/19/22 History [Azelastin-Flutic 137-50Mcg Spr] Hydrocortisone [Cortef] 12.5 mg PO QAM 11/13/22 11/19/22 History Levocetirizine Dihydrochloride 5 mg PO DAILY 11/13/22 11/19/22 History [Xyzal] Omalizumab [Xolair] 375 mg SQ Q14D 11/13/22 11/19/22 History bisacodyL [Dulcolax] 10 mg PO BID 11/19/22 11/19/22 History Allergies Allergy/AdvReac Type Severity Reaction Status Date / Time meperidine HCl [From Demerol] Allergy Severe Swelling Verified 07/11/24 12:44 Penicillins Allergy Rash/Hives Verified 07/11/24 12:44 erythromycin base AdvReac Abdominal Verified 07/11/24 12:44 Pain Physical Exam Vitals: Vital Signs Temp Pulse Resp BP Pulse Ox 07/11/24 12:50 116 H 18 83/62 97 07/11/24 12:39 97.8 F 118 H 18 106/88 95 Intake and Output 07/10/24 07/11/24 07/11/24 22:59 06:59 14:59 Intake Total 100 Balance 100 Intake: IV 100 Other: Weight 57.606 kg Results CBC & Chem 7: 07/11/24 12:50 07/11/24 12:50 Labs: Abnormal Lab Results - Last 24 Hours (Table) 07/11/24 07/11/24 Range/Units 12:50 12:50 RBC 3.50 L (3.80-5.40) m/uL MCV 103.7 H (80.0-100.0) fL Sodium 121 L (137-145) mmol/L Chloride 85 L (98-107) mmol/L Carbon Dioxide 32 H (22-30) mmol/L BUN 4 L (7-17) mg/dL Creatinine 0.34 L (0.52-1.04) mg/dL Glucose 120 H (74-99) mg/dL Magnesium 1.3 L (1.6-2.3) mg/dL AST 79 H (14-36) U/L ALT 67 H (4-34) U/L Total Protein 5.6 L (6.3-8.2) g/dL
[2024-07-11] MEDS: SODIUM CHLORIDE 0.9% 1,000 ML IV ONE (14:56)
[2024-07-11] MEDS: HYDROCORTISONE SUCCINATE 100 MG/2 ML VIAL IV STA (15:12)
[2024-07-11] MEDS: MAGNESIUM SULFATE-D5W PMX 1 GM in DEXTROSE/WATER 1 100ML.BAG IVPB SCH (15:13)
[2024-07-11] MEDS: ALBUTEROL NEBULIZED 2.5 MG/3 ML INHALATION SCH (16:16)
[2024-07-11] MEDS: MORPHINE SULFATE 4 MG/ML SYRINGE IV PRN (16:58)
[2024-07-11] MEDS ORDERED: HYDROCORTISONE 10 MG TAB PO SCH (17:00)
[2024-07-11] MEDS: SODIUM CHLORIDE 0.9% 1,000 ML IV SCH (17:02)
--- NOTE | 2024-07-11 17:02 | CA ---
Transthoracic Echo Report Name: Apryl Rachel Age: 69 Gender: F : 1955 Exam Date: 07/11/2024 15:31 Exam Location: [place] [facility] Ht (in): 62 Wt (lb): 127 Ordering Physician: Demetrius Ramirez MD ([id number]) Attending/Referring Phys: Garment Finisher Ashlie Benz RDCS Procedure CPT: Indications: CP Cardiac Hx: Technical Quality: Fair Contrast 1: Total Dose (mL): Contrast 2: Total Dose (mL): MEASUREMENTS (Male / Female) Normal Values 2D ECHO LV Diastolic Diameter PLAX 3.8 cm 4.2 - 5.9 / 3.9 - 5.3 cm LV Systolic Diameter PLAX 2.6 cm IVS Diastolic Thickness 0.9 cm 0.6 - 1.0 / 0.6 - 0.9 cm LVPW Diastolic Thickness 0.7 cm 0.6 - 1.0 / 0.6 - 0.9 cm LV Relative Wall Thickness 0.4 RV Internal Dim ED PLAX 2.5 cm LA Systolic Diameter LX 2.9 cm 3.0 - 4.0 / 2.7 - 3.8 cm LV Diastolic Volume MOD BP 53.6 cm??? 67 - 155 / 56 - 104 cm??? LV Systolic Volume MOD BP 30.0 cm??? 22 - 58 / 19 - 49 cm??? LV Ejection Fraction MOD BP 44.1 % >= 55 % LV Cardiac Index MOD BP 1705.4 cm???/min???m??? LV Diastolic Volume MOD 4C 53.7 cm??? LV Systolic Volume MOD 4C 27.0 cm??? LV Ejection Fraction MOD 4C 49.8 % LV Cardiac Index MOD 4C 1926.1 cm???/min???m??? LV Diastolic Length 4C 6.9 cm LV Systolic Length 4C 5.9 cm LV Diastolic Volume MOD 2C 52.5 cm??? LV Systolic Volume MOD 2C 30.5 cm??? LV Ejection Fraction MOD 2C 42.0 % LV Cardiac Index MOD 2C 1589.2 cm???/min???m??? LV Diastolic Length 2C 6.8 cm LV Systolic Length 2C 6.5 cm LA Volume 30.0 cm??? 18 - 58 / 22 - 52 cm??? LA Volume Index 18.8 cm???/m??? 16 - 28 cm???/m??? DOPPLER TR Peak Velocity 249.5 cm/s TR Peak Gradient 24.9 mmHg Right Ventricular Systolic Press 39.9 mmHg FINDINGS Left Ventricle Left ventricular ejection fraction is estimated at 55-60 %. Small left ventricular cavity. No obvious regional wall motion abnormalities. Normal left ventricular wall motion. Left ventricular wall thickness normal. Right Ventricle Normal right ventricular size and function. Mild pulmonary hypertension. Right Atrium Normal right atrial size. No spontaneous contrast in the right atrium. Left Atrium Normal left atrial size. No left atrial thrombus or mass present. Mitral Valve Structurally normal mitral valve. Trace to mild mitral regurgitation. No evidence for mitral valve prolapse. No mitral stenosis. Aortic Valve Trileaflet aortic valve. Diffuse thickening (sclerosis) of the aortic valve cusps without reduced excursion. Tricuspid Valve Structurally normal tricuspid valve. Mild tricuspid regurgitation. Pulmonic Valve Pulmonic valve not well visualized. No pulmonic regurgitation. Pericardium No pericardial effusion. Aorta Normal size aortic root and proximal ascending aorta. CONCLUSIONS Normal LV systolic function Aortic sclerosis with no stenosis No pericardial effusion Previewed by: Dr. Demetrius Ramirez MD (Electronically Signed) Final Date: 11 July 2024 17:01
[2024-07-11] MEDS: MAG HYDROX/AL HYDROX/SIMETH 30 ML CUP PO STA (18:33)
[2024-07-11 20:34] LABS: Appearance,Urine Clear (Clear); Bilirubin,Urine Negative (Negative); Blood,Urine Negative (Negative); Color,Urine Colorless; Glucose,Urine (UA) Negative (Negative); Ketones,Urine Negative (Negative); Leukocyte Esterase,Urine Negative (Negative); Nitrite,Urine Negative (Negative); PH, Urine 6.5 (5.0-8.0); Protein,Urine Negative (Negative); Specific Gravity,Urine 1.006 (1.001-1.035); Urobilinogen,Urine <2.0 mg/dL (<2.0)
[2024-07-11] MEDS: COLCHICINE 0.6 MG EACH PO SCH (20:54)
[2024-07-11 21:14] LABS: African American GFR (CKD) >90 (>60 ml/min/1.73 sqM); Anion Gap 4 mmol/L; Blood Urea Nitrogen 3 mg/dL (7-17); Calcium 8.3 mg/dL (8.4-10.2); Carbon Dioxide 35 mmol/L (22-30); Chloride 87 mmol/L (98-107); Glucose 115 mg/dL (74-99); Non-African American GFR(CKD) >90 (>60 ml/min/1.73 sqM); Potassium 3.9 mmol/L (3.5-5.1); Sodium 126 mmol/L (137-145)
[2024-07-11] MEDS: LATANOPROST 0.005% OPHTH DROPS 2.5 ML BTL BOTH EYES SCH (21:27)
[2024-07-12 02:20] LABS: Anion Gap 2 mmol/L; Blood Urea Nitrogen <2 mg/dL (7-17); Carbon Dioxide 37 mmol/L (22-30); Chloride 88 mmol/L (98-107); Glucose 153 mg/dL (74-99); Potassium 3.7 mmol/L (3.5-5.1); Sodium 127 mmol/L (137-145)
[2024-07-12 02:21] LABS: African American GFR (CKD) >90 (>60 ml/min/1.73 sqM); Calcium 7.8 mg/dL (8.4-10.2); Non-African American GFR(CKD) >90 (>60 ml/min/1.73 sqM)
[2024-07-12 07:15] LABS: Basophils % (A) 0 %; Eosinophils % (A) 0 %; HGB 11.7 gm/dL (11.4-16.0); Lymphocytes # (A) 1.9 k/uL (1.0-4.8); Lymphocytes % (A) 16 %; MCH 34.4 pg (25.0-35.0); MCHC 32.6 g/dL (31.0-37.0); MCV 105.6 fL (80.0-100.0); Macrocytosis Slight; Mean Platelet Volume 7.1; Monocytes # (A) 0.6 k/uL (0-1.0); Monocytes % (A) 5 %; Neutrophils # (A) 9.5 k/uL (1.3-7.7); Neutrophils % (A) 78 %; Platelet Count 338 k/uL (150-450); RBC 3.41 m/uL (3.80-5.40); RDW 13.2 % (11.5-15.5); WBC 12.2 k/uL (3.8-10.6)
[2024-07-12 07:30] LABS: African American GFR (CKD) >90 (>60 ml/min/1.73 sqM); Anion Gap 3 mmol/L; Blood Urea Nitrogen <2 mg/dL (7-17); Carbon Dioxide 34 mmol/L (22-30); Chloride 89 mmol/L (98-107); Glucose 81 mg/dL (74-99); Non-African American GFR(CKD) >90 (>60 ml/min/1.73 sqM); Potassium 3.7 mmol/L (3.5-5.1); Sodium 126 mmol/L (137-145)
[2024-07-12] MEDS: TIOTROPIUM 2.5 MCG INHALER INHALATION SCH (08:13)
[2024-07-12] MEDS: SYMBICORT 160-4.5 MCG INHALER INHALATION SCH (08:13)
[2024-07-12] MEDS: CLOPIDOGREL 75 MG TAB PO SCH (08:50)
[2024-07-12] MEDS: ASPIRIN 81 MG PO SCH (08:50)
[2024-07-12] MEDS: HYDROCORTISONE 10 MG TAB PO SCH ×2 (08:50→17:16)
[2024-07-12] MEDS: ATORVASTATIN 40 MG TAB PO SCH (08:50)
[2024-07-12] MEDS: ENOXAPARIN 40 MG/0.4 ML SYRINGE SQ SCH (08:50)
--- NOTE | 2024-07-12 12:17 | P.PN ---
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 She presented to the emergency department with a chief complaint of chest pain. Patient describes this pain as a constant pressure. She denied having any associated symptoms including diaphoresis, dizziness, lightheadedness, palpitations, shortness of breath, nausea, vomiting, or experiencing any numbness/tingling/weakness/swelling in her extremities. Patient reported pain w as constant pressure to midsternal chest and denied any radiation of this pain. EKG completed by EMS showing concerns of inferior STEMI and patient was transferred to our facility directly [facility] where she emergently underwent heart catheterization which revealed patent stent to the mid RCA with mild in- stent restenosis and mild disease of the left coronary system with elevated left-sided filling pressures. EKG completed upon arrival to our facility showing sinus tachycardia at [address] elevation concerning for pericarditis. Chest X-ray completed negative for acute cardiopulmonary process showing changes of COPD with hyperinflation of lungs and flattening of the diaphragm. Labs completed and reviewed. CBC showing macrocytosis with MCV of 103.7. Coagulation profile normal findings. BMP showing hypochloremic hyponatremia with sodium of 121, chloride of 85, and hypercarbia with bicarb of 32. Renal function showing a low BUN of 4, creatinine of 0.34, GFR greater than 90. Blood glucose was 120. Magnesium was low at 1.3. Liver profile showing mild transaminitis with AST of 79, and ALT of 67 with normal alkaline phosphatase of 64 and normal total bili of 0.6. Troponin was negative at less than 0.012. proBNP was 223. Total protein was low at 5.6 with a normal albumin of 3.5. Patient admitted under our services with consultation to cardiology and nephrology. 07/12 This is a pleasant 69 years old female currently nicotine smoker about 3 cigarettes/day and she was counseled to quit and she says she will try. Presents because of the STEMI and she is status post PCI to the mid RCA. Currently she has no chest pain which she came in with which was more of the right lower side. Also she has evidence of hyponatremia and sodium has improved up to 26 and has been stable since then. Also patient still complaining from shortness of breath. She uses oxygen 2 to 3 L at home. 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 Currently she still have wheezing and she is coughing up phlegm. Will start her on steroids Review of systems NEUROLOGICAL: No headaches, no weakness, no numbness. HEMATOLOGICAL: Denies any bleeding or petechiae. GENITOURINARY: Denies any burning micturition, frequency, or urgency. MUSCULOSKELETAL/RHEUMATOLOGICAL: Denies any joint pain, swelling, or any muscle pain. ENDOCRINE: Denies any polyuria or polydipsia. Active Medications Generic Name Dose Route Start Last Admin Trade Name Freq PRN Reason Stop Dose Admin Albuterol Sulfate 2.5 mg 07/11/24 18:00 07/12/24 11:34 Albuterol Nebulized 2.5 Mg/3 Ml INHALATION 2.5 mg QID [place] Administration Aspirin 81 mg 07/12/24 09:00 07/12/24 08:50 Aspirin 81 Mg PO 81 mg DAILY [place] Administration Atorvastatin Calcium 40 mg 07/12/24 09:00 07/12/24 08:50 Atorvastatin 40 Mg Tab PO 40 mg DAILY [place] Administration Budesonide/Formoterol Fumarate 2 puff 07/12/24 08:00 07/12/24 08:13 Symbicort 160-4.5 Mcg Inhaler INHALATION 2 puff RT-BID [place] Administration Clopidogrel Bisulfate 75 mg 07/12/24 09:00 07/12/24 08:50 Clopidogrel 75 Mg Tab PO 75 mg DAILY [place] Administration Colchicine 0.6 mg 07/11/24 21:00 07/12/24 08:51 Colchicine 0.6 Mg Each PO 0.6 mg BID [place] Administration Enoxaparin Sodium 40 mg 07/12/24 09:00 07/12/24 08:50 Enoxaparin 40 Mg/0.4 Ml Syringe SQ 40 mg DAILY [place] Administration Hydrocortisone 12.5 mg 07/12/24 09:00 07/12/24 08:50 Hydrocortisone 10 Mg Tab PO 12.5 mg QAM [place] Administration Hydrocortisone 2.5 mg 07/12/24 17:00 Hydrocortisone 10 Mg Tab PO 1400,1700 [place] Latanoprost 1 drops 07/11/24 21:00 07/11/24 21:27 Latanoprost 0.005% Ophth Drops 2.5 Ml Btl BOTH EYES 1 drops HS [place] Administration Miscellaneous Information 1 each 07/11/24 13:31 Rx Info: Iv Contrast Was Given 1 Each Mis MISCELLANE 07/13/24 13:31 DAILY PRN Per Protocol Morphine Sulfate 4 mg 07/11/24 14:41 07/12/24 08:51 Morphine Sulfate 4 Mg/Ml Syringe IV 4 mg Q4HR PRN Administration Severe Pain (Scale 7 to 10) Naloxone HCl 0.2 mg 07/11/24 12:56 Naloxone 0.4 Mg/Ml 1 Ml Vial IV Q2M PRN Opioid Reversal Tiotropium [place] 2 puff 07/12/24 08:00 07/12/24 08:13 Tiotropium 2.5 Mcg Inhaler INHALATION 2 puff RT-DAILY [place] Administration Objective - Vital Signs Vital signs: Vital Signs Temp 98.4 F 07/12/24 08:00 Pulse 92 07/12/24 11:45 Resp 19 07/12/24 08:00 BP 112/67 07/12/24 08:00 Pulse Ox 96 07/12/24 08:00 FiO2 Intake & Output 07/11/24 07/12/24 07/12/24 18:59 06:59 18:59 Intake Total 250 20 360 Output Total 700 Balance 250 -680 360 Weight 57.606 kg 53.3 kg Intake: IV 100 20 Invasive Line 1 20 Oral 150 360 Output: Urine 700 Other: Voiding Method Toilet # Voids 2 - Exam GENERAL: The patient is alert and oriented x3, not in any acute distress. Well developed, well nourished. HEENT: Pupils are round and equally reacting to light. EOMI. No scleral icterus. No conjunctival pallor. Normocephalic, atraumatic. No pharyngeal erythema. No thyromegaly. CARDIOVASCULAR: S1 and S2 present. No murmurs, rubs, or gallops. -PULMONARY: Chest is clear to auscultation, n bilateral expiratory wheezing , no crackles. ABDOMEN: Soft, nontender, nondistended, normoactive bowel sounds. No palpable organomegaly. MUSCULOSKELETAL: No joint swelling or deformity. EXTREMITIES: No cyanosis, clubbing, or pedal edema. NEUROLOGICAL: Gross neurological examination did not reveal any focal deficits. SKIN: No rashes. no petechiae. - Labs CBC & Chem 7: 03/31/25 06:29 07/12/24 06:29 Labs: Abnormal Lab Results - Last 24 Hours (Table) 07/11/24 07/11/24 07/11/24 Range/Units 12:50 12:50 14:03 WBC (3.8-10.6) k/uL RBC 3.50 L (3.80-5.40) m/uL MCV 103.7 H (80.0-100.0) fL Neutrophils # (1.3-7.7) k/uL Sodium 121 L (137-145) mmol/L Chloride 85 L (98-107) mmol/L Carbon Dioxide 32 H (22-30) mmol/L BUN 4 L (7-17) mg/dL Creatinine 0.34 L (0.52-1.04) mg/dL Glucose 120 H (74-99) mg/dL Osmolality 255 L (275-295) mOsm/kg Calcium (8.4-10.2) mg/dL Magnesium 1.3 L (1.6-2.3) mg/dL AST 79 H (14-36) U/L ALT 67 H (4-34) U/L Total Protein 5.6 L (6.3-8.2) g/dL Urine Osmolality (400-1100) mOsm/kg Ur Random Sodium (40-220) mmol/L 07/11/24 07/11/24 07/11/24 Range/Units 19:40 19:40 19:50 WBC (3.8-10.6) k/uL RBC (3.80-5.40) m/uL MCV (80.0-100.0) fL Neutrophils # (1.3-7.7) k/uL Sodium 126 L (137-145) mmol/L Chloride 87 L (98-107) mmol/L Carbon Dioxide 35 H (22-30) mmol/L BUN 3 L (7-17) mg/dL Creatinine 0.37 L (0.52-1.04) mg/dL Glucose 115 H (74-99) mg/dL Osmolality (275-295) mOsm/kg Calcium 8.3 L (8.4-10.2) mg/dL Magnesium (1.6-2.3) mg/dL AST (14-36) U/L ALT (4-34) U/L Total Protein (6.3-8.2) g/dL Urine Osmolality 114 L (400-1100) mOsm/kg Ur Random Sodium <20 L (40-220) mmol/L 07/12/24 07/12/24 07/12/24 Range/Units 01:28 06:29 06:29 WBC 12.2 H (3.8-10.6) k/uL RBC 3.41 L (3.80-5.40) m/uL MCV 105.6 H (80.0-100.0) fL Neutrophils # 9.5 H (1.3-7.7) k/uL Sodium 127 L 126 L (137-145) mmol/L Chloride 88 L 89 L (98-107) mmol/L Carbon Dioxide 37 H 34 H (22-30) mmol/L BUN <2 L <2 L (7-17) mg/dL Creatinine 0.37 L 0.34 L (0.52-1.04) mg/dL Glucose 153 H (74-99) mg/dL Osmolality (275-295) mOsm/kg Calcium 7.8 L 8.0 L (8.4-10.2) mg/dL Magnesium (1.6-2.3) mg/dL AST (14-36) U/L ALT (4-34) U/L Total Protein (6.3-8.2) g/dL Urine Osmolality (400-1100) mOsm/kg Ur Random Sodium (40-220) mmol/L Assessment and Plan Assessment: Acute STEMI status post PCI to mid RCA Hyponatremia, improving slowly and gradually Acute COPD exacerbation Chronic hypoxic respiratory failure GERD Hypertension Hyperlipidemia Osteoarthritis Osteoporosis Varicose vein Nicotine dependence Coronary artery disease status post stent before. Anxiety depression and panic disorder currently not an active issue Plan: Continue with dual antiplatelet therapy aspirin and Plavix Patient is on Cortef Monitor sodium level, nephrology team on the case. TSH reviewed and is normal. Cardiology following. Start patient on prednisone 40 mg. Labs and medication were reviewed.. Continue same treatment. Continue with symptomatic treatment. Resume home medication. Monitor labs and vitals. DVT and GI prophylaxis. Further recommendations as per clinical course of the patient DVT prophylaxis: Subcutaneous Lovenox GI Prophylaxis: Pepcid Prognosis is guarded
[2024-07-12] MEDS: predniSONE 20 MG TAB PO SCH (12:36)
--- NOTE | 2024-07-12 13:28 | P.NPCON ---
History of Present Illness - Reason for Consult hyponatremia - History of Present Illness Patient is a 69-year-old female with history of adrenal insufficiency, peripheral vascular disease, coronary artery disease, cervical cancer. She is admitted to the hospital with complaints of chest pain and feeling weak. Blood pressure was low with systolic reading documented in 80s. Serum sodium was 121 on admission and improved to 127 today. Most recent sodium is 126. She has been maintained on normal saline which was discontinued. History of COPD maintained on home oxygen. Patient has resumed her home dose of Cortef. She did get a dose of hydrocortisone yesterday. Past Medical History Past Medical History: Coronary Artery Disease (CAD), Cancer, Chest Pain / Jemima na, COPD, Eye Disorder, GERD/Reflux, Hyperlipidemia, Hypertension, Myocardial Infarction (ID), Musculoskeletal Disorder, Osteoarthritis (OA), Pneumonia, Skin Disorder, Thyroid Disorder Additional Past Medical History / Comment(s): Hx Covid/Pleurisy and Pneumonia 09/14/20. Colostomy due to rectal prolapse. Osteoporosis, Degnerative Disc Disease, Restless Leg Syndrome, multiple compression fractures in back, chronic back pain. Hx of balance problems/falls, none since stopping Lamictal. 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 Varicose veins, poor circulation. Asthmatic bronchitis. Discoloration/bruises on bilateral arms. Stress urinary incontinence. Hx cervical cancer. Hypoglycemia, adrenal insufficency. Edema left lower leg. Oxygen at 2-3L PRN. Hx stomach ulcer many yrs ago. Hx low thyroid, ok now. Cardiac stent and stent behind one knee (not sure which knee) Last Myocardial Infarction Date:: 08/06/19 History of Any Multi-Drug Resistant Organisms: None Reported Past Surgical History: Bowel Resection, Heart Catheterization, Heart Catheterization With Stent, Hysterectomy, Joint Replacement, Tonsillectomy, Tubal Ligation Additional Past Surgical History / Comment(s): Colostomy, bilateral hip replacements, abdominal aortogram, colonoscopy. Past Anesthesia/Blood Transfusion Reactions: Previous Problems w/ Anesthesia, Motion Sickness, Postoperative Nausea & Vomiting (PONV) Additional Past Anesthesia/Blood Transfusion Reaction / Comment(s): BP "bottomed out" with colonoscopy years ago. Date of Last Stent Placement:: 08/06/19 Past Psychological History: Anxiety, Depression, Panic Disorder Additional Psychological History / Comment(s): Patient states, "I have severe anxiety. I have a lot of panic attacks." Smoking Status: Current every day smoker Past Alcohol Use History: Occasional Additional Past Alcohol Use History / Comment(s): smokes 1-3 cigs/day, rarely has one drink of alcohol and rarely uses medicinal marijauna. Past Drug Use History: Marijuana Additional Drug Use History / Comment(s): Medical Marijuana use daily prn, uses CBD oil, edibles, prn. Aware no use 24 hrs prior to procedure. - Past Family History Mother Family Medical History: Cancer Additional Family Medical History / Comment(s): Colon cancer, depression, and anxiety Father Family Medical History: Coronary Artery Disease (CAD) Additional Family Medical History / Comment(s): CABG./NARCOLEPSY (MOTHER HAD COLON CA, DEPRESSION/ANXIETY, ITCH AND CLAW HER HEAD EVERYNIGHT & NOW I'M DOING IT) Brother(s) Family Medical History: Cancer, Coronary Artery Disease (CAD) Additional Family Medical History / Comment(s): CABG. Lymph node cancer. Medications and Allergies Home Medications Medication Instructions Recorded Confirmed Type rOPINIRole HCL [Requip] 1 mg PO HS 01/25/14 07/11/24 History Cyclobenzaprine [Flexeril] 10 mg PO BID 07/07/14 07/11/24 History Nitroglycerin Sl Tabs [Nitrostat] 0.4 mg SL Q5M PRN 08/11/19 07/11/24 History Latanoprost [Xalatan 0.005%] 1 drop BOTH EYES HS 07/18/20 07/11/24 History Montelukast Sodium [Singulair] 10 mg PO HS 07/18/20 07/11/24 History valACYclovir HCL [Valtrex] 500 mg PO BID 07/18/20 07/11/24 History Albuterol Inhaler [Ventolin Hfa 2 puff INHALATION RT-QID PRN 07/06/21 07/11/24 History Inhaler] Ipratropium-Albuterol Nebulize 3 ml INHALATION RT-QID 07/06/21 07/11/24 History [Duoneb 0.5 mg-3 mg/3 ml Soln] Rosuvastatin [Crestor] 20 mg PO DAILY 07/06/21 07/11/24 History Nystatin 100,000 Unit/ml Susp 100,000 units PO QID 08/01/21 07/11/24 History [Mycostatin Oral Susp] Levocetirizine Dihydrochloride 5 mg PO HS 11/13/22 07/11/24 History [Xyzal] Omalizumab [Xolair] 300 mg SQ Q14D 11/13/22 07/11/24 History ARIPiprazole [Abilify] 20 mg PO DAILY 07/11/24 07/11/24 History Budesonide [Pulmicort] 0.5 mg INHALATION RT-BID 07/11/24 07/11/24 History Colchicine 0.6 mg PO DAILY 07/11/24 07/11/24 History Doxycycline Hyclate 100 mg PO BID 07/11/24 07/11/24 History EPINEPHrine (Auto Inject) [Epipen] 0.3 mg IM ONCE PRN 07/11/24 07/11/24 History Escitalopram [Lexapro] 20 mg PO DAILY 07/11/24 07/11/24 History Ferrous Sulfate [Feosol] 325 mg PO DAILY 07/11/24 07/11/24 History Fluticasone Nasal [place] [Flonase 2 spr EA NOSTRIL BID 07/11/24 07/11/24 History Nasal [place]] Fluticasone/Umeclidin/Vilanter 1 puff INHALATION RT-DAILY 07/11/24 07/11/24 History [Trelegy Ellipta 200-62.5-25] Folic Acid 1 mg PO DAILY 07/11/24 07/11/24 History HYDROcodone/APAP 5-325MG [[place] 1 tab PO BID 07/11/24 07/11/24 History 5-325] Hydrocortisone [Cortef] 12.5 mg PO DAILY@0800 07/11/24 07/12/24 History Ibuprofen [Motrin] 800 mg PO TID PRN 07/11/24 07/11/24 History Lactulose 10 gm PO TID 07/11/24 07/11/24 History Linaclotide [Linzess] 145 mcg PO DAILY 07/11/24 07/11/24 History Metoprolol Tartrate [Lopressor] 12.5 mg PO TID@0900,1600,2100 07/11/24 07/11/24 History Morphine Sulfate ER [Ms Contin] 15 mg PO Q12HR 07/11/24 07/11/24 History Omalizumab [Xolair] 75 mg SQ Q14D 07/11/24 07/11/24 History Pantoprazole [Protonix] 40 mg PO DAILY 07/11/24 07/11/24 History Thiamine [Vitamin B-1] 100 mg PO DAILY 07/11/24 07/11/24 History busPIRone HCL [Buspar] 7.5 mg PO BID 07/11/24 07/11/24 History hydrOXYzine HCL [Atarax] 50 mg PO BID 07/11/24 07/11/24 History predniSONE See Taper PO DIRECTED 07/11/24 07/11/24 History traZODone HCL [Desyrel] 100 mg PO HS 07/11/24 07/11/24 History Hydrocortisone 1 dose PO DAILY PRN 07/12/24 07/12/24 History Hydrocortisone [Cortef] 5 mg PO DAILY@1400 07/12/24 07/12/24 History Allergies Allergy/AdvReac Type Severity Reaction Status Date / Time meperidine HCl [From Demerol] Allergy Severe Swelling Verified 07/11/24 18:10 Penicillins Allergy Rash/Hives Verified 07/11/24 18:10 erythromycin base AdvReac Abdominal Verified 07/11/24 18:10 Pain Physical Exam Vitals: Vital Signs Temp Pulse Pulse Resp BP Pulse Ox 07/12/24 11:45 92 07/12/24 11:34 88 07/12/24 08:29 104 H 07/12/24 08:14 104 H 07/12/24 08:00 98.4 F 103 H 19 112/67 96 07/12/24 03:00 97 22 121/81 96 07/11/24 23:10 97.6 F 90 19 119/74 97 07/11/24 20:52 101 H 20 07/11/24 20:46 97 20 07/11/24 20:40 97.3 F L 93 22 98/62 98 07/11/24 17:45 101 H 96 07/11/24 16:45 103 H 111/78 97 07/11/24 16:25 102 H 07/11/24 16:17 102 H 07/11/24 15:45 103 H 102/67 100 07/11/24 15:15 98 121/75 100 07/11/24 14:45 98 16 120/76 100 07/11/24 14:30 97 16 118/78 100 07/11/24 14:15 104 H 16 125/78 98 07/11/24 14:00 98.4 F 102 H 16 109/74 100 Intake and Output 07/11/24 07/12/24 07/12/24 22:59 06:59 14:59 Intake Total 160 10 360 Output Total 700 Balance 160 -690 360 Intake: IV 10 10 Invasive Line 1 10 10 Oral 150 360 Output: Urine 700 Other: Voiding Method Toilet Toilet # Voids 2 Weight 57.606 kg 53.3 kg Patient is awake, comfortable, no acute distress Examination of the heart S1 and S2 Examination of the lungs bilateral breath sounds are heard Abdomen is soft nontender Examination of lower extremity shows chronic skin changes, no significant edema noted [employer] exam grossly intact Results - Lab Results Most recent lab results Calcium 8.0 mg/dL (8.4-10.2) L 07/12/24 06:29 Magnesium 2.0 mg/dL (1.6-2.3) 07/12/24 06:29 07/12/24 06:29 07/12/24 06:29 Assessment and Plan Assessment: 1. Hyponatremia, hypovolemic, improved with saline. Underlying history of adrenal insufficiency currently maintained on hydrocortisone. 2. History of COPD maintained on home oxygen 3. Status post cardiac catheterization with patent stent 4. Peripheral vascular disease Plan: Resume normal saline Repeat sodium later on today Continue with home dose of Cortef Encourage increased oral intake Thank you for the consultation. We will continue to follow the patient with you during her hospitalization
[2024-07-12 13:55] LABS: African American GFR (CKD) >90 (>60 ml/min/1.73 sqM); Anion Gap 4 mmol/L; Blood Urea Nitrogen 3 mg/dL (7-17); Carbon Dioxide 32 mmol/L (22-30); Chloride 87 mmol/L (98-107); Glucose 138 mg/dL (74-99); Non-African American GFR(CKD) >90 (>60 ml/min/1.73 sqM); Potassium 3.7 mmol/L (3.5-5.1); Sodium 123 mmol/L (137-145)
[2024-07-12] MEDS: SODIUM CHLORIDE 0.9% 1,000 ML IV SCH (14:03)
[2024-07-12] MEDS: IPRATROPIUM-ALBUTEROL 3 ML NEB INHALATION STA (15:15)
[2024-07-12] MEDS: carvediloL 3.125 MG TAB PO SCH (17:15)
[2024-07-12 20:20] LABS: Glucose,Whole Blood 113 mg/dL (70-110)
[2024-07-12] MEDS: ALPRAZolam 0.25 MG TAB PO ONE (20:44)
[2024-07-12] MEDS: SENNOSIDES 8.6 MG TAB PO PRN (20:44)
[2024-07-12] MEDS: COLCHICINE 0.6 MG EACH PO SCH (20:44)
[2024-07-13] MEDS: IPRATROPIUM-ALBUTEROL 3 ML NEB INHALATION PRN (05:18)
[2024-07-13 08:35] LABS: Basophils % (A) 0 %; Eosinophils # (A) 0.1 k/uL (0-0.7); Eosinophils % (A) 1 %; HCT 36.5 % (34.0-46.0); HGB 11.7 gm/dL (11.4-16.0); Hypochromasia Slight; Lymphocytes # (A) 2.3 k/uL (1.0-4.8); Lymphocytes % (A) 19 %; MCH 34.5 pg (25.0-35.0); MCHC 32.1 g/dL (31.0-37.0); MCV 107.6 fL (80.0-100.0); Macrocytosis Moderate; Mean Platelet Volume 7.4; Monocytes # (A) 0.4 k/uL (0-1.0); Monocytes % (A) 3 %; Neutrophils # (A) 9.1 k/uL (1.3-7.7); Neutrophils % (A) 76 %; RBC 3.39 m/uL (3.80-5.40)
[2024-07-13 10:05] LABS: Platelet Count 125 k/uL (150-450)
[2024-07-13 10:11] LABS: Large Platelets Present
[2024-07-13 10:12] LABS: RBC Morphology Normal
[2024-07-13 10:36] LABS: ALT 75 U/L (4-34); AST 94 U/L (14-36); African American GFR (CKD) >90 (>60 ml/min/1.73 sqM); Albumin 3.2 g/dL (3.5-5.0); Alkaline Phosphatase 87 U/L (38-126); Anion Gap 0 mmol/L; Blood Urea Nitrogen <2 mg/dL (7-17); Calcium 8.1 mg/dL (8.4-10.2); Carbon Dioxide 36 mmol/L (22-30); Chloride 88 mmol/L (98-107); Glucose 100 mg/dL (74-99); Non-African American GFR(CKD) >90 (>60 ml/min/1.73 sqM); Potassium 4.1 mmol/L (3.5-5.1); Sodium 124 mmol/L (137-145); Total Bilirubin 0.4 mg/dL (0.2-1.3); Total Protein 5.3 g/dL (6.3-8.2)
--- NOTE | 2024-07-13 12:11 | P.PN ---
Subjective Patient is seen for follow-up for hyponatremia. Underlying history of adrenal insufficiency. Serum sodium improved initially from 1 -1 with IV hydration however it dropped back down to 123 and 124. No significant complaints today. Concern for possible urine retention. Bladder scan will be performed. Objective - Vital Signs Vital signs: Vital Signs Temp 98.2 F 07/13/24 08:00 Pulse 88 07/13/24 09:20 Resp 19 07/13/24 08:00 BP 129/80 07/13/24 08:00 Pulse Ox 96 07/13/24 08:00 FiO2 Intake & Output 07/12/24 07/13/24 07/13/24 18:59 06:59 18:59 Intake Total 600 20 180 Balance 600 20 180 Weight 53.3 kg 53 kg Intake: IV 20 Invasive Line 1 20 Oral 600 180 Other: Voiding Method Toilet Bedside Commode - Exam Patient is awake, comfortable, no acute distress Examination of the heart S1 and S2 Examination of the lungs bilateral breath sounds are heard Abdomen is soft nontender Examination of lower extremity shows chronic skin changes, no significant edema noted [employer] exam grossly intact - Labs CBC & Chem 7: 07/13/24 06:00 07/13/24 10:25 Labs: Abnormal Lab Results - Last 24 Hours (Table) 07/12/24 07/12/24 07/13/24 Range/Units 13:25 20:18 06:00 WBC 12.0 H (3.8-10.6) k/uL RBC 3.39 L (3.80-5.40) m/uL MCV 107.6 H (80.0-100.0) fL Plt Count 125 L D (150-450) k/uL Neutrophils # 9.1 H (1.3-7.7) k/uL Sodium 123 L (137-145) mmol/L Chloride 87 L (98-107) mmol/L Carbon Dioxide 32 H (22-30) mmol/L BUN 3 L (7-17) mg/dL Creatinine 0.34 L (0.52-1.04) mg/dL Glucose 138 H (74-99) mg/dL POC Glucose (mg/dL) 113 H (70-110) mg/dL Calcium 8.0 L (8.4-10.2) mg/dL AST (14-36) U/L ALT (4-34) U/L Total Protein (6.3-8.2) g/dL Albumin (3.5-5.0) g/dL 07/13/24 07/13/24 Range/Units 06:00 10:25 WBC (3.8-10.6) k/uL RBC (3.80-5.40) m/uL MCV (80.0-100.0) fL Plt Count (150-450) k/uL Neutrophils # (1.3-7.7) k/uL Sodium 124 L 123 L (137-145) mmol/L Chloride 88 L (98-107) mmol/L Carbon Dioxide 36 H (22-30) mmol/L BUN <2 L (7-17) mg/dL Creatinine 0.39 L (0.52-1.04) mg/dL Glucose 100 H (74-99) mg/dL POC Glucose (mg/dL) (70-110) mg/dL Calcium 8.1 L (8.4-10.2) mg/dL AST 94 H (14-36) U/L ALT 75 H (4-34) U/L Total Protein 5.3 L (6.3-8.2) g/dL Albumin 3.2 L (3.5-5.0) g/dL Assessment and Plan Assessment: 1. Hyponatremia, hypovolemic, improved with saline initially then worsened again. Underlying history of adrenal insufficiency currently maintained on hydrocortisone. Urine osmolality is low at 114 with a random urine sodium less than 20. Patient will be started on salt tablets. She is also advised to increase oral intake particularly protein. 2. History of COPD maintained on home oxygen 3. Status post cardiac catheterization with patent stent 4. Peripheral vascular disease Plan: DC normal saline Sodium chloride tab x 1 Repeat sodium this evening Encourage increased oral intake particularly protein. IV Lasix x 1
[2024-07-13] MEDS: FUROSEMIDE 10 MG/ML 2 ML VIAL IV ONE (12:29)
[2024-07-13] MEDS: SODIUM CHLORIDE TAB 1 GM TAB PO STA (12:43)
--- NOTE | 2024-07-13 14:45 | P.PN ---
Subjective Progress Note Date: 07/13/24 The patient is a pleasant 69-year-old female patient who is known to our service from before with a past medical history significant for CAD with prior stenting of the RCA as well as lower extremities PAD with prior stenting of the right iliac artery and also hypertension and dyslipidemia and history of pericarditis as well as history of colostomy as well as multiple comorbid conditions presented to the emergency department complaining of chest discomfort started within the last 24 hours as a pressure across the chest with no radiation to the arms or neck or shoulders or back and no associated symptoms of shortness of breath or sweating or dizziness or lightheadedness or any presyncope or syncope. She called ambulance where an EKG was performed and showed finding consistent with inferior STEMI. The patient was brought to the cardiac Costume Shop Manager emergently where she underwent a heart catheterization which revealed patent stent in the mid RCA with mild in-stent restenosis and mild disease involving the left coronary system with elevated left-sided filling pressure. Further evaluation of the EKG revealed diffuse ST segment elevation with ST depression in aVR only. The finding appears to be consistent mostly with pericarditis. Currently the patient is chest pain-free. Her vitals are stable besides mild sinus tachycardia. The physical examination is remarkable for regular rhythm with a distant heart sounds and diminished breathing sounds bilaterally and no edema was noted in the lower extremities 07/12/2024 Patient is seen and examined at bedside this a.m. Patient is right radial access site appears to be intact with no signs of hematoma or bleeding with good radial pulse She reports generalized weakness noticed to be hyponatremic. For this nephrology was consulted. 07/13/2024 Patient is seen and examined at bedside this a.m. Denies any chest pain chest pressure Eager to go home, nephrology is following for hyponatremia. Assessment Chest discomfort appears to be concerning for pericarditis Mild CAD based on recent heart catheterization History of heart failure with HFrEF Lower extremities PAD as described above Chronic shortness of breath COPD History of smoking and the patient continues to smoke as a matter fact Multiple comorbid conditions including history of colostomy Adrenal sufficiency on Solu-Cortef Pertinent cardiac testing Echo EF 55%, no obvious RWMA, mild aortic sclerosis with no stenosis. Plan Aspirin, Lipitor, Coreg 3.125 mg twice daily, Plavix 75 mg, colchicine as per Dr. Castro's recommendation for 1 month. Will add amlodipine 2.5 mg daily for elevated blood pressure. At this time patient is stable from cardiovascular standpoint. Cardiology team will sign off. Please reconsult in case of any question. Recommend outpatient follow-up with cardiology Objective - Vital Signs Vital signs: Vital Signs Temp 98.2 F 07/13/24 12:34 Pulse 100 07/13/24 12:34 Resp 19 07/13/24 12:34 BP 130/82 07/13/24 12:34 Pulse Ox 93 L 07/13/24 12:34 FiO2 Intake & Output 07/12/24 07/13/24 07/13/24 18:59 06:59 18:59 Intake Total 600 20 420 Balance 600 20 420 Weight 53.3 kg 53 kg Intake: IV 20 Invasive Line 1 20 Oral 600 420 Other: Voiding Method Toilet Bedside Commode - Labs CBC & Chem 7: 07/13/24 06:00 07/13/24 10:25 Labs: Abnormal Lab Results - Last 24 Hours (Table) 07/12/24 07/13/24 07/13/24 Range/Units 20:18 06:00 06:00 WBC 12.0 H (3.8-10.6) k/uL RBC 3.39 L (3.80-5.40) m/uL MCV 107.6 H (80.0-100.0) fL Plt Count 125 L D (150-450) k/uL Neutrophils # 9.1 H (1.3-7.7) k/uL Sodium 124 L (137-145) mmol/L Chloride 88 L (98-107) mmol/L Carbon Dioxide 36 H (22-30) mmol/L BUN <2 L (7-17) mg/dL Creatinine 0.39 L (0.52-1.04) mg/dL Glucose 100 H (74-99) mg/dL POC Glucose (mg/dL) 113 H (70-110) mg/dL Calcium 8.1 L (8.4-10.2) mg/dL AST 94 H (14-36) U/L ALT 75 H (4-34) U/L Total Protein 5.3 L (6.3-8.2) g/dL Albumin 3.2 L (3.5-5.0) g/dL 07/13/24 Range/Units 10:25 WBC (3.8-10.6) k/uL RBC (3.80-5.40) m/uL MCV (80.0-100.0) fL Plt Count (150-450) k/uL Neutrophils # (1.3-7.7) k/uL Sodium 123 L (137-145) mmol/L Chloride (98-107) mmol/L Carbon Dioxide (22-30) mmol/L BUN (7-17) mg/dL Creatinine (0.52-1.04) mg/dL Glucose (74-99) mg/dL POC Glucose (mg/dL) (70-110) mg/dL Calcium (8.4-10.2) mg/dL AST (14-36) U/L ALT (4-34) U/L Total Protein (6.3-8.2) g/dL Albumin (3.5-5.0) g/dL
[2024-07-13] MEDS: amLODIPine 2.5 MG TAB PO SCH (15:41)
[2024-07-13] MEDS: IPRATROPIUM-ALBUTEROL 3 ML NEB INHALATION SCH (21:13)
--- NOTE | 2024-07-13 22:19 | PN ---
PROGRESS NOTE DATE OF SERVICE: 07/13/2024 SUBJECTIVE: This is a 69-year-old woman who was admitted with acute [id number] elevation myocardial infarction, had a stent to the RCA. No chest pain. No palpitation. OBJECTIVE: VITAL SIGNS: Pulse is 100, blood pressure 130/82, respirations 19. CHEST: A few scattered rhonchi and crackles. ABDOMEN: Soft. NERVOUS SYSTEM: Nonfocal. LABORATORY DATA: Reviewed. ASSESSMENT: 1. Acute ST-segment elevation, status post percutaneous coronary angioplasty to the mid right coronary artery. 2. Chronic obstructive pulmonary disease acute exacerbation. 3. Hyponatremia. 4. Hypertension. 5. Hyperlipidemia. 6. Multiple complex medical issues. RECOMMENDATIONS AND DISCUSSION: I recommend to continue current management and continue symptomatic treatment. Continue with antiplatelet agents, bronchodilators. Repeat labs in the morning. Further recommendations to follow. MMLUL / IJN: [id number] /
[2024-07-13] MEDS: MELATONIN 5 MG TABLET PO PRN (23:36)
[2024-07-14 08:35] LABS: Basophils % (A) 0 %; Eosinophils # (A) 0.1 k/uL (0-0.7); Eosinophils % (A) 1 %; HCT 36.6 % (34.0-46.0); HGB 11.8 gm/dL (11.4-16.0); Hypochromasia Slight; Lymphocytes # (A) 2.4 k/uL (1.0-4.8); Lymphocytes % (A) 21 %; MCH 34.6 pg (25.0-35.0); MCHC 32.3 g/dL (31.0-37.0); MCV 107.1 fL (80.0-100.0); Macrocytosis Moderate; Mean Platelet Volume 7.1; Monocytes # (A) 0.6 k/uL (0-1.0); Monocytes % (A) 5 %; Neutrophils # (A) 8.3 k/uL (1.3-7.7); Neutrophils % (A) 72 %; RBC 3.42 m/uL (3.80-5.40); RDW 13.2 % (11.5-15.5); WBC 11.5 k/uL (3.8-10.6)
[2024-07-14 08:43] LABS: African American GFR (CKD) >90 (>60 ml/min/1.73 sqM); Blood Urea Nitrogen 4 mg/dL (7-17); Calcium 8.2 mg/dL (8.4-10.2); Chloride 84 mmol/L (98-107); Glucose 64 mg/dL (74-99); Non-African American GFR(CKD) >90 (>60 ml/min/1.73 sqM); Potassium 3.8 mmol/L (3.5-5.1); Sodium 126 mmol/L (137-145)
[2024-07-14 08:49] LABS: Anion Gap 5 mmol/L; Carbon Dioxide 37 mmol/L (22-30)
[2024-07-14 09:00] LABS: Platelet Count 329 k/uL (150-450)
[2024-07-14] MEDS: NITROGLYCERIN SL TABS 0.4 MG TAB SUBLINGUAL PRN (12:09)
[2024-07-14] MEDS: FUROSEMIDE 10 MG/ML 2 ML VIAL IV ONE (12:10)
--- NOTE | 2024-07-14 13:01 | P.PN ---
Subjective Patient is seen for follow-up for hyponatremia. Underlying history of adrenal insufficiency. Serum sodium improved initially from 121-127 with IV hydration however it dropped back down to 123 and 124. It is 126 today. Patient received IV Lasix and she has been off of IV fluids. No significant complaints today. Objective - Vital Signs Vital signs: Vital Signs Temp 97.5 F L 07/14/24 08:00 Pulse 90 07/14/24 09:54 Resp 24 07/14/24 09:54 BP 122/84 07/14/24 08:00 Pulse Ox 99 07/14/24 09:44 FiO2 Intake & Output 07/13/24 07/14/24 07/14/24 18:59 06:59 18:59 Intake Total 420 540 Balance 420 540 Weight 53.7 kg Intake: Oral 420 540 Other: Voiding Method Toilet Toilet Bedside Commode Bedside Commode # Voids 2 - Exam Patient is awake, comfortable, no acute distress Examination of the heart S1 and S2 Examination of the lungs bilateral breath sounds are heard Abdomen is soft nontender Examination of lower extremity shows chronic skin changes, no significant edema noted SURVEILLANCE AGENT exam grossly intact - Labs CBC & Chem 7: 07/14/24 07:16 07/14/24 07:16 Labs: Abnormal Lab Results - Last 24 Hours (Table) 07/13/24 07/14/24 07/14/24 Range/Units 18:57 07:16 07:16 WBC 11.5 H (3.8-10.6) k/uL RBC 3.42 L (3.80-5.40) m/uL MCV 107.1 H (80.0-100.0) fL Neutrophils # 8.3 H (1.3-7.7) k/uL Sodium 124 L 126 L (137-145) mmol/L Chloride 84 L (98-107) mmol/L Carbon Dioxide 37 H (22-30) mmol/L BUN 4 L (7-17) mg/dL Creatinine 0.43 L (0.52-1.04) mg/dL Glucose 64 L (74-99) mg/dL Calcium 8.2 L (8.4-10.2) mg/dL Assessment and Plan Assessment: 1. Hyponatremia, hypovolemic, improved with saline initially then worsened again. Underlying history of adrenal insufficiency currently maintained on hydrocortisone. Urine osmolality is low at 114 with a random urine sodium less than 20. Status post sodium chloride tab yesterday. Patient also received 1 dose of IV Lasix. She is also advised to increase oral intake particularly protein. 2. History of COPD maintained on home oxygen 3. Status post cardiac catheterization with patent stent 4. Peripheral vascular disease Plan: Continue off of IV fluids Repeat low-dose Lasix today and repeat sodium this evening. Encourage increased oral intake particularly protein.
--- NOTE | 2024-07-14 14:06 | P.PN ---
Subjective HISTORY OF PRESENT ILLNESS: The patient is a pleasant 69-year-old female patient who is known to our service from before with a past medical history significant for CAD with prior stenting of the RCA as well as lower extremities PAD with prior stenting of the right iliac artery and also hypertension and dyslipidemia and history of pericarditis as well as history of colostomy as well as multiple comorbid conditions presented to the emergency department complaining of chest discomfort started within the last 24 hours as a pressure across the chest with no radiation to the arms or neck or shoulders or back and no associated symptoms of shortness of breath or sweating or dizziness or lightheadedness or any presyncope or syncope. She called ambulance where an EKG was performed and showed finding consistent with inferior STEMI. The patient was brought to the cardiac Corporate Tax Preparer emergently where she underwent a heart catheterization which revealed patent stent in the mid RCA with mild in-stent restenosis and mild disease involving the left coronary system with elevated left-sided filling pressure. Further evaluation of the EKG revealed diffuse ST segment elevation with ST depression in aVR only. The finding appears to be consistent mostly with pericarditis. Currently the patient is chest pain-free. Her vitals are stable besides mild sinus tachycardia. The physical examination is remarkable for regular rhythm with a distant heart sounds and diminished breathing sounds bilaterally and no edema was noted in the lower extremities 07/12/2024 Patient is seen and examined at bedside this a.m. Patient is right radial access site appears to be intact with no signs of hematoma or bleeding with good radial pulse She reports generalized weakness noticed to be hyponatremic. For this nephrology was consulted. 07/13/2024 Patient is seen and examined at bedside this a.m. Denies any chest pain chest pressure Eager to go home, nephrology is following for hyponatremia. 07/14/2024 Cardiology was reconsulted due to chest discomfort. Per patient's nurse, patient had 2 episodes of chest discomfort. EKG was completed which was unch anged from prior. At the time of examination the patient denies any chest pain or pressure. In fact she states she has not had any chest discomfort today so unsure if patient is having some episodes of confusion as she reported chest pain to the nurse PHYSICAL EXAM: VITAL SIGNS: Reviewed. GENERAL: Well-developed in no acute distress. NECK: Supple. No JVD or thyromegaly LUNGS: Respirations even and unlabored. Lungs essentially clear to auscultation bilaterally. HEART: Regular rate and rhythm. S1 and S2 heard. EXTREMITIES: Normal range of motion. No clubbing or cyanosis. Peripheral puls es intact. No lower extremity edema ASSESSMENT: Chest discomfort appears to be concerning for pericarditis Mild CAD based on recent heart catheterization History of heart failure with HFrEF Lower extremities PAD as described above Chronic shortness of breath COPD History of smoking and the patient continues to smoke as a matter fact Multiple comorbid conditions including history of colostomy Adrenal sufficiency on Solu-Cortef Pertinent cardiac testing Echo EF 55%, no obvious RWMA, mild aortic sclerosis with no stenosis. PLAN: Continue current cardiac medications including amlodipine, aspirin, Lipitor, carvedilol, Plavix, colchicine No further inpatient recommendations from a cardiac standpoint We will sign off. Please reconsult if needed. Nurse practitioner note has been reviewed by physician. Signing provider agrees with the documented findings, assessment, and plan of care documented by CREATIVE SERVICES PRODUCER as a scribe. Objective - Vital Signs Vital signs: Vital Signs Temp 97.5 F L 07/14/24 08:00 Pulse 90 07/14/24 09:54 Resp 24 07/14/24 09:54 BP 122/84 07/14/24 08:00 Pulse Ox 99 07/14/24 09:44 FiO2 Intake & Output 07/13/24 07/14/24 07/14/24 18:59 06:59 18:59 Intake Total 420 780 Balance 420 780 Weight 53.7 kg Intake: Oral 420 780 Other: Voiding Method Toilet Toilet Bedside Commode Bedside Commode # Voids 2 - Labs CBC & Chem 7: 07/14/24 07:16 07/14/24 07:16 Labs: Abnormal Lab Results - Last 24 Hours (Table) 07/13/24 07/14/24 07/14/24 Range/Units 18:57 07:16 07:16 WBC 11.5 H (3.8-10.6) k/uL RBC 3.42 L (3.80-5.40) m/uL MCV 107.1 H (80.0-100.0) fL Neutrophils # 8.3 H (1.3-7.7) k/uL Sodium 124 L 126 L (137-145) mmol/L Chloride 84 L (98-107) mmol/L Carbon Dioxide 37 H (22-30) mmol/L BUN 4 L (7-17) mg/dL Creatinine 0.43 L (0.52-1.04) mg/dL Glucose 64 L (74-99) mg/dL Calcium 8.2 L (8.4-10.2) mg/dL
[2024-07-14] MEDS: ALPRAZolam 0.25 MG TAB PO PRN (21:13)
--- NOTE | 2024-07-14 21:26 | P.PN ---
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 She presented to the emergency department with a chief complaint of chest pain. Patient describes this pain as a constant pressure. She denied having any associated symptoms including diaphoresis, dizziness, lightheadedness, palpitations, shortness of breath, nausea, vomiting, or experiencing any numbness/tingling/weakness/swelling in her extremities. Patient reported pain was constant pressure to midsternal chest and denied any radiation of this pain. EKG completed by EMS showing concerns of inferior STEMI and patient was tra nsferred to our facility directly to [facility] where she emergently underwent heart catheterization which revealed patent stent to the mid RCA with mild in- stent restenosis and mild disease of the left coronary system with elevated left-sided filling pressures. EKG completed upon arrival to our facility showing sinus tachycardia at [address] elevation concerning for pericarditis. Chest X-ray completed negative for acute cardiopulmonary process showing changes of COPD with hyperinflation of lungs and flattening of the diaphragm. Labs completed and reviewed. CBC showing macrocytosis with MCV of 103.7. Coagulation profile normal findings. BMP showing hypochloremic hyponatremia with sodium of 121, chloride of 85, and hypercarbia with bicarb of 32. Renal function showing a low BUN of 4, creatinine of 0.34, GFR greater than 90. Blood glucose was 120. Magnesium was low at 1.3. Liver profile showing mild transaminitis with AST of 79, and ALT of 67 with normal alkaline ph osphatase of 64 and normal total bili of 0.6. Troponin was negative at less than 0.012. proBNP was 223. Total protein was low at 5.6 with a normal albumin of 3.5. Patient admitted under our services with consultation to cardiology and nephrology. 07/12 This is a pleasant 69 years old female currently nicotine smoker about 3 cigarettes/day and she was counseled to quit and she says she will try. Presents because of the STEMI and she is status post PCI to the mid RCA. Currently she has no chest pain which she came in with which was more of the right lower side. Also she has evidence of hyponatremia and sodium has improved up to 126 and has been stable since then. Also patient still complaining from shortness of breath. She uses oxygen 2 to 3 L at home. Her process owner Dr. Vasquez she has history of COPD. Currently she still have wheezing and she is coughing up phlegm. Will start her on steroids 07/14/2024 Patient seen and evaluated in follow-up with multiple consultations following including nephrology. Cardiology has evaluated the patient recommending outpatient follow-up. Patient also to follow-up with pulmonary outpatient and will continue on prednisone taper along with breathing treatments. Patient sodium remains low at 124. Status post sodium chloride tabs per nephrology recommending increased oral intake and repeat labs in the a.m. Patient is adamant she is returning home with family. Case management is following working on discharge planning Review of systems NEUROLOGICAL: No headaches, no weakness, no numbness. HEMATOLOGICAL: Denies any bleeding or petechiae. GENITOURINARY: Denies any burning micturition, frequency, or urgency. MUSCULOSKELETAL/RHEUMATOLOGICAL: Denies any joint pain, swelling, or any muscle pain. ENDOCRINE: Denies any polyuria or polydipsia. Physical exam: Gen: This is a 69-year-old female who is awake, alert and oriented x 3, thin built, elderly appearing, ill-appearing HEENT: Head is atraumatic, normocephalic. Pupils equal, round. Sclerae is anicteric. NECK: Supple. No JVD. No lymphadenopathy. No thyromegaly. LUNGS: Diminished breath sounds bilaterally with some faint expiratory wheezes and coarse rhonchi. No intercostal retractions. HEART: S1, S2 are muffled. ABDOMEN: Soft. Thin. Bowel sounds are present. No masses. No tenderness. EXTREMITIES: No pedal edema. No calf tenderness. NEUROLOGICAL: Patient is awake, alert and oriented x3. Cranial nerves 2 through 12 are grossly intact. Diffusely weak Assessment: Acute STEMI status post PCI to mid RCA Hyponatremia, secondary to poor solute intake Acute COPD exacerbation Chronic hypoxic respiratory failure GERD Hypertension Hyperlipidemia Osteoarthritis Osteoporosis Varicose vein history Nicotine dependence Coronary artery disease status post stent before. Anxiety depression and panic disorder, currently not an active issue GI prophylaxis DVT prophylaxis No code Plan: Continue with dual antiplatelet therapy aspirin and Plavix Patient is on Cortef Monitor sodium level, nephrology following and sodium remains low between [id number] and was given a sodium chloride tab. Recommend follow-up labs in a.m. Encouraged oral intake especially protein Cardiology following making medication recommendations recommending outpatient follow-up. Patient reports she is going home with family and has support in the home Possible discharge planning in the next 24 hours once cleared by nephrology The impression and plan of care has been dictated by Kiersten Reyes, Nurse Practitioner as directed. Dr. Rishabh MD I have performed a history and examination and MDM of this patient, discussed the same with the dictator, and agree with the dictator's assessment and plan as written ,documented as a scribe. Based on total visit time, I have performed more than 50% of the visit. Objective - Vital Signs Vital signs: Vital Signs Temp 98.1 F 07/14/24 20:00 Pulse 90 07/14/24 20:31 Resp 18 07/14/24 20:00 BP 116/77 07/14/24 20:00 Pulse Ox 97 07/14/24 20:00 FiO2 Intake & Output 07/14/24 07/14/24 07/15/24 06:59 18:59 06:59 Intake Total 780 Balance 780 Weight 53.7 kg Intake: Oral 780 Other: Voiding Method Toilet Toilet Toilet Bedside Commode Bedside Commode Bedside Commode # Voids 1 - Labs CBC & Chem 7: 07/14/24 07:16 07/14/24 16:23 Labs: Abnormal Lab Results - Last 24 Hours (Table) 07/14/24 07/14/24 07/14/24 Range/Units 07:16 07:16 16:23 WBC 11.5 H (3.8-10.6) k/uL RBC 3.42 L (3.80-5.40) m/uL MCV 107.1 H (80.0-100.0) fL Neutrophils # 8.3 H (1.3-7.7) k/uL Sodium 126 L 124 L (137-145) mmol/L Chloride 84 L (98-107) mmol/L Carbon Dioxide 37 H (22-30) mmol/L BUN 4 L (7-17) mg/dL Creatinine 0.43 L (0.52-1.04) mg/dL Glucose 64 L (74-99) mg/dL Calcium 8.2 L (8.4-10.2) mg/dL
[2024-07-15 07:57] LABS: African American GFR (CKD) >90 (>60 ml/min/1.73 sqM); Blood Urea Nitrogen 4 mg/dL (7-17); Calcium 8.5 mg/dL (8.4-10.2); Chloride 83 mmol/L (98-107); Glucose 65 mg/dL (74-99); Non-African American GFR(CKD) >90 (>60 ml/min/1.73 sqM); Potassium 3.8 mmol/L (3.5-5.1); Sodium 127 mmol/L (137-145)
[2024-07-15 08:03] LABS: Anion Gap 3 mmol/L
[2024-07-15 08:48] LABS: Carbon Dioxide 41 mmol/L (22-30)
[2024-07-15] MEDS ORDERED: SODIUM CHLORIDE TAB 1 GM TAB PO SCH (11:00)
--- NOTE | 2024-07-15 11:33 | P.PN ---
Subjective Patient is seen for follow-up for hyponatremia. Underlying history of adrenal insufficiency. Serum sodium improved initially from 121-127 with IV hydration however it dropped back down to 123 and 124. It is 127 today. Patient received IV Lasix and she has been off of IV fluids. No significant complaints today. Objective - Vital Signs Vital signs: Vital Signs Temp 97.8 F 07/15/24 08:00 Pulse 102 H 07/15/24 08:00 Resp 24 07/15/24 08:00 BP 122/75 07/15/24 08:00 Pulse Ox 100 07/15/24 08:00 FiO2 Intake & Output 07/14/24 07/15/24 07/15/24 18:59 06:59 18:59 Intake Total 780 Balance 780 Weight 53.4 kg Intake: Oral 780 Other: Voiding Method Toilet Toilet Toilet Bedside Commode Bedside Commode Bedside Commode # Voids 1 8 3 - Exam Patient is awake, comfortable, no acute distress Examination of the heart S1 and S2 Examination of the lungs bilateral breath sounds are heard Abdomen is soft nontender Examination of lower extremity shows chronic skin changes, no significant edema noted HYDROELECTRIC PRODUCTION MANAGER exam grossly intact - Labs CBC & Chem 7: 07/14/24 07:16 07/15/24 07:57 Labs: Abnormal Lab Results - Last 24 Hours (Table) 07/14/24 07/15/24 07/15/24 Range/Units 16:23 06:41 07:57 Sodium 124 L 127 L 127 L (137-145) mmol/L Chloride 83 L (98-107) mmol/L Carbon Dioxide 41 H* (22-30) mmol/L BUN 4 L (7-17) mg/dL Creatinine 0.39 L (0.52-1.04) mg/dL Glucose 65 L (74-99) mg/dL Assessment and Plan Assessment: 1. Hyponatremia, hypovolemic, improved with saline initially then worsened again. Underlying history of adrenal insufficiency currently maintained on hydrocortisone. Urine osmolality is low at 114 with a random urine sodium less than 20. Status post sodium chloride tab yesterday. Patient also received 1 dose of IV Lasix. She is also advised to increase oral intake particularly protein. Patient appears mildly hypervolemic today. I will continue off of sodium chloride tabs and repeat IV Lasix today. She will need to monitor serum sodium as outpatient. Continue with salt restriction and diet. 2. History of COPD maintained on home oxygen 3. Status post cardiac catheterization with patent stent 4. Peripheral vascular disease Plan: Continue off of IV fluids Maintain off of sodium chloride tabs due to mild hypervolemia. Repeat low-dose Lasix today and repeat sodium this evening. Encourage increased oral intake particularly protein.
[2024-07-15] MEDS: FUROSEMIDE 10 MG/ML 2 ML VIAL IV ONE (12:02)
[2024-07-15 13:16] VITALS: BMI 21.5
[2024-07-15 13:52] VITALS: BP 132/85; PULSE 98; RESP 22; TEMP 97.3
== END 2024-07-15 16:13 | disposition home or self-care (01) | DRG 281 ==
LOC: EC 12:37 → 2SICU 12:59 → 3SCARD 13:34
PROVIDERS: ADMIT Internal Medicine; ATTEND Internal Medicine
PROC: B2111ZZ Fluoroscopy of Multiple Coronary Arteries using Low Osmolar Contrast (ICD-10-PCS; 2024-07-11)
PROC: 4A023N7 Measurement of Cardiac Sampling and Pressure, Left Heart, Percutaneous Approach (ICD-10-PCS; principal; 2024-07-11 12:43)
DX: T82.855A Stenosis of coronary artery stent, initial encounter (principal); E27.40 Unspecified adrenocortical insufficiency; I21.19 ST elevation (STEMI) myocardial infarction involving other coronary artery of inferior wall; E87.0 Hyperosmolality and hypernatremia; I31.8 Other specified diseases of pericardium; Z66 Do not resuscitate; E27.8 Other specified disorders of adrenal gland; J44.1 Chronic obstructive pulmonary disease with (acute) exacerbation; I11.0 Hypertensive heart disease with heart failure; E11.51 Type 2 diabetes mellitus with diabetic peripheral angiopathy without gangrene; F10.20 Alcohol dependence, uncomplicated; F32.A Depression, unspecified; G25.81 Restless legs syndrome; J96.11 Chronic respiratory failure with hypoxia; I50.22 Chronic systolic (congestive) heart failure; N17.9 Acute kidney failure, unspecified; E87.1 Hypo-osmolality and hyponatremia; Z93.3 Colostomy status; E86.1 Hypovolemia; E78.5 Hyperlipidemia, unspecified; I25.10 Atherosclerotic heart disease of native coronary artery without angina pectoris; I83.90 Asymptomatic varicose veins of unspecified lower extremity; D75.89 Other specified diseases of blood and blood-forming organs; F17.210 Nicotine dependence, cigarettes, uncomplicated; E87.8 Other disorders of electrolyte and fluid balance, not elsewhere classified; F41.0 Panic disorder [episodic paroxysmal anxiety]; H54.62 Unqualified visual loss, left eye, normal vision right eye; I25.2 Old myocardial infarction; K21.9 Gastro-esophageal reflux disease without esophagitis; K22.4 Dyskinesia of esophagus; M19.90 Unspecified osteoarthritis, unspecified site; M81.0 Age-related osteoporosis without current pathological fracture; R00.0 Tachycardia, unspecified; Y83.1 Surgical operation with implant of artificial internal device as the cause of abnormal reaction of the patient, or of later complication, without mention of misadventure at the time of the procedure; Z79.02 Long term (current) use of antithrombotics/antiplatelets; Z79.82 Long term (current) use of aspirin; Z71.6 Tobacco abuse counseling; Z79.899 Other long term (current) drug therapy; Z82.49 Family history of ischemic heart disease and other diseases of the circulatory system; Z85.41 Personal history of malignant neoplasm of cervix uteri; Z86.16 Personal history of COVID-19; Z87.11 Personal history of peptic ulcer disease; Z90.710 Acquired absence of both cervix and uterus; Z99.81 Dependence on supplemental oxygen; Z96.643 Presence of artificial hip joint, bilateral; Z98.51 Tubal ligation status
CPT/HCPCS: 36415; 71045; 80048; 80053; 81003; 83735; 83880; 83930; 83935; 84295; 84300; 84443; 84484; 85025; 85610; 85730; 93005; 93306; 93458; 94640; 94760; 99291

== ENCOUNTER 2024-07-17 04:47 | Inpatient (IN) | payer MEDICARE ==
[2024-07-17] MEDS: IPRATROPIUM 0.5 MG/2.5 ML NEBU INHALATION STA (05:00)
[2024-07-17] MEDS: ALBUTEROL NEBULIZED 2.5 MG/3 ML INHALATION STA (05:00)
[2024-07-17] MEDS: methylPREDNISolone SOD SUCCI 125 MG/2 ML VIAL IV STA (05:15)
[2024-07-17 05:19] LABS: VBG PH 7.35 (7.31-7.41)
[2024-07-17 05:20] LABS: Basophils % (A) 0 %; Eosinophils # (A) 0.1 k/uL (0-0.7); Eosinophils % (A) 1 %; HCT 39.4 % (34.0-46.0); HGB 12.5 gm/dL (11.4-16.0); Lymphocytes # (A) 1.3 k/uL (1.0-4.8); Lymphocytes % (A) 11 %; MCH 33.4 pg (25.0-35.0); MCHC 31.8 g/dL (31.0-37.0); MCV 105.1 fL (80.0-100.0); Macrocytosis Slight; Monocytes # (A) 0.3 k/uL (0-1.0); Monocytes % (A) 3 %; Neutrophils % (A) 84 %; Platelet Count 251 k/uL (150-450); RBC 3.75 m/uL (3.80-5.40); RDW 13.1 % (11.5-15.5); WBC 11.8 k/uL (3.8-10.6)
--- NOTE | 2024-07-17 05:21 | ED ---
General Adult HPI - General Chief complaint: Shortness of Breath Stated complaint: KERLINE Time Seen by Provider: 07/17/24 04:48 Source: patient, EMS, RN notes reviewed, old records reviewed Mode of arrival: EMS - History of Present Illness Initial comments: 69-year-old female presenting for evaluation of increased dyspnea. Patient was recently discharged from the hospital, and subsequently developed worsening cough and dyspnea. History is limited. Paramedics had placed patient on CPAP for respiratory support and hypoxia. Patient does have a history of COPD. Patient denies pain complaints. Denies fever. - Related Data Home Medications Medication Instructions Recorded Confirmed rOPINIRole HCL [Requip] 1 mg PO HS 01/25/14 07/17/24 Nitroglycerin Sl Tabs [Nitrostat] 0.4 mg SL Q5M PRN 08/11/19 07/17/24 Latanoprost [Xalatan 0.005%] 1 drop BOTH EYES HS 07/18/20 07/17/24 Montelukast Sodium [Singulair] 10 mg PO HS 07/18/20 07/17/24 Albuterol Inhaler [Ventolin Hfa 2 puff INHALATION RT-QID PRN 07/06/21 07/17/24 Inhaler] Ipratropium-Albuterol Nebulize 3 ml INHALATION RT-QID 07/06/21 07/17/24 [Duoneb 0.5 mg-3 mg/3 ml Soln] Rosuvastatin [Crestor] 20 mg PO DAILY 07/06/21 07/17/24 Omalizumab [Xolair] 300 mg SQ Q14D 11/13/22 07/17/24 ARIPiprazole [Abilify] 20 mg PO DAILY 07/11/24 07/17/24 Budesonide [Pulmicort] 0.5 mg INHALATION RT-BID 07/11/24 07/17/24 EPINEPHrine (Auto Inject) [Epipen] 0.3 mg IM ONCE PRN 07/11/24 07/17/24 Escitalopram [Lexapro] 20 mg PO DAILY 07/11/24 07/17/24 Fluticasone Nasal [place] [Flonase 2 spr EA NOSTRIL BID 07/11/24 07/17/24 Nasal [place]] Fluticasone/Umeclidin/Vilanter 1 puff INHALATION RT-DAILY 07/11/24 07/17/24 [Trelegy Ellipta 200-62.5-25] Folic Acid 1 mg PO DAILY 07/11/24 07/17/24 HYDROcodone/APAP 5-325MG [[place] 1 tab PO BID 07/11/24 07/17/24 5-325] Hydrocortisone [Cortef] 12.5 mg PO DAILY@0800 07/11/24 07/17/24 Ibuprofen [Motrin] 800 mg PO TID PRN 07/11/24 07/17/24 Lactulose 10 gm PO TID 07/11/24 07/17/24 Linaclotide [Linzess] 145 mcg PO DAILY 07/11/24 07/17/24 Omalizumab [Xolair] 75 mg SQ Q14D 07/11/24 07/17/24 Pantoprazole [Protonix] 40 mg PO DAILY 07/11/24 07/17/24 Thiamine [Vitamin B-1] 100 mg PO DAILY 07/11/24 07/17/24 busPIRone HCL [Buspar] 7.5 mg PO BID 07/11/24 07/17/24 hydrOXYzine HCL [Atarax] 50 mg PO BID 07/11/24 07/17/24 traZODone HCL [Desyrel] 100 mg PO HS 07/11/24 07/17/24 Previous Rx's Medication Instructions Recorded Aspirin 81 mg PO DAILY #30 tab 07/15/24 Clopidogrel [Plavix] 75 mg PO DAILY #30 tab 07/15/24 Colchicine [Colcrys] 0.3 mg PO BID 30 Days #120 each 07/15/24 Hydrocortisone [Cortef] 2.5 mg PO 1400,1700 #60 tab 07/15/24 Ipratropium-Albuterol Nebulize 3 ml INHALATION RT-Q2H PRN each 07/15/24 [Duoneb 0.5 mg-3 mg/3 ml Soln] amLODIPine [Norvasc] 2.5 mg PO DAILY #30 tab 07/15/24 carvediloL [Coreg] 3.125 mg PO BID-W/MEALS #60 tab 07/15/24 Allergies Allergy/AdvReac Type Severity Reaction Status Date / Time meperidine HCl [From Demerol] Allergy Severe Swelling Verified 07/17/24 04:54 Penicillins Allergy Rash/Hives Verified 07/17/24 04:54 erythromycin base AdvReac Abdominal Verified 07/17/24 04:54 Pain Review of Systems ROS Statement: Those systems with pertinent positive or pertinent negative responses have been documented in the HPI. ROS Other: All systems not noted in ROS Statement are negative. Past Medical History Past Medical History: Coronary Artery Disease (CAD), Cancer, Chest Pain / Angina, COPD, Eye Disorder, GERD/Reflux, Hyperlipidemia, Hypertension, Myocardial Infarction (UT), Musculoskeletal Disorder, Osteoarthritis (OA), Pneumonia, Skin Disorder, Thyroid Disorder Additional Past Medical History / Comment(s): Hx Covid/Pleurisy and Pneumonia 09/14/20. Colostomy due to rectal prolapse. Osteoporosis, Degnerative Disc Disease, Restless Leg Syndrome, multiple compression fractures in back, chronic back pain. Hx balance problems/falls, none since stopping Lamictal. 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 Varicose veins, poor circulation. Asthmatic bronchitis. Discoloration/bruises on bilateral arms. Stress urinary incontinence. Hx cervical cancer. Hypoglycemia, adrenal insufficency. Edema left lower leg. O2 2-3L PRN. Hx stomach ulcer many yrs ago. Hx low thyroid, ok now. Cardiac stent and stent behind one knee (not sure whichknee) Last Myocardial Infarction Date:: 08/06/19 History of Any Multi-Drug Resistant Organisms: None Reported Past Surgical History: Bowel Resection, Heart Catheterization, Heart Catheterization With Stent, Hysterectomy, Joint Replacement, Tonsillectomy, Tubal Ligation Additional Past Surgical History / Comment(s): Colostomy, bilateral hip replacements, abdominal aortogram, colonoscopy. Past Anesthesia/Blood Transfusion Reactions: Previous Problems w/ Anesthesia, Motion Sickness, Postoperative Nausea & Vomiting (PONV) Additional Past Anesthesia/Blood Transfusion Reaction / Comment(s): BP "bottomed out" with colonoscopy years ago. Date of Last Stent Placement:: 08/06/19 Past Psychological History: Anxiety, Depression, Panic Disorder Smoking Status: Current every day smoker Past Alcohol Use History: Occasional Past Drug Use History: Marijuana - Past Family History Mother Family Medical History: Cancer Additional Family Medical History / Comment(s): Colon cancer. DEPRESSION, ANXIETY, ITCH AND CLAW HER HEAD EVERY NIGHT AND NOW I'M DOING IT) Father Family Medical History: Coronary Artery Disease (CAD) Additional Family Medical History / Comment(s): CABG./NARCOLEPSY (YANCY HAD COLON CA, DEPRESSION/ANXIETY, ITCH AND CLAW HER HEAD EVERYNIGHT & NOW I'M DOING IT) Brother(s) Family Medical History: Cancer, Coronary Artery Disease (CAD) Additional Family Medical History / Comment(s): CABG. Lymph node cancer. General Exam General appearance: lethargic, in distress Head exam: Present: atraumatic, normocephalic Eye exam: Present: normal appearance, PERRL Respiratory exam: Present: respiratory distress, wheezes, decreased breath sounds Cardiovascular Exam: Present: normal rhythm, tachycardia GI/Abdominal exam: Present: soft. Absent: distended, tenderness Extremities exam: Absent: normal capillary refill, pedal edema Neurological exam: Present: alert. Absent: motor sensory deficit Skin exam: Present: warm, dry, intact Course Vital Signs 07/17/24 07/17/24 07/17/24 04:49 05:00 05:01 Temperature 97.6 F Pulse Rate 109 H 111 H Respiratory 22 22 Rate Blood Pressure 127/85 O2 Sat by Pulse 91 L Oximetry Fraction of 100 100 Inspired Oxygen (FIO2) 07/17/24 07/17/24 07/17/24 05:20 06:04 06:51 Temperature Pulse Rate 110 H 105 H 101 H Respiratory 17 16 Rate Blood Pressure 100/65 111/73 O2 Sat by Pulse 97 95 Oximetry Fraction of 50 Inspired Oxygen (FIO2) 07/17/24 07:26 Temperature Pulse Rate 96 Respiratory Rate Blood Pressure O2 Sat by Pulse Oximetry Fraction of 50 Inspired Oxygen (FIO2) Medical Decision Making - Medical Decision Making Was pt. sent in by a medical professional or institution (, PA, PLANT OPERATOR HELPER, urgent care, hospital, or senior living...) When possible be specific @ -No Did you speak to anyone other than the patient for history (EMS, parent, family, police, friend...)? What history was obtained from this source @ -No Did you review nursing and triage notes (agree or disagree)? Why? @ -I reviewed and agree with nursing and triage notes Were old charts reviewed (outside hosp., previous admission, EMS record, old EKG, old radiological studies, urgent care reports/EKG's, senior living records)? Report findings @ -No old charts were reviewed Differential Dyspnea: Coronary syndrome, arrhythmia, tamponade, asthma, COPD, pulmonary embolism, pneumonia, pneumothorax, pulmonary effusion, anaphylaxis, diabetic ketoacidosis, flailed chest, pulmonary contusion, diaphragmatic rupture, anemia, neuromuscular, this is not meant to be an all-inclusive list. EKG interpreted by me (3pts min.). @ -Sinus tachycardia rate of 106, NV interval 132, QRS duration 85, QTc 407 X-rays interpreted by me (1pt min.). @ -Chest x-ray negative for focal pneumonia, no pneumothorax, possible mass CT interpreted by me (1pt min.). @ -None done U/S interpreted by me (1pt. min.). @ -None done What testing was considered but not performed or refused? (CT, X-rays, U/S, labs)? Why? @ -None What meds were considered but not given or refused? Why? @ -None Did you discuss the management of the patient with other professionals (rodolfo bailey i.e. , PA, PLANT OPERATOR HELPER, lab, RT, psych nurse, social insurance specialist, deli slicer, teacher, chief environmental commitment officer, medical case manager)? Give summary @ -Yes, [facility] Was smoking cessation discussed for >3mins.? @ -No Was critical care preformed (if so, how long)? @ -Yes, 35 minutes Were there social determinants of health that impacted care today? How? (Homelessness, low income, unemployed, alcoholism, drug addiction, transpo rtation, low edu. Level, literacy, decrease access to med. care, group home, rehab)? @ -No Was there de-escalation of care discussed even if they declined (Discuss DNR or withdrawal of care, Hospice)? DNR status @ -No What co-morbidities impacted this encounter? (DM, HTN, Smoking, COPD, CAD, Cancer, CVA, ARF, Chemo, Hep., AIDS, mental health diagnosis, sleep apnea, morbid obesity)? @ -COPD, oxygen dependent Was patient admitted / discharged? Hospital course, mention meds given and route, prescriptions, significant lab abnormalities, going to OR and other pertinent info. @ -[69-year-old female presenting with increased cough and dyspnea history of COPD. Patient requires CPAP and is transition to BiPAP upon arrival with significant increased work of breathing. Nurse venous blood gas reveals elevated CO2. Laboratory testing reveals a chronic hyponatremia. Patient admitted to internal medicine with pulmonology on consult for COPD exacerbation with respiratory failure. Undiagnosed new problem with uncertain prognosis? @ -No Drug Therapy requiring intensive monitoring for toxicity (Heparin, Nitro, Insulin, Cardizem)? @ -No Were any procedures done? @ -No Diagnosis/symptom? @ -COPD, respiratory failure, hyponatremia Acute, or Chronic, or Acute on Chronic? @ -[Acute Uncomplicated (without systemic symptoms) or Complicated (systemic symptoms)? @ -Default Side effects of treatment? @ -No Exacerbation, Progression, or Severe Exacerbation? @ -No Poses a threat to life or bodily function? How? (Chest pain, [place], [place], pneumonia, PE, COPD, DKA, ARF, appy, cholecystitis, CVA, Diverticulitis, Homicidal, Suicidal, threat to staff... and all critical care pts) @Yes, respiratory failure - Lab Data Result diagrams: 07/17/24 05:13 07/17/24 05:13 Lab Results 07/17/24 07/17/24 07/17/24 Range/Units 05:13 05:13 05:13 WBC 11.8 H (3.8-10.6) k/uL RBC 3.75 L (3.80-5.40) m/uL Hgb 12.5 (11.4-16.0) gm/dL Hct 39.4 (34.0-46.0) % MCV 105.1 H (80.0-100.0) fL MCH 33.4 (25.0-35.0) pg MCHC 31.8 (31.0-37.0) g/dL RDW 13.1 (11.5-15.5) % Plt Count 251 (150-450) k/uL MPV 7.0 Neutrophils % 84 % Lymphocytes % 11 % Monocytes % 3 % Eosinophils % 1 % Basophils % 0 % Neutrophils # 10.0 H (1.3-7.7) k/uL Lymphocytes # 1.3 (1.0-4.8) k/uL Monocytes # 0.3 (0-1.0) k/uL Eosinophils # 0.1 (0-0.7) k/uL Basophils # 0.0 (0-0.2) k/uL Macrocytosis Slight PT 12.7 H (10.0-12.5) sec INR 1.2 H (<1.2) APTT 23.2 (22.0-30.0) sec VBG pH (7.31-7.41) VBG pCO2 (37-51) mmHg VBG HCO3 (24-28) mmol/L Sodium 124 L (137-145) mmol/L Potassium 4.0 (3.5-5.1) mmol/L Chloride 81 L (98-107) mmol/L Carbon Dioxide 36 H (22-30) mmol/L Anion Gap 7 mmol/L BUN 10 (7-17) mg/dL Creatinine 0.35 L (0.52-1.04) mg/dL Est GFR (CKD-EPI)AfAm >90 (>60 ml/min/1.73 sqM) Est GFR (CKD-EPI)NonAf >90 (>60 ml/min/1.73 sqM) Glucose 58 L (74-99) mg/dL Plasma Lactic Acid Cam (0.7-2.0) mmol/L Calcium 8.8 (8.4-10.2) mg/dL Magnesium 1.6 (1.6-2.3) mg/dL Total Bilirubin 1.5 H (0.2-1.3) mg/dL AST 177 H (14-36) U/L ALT 101 H (4-34) U/L Alkaline Phosphatase 105 (38-126) U/L NT-Pro-B Natriuret Pep 405 pg/mL Total Protein 6.1 L (6.3-8.2) g/dL Albumin 3.8 (3.5-5.0) g/dL 07/17/24 07/17/24 Range/Units 05:13 05:13 WBC (3.8-10.6) k/uL RBC (3.80-5.40) m/uL Hgb (11.4-16.0) gm/dL Hct (34.0-46.0) % MCV (80.0-100.0) fL MCH (25.0-35.0) pg MCHC (31.0-37.0) g/dL RDW (11.5-15.5) % Plt Count (150-450) k/uL MPV Neutrophils % % Lymphocytes % % Monocytes % % Eosinophils % % Basophils % % Neutrophils # (1.3-7.7) k/uL Lymphocytes # (1.0-4.8) k/uL Monocytes # (0-1.0) k/uL Eosinophils # (0-0.7) k/uL Basophils # (0-0.2) k/uL Macrocytosis PT (10.0-12.5) sec INR (<1.2) APTT (22.0-30.0) sec VBG pH 7.35 (7.31-7.41) VBG pCO2 67 H (37-51) mmHg VBG HCO3 37 H (24-28) mmol/L Sodium (137-145) mmol/L Potassium (3.5-5.1) mmol/L Chloride (98-107) mmol/L Carbon Dioxide (22-30) mmol/L Anion Gap mmol/L BUN (7-17) mg/dL Creatinine (0.52-1.04) mg/dL Est GFR (CKD-EPI)AfAm (>60 ml/min/1.73 sqM) Est GFR (CKD-EPI)NonAf (>60 ml/min/1.73 sqM) Glucose (74-99) mg/dL Plasma Lactic Acid Cam 1.2 (0.7-2.0) mmol/L Calcium (8.4-10.2) mg/dL Magnesium (1.6-2.3) mg/dL Total Bilirubin (0.2-1.3) mg/dL AST (14-36) U/L ALT (4-34) U/L Alkaline Phosphatase (38-126) U/L NT-Pro-B Natriuret Pep pg/mL Total Protein (6.3-8.2) g/dL Albumin (3.5-5.0) g/dL Critical Care Time Critical Care Time: Yes Total Critical Care Time: 35 Disposition Clinical Impression: Acute exacerbation of chronic obstructive airways disease, Hyponatremia Disposition: ADMITTED IP TO THIS HOSP Condition: Stable Is patient prescribed a controlled substance at d/c from ED?: No Time of Disposition: 06:00
[2024-07-17] MEDS: LORazepam 2 MG/ML INJ IV STA (05:24)
[2024-07-17 05:32] LABS: ALT 101 U/L (4-34); African American GFR (CKD) >90 (>60 ml/min/1.73 sqM); Anion Gap 7 mmol/L; Blood Urea Nitrogen 10 mg/dL (7-17); Calcium 8.8 mg/dL (8.4-10.2); Carbon Dioxide 36 mmol/L (22-30); Chloride 81 mmol/L (98-107); Glucose 58 mg/dL (74-99); Non-African American GFR(CKD) >90 (>60 ml/min/1.73 sqM); Sodium 124 mmol/L (137-145); Total Bilirubin 1.5 mg/dL (0.2-1.3)
[2024-07-17 05:33] LABS: AST 177 U/L (14-36); Albumin 3.8 g/dL (3.5-5.0); Alkaline Phosphatase 105 U/L (38-126); Magnesium 1.6 mg/dL (1.6-2.3); Total Protein 6.1 g/dL (6.3-8.2)
[2024-07-17 05:40] LABS: NT-Pro-B-Type Natriuretic Pept 405 pg/mL
[2024-07-17 05:52] LABS: INR 1.2 (<1.2); Partial Thromboplastin Time 23.2 sec (22.0-30.0); Prothrombin Time 12.7 sec (10.0-12.5)
[2024-07-17] MEDS: DEXTROSE 50% SYRINGE 50 ML IVP STA (05:57)
[2024-07-17] MEDS ORDERED: IPRATROPIUM-ALBUTEROL 3 ML NEB INHALATION PRN (05:57)
[2024-07-17] MEDS ORDERED: NALOXONE 0.4 MG/ML 1 ML VIAL IVP PRN (05:57)
[2024-07-17 06:03] LABS: Glucose,Whole Blood 208 mg/dL (70-110)
[2024-07-17] MEDS: methylPREDNISolone SOD SUCCI 125 MG/2 ML VIAL IV SCH (06:08)
[2024-07-17] MEDS: DEXTROSE 5%-0.9% NACL 1,000 ML IV SCH (06:11)
--- NOTE | 2024-07-17 07:12 | XR ---
EXAMINATION TYPE: XR chest 1V portable DATE OF EXAM: 07/17/2024 5:26 AM COMPARISON: Chest x-ray 07/11/2024 , CT 07/09/2024. CLINICAL INDICATION: Female, 69 years old with history of sob, TECHNIQUE: XR chest 1V portable view(s) obtained. FINDINGS: The heart size is normal. The pulmonary vasculature is normal. Small nodular densities are partially visualized within the bilateral lung fontanez there is irregular increased density adjacent to the aortic arch. Findings are compatible with patient's previous report ed mediastinal mass with metastatic type lesions. Minimal developing left costophrenic angle fluid may be present. IMPRESSION: 1. There may be some minimal developing left pleural effusion. 2. Masslike area adjacent to the aortic arch with small nodular scattered densities. Findings suspici ous for primary metastatic neoplasm. Please see CT chest 07/01/2024 report. [facility], , 07/17/2024 7:09 AM
[2024-07-17] MEDS: IPRATROPIUM-ALBUTEROL 3 ML NEB INHALATION SCH (07:26)
[2024-07-17 08:11] LABS: Glucose,Whole Blood 122 mg/dL (70-110)
[2024-07-17 11:24] LABS: Glucose,Whole Blood 85 mg/dL (70-110)
[2024-07-17] MEDS: SODIUM CHLORIDE 0.9% 1,000 ML IV SCH (12:06)
--- NOTE | 2024-07-17 14:18 | P.CNPUL ---
History of Present Illness Consult date: 07/17/24 Reason for consult: dyspnea History of present illness: This is a 69-year-old female patient, known history of COPD, presented to the emergency department with symptoms of cough, chest congestion and worsening shortness of breath. The patient came into the emergency following few days of discharge as the patient was hospitalized earlier for an acute STEMI status post cardiac catheterization where the patient was found to have a patent stent in the mid RCA. The patient is known to have multiple medical problems and comorbidities. The patient is known to have advanced COPD and recent CAT scan of the chest that was done on 07/09/2024 also showed a large left upper lobe lung mass extending into the mediastinum measuring 8.5 cm in size and the patient had multiple metastatic liver lesions and scattered bilateral pulmonary nodules suggestive of metastatic disease. CAT scan of the chest also showed compression deformity of the T4, T6 and T8 vertebral body with near complete height loss. There was another anterior medial inferior breast lesion measuring 16 x 13 mm on the right. Most recent echocardiography showed an ejection fraction of 55 to 60%. No evidence of any valvular heart disease. Other comorbidities include cervical cancer, peripheral vascular disease, hypertension, hyperlipidemia, previous colostomy that was performed for an underlying rectal prolapse, blindness in the left eye, osteoporosis and osteoarthritis and chronic anxiety and depression. Following her current hospitalization, the patient was found to be quite lethargic and obtunded. Based on that, the patient was placed on a BiPAP and the BiPAP is still running at a pressure of 10/5 cm of water with an FiO2 of 50%. At the time of my evaluation, the patient was arousable and she was following commands and answering questions while wearing the BiPAP. She seems to be less short of breath. She was however actively bronchospastic and wheezy. She is a chronic smoker. Denies having any chest pain. Limited cough. No significant sputum production. The white cell count 11.8 with a hemoglobin 12.8 and a platelet count of 251. Sodium levels are at 124, chloride is 81, bicarb is at 36, BUN is 10 with a creatinine of 0.35. The patient does have chronic hyponatremia and this was also present during her last hospitalization. Her serum albumin is at 3.8 with a total protein of 6.1. LFTs were abnormal and elevated probably due to underlying metastatic liver disease involvement. Review of Systems Constitutional: Reports daytime sleepiness, Reports fatigue, Reports lethargy, Reports poor appetite, Reports weakness, Reports weight loss Eyes: bilateral decreased vision, bilateral loss of vision, denies as per HPI, denies blurred vision, denies bulging eye, denies diplopia, denies discharge, denies dry eye, denies irritation, denies itching, denies pain, denies photopho thaddeus, denies loss of peripheral vision, denies tunnel vision/blind spots Ears: deny: decreased hearing, ear discharge, earache, tinnitus Ears, nose, mouth and throat: Reports as per HPI Breasts: absent: as per HPI, change in shape, gynecomastia, masses, nipple discharge, pain, skin changes, swelling Cardiovascular: Reports as per HPI, Reports claudication, Reports decreased exercise tolerance, Reports dyspnea on exertion, Reports shortness of breath Respiratory: Reports cough, Reports cough with sputum, Reports dyspnea, Reports home oxygen, Reports wheezing Gastrointestinal: Reports as per HPI (Patient has a colostomy and the patient has history of rectal prolapse) Genitourinary: Reports as per HPI Menstruation: Reports as per HPI Musculoskeletal: Reports gait dysfunction, Reports loss of height, Reports low back pain, Reports muscle weakness Musculoskeletal: absent: ankle pain, ankle stiffness, ankle swelling, as per HPI, elbow pain, elbow stiffness, elbow swelling, foot pain, foot stiffness, foot swelling, hand pain, hand stiffness, hand swelling, hip pain, hip stiffness, hip swelling, knee pain, knee stiffness, knee swelling, shoulder pain, shoulder stiffness, shoulder swelling, wrist pain, wrist stiffness, wrist swelling Integumentary: Reports as per HPI, Reports darkening of skin Neurological: Reports gait dysfunction, Reports weakness Psychiatric: Reports as per HPI Endocrine: Reports as per HPI, Reports fatigue Hematologic/Lymphatic: Reports as per HPI Allergic/Immunologic: Reports as per HPI Past Medical History Past Medical History: Coronary Artery Disease (CAD), Cancer, Chest Pain / Angina, COPD, Eye Disorder, GERD/Reflux, Hyperlipidemia, Hypertension, Myocardial Infarction ([place]), Musculoskeletal Disorder, Osteoarthritis (OA), Pneumonia, Skin Disorder, Thyroid Disorder Additional Past Medical History / Comment(s): Hx Covid/Pleurisy and Pneumonia 09/14/20. Colostomy due to rectal prolapse. Osteoporosis, Degnerative Disc Disease, Restless Leg Syndrome, multiple compression fractures in back, chronic back pain. Hx balance problems/falls, none since stopping Lamictal. 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 Varicose veins, poor circulation. Asthmatic bronchitis. Discoloration/bruises on bilateral arms. Stress urinary incontinence. Hx cervical cancer. Hypoglycemia, adrenal insuffi cency. Edema left lower leg. O2 2-3L PRN. Hx stomach ulcer many yrs ago. Hx low thyroid, ok now. Cardiac stent and stent behind one knee (not sure whichknee) Last Myocardial Infarction Date:: 08/06/19 History of Any Multi-Drug Resistant Organisms: None Reported Past Surgical History: Bowel Resection, Heart Catheterization, Heart Catheterization With Stent, Hysterectomy, Joint Replacement, Tonsillectomy, Tubal Ligation Additional Past Surgical History / Comment(s): Colostomy, bilateral hip replace ments, abdominal aortogram, colonoscopy. Past Anesthesia/Blood Transfusion Reactions: Previous Problems w/ Anesthesia, Motion Sickness, Postoperative Nausea & Vomiting (PONV) Additional Past Anesthesia/Blood Transfusion Reaction / Comment(s): BP "bottomed out" with colonoscopy years ago. Date of Last Stent Placement:: 08/06/19 Past Psychological History: Anxiety, Depression, Panic Disorder Additional Psychological History / Comment(s): Patient states, "I have severe anxiety. I have a lot of panic attacks." Smoking Status: Former smoker Past Alcohol Use History: Occasional Additional Past Alcohol Use History / Comment(s): smokes 1-3 cigs/day, rarely has one drink of alcohol and rarely uses medicinal marijauna. Past Drug Use History: Marijuana Additional Drug Use History / Comment(s): Medical Marijuana use daily prn, uses CBD oil, edibles, prn. Aware no use 24 hrs prior to procedure. - Past Family History Mother Family Medical History: Cancer Additional Family Medical History / Comment(s): Colon cancer. DEPRESSION, ANXIETY, ITCH AND CLAW HER HEAD EVERY NIGHT AND NOW I'M DOING IT) Father Family Medical History: Coronary Artery Disease (CAD) Additional Family Medical History / Comment(s): CABG./NARCOLEPSY (GUILLERMOEER HAD COLON CA, DEPRESSION/ANXIETY, ITCH AND CLAW HER HEAD EVERYNIGHT & NOW I'M DOING IT) Brother(s) Family Medical History: Cancer, Coronary Artery Disease (CAD) Additional Family Medical History / Comment(s): CABG. Lymph node cancer. Medications and Allergies Home Medications Medication Instructions Recorded Confirmed Type rOPINIRole HCL [Requip] 1 mg PO HS 01/25/14 07/17/24 History Nitroglycerin Sl Tabs [Nitrostat] 0.4 mg SL Q5M PRN 08/11/19 07/17/24 History Latanoprost [Xalatan 0.005%] 1 drop BOTH EYES HS 07/18/20 07/17/24 History Montelukast Sodium [Singulair] 10 mg PO HS 07/18/20 07/17/24 History Albuterol Inhaler [Ventolin Hfa 2 puff INHALATION RT-QID PRN 07/06/21 07/17/24 History Inhaler] Ipratropium-Albuterol Nebulize 3 ml INHALATION RT-QID 07/06/21 07/17/24 History [Duoneb 0.5 mg-3 mg/3 ml Soln] Rosuvastatin [Crestor] 20 mg PO DAILY 07/06/21 07/17/24 History Omalizumab [Xolair] 300 mg SQ Q14D 11/13/22 07/17/24 History ARIPiprazole [Abilify] 20 mg PO DAILY 07/11/24 07/17/24 History Budesonide [Pulmicort] 0.5 mg INHALATION RT-BID 07/11/24 07/17/24 History EPINEPHrine (Auto Inject) [Epipen] 0.3 mg IM ONCE PRN 07/11/24 07/17/24 History Escitalopram [Lexapro] 20 mg PO DAILY 07/11/24 07/17/24 History Fluticasone Nasal [place] [Flonase 2 spr EA NOSTRIL BID 07/11/24 07/17/24 History Nasal [place]] Fluticasone/Umeclidin/Vilanter 1 puff INHALATION RT-DAILY 07/11/24 07/17/24 History [Trelegy Ellipta 200-62.5-25] Folic Acid 1 mg PO DAILY 07/11/24 07/17/24 History HYDROcodone/APAP 5-325MG [Helper 1 tab PO BID 07/11/24 07/17/24 History 5-325] Hydrocortisone [Cortef] 12.5 mg PO DAILY@0800 07/11/24 07/17/24 History Ibuprofen [Motrin] 800 mg PO TID PRN 07/11/24 07/17/24 History Lactulose 10 gm PO TID 07/11/24 07/17/24 History Linaclotide [Linzess] 145 mcg PO DAILY 07/11/24 07/17/24 History Omalizumab [Xolair] 75 mg SQ Q14D 07/11/24 07/17/24 History Pantoprazole [Protonix] 40 mg PO DAILY 07/11/24 07/17/24 History Thiamine [Vitamin B-1] 100 mg PO DAILY 07/11/24 07/17/24 History busPIRone HCL [Buspar] 7.5 mg PO BID 07/11/24 07/17/24 History hydrOXYzine HCL [Atarax] 50 mg PO BID 07/11/24 07/17/24 History traZODone HCL [Desyrel] 100 mg PO HS 07/11/24 07/17/24 History Aspirin 81 mg PO DAILY #30 tab 07/15/24 07/17/24 Rx Clopidogrel [Plavix] 75 mg PO DAILY #30 tab 07/15/24 07/17/24 Rx Colchicine [Colcrys] 0.3 mg PO BID 30 Days #120 each 07/15/24 07/17/24 Rx Hydrocortisone [Cortef] 2.5 mg PO 1400,1700 #60 tab 07/15/24 07/17/24 Rx Ipratropium-Albuterol Nebulize 3 ml INHALATION RT-Q2H PRN each 07/15/24 07/17/24 Rx [Duoneb 0.5 mg-3 mg/3 ml Soln] amLODIPine [Norvasc] 2.5 mg PO DAILY #30 tab 07/15/24 07/17/24 Rx carvediloL [Coreg] 3.125 mg PO BID-W/MEALS #60 tab 07/15/24 07/17/24 Rx Allergies Allergy/AdvReac Type Severity Reaction Status Date / Time meperidine HCl [From Demerol] Allergy Severe Swelling Verified 07/17/24 04:54 Penicillins Allergy Rash/Hives Verified 07/17/24 04:54 erythromycin base AdvReac Abdominal Verified 07/17/24 04:54 Pain Physical Exam Vitals: Vital Signs Temp Pulse Pulse Resp BP BP Pulse Ox 07/17/24 08:01 101 H 22 99 07/17/24 08:00 20 07/17/24 07:45 96.1 F L 22 119/84 07/17/24 07:40 104 H 07/17/24 07:26 96 07/17/24 06:51 101 H 16 111/73 95 07/17/24 06:04 105 H 17 100/65 97 07/17/24 05:20 110 H 07/17/24 05:01 07/17/24 05:00 111 H 22 07/17/24 04:49 97.6 F 109 H 22 127/85 91 L FiO2 07/17/24 08:01 07/17/24 08:00 07/17/24 07:45 07/17/24 07:40 07/17/24 07:26 50 07/17/24 06:51 07/17/24 06:04 07/17/24 05:20 50 07/17/24 05:01 100 07/17/24 05:00 100 07/17/24 04:49 Intake and Output 07/16/24 07/17/24 07/17/24 22:59 06:59 14:59 Other: Voiding Method External Catheter Weight 54.431 kg 54.431 kg The patient is ill-looking, quite debilitated, currently on a BiPAP pressure of 10/5 and FiO2 50% Head exam is unremarkable. No scleral icterus or corneal arcus noted. Neck is without jugular venous distension, thyromegaly, or carotid bruits. Carotid upstrokes are brisk bilaterally. Lungs reveal thoracic kyphosis, diminished breath sounds bilaterally with diffuse expiratory wheezes throughout the lung fontanez bilaterally Cardiac exam reveals the PMI to be normally sized and situated. Rhythm is regular. First and second heart sounds normal. No murmurs, rubs or gallops. Abdominal exam reveals normal bowel sounds, no masses, no organomegaly and no aortic enlargement. The patient has a colostomy which is functional Extremities are nonedematous and both femoral and pedal pulses are normal. Examination of the skin revealed no evidence of significant rashes, suspicious appearing nevi or other concerning lesions. Neurologically, the patient is awake and alert and the patient does not have any focal neurological deficit. Cranial nerves are essentially intact. Results - Laboratory Findings CBC and BMP: 07/17/24 05:13 07/17/24 05:13 PT/INR, D-dimer PT 12.7 sec (10.0-12.5) H 07/17/24 05:13 INR 1.2 (<1.2) H 07/17/24 05:13 Abnormal lab findings: Abnormal Labs 07/17/24 07/17/24 07/17/24 05:13 05:13 05:13 WBC 11.8 H RBC 3.75 L MCV 105.1 H Neutrophils # 10.0 H PT 12.7 H INR 1.2 H VBG pCO2 VBG HCO3 Sodium 124 L Chloride 81 L Carbon Dioxide 36 H Creatinine 0.35 L Glucose 58 L POC Glucose (mg/dL) Total Bilirubin 1.5 H AST 177 H ALT 101 H Total Protein 6.1 L 07/17/24 07/17/24 07/17/24 05:13 06:02 08:10 WBC RBC MCV Neutrophils # PT INR VBG pCO2 67 H VBG HCO3 37 H Sodium Chloride Carbon Dioxide Creatinine Glucose POC Glucose (mg/dL) 208 H 122 H Total Bilirubin AST ALT Total Protein - Diagnostic Findings Chest x-ray: image reviewed CT scan - chest: image reviewed Assessment and Plan Plan: acute on chronic hypoxic respiratory failure, essentially related to COPD exacerbation. The patient was quite obtunded at time of admission and she seems to be more arousable currently on a BiPAP at a pressure of 10 over 5 cm of water with an FiO2 of 50%. Her mental status is gradually improving while being on a BiPAP. This is probably due to an acute COPD exacerbation as the patient is less chronic oxygen dependent COPD with chronic hypoxic and hypercapnic respira tory failure. Diminished level of consciousness secondary to hypercapnic respiratory failure. Possibility of underlying hepatic encephalopathy cannot be ruled out as the patient has metastatic disease involving the liver. Advanced oxygen dependent COPD maintained on oxygen 3 L/min nasal cannula on outpatient basis Lung mass suggestive of locally advanced/metastatic lung cancer. The CAT scan of the chest that was done on 07/09/2024 showed a left upper lobe/apical mass extending to the mediastinum. Mediastinum is full and the mass is measuring around 6.9 x 8.3 x 8.5 cm in size with significant lymphadenopathy involving the AP window. The patient also has multiple smaller subcentimeter pulmonary nodules scattered throughout the lung fontanez bilaterally, highly suggestive of metastatic disease. In addition, the patient has a left adrenal nodule measuring 16 mm in size, suggestive of metastatic disease. The patient has more than 20 liver metastatic lesions. Final diagnosis been established Coronary artery disease with recent hospitalization for an acute myocardial infarction. The patient was found to have a patent RCA stent History of cervical cancer History of stomach ulcer Peripheral vascular disease Chronic smoker and the patient admits to smoking 1/2 pack of cigarettes on a daily basis Hypochloremic hyponatremia. This is probably due to hypovolemia. Possibility of a tumor induced SIADH cannot be completely ruled out. Hypertension Hyperlipidemia Previous stenting of the right iliac artery with an underlying peripheral vascular disease History of rectal prolapse with a previous colostomy History of blindness in the left eye related to a previous toxo infection History of adrenal insufficiency History of compression fracture of the spine with obvious thoracic kyphosis Osteoporosis Osteoarthritis Chronic anxiety/depression Poor based on performance and functional status and the patient is requesting a DNR/DNI CODE STATUS. Plan Patient carries a very poor prognosis Strongly advised to establish a CODE STATUS. The patient has metastatic carcinoma patient is probably of a lung primary. The patient is a bulky tumor in the left upper lobe and hilar area with metastatic involvement of the liver Continue management of COPD exacerbation with a combination of bronchodilators, steroids and BiPAP therapy Continue BiPAP at the same level of 10/5 with an FiO2 of 50% Continue bronchodilators Continue IV Solu-Medrol Obtain a blood gas Obtain serum ammonia level Resume home medications Not a candidate for lung biopsy at this point in time specially with her underlying comorbidities. Very poor prognosis as above. Establish a CODE STATUS. Advised DNR/DNI. Time with Patient: Greater than 30
[2024-07-17] MEDS: amLODIPine 2.5 MG TAB PO SCH (15:08)
[2024-07-17] MEDS: LACTULOSE 20 GM/30 ML CUP PO SCH (15:08)
[2024-07-17] MEDS: CLOPIDOGREL 75 MG TAB PO SCH (15:08)
[2024-07-17] MEDS: carvediloL 3.125 MG TAB PO SCH (15:08)
[2024-07-17] MEDS: LORazepam 1 MG/0.5 ML VIAL IV PRN (15:16)
[2024-07-17 16:11] LABS: Glucose,Whole Blood 141 mg/dL (70-110)
[2024-07-17 20:11] LABS: Glucose,Whole Blood 119 mg/dL (70-110)
[2024-07-17] MEDS: COLCHICINE 0.6 MG EACH PO SCH (20:38)
[2024-07-17] MEDS: busPIRone HCl 5 MG TAB PO SCH (20:38)
[2024-07-17] MEDS: LATANOPROST 0.005% OPHTH DROPS 2.5 ML BTL BOTH EYES SCH (20:39)
[2024-07-17] MEDS: HYDROcodone/APAP 5-325MG 1 EACH TAB PO SCH (20:39)
[2024-07-17] MEDS: BUDESONIDE 0.5 MG/2 ML NEBU INHALATION SCH (21:05)
--- NOTE | 2024-07-17 23:08 | HP ---
HISTORY AND PHYSICAL CHIEF COMPLAINT: Shortness of breath. HISTORY OF PRESENT ILLNESS: This is a 69-year-old woman with a past medical history of multiple medical problems, who was recently discharged from the hospital after an acute ST-segment elevation myocardial infarction and cardiac catheterization and stenting. The patient is having increasing shortness of breath, and the patient came to [facility]. CPAP was applied by the paramedics. The chest x-ray showed significant COPD also. The patient will be closely monitored at this time. Scattered densities are also noted, possibly suggesting malignancy. PAST MEDICAL HISTORY: Reviewed and includes CAD, COPD, hypertension, and hyperlipidemia. Rest of the history and rest of the chart is also reviewed. HOME MEDICATIONS: Reviewed and includes Desyrel. Dose and rest of medications are reviewed. FAMILY HISTORY: History of cancer. SOCIAL HISTORY: Previous history of smoking. REVIEW OF SYSTEMS: Fourteen-point review of systems negative except as mentioned earlier. PHYSICAL EXAMINATION: VITAL SIGNS: Pulse is 98, blood pressure n, respirations 22. HEENT: Conjunctivae normal. NECK: No JVD. CARDIOVASCULAR: S1, S2. RESPIRATIONS: Bilaterally scattered rhonchi and crackles. ABDOMEN: Soft. NERVOUS SYSTEM: Nonfocal. LABORATORY DATA: Reviewed. ASSESSMENT: 1. Chronic obstructive pulmonary disease with acute exacerbation with acute hypoxic respiratory failure, status post BiPAP. 2. Change in mental status with metabolic encephalopathy. 3. Lung cancer, possibly advanced metastatic lung cancer. 4. Coronary artery disease. 5. History of cervical cancer. 6. History of myocardial infarctions. 7. Multiple complex medical issues. RECOMMENDATIONS: Recommended to continue with current management, continue with symptomatic treatment. I would recommend intensive bronchodilator treatment, steroids, BiPAP p.r.n. pulmonary consultation. The family also wishes to consult hospice for which we will consult hospice and continue to monitor. Once again, the prognosis is guarded because of multiple complex medical issues. See orders for further details, and further recommendations to follow. MMODL / IJN: [id number] / MTDD
[2024-07-18] MEDS: SIMETHICONE 80 MG CHEWABLE PO PRN (05:01)
[2024-07-18] MEDS: ACETAMINOPHEN TAB 325 MG TAB PO PRN (05:01)
[2024-07-18 06:24] LABS: Glucose,Whole Blood 127 mg/dL (70-110)
[2024-07-18] MEDS: PANTOPRAZOLE 40 MG TABLET PO SCH (08:50)
[2024-07-18] MEDS: ASPIRIN 81 MG PO SCH (08:50)
[2024-07-18] MEDS: ESCITALOPRAM 20 MG TAB PO SCH (08:51)
[2024-07-18] MEDS: ATORVASTATIN 40 MG TAB PO SCH (08:52)
[2024-07-18] MEDS: FOLIC ACID 1 MG TAB PO SCH (08:53)
--- NOTE | 2024-07-18 11:12 | P.PN ---
Subjective Progress Note Date: 07/18/24 This is a 69-year-old female patient, known history of COPD, presented to the emergency department with symptoms of cough, chest congestion and worsening shortness of breath. The patient came into the emergency following few days of discharge as the patient was hospitalized earlier for an acute STEMI status post cardiac catheterization where the patient was found to have a patent stent in the mid RCA. The patient is known to have multiple medical problems and comorbidities. The patient is known to have advanced COPD and recent CAT scan of the chest that was done on 07/09/2024 also showed a large left upper lobe lung mass extending into the mediastinum measuring 8.5 cm in size and the patient had multiple metastatic liver lesions and scattered bilateral pulmonary nodules suggestive of metastatic disease. CAT scan of the chest also showed compression deformity of the T4, T6 and T8 vertebral body with near complete height loss. There was another anterior medial inferior breast lesion measuring 16 x 13 mm on the right. Most recent echocardiography showed an ejection fraction of 55 to 60%. No evidence of any valvular heart disease. Other comorbidities include cervical cancer, peripheral vascular disease, hypertension, hyperlipidemia, previous colostomy that was performed for an underlying rectal prolapse, blindness in the left eye, osteoporosis and osteoarthritis and chronic anxiety and depression. Following her current hospitalization, the patient was found to be quite letharg ic and obtunded. Based on that, the patient was placed on a BiPAP and the BiPAP is still running at a pressure of 10/5 cm of water with an FiO2 of 50%. At the time of my evaluation, the patient was arousable and she was following commands and answering questions while wearing the BiPAP. She seems to be less short of breath. She was however actively bronchospastic and wheezy. She is a chronic smoker. Denies having any chest pain. Limited cough. No significant sputum production. The white cell count 11.8 with a hemoglobin 12.8 and a platelet count of 251. Sodium levels are at 124, chloride is 81, bicarb is at 36, BUN is 10 with a creatinine of 0.35. The patient does have chronic hyponatremia and this was also present during her last hospitalization. Her serum albumin is at 3.8 with a total protein of 6.1. LFTs were abnormal and elevated probably due to underlying metastatic liver disease involvement. On 07/18/2024, the patient is awake and alert and communicating. She was taken off the BiPAP and currently she is on 3 L of oxygen by nasal cannula. Noted the patient was being treated with a BiPAP pressure of 16 over 5 cm of water throughout the day yesterday. She is able to communicate. Less bronchospastic and wheezy compared to yesterday. Significant debilitated with advanced lung disease and a large bulky left upper lobe mass extending to the mediastinum. The patient is aware of the CAT scan findings and this was discussed with the patient at length in the presence of her . Normal CO2 narcosis. Cough and congestion is still present. Remains bronchospastic and wheezy. Objective - Vital Signs Vital signs: Vital Signs Temp 96.9 F L 07/18/24 08:00 Pulse 99 07/18/24 08:00 Resp 22 07/18/24 08:00 BP 127/69 07/18/24 08:00 Pulse Ox 98 07/18/24 08:00 FiO2 50 07/18/24 03:53 Intake & Output 07/17/24 07/18/24 07/18/24 18:59 06:59 18:59 Weight 54.431 kg 50 kg Other: Voiding Method External Catheter Bedside Commode Bedside Commode # Voids 1 - Exam The patient is ill-looking, quite debilitated, currently off BiPAP on 3 L of oxygen by nasal cannula Head exam is unremarkable. No scleral icterus or corneal arcus noted. Neck is without jugular venous distension, thyromegaly, or carotid bruits. Garcia tid upstrokes are brisk bilaterally. Lungs reveal thoracic kyphosis, diminished breath sounds bilaterally with diffuse expiratory wheezes throughout the lung fontanez bilaterally Cardiac exam reveals the PMI to be normally sized and situated. Rhythm is regular. First and second heart sounds normal. No murmurs, rubs or gallops. Abdominal exam reveals normal bowel sounds, no masses, no organomegaly and no aortic enlargement. The patient has a colostomy which is functional Extremities are nonedematous and both femoral and pedal pulses are normal. Examination of the skin revealed no evidence of significant rashes, suspicious appearing nevi or other concerning lesions. Neurologically, the patient is awake and alert and the patient does not have any focal neurological deficit. Cranial nerves are essentially intact. - Labs CBC & Chem 7: 07/17/24 05:13 07/17/24 05:13 Labs: Abnormal Lab Results - Last 24 Hours (Table) 07/17/24 07/17/24 07/18/24 Range/Units 16:10 20:10 06:23 POC Glucose (mg/dL) 141 H 119 H 127 H (70-110) mg/dL Assessment and Plan Plan: acute on chronic hypoxic respiratory failure, essentially related to COPD exacerbation. The patient was quite obtunded at time of admission and she seems to be more arousable currently on a BiPAP at a pressure of 10 over 5 cm of water with an FiO2 of 50%. Her mental status is gradually improving while being on a BiPAP. This was probably due to an acute COPD exacerbation as the patient is less chronic oxygen dependent COPD with chronic hypoxic and hypercapnic respiratory failure. The patient improved considerably and the mental status is improved and the patient is currently off the BiPAP and currently she is on 3 L of oxygen by nasal cannula. Less bronchospastic and wheezy compared to yesterda y. Diminished level of consciousness secondary to hypercapnic respiratory failure. Possibility of underlying hepatic encephalopathy cannot be ruled out as the patient has metastatic disease involving the liver. Mental status is improved considerably and the patient is awake and alert and communicating. No focal neurological deficits. Advanced oxygen dependent COPD maintained on oxygen 3 L/min nasal cannula on outpatient basis Lung mass suggestive of locally advanced/metastatic lung cancer. The CAT scan of the chest that was done on 07/09/2024 showed a left upper lobe/apical mass extending to the mediastinum. Mediastinum is full and the mass is measuring around 6.9 x 8.3 x 8.5 cm in size with significant lymphadenopathy involving the AP window. The patient also has multiple smaller subcentimeter pulmonary nodules scattered throughout the lung fontanez bilaterally, highly suggestive of metastatic disease. In addition, the patient has a left adrenal nodule measuring 16 mm in size, suggestive of metastatic disease. The patient has more than 20 liver metastatic lesions. Final diagnosis been established Coronary artery disease with recent hospitalization for an acute myocardial infarction. The patient was found to have a patent RCA stent History of cervical cancer History of stomach ulcer Peripheral vascular disease Chronic smoker and the patient admits to smoking 1/2 pack of cigarettes on a daily basis Hypochloremic hyponatremia. This is probably due to hypovolemia. Possibility of a tumor induced SIADH cannot be completely ruled out. Hypertension Hyperlipidemia Previous stenting of the right iliac artery with an underlying peripheral vascular disease History of rectal prolapse with a previous colostomy History of blindness in the left eye related to a previous toxo infection History of adrenal insufficiency History of compression fracture of the spine with obvious thoracic kyphosis Osteoporosis Osteoarthritis Chronic anxiety/depression Poor based on performance and functional status and the patient is requesting a DNR/DNI CODE STATUS. Plan Patient carries a very poor prognosis Strongly advised to establish a CODE STATUS. The patient has metastatic carcinoma patient is probably of a lung primary. The patient is a bulky tumor in the left upper lobe and hilar area with metastatic involvement of the liver Continue management of COPD exacerbation with a combination of bronchodilators, steroids and BiPAP therapy Patient is currently off the BiPAP on 3 L of oxygen by nasal cannula. Clinically improved. Continue bronchodilators Continue IV Solu-Medrol No signs of any CO2 narcosis at this point in time as the patient's mental status is improved considerably. Resume home medications Not a candidate for lung biopsy at this point in time specially with her underlying comorbidities. Very poor prognosis as above. Establish a CODE STATUS. Advised DNR/DNI. Time with Patient: Greater than 30
[2024-07-18 11:59] LABS: Glucose,Whole Blood 155 mg/dL (70-110)
[2024-07-18] MEDS ORDERED: HYDROcodone/APAP 5-325MG 1 EACH TAB PO PRN (12:30)
[2024-07-18] MEDS: HYDROmorphone 0.5 MG/0.5 ML SYRINGE IVP PRN (13:13)
[2024-07-18 20:29] LABS: Glucose,Whole Blood 105 mg/dL (70-110)
--- NOTE | 2024-07-19 01:03 | PN ---
PROGRESS NOTE DATE OF SERVICE: 07/18/2024 SUBJECTIVE: This is a 69-year-old woman, who was admitted with COPD and multiple other medical problems and change in mental status, lung cancer, was complaining of severe diffuse pains at this time. The family is also considering possible hospice. The patient is being closely monitored. PAST MEDICAL HISTORY: Reviewed. REVIEW OF SYSTEMS: Fourteen-point review of systems is negative except as mentioned earlier. CURRENT MEDICATIONS: Reviewed. PHYSICAL EXAMINATION: VITAL SIGNS: Pulse is 89, blood pressure 140/70, respirations 20. HEENT: Conjunctivae normal. NECK: No JVD. CARDIOVASCULAR: S1, S2. RESPIRATIONS: Breath sounds diminished at the bases. Bilateral scattered rhonchi and crackles. ABDOMEN: Soft. NERVOUS SYSTEM: Nonfocal. LABORATORY DATA: Reviewed. ASSESSMENT: 1. Chronic obstructive pulmonary disease acute exacerbation with acute hypoxic respiratory failure, status post BiPAP. 2. Change in mental status, acute metabolic encephalopathy. 3. Diffuse aches and pains. 4. Possible lung cancer with possibly advanced metastatic lung cancer. 5. Coronary artery disease. 6. History of cervical cancer. 7. History of myocardial infarction. 8. Multiple complex medical issues. 9. No code. No CPR. No vent. RECOMMENDATIONS AND DISCUSSION: This is a 69-year-old woman, who presented with multiple medical issues. We will have a detailed discussion at this time. We will continue to monitor. Continue with no code and hospice will be consulted. We will recommend pain management and closely monitor. Further recommendations to follow. See orders for further details. Discussed with the patient and family. MMODL / IJN: [id number] /
[2024-07-19 04:45] VITALS: TEMP 96.4
[2024-07-19 06:01] LABS: Glucose,Whole Blood 116 mg/dL (70-110)
[2024-07-19 08:30] VITALS: BP 152/71
[2024-07-19 11:44] VITALS: PULSE 95; RESP 15
--- NOTE | 2024-07-19 16:47 | P.PN ---
Subjective Progress Note Date: 07/19/24 This is a 69-year-old female patient, known history of COPD, presented to the emergency department with symptoms of cough, chest congestion and worsening shortness of breath. The patient came into the emergency following few days of discharge as the patient was hospitalized earlier for an acute STEMI status post cardiac catheterization where the patient was found to have a patent stent in the mid RCA. The patient is known to have multiple medical problems and comorbidities. The patient is known to have advanced COPD and recent CAT scan of the chest that was done on 07/09/2024 also showed a large left upper lobe lung mass extending into the mediastinum measuring 8.5 cm in size and the patient had multiple metastatic liver lesions and scattered bilateral pulmonary nodules suggestive of metastatic disease. CAT scan of the chest also showed compression deformity of the T4, T6 and T8 vertebral body with near complete height loss. There was another anterior medial inferior breast lesion measuring 16 x 13 mm on the right. Most recent echocardiography showed an ejection fraction of 55 to 60%. No evidence of any valvular heart disease. Other comorbidities include cervical cancer, peripheral vascular disease, hypertension, hyperlipidemia, previous colostomy that was performed for an underlying rectal prolapse, blindness in the left eye, osteoporosis and osteoarthritis and chronic anxiety and depression. Following her current hospitalization, the patient was found to be quite lethargic and obtunded. Based on that, the patient was placed on a BiPAP and the BiPAP is still running at a pressure of 10/5 cm of water with an FiO2 of 50%. At the time of my evaluation, the patient was arousable and she was following commands and answering questions while wearing the BiPAP. She seems to be less short of breath. She was however actively bronchospastic and wheezy. She is a chronic smoker. Denies having any chest pain. Limited cough. No significant sputum production. The white cell count 11.8 with a hemoglobin 12.8 and a platelet count of 251. Sodium levels are at 124, chloride is 81, bicarb is at 36, BUN is 10 with a creatinine of 0.35. The patient does have chronic hyponatremia and this was also present during her last hospitalization. Her serum albumin is at 3.8 with a total protein of 6.1. LFTs were abnormal and elevated probably due to underlying metastatic liver disease involvement. On 07/18/2024, the patient is awake and alert and communicating. She was taken off the BiPAP and currently she is on 3 L of oxygen by nasal cannula. Noted the patient was being treated with a BiPAP pressure of 16 over 5 cm of water throughout the day yesterday. She is able to communicate. Less bronchospastic and wheezy compared to yesterday. Significant debilitated with advanced lung disease and a large bulky left upper lobe mass extending to the mediastinum. The patient is aware of the CAT scan findings and this was discussed with the patient at length in the presence of her . Normal CO2 narcosis. Cough and congestion is still present. Remains bronchospastic and wheezy. The patient was seen today July 19, 2024 in follow-up on the selective care unit . She is currently resting in bed. Currently on BiPAP 10/5 and 50% FiO2. Glucose 116. She remains on DuoNeb inhalations, Pulmicort inhalations, Solu- Medrol. She remains quite debilitated secondary to advanced lung disease and a large bulky left upper lobe mass extending into the mediastinum. Her is at the bedside. They are considering hospice. Objective - Vital Signs Vital signs: Vital Signs Temp 96.4 F L 07/19/24 04:00 Pulse 95 07/19/24 11:43 Resp 15 07/19/24 11:43 BP 152/71 07/19/24 08:28 Pulse Ox 100 07/19/24 08:28 FiO2 50 07/19/24 11:43 Intake & Output 07/18/24 07/19/24 07/19/24 18:59 06:59 18:59 Intake Total 20 Balance 20 Weight 53.5 kg Intake: IV 20 0.9 20 Other: Voiding Method Bedside Commode Bedside Commode Bedside Commode Diaper Diaper Incontinent Incontinent - Exam General: The patient is a 69-year-old female patient, ill-looking, quite debilitated, currently on BiPAP 10/5 and 50% FiO2 Head exam is unremarkable. No scleral icterus or corneal arcus noted. Neck is without jugular venous distension, thyromegaly, or carotid bruits. Carotid upstrokes are brisk bilaterally. Lungs reveal thoracic kyphosis, diminished breath sounds bilaterally with diffuse expiratory wheezes throughout the lung fontanez bilaterally Cardiac exam reveals the PMI to be normally sized and situated. Rhythm is regular. First and second heart sounds normal. No murmurs, rubs or gallops. Abdominal exam reveals normal bowel sounds, no masses, no organomegaly and no aortic enlargement. The patient has a colostomy which is functional Extremities are nonedematous and both femoral and pedal pulses are normal. Examination of the skin revealed no evidence of significant rashes, suspicious appearing nevi or other concerning lesions. Neurologically, the patient is awake and alert and the patient does not have any focal neurological deficit. Cranial nerves are essentially intact. - Labs CBC & Chem 7: 07/17/24 05:13 07/17/24 05:13 Labs: Abnormal Lab Results - Last 24 Hours (Table) 07/19/24 Range/Units 06:01 POC Glucose (mg/dL) 116 H (70-110) mg/dL Assessment and Plan Assessment: Acute on chronic hypoxic respiratory failure, essentially related to COPD exacerbation. The patient was quite obtunded at time of admission and she seems to be more arousable currently on a BiPAP at a pressure of 10 over 5 cm of water with an FiO2 of 50%. Her mental status is gradually improving while being on a BiPAP. This was probably due to an acute COPD exacerbation as the patient is less chronic oxygen dependent COPD with chronic hypoxic and hypercapnic respiratory failure. Diminished level of consciousness secondary to hypercapnic respiratory failure. Possibility of underlying hepatic encephalopathy cannot be ruled out as the patient has metastatic disease involving the liver Advanced oxygen dependent COPD maintained on oxygen 3 L/min nasal cannula on outpatient basis Lung mass suggestive of locally advanced/metastatic lung cancer. The CAT scan of the chest that was done on 07/09/2024 showed a left upper lobe/apical mass extending to the mediastinum. Mediastinum is full and the mass is measuring around 6.9 x 8.3 x 8.5 cm in size with significant lymphadenopathy involving the AP window. The patient also has multiple smaller subcentimeter pulmonary nodules scattered throughout the lung fontanez bilaterally, highly suggestive of metastatic disease. In addition, the patient has a left adrenal nodule measuring 16 mm in size, suggestive of metastatic disease. The patient has more than 20 liver metastatic lesions. Final diagnosis been established Coronary artery disease with recent hospitalization for an acute myocardial infarction. The patient was found to have a patent RCA stent History of cervical cancer History of stomach ulcer Peripheral vascular disease Chronic smoker and the patient admits to smoking 1/2 pack of cigarettes on a daily basis Hypochloremic hyponatremia. This is probably due to hypovolemia. Possibility of a tumor induced SIADH cannot be completely ruled out. Hypertension Hyperlipidemia Previous stenting of the right iliac artery with an underlying peripheral vascular disease History of rectal prolapse with a previous colostomy History of blindness in the left eye related to a previous toxo infection History of adrenal insufficiency History of compression fracture of the spine with obvious thoracic kyphosis Osteoporosis Osteoarthritis Chronic anxiety/depression Poor based on performance and functional status Plan: The patient was seen and evaluated Labs and medications reviewed Currently on BiPAP 10/5 and 50% FiO2 Mentation has been waxing and waning Continue DuoNeb inhalations Continue Solu-Medrol Her is at the bedside All of their questions were answered Transitioned to a DNR CODE STATUS Considering hospice, possibly today I have personally seen and examined the patient, performed the documentation and the assessment and plan as written. Number of minutes spent on the visit: 10 Dictation was produced using [employer] dictation software. Please excuse any grammatical, word or spelling errors.
--- NOTE | 2024-07-20 08:56 | P.DS ---
Providers Date of admission: 07/17/24 05:57 Expected date of discharge: 07/19/24 Attending physician: Jessica Ching Consults: 07/17/24 05:57 Consult Physician Routine Consulting Provider: Yogi Wilson Consult Reason/Comments: COPD/BiPAP Do you want consulting provider notified?: Yes Primary care physician: Jase Stewart [facility] Course: Final diagnosis Chronic obstructive pulmonary disease acute exacerbation with acute hypoxic respiratory failure, BiPAP dependent now Change in mental status, acute metabolic encephalopathy likely secondary to above Diffuse aches and pains Possible lung cancer with possibly advanced metastatic lung cancer Coronary artery disease History of cervical cancer History of myocardial infarction History of osteoarthritis History of chronic back pain 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 Family and patient are agreeable to comfort measures. Total time taken is greater than 35 minutes. Hospital course This is a 69-year-old female who was recently admitted after being discharged 1 day prior for increasing shortness of breath along with COPD exacerbation and change in mental status. Patient was recently hospitalized and discharged in persistent ongoing home with family although once arriving home returned with increasing shortness of breath and difficulty taking care of self. Family requested informational hospice and has met with [facility] and is signing on hospice meeting [facility] criteria as patient is requiring IV pain medications [id number] every hour as well as is now becoming BiPAP dependent since last night. Patient desats quickly and unable to tolerate once off BiPAP. Patient will be flipping to [facility] hospice comfort measures only. Morphine drip wi ll be initiated. Please refer to other consultation notes for further HPI. Patient is extremely anxious and short of breath and has also been receiving Ativan for anxiety. Currently continued reports of shortness of breath, denies chest pain or palpitations. Patient is afebrile. Patient is not tolerating much diet. Patient will be transition to [facility] comfort measures only. Overall poor and guarded prognosis Physical exam: Gen: This is a 69-year-old female who is awake, alert and oriented x 1-2, lethargic at times, anxious, mildly restless, thin built, elderly appearing, ill-appearing HEENT: Head is atraumatic, normocephalic. Pupils equal, round. Sclerae is anicteric. NECK: Supple. No JVD. No lymphadenopathy. No thyromegaly. LUNGS: Diminished breath sounds bilaterally with scattered expiratory wheezes and coarse rhonchi. No intercostal retractions. HEART: S1, S2 are muffled ABDOMEN: Soft. Thin. Bowel sounds are present. No masses. No tenderness. EXTREMITIES: No pedal edema. No calf tenderness. Generalized lower extremity edema NEUROLOGICAL: Patient is awake, alert and oriented x2. Cranial nerves 2 through 12 are grossly intact. Diffusely weak Please refer to medication reconciliation sheet for a list of medications. The impression and plan of care has been dictated by Kiersten Reyes, Nurse Practitioner as directed. Dr. Rishabh MD I have performed a history and examination and MDM of this patient, discussed the same with the dictator, and agree with the dictator's assessment and plan as written ,documented as a scribe. Based on total visit time, I have performed more than 50% of the visit. Patient Condition at Discharge: Poor Plan - Discharge Summary Discharge Rx Participant: No New Discharge Prescriptions: No Action rOPINIRole HCL [Requip] 1 mg PO HS Nitroglycerin Sl Tabs [Nitrostat] 0.4 mg SL Q5M PRN PRN Reason: Chest Pain Rosuvastatin [Crestor] 20 mg PO DAILY Omalizumab [Xolair] 300 mg SQ Q14D Thiamine [Vitamin B-1] 100 mg PO DAILY Ibuprofen [Motrin] 800 mg PO TID PRN PRN Reason: Pain hydrOXYzine HCL [Atarax] 50 mg PO BID Hydrocortisone [Cortef] 12.5 mg PO DAILY@0800 Folic Acid 1 mg PO DAILY Fluticasone/Umeclidin/Vilanter [Trelegy Ellipta 200-62.5-25] 1 puff INHALATION RT-DAILY Fluticasone Nasal [place] [Flonase Nasal [place]] 2 spr EA NOSTRIL BID busPIRone HCL [Buspar] 7.5 mg PO BID EPINEPHrine (Auto Inject) [Epipen] 0.3 mg IM ONCE PRN PRN Reason: Anaphylaxis Aspirin 81 mg PO DAILY #30 tab carvediloL [Coreg] 3.125 mg PO BID-W/MEALS #60 tab amLODIPine [Norvasc] 2.5 mg PO DAILY #30 tab Montelukast Sodium [Singulair] 10 mg PO HS Latanoprost [Xalatan 0.005%] 1 drop BOTH EYES HS Ipratropium-Albuterol Nebulize [Duoneb 0.5 mg-3 mg/3 ml Soln] 3 ml INHALATION RT-QID Albuterol Inhaler [Ventolin Hfa Inhaler] 2 puff INHALATION RT-QID PRN PRN Reason: Shortness Of Breath traZODone HCL [Desyrel] 100 mg PO HS Pantoprazole [Protonix] 40 mg PO DAILY Linaclotide [Linzess] 145 mcg PO DAILY Lactulose 10 gm PO TID Escitalopram [Lexapro] 20 mg PO DAILY Budesonide [Pulmicort] 0.5 mg INHALATION RT-BID ARIPiprazole [Abilify] 20 mg PO DAILY Omalizumab [Xolair] 75 mg SQ Q14D HYDROcodone/APAP 5-325MG [[place] 5-325] 1 tab PO BID Colchicine [Colcrys] 0.3 mg PO BID 30 Days #120 each Hydrocortisone [Cortef] 2.5 mg PO 1400,1700 #60 tab Ipratropium-Albuterol Nebulize [Duoneb 0.5 mg-3 mg/3 ml Soln] 3 ml INHALATION RT-Q2H PRN each PRN Reason: Shortness Of Breath Or Wheezing Clopidogrel [Plavix] 75 mg PO DAILY #30 tab Discharge Medication List rOPINIRole HCL [Requip] 1 mg PO HS 01/25/14 [History] Nitroglycerin Sl Tabs [Nitrostat] 0.4 mg SL Q5M PRN 08/11/19 [History] Latanoprost [Xalatan 0.005%] 1 drop BOTH EYES HS 07/18/20 [History] Montelukast Sodium [Singulair] 10 mg PO HS 07/18/20 [History] Albuterol Inhaler [Ventolin Hfa Inhaler] 2 puff INHALATION RT-QID PRN 07/06/21 [History] Ipratropium-Albuterol Nebulize [Duoneb 0.5 mg-3 mg/3 ml Soln] 3 ml INHALATION RT-QID 07/06/21 [History] Rosuvastatin [Crestor] 20 mg PO DAILY 07/06/21 [History] Omalizumab [Xolair] 300 mg SQ Q14D 11/13/22 [History] ARIPiprazole [Abilify] 20 mg PO DAILY 07/11/24 [History] Budesonide [Pulmicort] 0.5 mg INHALATION RT-BID 07/11/24 [History] EPINEPHrine (Auto Inject) [Epipen] 0.3 mg IM ONCE PRN 07/11/24 [History] Escitalopram [Lexapro] 20 mg PO DAILY 07/11/24 [History] Fluticasone Nasal [place] [Flonase Nasal [place]] 2 spr EA NOSTRIL BID 07/11/24 [History] Fluticasone/Umeclidin/Vilanter [Trelegy Ellipta 200-62.5-25] 1 puff INHALATION RT-DAILY 07/11/24 [History] Folic Acid 1 mg PO DAILY 07/11/24 [History] HYDROcodone/APAP 5-325MG [[place] 5-325] 1 tab PO BID 07/11/24 [History] Hydrocortisone [Cortef] 12.5 mg PO DAILY@0800 07/11/24 [History] Ibuprofen [Motrin] 800 mg PO TID PRN 07/11/24 [History] Lactulose 10 gm PO TID 07/11/24 [History] Linaclotide [Linzess] 145 mcg PO DAILY 07/11/24 [History] Omalizumab [Xolair] 75 mg SQ Q14D 07/11/24 [History] Pantoprazole [Protonix] 40 mg PO DAILY 07/11/24 [History] Thiamine [Vitamin B-1] 100 mg PO DAILY 07/11/24 [History] busPIRone HCL [Buspar] 7.5 mg PO BID 07/11/24 [History] hydrOXYzine HCL [Atarax] 50 mg PO BID 07/11/24 [History] traZODone HCL [Desyrel] 100 mg PO HS 07/11/24 [History] Aspirin 81 mg PO DAILY #30 tab 07/15/24 [Rx] Clopidogrel [Plavix] 75 mg PO DAILY #30 tab 07/15/24 [Rx] Colchicine [Colcrys] 0.3 mg PO BID 30 Days #120 each 07/15/24 [Rx] Hydrocortisone [Cortef] 2.5 mg PO 1400,1700 #60 tab 07/15/24 [Rx] Ipratropium-Albuterol Nebulize [Duoneb 0.5 mg-3 mg/3 ml Soln] 3 ml INHALATION RT-Q2H PRN each 07/15/24 [Rx] amLODIPine [Norvasc] 2.5 mg PO DAILY #30 tab 07/15/24 [Rx] carvediloL [Coreg] 3.125 mg PO BID-W/MEALS #60 tab 07/15/24 [Rx] Follow up Appointment(s)/Referral(s): Jase Stewart DO [Primary Care Provider] - 1-2 days Discharge Disposition: HOME WITH HOSPICE
== END 2024-07-19 12:30 | disposition hospice, inpatient (51) | DRG 189 ==
LOC: EC 04:47 → 3SCARD 05:57
PROVIDERS: ADMIT Internal Medicine; ATTEND Internal Medicine
PROC: 5A09457 Assistance with Respiratory Ventilation, 24-96 Consecutive Hours, Continuous Positive Airway Pressure (ICD-10-PCS; principal; 2024-07-17)
DX: J96.21 Acute and chronic respiratory failure with hypoxia (principal); G93.41 Metabolic encephalopathy; C78.7 Secondary malignant neoplasm of liver and intrahepatic bile duct; C34.12 Malignant neoplasm of upper lobe, left bronchus or lung; E87.1 Hypo-osmolality and hyponatremia; Z51.5 Encounter for palliative care; Z66 Do not resuscitate; J44.1 Chronic obstructive pulmonary disease with (acute) exacerbation; E86.1 Hypovolemia; E78.5 Hyperlipidemia, unspecified; I73.9 Peripheral vascular disease, unspecified; I10 Essential (primary) hypertension; F32.A Depression, unspecified; J96.12 Chronic respiratory failure with hypercapnia; Z93.3 Colostomy status; E87.8 Other disorders of electrolyte and fluid balance, not elsewhere classified; F17.210 Nicotine dependence, cigarettes, uncomplicated; F41.9 Anxiety disorder, unspecified; M81.0 Age-related osteoporosis without current pathological fracture; I25.10 Atherosclerotic heart disease of native coronary artery without angina pectoris; M19.90 Unspecified osteoarthritis, unspecified site; Z99.81 Dependence on supplemental oxygen; Z85.41 Personal history of malignant neoplasm of cervix uteri; Z87.11 Personal history of peptic ulcer disease; I25.2 Old myocardial infarction; Z79.899 Other long term (current) drug therapy; Z88.0 Allergy status to penicillin; Z79.02 Long term (current) use of antithrombotics/antiplatelets; Z79.82 Long term (current) use of aspirin; Z90.710 Acquired absence of both cervix and uterus; Z95.5 Presence of coronary angioplasty implant and graft; Z96.643 Presence of artificial hip joint, bilateral
CPT/HCPCS: 36415; 71045; 80053; 82140; 82803; 83605; 83735; 83880; 85025; 85610; 85730; 93005; 94640; 94660; 94760; 96374; 96375; 99291

== ENCOUNTER 2024-07-19 12:20 | Inpatient (IN) | payer MEDICAID ==
[2024-07-19] MEDS ORDERED: DRY MOUTH SPRAY 59 SPRAY/59 ML SPRAY MUCOUS MEM PRN (12:21)
[2024-07-19] MEDS ORDERED: ONDANSETRON 4 MG/2 ML VIAL IVP PRN (12:21)
[2024-07-19] MEDS ORDERED: GLYCOPYRROLATE 0.2 MG/ML 2 ML VIAL IVP PRN (12:21)
[2024-07-19] MEDS ORDERED: ATROPINE OPHTH SOLN 1% 5ML BTL SUBLINGUAL PRN (12:21)
[2024-07-19] MEDS ORDERED: ACETAMINOPHEN SUPPOSITORY 650 MG SUPP RECTAL PRN (12:21)
[2024-07-19] MEDS ORDERED: MORPHINE SULFATE 4 MG/ML SYRINGE IV PRN (12:21)
[2024-07-19] MEDS: MORPHINE SULFATE 100 MG in SODIUM CHLORIDE 0.9% 90 ML IV SCH (13:43)
[2024-07-19] MEDS: LORazepam 1 MG/0.5 ML VIAL IV PRN (13:46)
[2024-07-19] MEDS: SCOPOLAMINE 1 MG/72 HR PATCH TRANSDERM SCH (19:55)
--- NOTE | 2024-07-20 09:00 | P.HPIM ---
History of Present Illness H&P Date: 07/19/24 This is a 69-year-old female who was recently admitted after being discharged 1 day prior for increasing shortness of breath along with COPD exacerbation and change in mental status. Patient was recently hospitalized and discharged in persistent ongoing home with family although once arriving home returned with increasing shortness of breath and difficulty taking care of self. Family requested informational hospice and has met with [facility] and is signing on hospice meeting [facility] criteria as patient is requiring IV pain medications [id number] every hour as well as is now becoming BiPAP dependent since last night. Patient desats quickly and unable to tolerate once off BiPAP. Patient will be flipping to [facility] hospice comfort measures only. Morphine drip will be initiated. Please refer to other consultation notes for further HPI. Patient is extremely anxious and short of breath and has also been receiving Ativan for anxiety. Currently continued reports of shortness of breath, denies chest pain or palpitations. Patient is afebrile. Patient is not tolerating much diet. Patient will be transition to [facility] comfort measures only. Overall poor and guarded prognosis Review of systems: Constitutional: No reports of fatigue, fever, or chills Cardiovascular: No reports of chest pain or palpitations Respiratory: reports of severe shortness of breath GI: No reports of nausea, vomiting, or diarrhea, not much of an appetite : No reports of dysuria or retention Neurovascular: reports of weakness with back pain and extreme anxiety Physical exam: Gen: This is a 69-year-old female who is awake, alert and oriented x 1-2, lethargic at times, anxious, mildly restless, thin built, elderly appearing, ill-appearing HEENT: Head is atraumatic, normocephalic. Pupils equal, round. Sclerae is anicteric. NECK: Supple. No JVD. No lymphadenopathy. No thyromegaly. LUNGS: Diminished breath sounds bilaterally with scattered expiratory wheezes and coarse rhonchi. No intercostal retractions. HEART: S1, S2 are muffled ABDOMEN: Soft. Thin. Bowel sounds are present. No masses. No tenderness. EXTREMITIES: No pedal edema. No calf tenderness. Generalized lower extremity edema NEUROLOGICAL: Patient is awake, alert and oriented x2. Cranial nerves 2 through 12 are grossly intact. 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 Patient desats quickly once off the BiPAP and unable to tolerate. Family and patient are agreeable to hospice comfort measures only and will likely be initiated on morphine drip and wean off BiPAP Overall poor and guarded prognosis We will continue to follow along with [facility] Please refer to medication reconciliation sheet for a list of medications. The impression and plan of care has been dictated by Kiersten Reyes, Nurse Practitioner as directed. Dr. Rishabh MD I have performed a history and examination and MDM of this patient, discussed the same with the dictator, and agree with the dictator's assessment and plan as written ,documented as a scribe. Based on total visit time, I have performed more than 50% of the visit. Past Medical History Past Medical History: Coronary Artery Disease (CAD), Cancer, Chest Pain / Angina, COPD, Eye Disorder, GERD/Reflux, Hyperlipidemia, Hypertension, Myocardial Infarction ([place]), Musculoskeletal Disorder, Osteoarthritis (OA), Pneumonia, Skin Disorder, Thyroid Disorder Additional Past Medical History / Comment(s): Hx Covid/Pleurisy and Pneumonia 09/14/20. Colostomy due to rectal prolapse. Osteoporosis, Degnerative Disc Disease, Restless Leg Syndrome, multiple compression fractures in back, chronic back pain. Hx balance problems/falls, none since stopping Lamictal. 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 Varicose veins, poor circulation. Asthmatic bronchitis. Discoloration/bruises on bilateral arms. Stress urinary incontinence. Hx cervical cancer. Hypoglycemia, adrenal insufficency. Edema left lower leg. O2 2-3L PRN. Hx stomach ulcer many yrs ago. Hx low thyroid, ok now. Cardiac stent and stent behind one knee (not sure whichknee) Last Myocardial Infarction Date:: 08/06/19 History of Any Multi-Drug Resistant Organisms: None Reported Past Surgical History: Bowel Resection, Heart Catheterization, Heart Catheterization With Stent, Hysterectomy, Joint Replacement, Tonsillectomy, Tubal Ligation Additional Past Surgical History / Comment(s): Colostomy, bilateral hip replacements, abdominal aortogram, colonoscopy. Past Anesthesia/Blood Transfusion Reactions: Previous Problems w/ Anesthesia, Motion Sickness, Postoperative Nausea & Vomiting (PONV) Additional Past Anesthesia/Blood Transfusion Reaction / Comment(s): BP "bottomed out" with colonoscopy years ago. Date of Last Stent Placement:: 08/06/19 Past Psychological History: Anxiety, Depression, Panic Disorder Smoking Status: Current every day smoker Past Alcohol Use History: Occasional Past Drug Use History: Marijuana - Past Family History Mother Family Medical History: Cancer Additional Family Medical History / Comment(s): Colon cancer. DEPRESSION, ANXIETY, ITCH AND CLAW HER HEAD EVERY NIGHT AND NOW I'M DOING IT) Father Family Medical History: Coronary Artery Disease (CAD) Additional Family Medical History / Comment(s): CABG./NARCOLEPSY (GUILLERMOEER HAD COLON CA, DEPRESSION/ANXIETY, ITCH AND CLAW HER HEAD EVERYNIGHT & NOW I'M DOING IT) Brother(s) Family Medical History: Cancer, Coronary Artery Disease (CAD) Additional Family Medical History / Comment(s): CABG. Lymph node cancer. Medications and Allergies Home Medications Medication Instructions Recorded Confirmed Type rOPINIRole HCL [Requip] 1 mg PO HS 01/25/14 07/19/24 History Nitroglycerin Sl Tabs [Nitrostat] 0.4 mg SL Q5M PRN 08/11/19 07/19/24 History Latanoprost [Xalatan 0.005%] 1 drop BOTH EYES HS 07/18/20 07/19/24 History Montelukast Sodium [Singulair] 10 mg PO HS 07/18/20 07/19/24 History Albuterol Inhaler [Ventolin Hfa 2 puff INHALATION RT-QID PRN 07/06/21 07/19/24 History Inhaler] Ipratropium-Albuterol Nebulize 3 ml INHALATION RT-QID 07/06/21 07/19/24 History [Duoneb 0.5 mg-3 mg/3 ml Soln] Rosuvastatin [Crestor] 20 mg PO DAILY 07/06/21 07/19/24 History Omalizumab [Xolair] 300 mg SQ Q14D 11/13/22 07/19/24 History ARIPiprazole [Abilify] 20 mg PO DAILY 07/11/24 07/19/24 History Budesonide [Pulmicort] 0.5 mg INHALATION RT-BID 07/11/24 07/19/24 History EPINEPHrine (Auto Inject) [Epipen] 0.3 mg IM ONCE PRN 07/11/24 07/19/24 History Escitalopram [Lexapro] 20 mg PO DAILY 07/11/24 07/19/24 History Fluticasone Nasal [place] [Flonase 2 spr EA NOSTRIL BID 07/11/24 07/19/24 History Nasal [place]] Fluticasone/Umeclidin/Vilanter 1 puff INHALATION RT-DAILY 07/11/24 07/19/24 History [Trelegy Ellipta 200-62.5-25] Folic Acid 1 mg PO DAILY 07/11/24 07/19/24 History HYDROcodone/APAP 5-325MG [[place] 1 tab PO BID 07/11/24 07/19/24 History 5-325] Hydrocortisone [Cortef] 12.5 mg PO DAILY@0800 07/11/24 07/19/24 History Ibuprofen [Motrin] 800 mg PO TID PRN 07/11/24 07/19/24 History Lactulose 10 gm PO TID 07/11/24 07/19/24 History Linaclotide [Linzess] 145 mcg PO DAILY 07/11/24 07/19/24 History Omalizumab [Xolair] 75 mg SQ Q14D 07/11/24 07/19/24 History Pantoprazole [Protonix] 40 mg PO DAILY 07/11/24 07/19/24 History Thiamine [Vitamin B-1] 100 mg PO DAILY 07/11/24 07/19/24 History busPIRone HCL [Buspar] 7.5 mg PO BID 07/11/24 07/19/24 History hydrOXYzine HCL [Atarax] 50 mg PO BID 07/11/24 07/19/24 History traZODone HCL [Desyrel] 100 mg PO HS 03/30/25 04/07/25 History Aspirin 81 mg PO DAILY #30 tab 07/15/24 07/19/24 Rx Clopidogrel [Plavix] 75 mg PO DAILY #30 tab 07/15/24 07/19/24 Rx Colchicine [Colcrys] 0.3 mg PO BID 30 Days #120 each 07/15/24 07/19/24 Rx Hydrocortisone [Cortef] 2.5 mg PO 1400,1700 #60 tab 07/15/24 07/19/24 Rx Ipratropium-Albuterol Nebulize 3 ml INHALATION RT-Q2H PRN each 07/15/2411/05 Rx [Duoneb 0.5 mg-3 mg/3 ml Soln] amLODIPine [Norvasc] 2.5 mg PO DAILY #30 tab 07/15/24 07/19/24 Rx carvediloL [Coreg] 3.125 mg PO BID-W/MEALS #60 tab 07/15/24 07/19/24 Rx Allergies Allergy/AdvReac Type Severity Reaction Status Date / Time meperidine HCl [From Demerol] Allergy Severe Swelling Verified 07/17/24 04:54 Penicillins Allergy Rash/Hives Verified 07/17/24 04:54 erythromycin base AdvReac Abdominal Verified 07/17/24 04:54 Pain Physical Exam Vitals: Vital Signs FiO2 07/19/24 13:21 50 Intake and Output 07/18/24 07/19/24 07/19/24 22:59 06:59 14:59 Other: Weight 53.5 kg
[2024-07-20 23:16] VITALS: PULSE 122
--- NOTE | 2024-07-21 08:57 | P.PN ---
Subjective Progress Note Date: 07/20/24 This is a 69-year-old female who was recently admitted after being discharged 1 day prior for increasing shortness of breath along with COPD exacerbation and change in mental status. Patient was recently hospitalized and discharged in persistent ongoing home with family although once arriving home returned with increasing shortness of breath and difficulty taking care of self. Family requested informational hospice and has met with [facility] and is signing on hospice meeting [place] criteria as patient is requiring IV pain medications [id number] every hour as well as is now becoming BiPAP dependent since last night. Patient desats quickly and unable to tolerate once off BiPAP. Patient will be flipping to [place] hospice comfort measures only. Morphine drip will be initiated. Please refer to other consultation notes for further HPI. Patient is extremely anxious and short of breath and has also been receiving Ativan for anxiety. Currently continued reports of shortness of breath, denies chest pain or palpitations. Patient is afebrile. Patient is not tolerating much diet. Patient will be transition to [facility] comfort measures only. Overall poor and guarded prognosis 07/20/2024 Patient is seen in follow-up today continues on morphine drip at 4 mL/h being titrated and adjusted accordingly. Patient appears comfortable with [facility] following. Family members at the bedside with questions and concerns that were answered. We will continue to monitor at this time. Review of systems: Unable to obtain as patient is minimally responsive Active Medications Acetaminophen (Acetaminophen Suppository 650 Mg Supp) 650 mg RECTAL Q4HR PRN PRN Reason: Fever and/or Mild Pain Atropine Sulfate (Atropine Ophth Soln 1% 5ml Btl) 2 drops SUBLINGUAL Q4HR PRN PRN Reason: Excess Secretions Glycopyrrolate (Glycopyrrolate 0.2 Mg/Ml 2 Ml Vial) 0.1 mg IVP Q6HR PRN PRN Reason: Excess Secretions Morphine Sulfate 100 mg/ (Sodium Chloride) 100 mls @ 2 mls/hr IV .Q24H [facility]; Protocol Last Admin: 07/20/24 09:12 Dose: 4 mg/hr, 4 mls/hr Lorazepam (Lorazepam 1 Mg/0.5 Ml Vial) 1 mg IV Q2HR PRN PRN Reason: Anxiety Last Admin: 07/19/24 15:30 Dose: 1 mg Morphine Sulfate (Morphine Sulfate 4 Mg/Ml Syringe) 4 mg IV Q1HR PRN PRN Reason: See Label Comments Ondansetron HCl (Ondansetron 4 Mg/2 Ml Vial) 4 mg IVP Q8HR PRN PRN Reason: Nausea/emesis Saliva Substitute (Dry Mouth Morgan 59 Morgan/59 Ml Morgan) 1 spray MUCOUS MEM QID PRN PRN Reason: Dry Mouth Scopolamine (Scopolamine 1 Mg/72 Hr Patch) 1 patch TRANSDERM Q72H [facility] Last Admin: 07/19/24 19:55 Dose: 1 patch Physical exam: Gen: This is a 69-year-old female who is obtunded, unresponsive, thin built, elderly appearing, ill-appearing HEENT: Head is atraumatic, normocephalic. Pupils equal, round. Sclerae is anicteric. NECK: Supple. No JVD. No lymphadenopathy. No thyromegaly. LUNGS: Diminished breath sounds bilaterally with scattered expiratory wheezes and coarse rhonchi. No intercostal retractions. HEART: S1, S2 are muffled ABDOMEN: Soft. Thin. Bowel sounds are present. No masses. No tenderness. EXTREMITIES: No pedal edema. No calf tenderness. Generalized lower extremity edema NEUROLOGICAL: Patient is awake, alert and oriented x2. Cranial nerves 2 through 12 are grossly intact. 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 Patient desats quickly once off the BiPAP and unable to tolerate. Patient has been weaned off BiPAP maintained on nasal cannula and morphine drip currently at 4 mL/h Overall poor and guarded prognosis We will continue to follow along with [facility] Please refer to medication reconciliation sheet for a list of medications. The impression and plan of care has been dictated by Kiersten Reyes, Nurse Practitioner as directed. Dr. Rishabh MD I have performed a history and examination and MDM of this patient, discussed the same with the dictator, and agree with the dictator's assessment and plan as written ,documented as a scribe. Based on total visit time, I have performed more than 50% of the visit. Objective - Vital Signs Vital signs: Vital Signs Temp Pulse 109 H 07/20/24 04:00 Resp 6 L 07/20/24 04:00 BP Pulse Ox FiO2 50 07/19/24 13:21 Intake & Output 07/19/24 07/20/24 07/20/24 18:59 06:59 18:59 Intake Total 4.75 10 69.333 Output Total 200 Balance 4.75 -190 69.333 Weight 53.5 kg Intake: IV 10 Invasive Line 1 10 Intake, IV Titration 4.75 69.333 Amount Morphine Sulfate 100 mg 4.75 69.333 In Sodium Chloride 0.9% 90 ml @ 2 MG/HR 2 mls/hr IV .Q24H [place] Rx#: [id number] Output: Urine 200 Other: # Bowel Movements 0
[2024-07-21 15:33] VITALS: RESP 20
--- NOTE | 2024-07-22 15:04 | P.DS ---
Providers Date of admission: 07/19/24 12:33 Expected date of discharge: 07/21/24 Attending physician: Marleny Keating Primary care physician: [facility] Course: Preliminary cause of COPD exacerbation with respiratory failure Final diagnosis Chronic obstructive pulmonary disease acute exacerbation with acute hypoxic respiratory failure, BiPAP dependent now Change in mental status, acute metabolic encephalopathy likely secondary to above Diffuse aches and pains Possible lung cancer with possibly advanced metastatic lung cancer Coronary artery disease History of cervical cancer History of myocardial infarction History of osteoarthritis History of chronic back pain 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 Patient was recently hospitalized and discharged in persistent ongoing home with family although once arriving home returned with increasing shortness of breath and difficulty taking care of self. Family requested informational hospice and has met with [facility] and is signing on hospice meeting [facility] criteria as patient is requiring IV pain medications [id number] every hour as well as is now becoming BiPAP dependent since last night. Patient desats quickly and unable to tolerate once off BiPAP. Patient will be flipping to [facility] hospice comfort measures only. Morphine drip will be initiated. Please refer to other consultation notes for further HPI. Patient is extremely anxious and short of breath and has also been receiving Ativan for anxiety. Currently continued reports of shortness of breath, denies chest pain or palpitations. Patient is afebrile. Patient is not tolerating much diet. Patient has been transferred to [facility] comfort measures only. Overall poor and guarded prognosis 07/20/2024 Patient is seen in follow-up today continues on morphine drip at 4 mL/h being titrated and adjusted accordingly. Patient appears comfortable with [facility] following. Family members at the bedside with questions and concerns that were answered. We will continue to monitor at this time. 07/21/2024 Patient seen in follow-up and continued on morphine drip. Nursing staff notified patient has and time of is 1320 on 07/21/2024. The impression and plan of care has been dictated by Kiersten Reyes, Nurse Practitioner as directed. Dr. Rishabh MD I have performed a history and examination and MDM of this patient, discussed the same with the dictator, and agree with the dictator's assessment and plan as written ,documented as a scribe. Based on total visit time, I have performed more than 50% of the visit. Plan - Discharge Summary New Discharge Prescriptions: No Action rOPINIRole HCL [Requip] 1 mg PO HS Nitroglycerin Sl Tabs [Nitrostat] 0.4 mg SL Q5M PRN PRN Reason: Chest Pain Rosuvastatin [Crestor] 20 mg PO DAILY Omalizumab [Xolair] 300 mg SQ Q14D Thiamine [Vitamin B-1] 100 mg PO DAILY Ibuprofen [Motrin] 800 mg PO TID PRN PRN Reason: Pain hydrOXYzine HCL [Atarax] 50 mg PO BID Hydrocortisone [Cortef] 12.5 mg PO DAILY@0800 Folic Acid 1 mg PO DAILY Fluticasone/Umeclidin/Vilanter [Trelegy Ellipta 200-62.5-25] 1 puff INHALATION RT-DAILY Fluticasone Nasal Gleason [Flonase Nasal Gleason] 2 spr EA NOSTRIL BID busPIRone HCL [Buspar] 7.5 mg PO BID EPINEPHrine (Auto Inject) [Epipen] 0.3 mg IM ONCE PRN PRN Reason: Anaphylaxis Aspirin 81 mg PO DAILY #30 tab carvediloL [Coreg] 3.125 mg PO BID-W/MEALS #60 tab amLODIPine [Norvasc] 2.5 mg PO DAILY #30 tab Montelukast Sodium [Singulair] 10 mg PO HS Latanoprost [Xalatan 0.005%] 1 drop BOTH EYES HS Ipratropium-Albuterol Nebulize [Duoneb 0.5 mg-3 mg/3 ml Soln] 3 ml INHALATION RT-QID Albuterol Inhaler [Ventolin Hfa Inhaler] 2 puff INHALATION RT-QID PRN PRN Reason: Shortness Of Breath traZODone HCL [Desyrel] 100 mg PO HS Pantoprazole [Protonix] 40 mg PO DAILY Linaclotide [Linzess] 145 mcg PO DAILY Lactulose 10 gm PO TID Escitalopram [Lexapro] 20 mg PO DAILY Budesonide [Pulmicort] 0.5 mg INHALATION RT-BID ARIPiprazole [Abilify] 20 mg PO DAILY Omalizumab [Xolair] 75 mg SQ Q14D HYDROcodone/APAP 5-325MG [[place] 5-325] 1 tab PO BID Colchicine [Colcrys] 0.3 mg PO BID 30 Days #120 each Hydrocortisone [Cortef] 2.5 mg PO 1400,1700 #60 tab Ipratropium-Albuterol Nebulize [Duoneb 0.5 mg-3 mg/3 ml Soln] 3 ml INHALATION RT-Q2H PRN each PRN Reason: Shortness Of Breath Or Wheezing Clopidogrel [Plavix] 75 mg PO DAILY #30 tab Discharge Medication List rOPINIRole HCL [Requip] 1 mg PO HS 01/25/14 [History] Nitroglycerin Sl Tabs [Nitrostat] 0.4 mg SL Q5M PRN 08/11/19 [History] Latanoprost [Xalatan 0.005%] 1 drop BOTH EYES HS 07/18/20 [History] Montelukast Sodium [Singulair] 10 mg PO HS 07/18/20 [History] Albuterol Inhaler [Ventolin Hfa Inhaler] 2 puff INHALATION RT-QID PRN 07/06/21 [History] Ipratropium-Albuterol Nebulize [Duoneb 0.5 mg-3 mg/3 ml Soln] 3 ml INHALATION RT-QID 07/06/21 [History] Rosuvastatin [Crestor] 20 mg PO DAILY 07/06/21 [History] Omalizumab [Xolair] 300 mg SQ Q14D 11/13/22 [History] ARIPiprazole [Abilify] 20 mg PO DAILY 07/11/24 [History] Budesonide [Pulmicort] 0.5 mg INHALATION RT-BID 07/11/24 [History] EPINEPHrine (Auto Inject) [Epipen] 0.3 mg IM ONCE PRN 07/11/24 [History] Escitalopram [Lexapro] 20 mg PO DAILY 07/11/24 [History] Fluticasone Nasal Gleason [Flonase Nasal Gleason] 2 spr EA NOSTRIL BID 07/11/24 [History] Fluticasone/Umeclidin/Vilanter [Trelegy Ellipta 200-62.5-25] 1 puff INHALATION RT-DAILY 07/11/24 [History] Folic Acid 1 mg PO DAILY 07/11/24 [History] HYDROcodone/APAP 5-325MG [[place] 5-325] 1 tab PO BID 07/11/24 [History] Hydrocortisone [Cortef] 12.5 mg PO DAILY@0800 07/11/24 [History] Ibuprofen [Motrin] 800 mg PO TID PRN 07/11/24 [History] Lactulose 10 gm PO TID 07/11/24 [History] Linaclotide [Linzess] 145 mcg PO DAILY 07/11/24 [History] Omalizumab [Xolair] 75 mg SQ Q14D 07/11/24 [History] Pantoprazole [Protonix] 40 mg PO DAILY 07/11/24 [History] Thiamine [Vitamin B-1] 100 mg PO DAILY 07/11/24 [History] busPIRone HCL [Buspar] 7.5 mg PO BID 07/11/24 [History] hydrOXYzine HCL [Atarax] 50 mg PO BID 07/11/24 [History] traZODone HCL [Desyrel] 100 mg PO HS 07/11/24 [History] Aspirin 81 mg PO DAILY #30 tab 07/15/24 [Rx] Clopidogrel [Plavix] 75 mg PO DAILY #30 tab 07/15/24 [Rx] Colchicine [Colcrys] 0.3 mg PO BID 30 Days #120 each 07/15/24 [Rx] Hydrocortisone [Cortef] 2.5 mg PO 1400,1700 #60 tab 07/15/24 [Rx] Ipratropium-Albuterol Nebulize [Duoneb 0.5 mg-3 mg/3 ml Soln] 3 ml INHALATION RT-Q2H PRN each 07/15/24 [Rx] amLODIPine [Norvasc] 2.5 mg PO DAILY #30 tab 07/15/24 [Rx] carvediloL [Coreg] 3.125 mg PO BID-W/MEALS #60 tab 07/15/24 [Rx] Discharge Disposition: - Preliminary Cause of Preliminary Cause of : Chronic obstructive pulmonary disease with respiratory failure
== END 2024-07-21 16:03 | disposition expired | DRG 951 ==
LOC: 3SCARD 12:33
PROVIDERS: ADMIT Hospitalist; ATTEND Hospitalist
DX: Z51.5 Encounter for palliative care (principal); J96.01 Acute respiratory failure with hypoxia; G93.41 Metabolic encephalopathy; C79.89 Secondary malignant neoplasm of other specified sites; Z66 Do not resuscitate; C34.90 Malignant neoplasm of unspecified part of unspecified bronchus or lung; J44.1 Chronic obstructive pulmonary disease with (acute) exacerbation; F32.A Depression, unspecified; I10 Essential (primary) hypertension; G25.81 Restless legs syndrome; Z93.3 Colostomy status; I25.10 Atherosclerotic heart disease of native coronary artery without angina pectoris; I25.2 Old myocardial infarction; M81.0 Age-related osteoporosis without current pathological fracture; E78.5 Hyperlipidemia, unspecified; F17.200 Nicotine dependence, unspecified, uncomplicated; F41.9 Anxiety disorder, unspecified; G89.29 Other chronic pain; Z79.02 Long term (current) use of antithrombotics/antiplatelets; Z79.82 Long term (current) use of aspirin; Z79.899 Other long term (current) drug therapy; Z85.41 Personal history of malignant neoplasm of cervix uteri; Z95.5 Presence of coronary angioplasty implant and graft